=== PATIENT | male | born 1940 | race Caucasian/White ===

== ENCOUNTER 2016-10-17 12:04 | Outpatient (CLI) ==
[2014-09-07 19:56] VITALS: BMI 4979.6
[2016-10-17 13:39] LABS: BASOPHILS % (AUTO) 0.6 % (0.0-3.0); EOSINOPHILS # (AUTO) 0.1 K/ul (0.0-0.7); EOSINOPHILS % (AUTO) 2.1 % (0.0-7.0); HEMATOCRIT 44.5 % (42.0-52.0); HEMOGLOBIN 14.8 g/dl (14.0-18.0); IMMATURE GRANULOCYTE % (AUTO) 0.6 % (0.0-5.0); LYMPHOCYTES # (AUTO) 1.4 K/uL (0.60-3.4); LYMPHOCYTES % (AUTO) 27.1 (10.0-50.0); MEAN CORPUSCULAR HEMOGLOBIN 31.5 pg (27.0-31.0); MEAN CORPUSCULAR HGB CONC 33.3 (31.8-35.4); MEAN CORPUSCULAR VOLUME 94.7 fl (80.0-94.0); MONOCYTES # (AUTO) 0.5 K/uL (0.4-2.0); MONOCYTES % (AUTO) 10.4 (0-10); NEUTROPHILS % (AUTO) 59.2; PLATELET COUNT 137 10^3/uL (140-440); WHITE BLOOD COUNT 5.12 K/ul (4.2-10.2)
[2016-10-17 13:50] LABS: ALBUMIN 3.8 g/dL (3.4-5.0); ALBUMIN/GLOBULIN RATIO 1.31; ANION GAP 17.2; BILIRUBIN,TOTAL 0.68 mg/dL (0.00-1.20); BUN/CREATININE RATIO 15.95; CALCIUM 9.7 mg/dL (8.2-10.2); CHOL/HDL RATIO 4.8 (4.5-6.4); CREATININE 0.94 mg/dL (0.60-1.10); POTASSIUM 4.2 mmol/L (3.5-5.1); TOTAL PROTEIN 6.7 g/dL (5.8-8.1)
[2016-10-17 14:09] LABS: BILIRUBIN,URINE Negative (NEGATIVE); KETONES,URINE 1+ (NEGATIVE); LEUKOCYTE ESTERASE ,URINE Negative (NEGATIVE); NITRITE,URINE Negative (NEGATIVE); PH,URINE 5.5 (5-9); PROTEIN,URINE 2+ (NEGATIVE); URINE, BLOOD Negative (NEGATIVE)
[2016-10-17 14:23] LABS: ADD URINE MICROSCOPIC YES
== END 2016-10-17 12:05 | disposition home or self-care (01) ==
LOC: LAB 12:04
PROVIDERS: ATTEND General Practice
DX: E11.40 Type 2 diabetes mellitus with diabetic neuropathy, unspecified (principal); G62.9 Polyneuropathy, unspecified; I10 Essential (primary) hypertension; K21.9 Gastro-esophageal reflux disease without esophagitis; N18.9 Chronic kidney disease, unspecified; H81.10 Benign paroxysmal vertigo, unspecified ear; N40.0 Benign prostatic hyperplasia without lower urinary tract symptoms; E03.9 Hypothyroidism, unspecified; G47.33 Obstructive sleep apnea (adult) (pediatric); D64.9 Anemia, unspecified; Z79.899 Other long term (current) drug therapy
CPT/HCPCS: 36415; 80053; 80061; 81001; 83036; 85025

== ENCOUNTER 2016-10-20 13:09 | Outpatient (CLI) ==
[2014-09-07 19:56] VITALS: BMI 4979.6
--- NOTE | 2016-10-23 08:18 | HOLTER ---
PATIENT INFORMATION AND COMMENTS Indications: IRREGULAR HEARTBEAT __ Patient Medications: COREG, SYNTHROID, COZAAR, POTASSIUM CHLORIDE, INFUVITE, FLOMAX __ Pre-procedure Summary: Protocol: Standard Heart Rate Started: 10/20/16 1325 Minimum: 60/MIN Weight: 276 LBS Ended: 10/21/16 1325 Maximum: 151/MIN Height: 72" Duration: 24 HOURS Average: 95/MIN _ INTERPRETATIONS/OBSERVATIONS: 1. BASIC RHYTHM: SINUS TO A-FIB, A-FIB/SUPRAVENTRICULAR TACHYCARDIA INTERMITTENTLY WITH SINUS RHYTHM NOTED, RATE 60/MINUTE TO 150/MINUTE, AVERAGE 95 /MINUTE 2. FEW PVC'S AND FREQUENT PAC'S 3. NO PAUSES GREATER THAN 1.[address]-T WAVE CHANGES FROM BASELINE 5. ACTIVITY LOG NOT MAINTAINED MTDD
== END 2016-10-20 13:10 | disposition home or self-care (01) ==
LOC: CAR 13:09
PROVIDERS: ATTEND General Practice
DX: I49.9 Cardiac arrhythmia, unspecified (principal)

== ENCOUNTER 2016-11-13 12:03 | Outpatient (CLI) ==
[2014-09-07 19:56] VITALS: BMI 4979.6
--- NOTE | 2016-11-13 14:35 | DI ---
EXAM: PA and lateral views of the chest HISTORY: Cough. COMPARISON: None FINDINGS: The cardiomediastinal silhouette is normal with calcified hilar lymph nodes. There is no pneumothorax or pleural effusion. There is no consolidation, nodule or mass. There is central and small airway thickening. The osseous structures demonstrate scattered degenerative disease. IMPRESSION: Central and small airway thickening consistent with bronchitis bronchiolitis.
== END 2016-11-13 12:04 | disposition home or self-care (01) ==
LOC: RAD 12:03
PROVIDERS: ATTEND General Practice
DX: R05 Cough (principal)

== ENCOUNTER 2017-03-09 09:41 | Outpatient (CLI) ==
[2014-09-07 19:56] VITALS: BMI 4979.6
[2017-03-09 12:55] LABS: ADD URINE MICROSCOPIC YES; BILIRUBIN,URINE Negative (NEGATIVE); KETONES,URINE Negative (NEGATIVE); LEUKOCYTE ESTERASE ,URINE Negative (NEGATIVE); NITRITE,URINE Negative (NEGATIVE); PROTEIN,URINE 2+ (NEGATIVE); URINE, BLOOD Negative (NEGATIVE)
[2017-03-09 12:59] LABS: BASOPHILS % (AUTO) 0.4 % (0.0-3.0); EOSINOPHILS # (AUTO) 0.1 K/ul (0.0-0.7); EOSINOPHILS % (AUTO) 1.8 % (0.0-7.0); HEMATOCRIT 45.6 % (42.0-52.0); HEMOGLOBIN 15.8 g/dl (14.0-18.0); IMMATURE GRANULOCYTE % (AUTO) 0.9 % (0.0-5.0); LYMPHOCYTES # (AUTO) 1.4 K/uL (0.60-3.4); LYMPHOCYTES % (AUTO) 26.2 (10.0-50.0); MEAN CORPUSCULAR HGB CONC 34.6 (31.8-35.4); MEAN CORPUSCULAR VOLUME 92.5 fl (80.0-94.0); MONOCYTES # (AUTO) 0.5 K/uL (0.4-2.0); MONOCYTES % (AUTO) 9.3 (0-10); NEUTROPHILS # (AUTO) 3.4 K/ul (2.0-6.9); NEUTROPHILS % (AUTO) 61.4; PLATELET COUNT 169 10^3/uL (140-440); RED BLOOD COUNT 4.93 10^6/ul (4.70-6.10)
[2017-03-09 13:35] LABS: ALBUMIN 3.9 g/dL (3.4-5.0); ALBUMIN/GLOBULIN RATIO 1.26; ANION GAP 14.4; BILIRUBIN,TOTAL 1.05 mg/dL (0.00-1.20); BUN/CREATININE RATIO 13.04; CALCIUM 9.8 mg/dL (8.2-10.2); CHOL/HDL RATIO 5.1 (4.5-6.4); CREATININE 1.15 mg/dL (0.60-1.10); POTASSIUM 3.4 mmol/L (3.5-5.1)
== END 2017-03-09 09:42 | disposition home or self-care (01) ==
LOC: LAB 09:41
PROVIDERS: ATTEND General Practice
DX: I10 Essential (primary) hypertension (principal); I48.0 Paroxysmal atrial fibrillation; N18.9 Chronic kidney disease, unspecified; D64.9 Anemia, unspecified; E03.9 Hypothyroidism, unspecified; E11.40 Type 2 diabetes mellitus with diabetic neuropathy, unspecified; G47.33 Obstructive sleep apnea (adult) (pediatric); H81.10 Benign paroxysmal vertigo, unspecified ear; N40.0 Benign prostatic hyperplasia without lower urinary tract symptoms; Z79.899 Other long term (current) drug therapy
CPT/HCPCS: 36415; 80053; 80061; 81001; 85025

== ENCOUNTER 2017-07-06 12:39 | Outpatient (CLI) ==
[2014-09-07 19:56] VITALS: BMI 4979.6
[2017-07-06 12:53] LABS: BASOPHILS # (AUTO) 0.1 K/uL (0-0.2); BASOPHILS % (AUTO) 0.8 % (0.0-3.0); BILIRUBIN,URINE Negative (NEGATIVE); EOSINOPHILS # (AUTO) 0.2 K/ul (0.0-0.7); EOSINOPHILS % (AUTO) 2.5 % (0.0-7.0); HEMATOCRIT 44.2 % (42.0-52.0); HEMOGLOBIN 15.6 g/dl (14.0-18.0); IMMATURE GRANULOCYTE % (AUTO) 0.6 % (0.0-5.0); KETONES,URINE Trace (NEGATIVE); LEUKOCYTE ESTERASE ,URINE Negative (NEGATIVE); LYMPHOCYTES # (AUTO) 1.6 K/uL (0.60-3.4); LYMPHOCYTES % (AUTO) 25.2 (10.0-50.0); MEAN CORPUSCULAR HEMOGLOBIN 32.7 pg (27.0-31.0); MEAN CORPUSCULAR HGB CONC 35.3 (31.8-35.4); MEAN CORPUSCULAR VOLUME 92.7 fl (80.0-94.0); MONOCYTES # (AUTO) 0.6 K/uL (0.4-2.0); MONOCYTES % (AUTO) 9.6 (0-10); NEUTROPHILS % (AUTO) 61.3; NITRITE,URINE Negative (NEGATIVE); PLATELET COUNT 144 10^3/uL (140-440); PROTEIN,URINE 2+ (NEGATIVE); RED BLOOD COUNT 4.77 10^6/ul (4.70-6.10); URINE, BLOOD Negative (NEGATIVE); WHITE BLOOD COUNT 6.46 K/ul (4.2-10.2)
[2017-07-06 13:02] LABS: ADD URINE MICROSCOPIC YES
[2017-07-06 13:21] LABS: ALBUMIN 3.9 g/dL (3.4-5.0); ALBUMIN/GLOBULIN RATIO 1.18; ANION GAP 13.9; BILIRUBIN,TOTAL 0.59 mg/dL (0.00-1.20); BUN/CREATININE RATIO 12.5; CALCIUM 9.9 mg/dL (8.2-10.2); CHOL/HDL RATIO 5.9 (4.5-6.4); CREATININE 1.12 mg/dL (0.60-1.10); POTASSIUM 3.9 mmol/L (3.5-5.1); TOTAL PROTEIN 7.2 g/dL (5.8-8.1)
== END 2017-07-06 12:40 | disposition home or self-care (01) ==
LOC: LAB 12:39
PROVIDERS: ATTEND General Practice
DX: E11.40 Type 2 diabetes mellitus with diabetic neuropathy, unspecified (principal); I10 Essential (primary) hypertension; N18.9 Chronic kidney disease, unspecified; E03.9 Hypothyroidism, unspecified; K21.9 Gastro-esophageal reflux disease without esophagitis; D64.9 Anemia, unspecified; Z79.899 Other long term (current) drug therapy; N40.0 Benign prostatic hyperplasia without lower urinary tract symptoms; Z12.5 Encounter for screening for malignant neoplasm of prostate
CPT/HCPCS: 36415; 80053; 80061; 81001; 83036; 84443; 85025

== ENCOUNTER 2017-07-19 07:39 | Day surgery (SDC) ==
[2014-09-07 19:56] VITALS: BMI 4979.6
[2017-07-19] MEDS ORDERED: LIDOCAINE 1% 20 ML MDV ID ONE (09:25)
[2017-07-19] MEDS ORDERED: NEOSPORIN OINT 0.9 GM PACKET TP ONE ×2 (09:46)
[2017-07-19 10:39] VITALS: BP 176/82; TEMP 98.6
--- NOTE | 2017-07-19 10:59 | DI ---
EXAM: Two-view chest HISTORY: Upper extremity numbness COMPARISON: Two-view chest 11/13/2016 FINDINGS: The cardiomediastinal silhouette is stable. There are benign granulomatous changes. There is no evidence of infiltrate or effusion. Degenerative changes are seen in the mid dorsal spine. IMPRESSION: No interval change or active pulmonary disease.
--- NOTE | 2017-07-24 11:10 | OP ---
DATE OF PROCEDURE: 07/19/17 77 year old male was seen at the office 07/18/17 for regular followup. The patient during the course of the examination was complaining of some oozing from behind the right ear. Inspection did show a lesion that was scabbing. The scab was removed and the lesion began bleeding. The lesion appears to be longer on the longitudinal direction. He also had a mass in the left dorsal surface hand lateral which is firm and moveable. He would it removed. This patient was advised about the possibility of infection as well excessive scar formation. The patient had a good understanding. 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 Further treatment will depend upon the histological diagnosis as well the margins. 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 The right ear lesion was excised initial. The electrical assistant was holding the ear and the area was anesthetized. The lesion is longer and the longitudinal direction and it was decided to do the procedure on a longitudinal elliptical incision. The lesion was excepted sharply until it was complete dissected. The edges were then approximated with 5-0 Prolene. No subcutaneous tissues was inserted.4x4 gauze was put in place temporarily and the area on the left hand was then prepped and draped and anesthetized and the incision was then made in a transverse elliptical direction carried in the subcutaneous tissue. The dissection was carried sharply until the full lesion was completely removed. The edges were then approximated with 4-0 Vicryl and 5-0 Prolene. The patient tolerated the procedure well and was ambulatory without any dizziness at discharge. The patient is to see me in one week and before if there is any problem. MIMI
== END 2017-07-19 10:20 | disposition home or self-care (01) ==
LOC: SURG 07:39
PROVIDERS: ATTEND General Practice
DX: C44.212 Basal cell carcinoma of skin of right ear and external auricular canal (principal); L72.0 Epidermal cyst; R20.0 Anesthesia of skin; L81.9 Disorder of pigmentation, unspecified
CPT/HCPCS: 11422; 11642

== ENCOUNTER 2017-11-16 10:15 | Outpatient (CLI) ==
[2014-09-07 19:56] VITALS: BMI 4979.6
== END 2017-11-16 10:16 | disposition home or self-care (01) ==
LOC: LAB 10:15
PROVIDERS: ATTEND General Practice
DX: I10 Essential (primary) hypertension (principal); N18.9 Chronic kidney disease, unspecified; E03.9 Hypothyroidism, unspecified; E11.40 Type 2 diabetes mellitus with diabetic neuropathy, unspecified; Z79.899 Other long term (current) drug therapy
CPT/HCPCS: 36415; 80053; 80061; 81001; 83036; 85025

== ENCOUNTER 2018-04-04 10:27 | Outpatient (CLI) ==
[2014-09-07 19:56] VITALS: BMI 4979.6
== END 2018-04-04 10:28 | disposition home or self-care (01) ==
LOC: FCC-LAB 10:27
PROVIDERS: ATTEND General Practice
DX: E03.9 Hypothyroidism, unspecified (principal); I10 Essential (primary) hypertension; E11.40 Type 2 diabetes mellitus with diabetic neuropathy, unspecified; E78.1 Pure hyperglyceridemia; D64.9 Anemia, unspecified; N18.2 Chronic kidney disease, stage 2 (mild); Z79.899 Other long term (current) drug therapy; Z78.9 Other specified health status
CPT/HCPCS: 36415; 80053; 80061; 81001; 83036; 85025

== ENCOUNTER 2018-04-10 10:39 | Outpatient (CLI) ==
[2014-09-07 19:56] VITALS: BMI 4979.6
--- NOTE | 2018-04-10 11:16 | DI ---
EXAM: Radiographs, cervical spine HISTORY: Skin anesthesia. COMPARISON: None available. TECHNIQUE: Five views. FINDINGS: There is approximately 0.4 cm retrolisthesis of C3 on C4 and 0.2 cm anterolisthesis of C2- 1, C3. Alignment is otherwise normal. There is moderate loss of disc height at C3-4. Disc heights are otherwise preserved. Vertebral body heights are normal without fracture. Moderate multilevel en dplate osteophyte formation, uncovertebral hypertrophy and facet arthropathy noted. Prevertebral sof t tissues are unremarkable. Airway is normal in caliber. No abnormality seen in the lung apices. IMPRESSION: Moderate multilevel degenerative changes. Correlate with MRI if further evaluation is needed.
== END 2018-04-10 10:40 | disposition home or self-care (01) ==
LOC: RAD 10:39
PROVIDERS: ATTEND General Practice
DX: R20.0 Anesthesia of skin (principal)

== ENCOUNTER 2018-09-27 14:51 | Outpatient (CLI) ==
[2018-09-06 15:20] VITALS: BMI 38.8
--- NOTE | 2018-09-27 15:34 | DI ---
EXAM: Two views of the chest. History: Cough. Comparison: Chest radiograph 07/19/2017, chest CT 09/06/2018 Findings: Heart is enlarged. Right lower lobe infiltrate and small right pleural effusion. No pneu mothorax. No acute osseous abnormalities. Calcified granulomas seen within the thorax. Emphysema. Impression: Right lower lobe pneumonia and small right pleural effusion. Cardiomegaly
== END 2018-09-27 14:52 | disposition home or self-care (01) ==
LOC: RAD 14:51
PROVIDERS: ATTEND General Practice
DX: R05 Cough (principal); R06.02 Shortness of breath; R09.81 Nasal congestion; N18.2 Chronic kidney disease, stage 2 (mild); I10 Essential (primary) hypertension; Z79.899 Other long term (current) drug therapy
CPT/HCPCS: 36415; 83880; 87502; 87801

== ENCOUNTER 2018-12-05 10:03 | Outpatient (CLI) ==
[2018-09-06 15:20] VITALS: BMI 38.8
--- NOTE | 2018-12-05 14:08 | CT ---
EXAM: CT chest without contrast HISTORY: Follow up pulmonary nodule COMPARISON: CT chest 09/06/2018 TECHNIQUE: Serial axial images of the chest were obtained from the lung apices to the upper abdomen without contrast. These were viewed in multiple planes. FINDINGS: The thyroid is normal. The visualized vessels demonstrate moderate atherosclerotic diseas e. The pulmonary arteries are prominent. The heart is mildly enlarged without pericardial fluid. T here are no enlarged mediastinal or hilar lymph nodes. There are calcified right hilar lymph nodes p resent. No axillary nodes are present. There is no pneumothorax. Pleural-based partially calcified mass in the right lung apex measures angle roximately 1.4 cm and is relatively unchanged from prior exam. There is scattered emphysema. There is mild nodular ground-glass in the right upper lobe as seen on image 23. There are interstitial ret icular opacities in the right lung base with minimal improvement in consolidation from prior exam.. The airways are patent. The soft tissues in the upper abdomen on this limited evaluation demonstrate calcified granulomas of the spleen. There is degenerative disease throughout the thoracic spine. IMPRESSION: 1. No significant change in the right apical pleural base mass. Neoplasm cannot be excluded. PET-C T versus tissue sampling or follow-up CT may be obtained to further evaluate. 2. There is interstitial reticular opacities and emphysematous change in the lungs with patchy groun d-glass in the right lower lobe improving and minimal nodular ground-glass developing in the right up per lobe. Findings are suggestive of component of atypical infection versus inflammation.
== END 2018-12-05 10:04 | disposition home or self-care (01) ==
LOC: RAD 10:03
PROVIDERS: ATTEND Internal Medicine Pulmonary Disease
DX: R91.1 Solitary pulmonary nodule (principal)

== ENCOUNTER 2019-01-31 08:50 | Outpatient (CLI) | payer OTHER ==
[2018-09-06 15:20] VITALS: BMI 38.8
== END 2019-01-31 08:51 | disposition home or self-care (01) ==
LOC: RHC-LAB 08:50
PROVIDERS: ATTEND General Practice
DX: E11.40 Type 2 diabetes mellitus with diabetic neuropathy, unspecified (principal); E78.1 Pure hyperglyceridemia; N18.2 Chronic kidney disease, stage 2 (mild); D64.9 Anemia, unspecified; Z79.899 Other long term (current) drug therapy
CPT/HCPCS: 36415; 80053; 80061; 81001; 83036; 84443; 85025

== ENCOUNTER 2020-12-08 09:15 | Inpatient (IN) ==
[2020-12-08] MEDS ORDERED: LASIX IVP STA (09:34)
[2020-12-08] MEDS ORDERED: VENTOLIN HFA (PER PUFF-WITH SPACER) IH STA (09:39)
[2020-12-08] MEDS ORDERED: ATROVENT HFA INHALER (PER PUFF-WITH SPACER) IH STA (09:39)
[2020-12-08] MEDS ORDERED: SOLU-MEDROL 125 MG IVP STA (09:39)
[2020-12-08 09:52] LABS: ABG PH 7.46 (7.35-7.45)
[2020-12-08 10:24] LABS: BASOPHILS % (AUTO) 0.2 % (0.0-3.0); HEMATOCRIT 29.9 % (42.0-52.0); HEMOGLOBIN 9.4 g/dl (14.0-18.0); IMMATURE GRANULOCYTE # (AUTO) 0.1 (0.0-1.0); IMMATURE GRANULOCYTE % (AUTO) 0.7 % (0.0-5.0); LYMPHOCYTES # (AUTO) 0.6 K/uL (0.60-3.4); LYMPHOCYTES % (AUTO) 7.2 (10.0-50.0); MEAN CORPUSCULAR HEMOGLOBIN 27.7 pg (27.0-31.0); MEAN CORPUSCULAR HGB CONC 31.4 (31.8-35.4); MEAN CORPUSCULAR VOLUME 88.2 fl (80.0-94.0); MONOCYTES # (AUTO) 0.7 K/uL (0.4-2.0); MONOCYTES % (AUTO) 8.6 (0-10); NEUTROPHILS # (AUTO) 6.9 K/ul (2.0-6.9); NEUTROPHILS % (AUTO) 83.3 % (42.2-75.2); PLATELET COUNT 207 10^3/uL (140-440); RDW COEFFICIENT OF VARIATION 18.2 % (11.6-14.8); RED BLOOD COUNT 3.39 10^6/ul (4.70-6.10); WHITE BLOOD COUNT 8.29 K/ul (4.2-10.2)
[2020-12-08 10:31] LABS: ALBUMIN 3.8 g/dL (3.5-5.0); BILIRUBIN,TOTAL 0.9 mg/dL (0.2-1.3); CALCIUM 9.2 mg/dL (8.4-10.2); CREATININE 1.3 mg/dL (0.60-1.10); TOTAL PROTEIN 6.7 g/dL (6.3-8.2)
[2020-12-08 11:08] LABS: BILIRUBIN,URINE Negative (NEGATIVE); CLARITY,URINE Clear (CLEAR); COLOR,URINE Yellow (YELLOW); GLUCOSE, URINE (UA) Negative (NEGATIVE); KETONES,URINE Negative (NEGATIVE); LEUKOCYTE ESTERASE ,URINE Negative (NEGATIVE); NITRITE,URINE Negative (NEGATIVE); PROTEIN,URINE Negative (NEGATIVE); URINE, BLOOD Negative (NEGATIVE); UROBILINOGEN,URINE 0.2 (0.2)
[2020-12-08 11:17] LABS: AMPHETAMINE SCREEN,URINE NEGATIVE (NEGATIVE); BARBITURATE SCREEN,URINE NEGATIVE (NEGATIVE); BENZODIAZEPINES SCREEN,URINE NEGATIVE (NEGATIVE); CANNABINOID SCREEN,URINE NEGATIVE (NEGATIVE); COCAIN SCREEN,URINE NEGATIVE (NEGATIVE); METHADONE URINE SCREEN NEGATIVE (NEGATIVE); METHAMPHETAMINES SCREEN,URINE NEGATIVE (NEGATIVE); OPIATE SCREEN,URINE NEGATIVE (NEGATIVE); OXYCODONE URINE SCREEN NEGATIVE (NEGATIVE); PHENCYCLIDINE SCREEN,URINE NEGATIVE (NEGATIVE); PROPOXYPHENE URINE SCREEN NEGATIVE (NEGATIVE); TRICYCLIC ANTIDEPRESSANTS URIN NEGATIVE (NEGATIVE)
--- NOTE | 2020-12-08 11:34 | ED.PDOC ---
General ED Provider: Dr. RUBEN LEVY MD Chief Complaint: Shortness of Air Stated Complaint: increasing SOB x 6 days. no documented fever. also wheezing and ankle edema Time Seen by Provider: 12/08/20 09:20 Mode of Arrival: Wheelchair Information Source: Patient Exam Limitations: No limitations Primary Care Provider: EULALIA MAX APRN, FLOYD- Nursing and Triage Documentation Reviewed and Agree: Yes Does patient meet sepsis criteria?: No System Inflammatory Response Syndrome: Not Applicable Sepsis Protocol: For patient's 13 years and over: Temp is 96.8 and below OR 101 and greater Pulse >90 BPM Resp >20/minute Acutely Altered Mental Status Are patient's symptoms suggestive of a new infection, such as: -Pneumonia -Skin, Soft Tissue -Endocarditis -UTI -Bone, Joint Infection -Implantable Device -Acute Abdominal Infection -Wound Infection -Meningitis -Blood Stream Catheter Infection -Unknown Respiratory Complaint Exam Shortness of Air Complaint/Exam Onset/Duration: 6 days. Symptoms Are: Still present Timing: Constant Initial Severity: Mild Current Severity: Moderate Character: Reports Dyspnea at rest Aggravating: Reports None Alleviating: Reports None Associated Signs and Symptoms: Reports Wheezing, Chest pain with cough and Labored breathing History of Healthcare-Acquired Pneumonia: No Home Oxygen Use: No Recent Echo/LV Function: No Respiratory Distress: Mild Stridor Present: No Tracheal Deviation: No Subcutaneous Emphysema: No Accessory Muscle Use: Yes Retractions: Intercostal Diminished Breath Sounds: No Fatigue: No Leg Swelling: Yes Alexandro's Sign Present: No Kussmaul Respirations: No Differential Diagnoses: Airway Obstruction, Asthma, CHF, COPD Exacerbation, Pneumonia, Bronchitis, Bronchospasm and URI Review of Systems Review Of Systems Constitutional: Reports No symptoms Eyes: Reports No symptoms Ears, Nose, Mouth, Throat: Reports No symptoms Respiratory: Reports Cough, Short of air and Wheezing Cardiac: Reports Chest pain GI: Reports No symptoms : Reports No symptoms Musculoskeletal: Reports Other (leg edema) Skin: Reports No symptoms Neurological: Reports No symptoms Endocrine: Reports No symptoms Hematologic/Lymphatic: Reports No symptoms All Other Systems: Reviewed and Negative FORMERLY [facility] Medical History Benign positional vertigo Chronic kidney disease Contact with and (suspected) exposure to covid-19 Cough COVID-19 vaccine series started Gastroesophageal reflux disease Hypertension Hypothyroidism Obstructive sleep apnea Prostatic hypertrophy Seasonal allergies Shortness of breath Skin lesions Supraumbilical hernia Type II diabetes mellitus Family History Mother No problems noted. FATHER Cancer BROTHER Alcoholism Cancer Social History Smoking and tobacco status: Former smoker Alcohol intake: current Alcohol intake frequency: 3 or more drinks per day Alcohol type: hard liquor Substance use type: does not use Adopted: No Caregiver/support person: No Foster care: No Household members: none Housing: house Marital status: W / Lives independently: Yes Daycare: no daycare Number of children: 3 Number of grandchildren: 1 Highest education level completed: Bachelor's degree Financial difficulty paying for basics: not very hard service: Yes branch: [employer] half-way: No History of recent travel: No Sexually active: No Do you think of yourself as: straight/heterosexual Current gender identity: male Seatbelt use: always Helmet use: No Drives intoxicated or rides with intoxicated mixer driver: No Water heater temperature set < 120 degrees: No Working smoke detector in home: Yes Fire extinguisher in home: Yes Carbon monoxide detector in home: Yes Firearms in home: Yes Firearms unloaded and locked: Yes Surgical History Cataract extraction and insertion of intraocular lens (~1999) History of joint surgery (~1999) Status post hernia repair Physical Exam Physical Exam Appearance: Reports Ill-appearing and Obese; Denies Well-appearing Ill-appearing: Mild Pain Distress: None Eyes: Reports DEWEY, EOMI and Conjunctiva clear ENT: Reports Ears normal, Nose normal and Oropharynx normal Neck: Supple Respiratory: Reports Airway patent, Breath sounds equal, Crackles, Rhonchi, Wheezes and Retractions Cardiovascular: Reports RRR, Pulses normal, No rub and No murmur GI/: Reports Soft, Nontender, No masses, Bowel sounds normal and No Organomegaly Musculoskeletal: Reports Normal strength, ROM intact, No calf tenderness and Edema Skin: Reports Warm, Dry and Normal color Neurological: Reports Sensation intact, Motor intact, Reflexes intact, Cranial nerves intact, Alert and Oriented Psychiatric: Reports Affect appropriate and Mood appropriate Interpretation Radiology Interpretation Radiology Interpretation By: Radiologist Exam Interpreted: CT Scan EKG Interpretation Time of EKG #1: 09:29 Rate: Normal Rhythm: Sinus Ectopy: PACs Jackson: NL ST Segment: Normal Interpretation: no acute ST or T wave changes. Re-Evaluation Re-Evaluation Time of Re-Evaluation: 10:32 Status: Unchanged Vital Signs Stable: Yes Pain Level: 1 Appearance: NAD Lungs: Other (mild wheezes and rhonchi) Skin: Warm and Dry Neuro: Alert and Oriented X3 CV: RRR Critical Care Note Critical Care Note Total Critical Care Time (mins): 30 Course Course Hematology/Chemistry: 12/08/20 10:05 12/08/20 10:05 Orders, Labs, Meds: Lab Review 12/08/20 12/08/20 12/08/20 09:47 10:05 10:05 WBC 8.29 RBC 3.39 L Hgb 9.4 L Hct 29.9 L MCV 88.2 MCH 27.7 MCHC 31.4 L RDW Coeff of Simi 18.2 H Plt Count 207 Immature Gran % (Auto) 0.7 Neut % (Auto) 83.3 H Lymph % (Auto) 7.2 L Towner % (Auto) 8.6 Eos % (Auto) 0.0 Baso % (Auto) 0.2 Neut # (Auto) 6.9 Lymph # (Auto) 0.6 Towner # (Auto) 0.7 Eos # (Auto) 0.0 Baso # (Auto) 0.0 Immature Gran # (Auto) 0.1 Puncture Site Rr Base Excess 6.8 H O2 Saturation 87.2 L ABG pH 7.46 H ABG pCO2 43.0 ABG pO2 50.0 L* ABG HCO3 30.6 H ABG Total CO2 31.9 H Guevara Test Y Hemoglobin 0.9 Oxyhemoglobin 83.5 L Carboxyhemoglobin 2.9 H Total Hemoglobin 9.6 L FiO2 % 21.0 Sodium 137.0 Potassium 4.00 Chloride 97.0 L Carbon Dioxide 29.0 Anion Gap 15.00 BUN 24.0 H Creatinine 1.30 H Estimated GFR (MDRD) 53.00 BUN/Creatinine Ratio 18.46 Glucose 188.0 H Lactic Acid Calcium 9.20 Ferritin Total Bilirubin 0.90 AST 54.0 ALT 46.0 Alkaline Phosphatase 77.0 POC Venous Troponin I Troponin I 0.040 NT-Pro-B Natriuret Pep Total Protein 6.70 Albumin 3.80 Globulin 2.90 Albumin/Globulin Ratio 1.31 Urine Color Urine Clarity Urine pH Ur Specific [place] Urine Protein Urine Glucose (UA) Urine Ketones Urine Blood Urine Nitrite Urine Bilirubin Urine Urobilinogen Ur Leukocyte Esterase Urine Opiates Screen Ur Oxycodone Screen Urine Methadone Screen Ur Propoxyphene Screen Ur Barbiturates Screen U Tricyclic Antidepress Ur Phencyclidine Scrn Ur Amphetamine Screen U Methamphetamines Scrn U Benzodiazepines Scrn Urine Cocaine Screen U Cannabinoids Screen Plasma/Serum Alcohol Adenovirus (PCR) B. pertussis DNA (PCR) B.parapertussis DNA PCR C. pneumoniae DNA (PCR) Coronavirus OC43 (PCR) Coronavirus HKU1 (PCR) Coronavirus 229E (PCR) Coronavirus NL63 (PCR) Human Metapneumovir PCR Influenza Type A (PCR) Influenza B (RT-PCR) M. pneumoniae (PCR) Parainfluenza 1 (PCR) Parainfluenza 2 (PCR) Parainfluenza 3 (PCR) Parainfluenza 4 (PCR) RSV (PCR) Entero/Rhino (PCR) SARS-CoV-2 (PCR) 12/08/20 12/08/20 12/08/20 10:05 10:05 10:05 WBC RBC Hgb Hct MCV MCH MCHC RDW Coeff of Simi Plt Count Immature Gran % (Auto) Neut % (Auto) Lymph % (Auto) Towner % (Auto) Eos % (Auto) Baso % (Auto) Neut # (Auto) Lymph # (Auto) Towner # (Auto) Eos # (Auto) Baso # (Auto) Immature Gran # (Auto) Puncture Site Base Excess O2 Saturation ABG pH ABG pCO2 ABG pO2 ABG HCO3 ABG Total CO2 Guevara Test Hemoglobin Oxyhemoglobin Carboxyhemoglobin Total Hemoglobin FiO2 % Sodium Potassium Chloride Carbon Dioxide Anion Gap BUN Creatinine Estimated GFR (MDRD) BUN/Creatinine Ratio Glucose Lactic Acid 1.30 Calcium Ferritin 27.60 Total Bilirubin AST ALT Alkaline Phosphatase POC Venous Troponin I Troponin I NT-Pro-B Natriuret Pep 4280.000 H Total Protein Albumin Globulin Albumin/Globulin Ratio Urine Color Urine Clarity Urine pH Ur Specific [place] Urine Protein Urine Glucose (UA) Urine Ketones Urine Blood Urine Nitrite Urine Bilirubin Urine Urobilinogen Ur Leukocyte Esterase Urine Opiates Screen Ur Oxycodone Screen Urine Methadone Screen Ur Propoxyphene Screen Ur Barbiturates Screen U Tricyclic Antidepress Ur Phencyclidine Scrn Ur Amphetamine Screen U Methamphetamines Scrn U Benzodiazepines Scrn Urine Cocaine Screen U Cannabinoids Screen Plasma/Serum Alcohol Adenovirus (PCR) Not detected B. pertussis DNA (PCR) Not detected B.parapertussis DNA PCR Not detected C. pneumoniae DNA (PCR) Not detected Coronavirus OC43 (PCR) Not detected Coronavirus HKU1 (PCR) Not detected Coronavirus 229E (PCR) Not detected Coronavirus NL63 (PCR) Not detected Human Metapneumovir PCR Not detected Influenza Type A (PCR) Not detected Influenza B (RT-PCR) Not detected M. pneumoniae (PCR) Not detected Parainfluenza 1 (PCR) Not detected Parainfluenza 2 (PCR) Not detected Parainfluenza 3 (PCR) Not detected Parainfluenza 4 (PCR) Not detected RSV (PCR) Not detected Entero/Rhino (PCR) Not detected SARS-CoV-2 (PCR) Not detected 12/08/20 12/08/20 12/08/20 10:05 10:05 10:52 WBC RBC Hgb Hct MCV MCH MCHC RDW Coeff of Simi Plt Count Immature Gran % (Auto) Neut % (Auto) Lymph % (Auto) Towner % (Auto) Eos % (Auto) Baso % (Auto) Neut # (Auto) Lymph # (Auto) Towner # (Auto) Eos # (Auto) Baso # (Auto) Immature Gran # (Auto) Puncture Site Base Excess O2 Saturation ABG pH ABG pCO2 ABG pO2 ABG HCO3 ABG Total CO2 Guevara Test Hemoglobin Oxyhemoglobin Carboxyhemoglobin Total Hemoglobin FiO2 % Sodium Potassium Chloride Carbon Dioxide Anion Gap BUN Creatinine Estimated GFR (MDRD) BUN/Creatinine Ratio Glucose Lactic Acid Calcium Ferritin Total Bilirubin AST ALT Alkaline Phosphatase POC Venous Troponin I 0.03 Troponin I NT-Pro-B Natriuret Pep Total Protein Albumin Globulin Albumin/Globulin Ratio Urine Color Yellow Urine Clarity Clear Urine pH 6.0 Ur Specific [place] 1.020 Urine Protein Negative Urine Glucose (UA) Negative Urine Ketones Negative Urine Blood Negative Urine Nitrite Negative Urine Bilirubin Negative Urine Urobilinogen 0.2 Ur Leukocyte Esterase Negative Urine Opiates Screen Ur Oxycodone Screen Urine Methadone Screen Ur Propoxyphene Screen Ur Barbiturates Screen U Tricyclic Antidepress Ur Phencyclidine Scrn Ur Amphetamine Screen U Methamphetamines Scrn U Benzodiazepines Scrn Urine Cocaine Screen U Cannabinoids Screen Plasma/Serum Alcohol 5.0 Adenovirus (PCR) B. pertussis DNA (PCR) B.parapertussis DNA PCR C. pneumoniae DNA (PCR) Coronavirus OC43 (PCR) Coronavirus HKU1 (PCR) Coronavirus 229E (PCR) Coronavirus NL63 (PCR) Human Metapneumovir PCR Influenza Type A (PCR) Influenza B (RT-PCR) M. pneumoniae (PCR) Parainfluenza 1 (PCR) Parainfluenza 2 (PCR) Parainfluenza 3 (PCR) Parainfluenza 4 (PCR) RSV (PCR) Entero/Rhino (PCR) SARS-CoV-2 (PCR) 12/08/20 10:52 WBC RBC Hgb Hct MCV MCH MCHC RDW Coeff of Simi Plt Count Immature Gran % (Auto) Neut % (Auto) Lymph % (Auto) Towner % (Auto) Eos % (Auto) Baso % (Auto) Neut # (Auto) Lymph # (Auto) Towner # (Auto) Eos # (Auto) Baso # (Auto) Immature Gran # (Auto) Puncture Site Base Excess O2 Saturation ABG pH ABG pCO2 ABG pO2 ABG HCO3 ABG Total CO2 Guevara Test Hemoglobin Oxyhemoglobin Carboxyhemoglobin Total Hemoglobin FiO2 % Sodium Potassium Chloride Carbon Dioxide Anion Gap BUN Creatinine Estimated GFR (MDRD) BUN/Creatinine Ratio Glucose Lactic Acid Calcium Ferritin Total Bilirubin AST ALT Alkaline Phosphatase POC Venous Troponin I Troponin I NT-Pro-B Natriuret Pep Total Protein Albumin Globulin Albumin/Globulin Ratio Urine Color Urine Clarity Urine pH Ur Specific [place] Urine Protein Urine Glucose (UA) Urine Ketones Urine Blood Urine Nitrite Urine Bilirubin Urine Urobilinogen Ur Leukocyte Esterase Urine Opiates Screen Negative Ur Oxycodone Screen Negative Urine Methadone Screen Negative Ur Propoxyphene Screen Negative Ur Barbiturates Screen Negative U Tricyclic Antidepress Negative Ur Phencyclidine Scrn Negative Ur Amphetamine Screen Negative U Methamphetamines Scrn Negative U Benzodiazepines Scrn Negative Urine Cocaine Screen Negative U Cannabinoids Screen Negative Plasma/Serum Alcohol Adenovirus (PCR) B. pertussis DNA (PCR) B.parapertussis DNA PCR C. pneumoniae DNA (PCR) Coronavirus OC43 (PCR) Coronavirus HKU1 (PCR) Coronavirus 229E (PCR) Coronavirus NL63 (PCR) Human Metapneumovir PCR Influenza Type A (PCR) Influenza B (RT-PCR) M. pneumoniae (PCR) Parainfluenza 1 (PCR) Parainfluenza 2 (PCR) Parainfluenza 3 (PCR) Parainfluenza 4 (PCR) RSV (PCR) Entero/Rhino (PCR) SARS-CoV-2 (PCR) Orders Category Date Time Status ABG DRAW REQUEST Stat CARDIO 12/08/20 09:35 Completed EKG-(ED ONLY) Stat CARDIO 12/08/20 09:34 Completed METERED DOSE INHALATION Routine CARDIO 12/08/20 09:40 Completed METERED DOSE INHALATION Routine CARDIO 12/08/20 14:43 Ordered OXYGEN Routine CARDIO 12/08/20 14:38 Ordered SPUTUM INDUCTION PRN CARDIO 12/08/20 14:45 Ordered ACTIVITY .BR with BRP CARE 12/08/20 14:39 Active INTAKE & OUTPUT Q8HR CARE 12/08/20 14:38 Active NPO REMINDER: IMAGING ONCE CARE 12/08/20 09:38 Completed REMINDER: Notify Provider if temp >101.5 PRN CARE 12/08/20 14:38 Active REMINDER:Breath Sounds&Sputum Production BID CARE 12/08/20 14:38 Active REMINDER:Notify Provider Pulse<60 or>130 PRN CARE 12/08/20 14:38 Active REMINDER:Notify if BP<90/60 or >170/110 PRN CARE 12/08/20 14:38 Active VITAL SIGNS Q8HR CARE 12/08/20 14:38 Active REGULAR DIET DIETARY 12/08/20 Dinner Ordered ABG COOX PRN LAB 12/08/20 14:45 Ordered ABG COOX Stat LAB 12/08/20 09:47 Completed ABG COOX Stat LAB 12/08/20 14:38 Ordered BLOOD ALCOHOL Stat LAB 12/08/20 10:05 Completed BLOOD CULTURE (ED ONLY) Stat LAB 12/08/20 10:00 Received CBC W/ AUTO DIFF Stat LAB 12/08/20 10:05 Completed COMPREHENSIVE METABOLIC PANEL Stat LAB 12/08/20 10:05 Completed DRUG SCREEN, URINE, RAPID Stat LAB 12/08/20 10:52 Completed FERRITIN Stat LAB 12/08/20 10:05 Completed LACTIC ACID Stat LAB 12/08/20 10:05 Completed NT-PROBNP Stat LAB 12/08/20 10:05 Completed RESPIRATORY PANEL 2.1 (PCR) Stat LAB 12/08/20 10:05 Completed TROPONIN I Stat LAB 12/08/20 10:05 Completed TROPONIN I Stat LAB 12/08/20 14:04 Ordered URINALYSIS C & S IF INDICATED Stat LAB 12/08/20 10:52 Completed Albuterol Inhaler(with Spacer) [Ventolin Hfa (Per Puff- MEDS 12/08/20 09:39 Discontinued with Spacer)] 2 puff IH ONCE STA Albuterol Inhaler(with Spacer) [Ventolin Hfa (Per Puff- MEDS 12/08/20 20:00 Ordered with Spacer)] 2 puff IH RTQID Azithromycin Inj [Zithromax] 500 mg MEDS 12/09/20 09:00 Ordered 0.9 % Sodium Chloride [Sodium Chloride] 250 ml IV DAILY Azithromycin [Zithromax] MEDS 12/08/20 13:42 Discontinued 500 mg PO ONCE STA Ceftriaxone/D5w 1 gm Premix [Rocephin 1 gm/50 ml D5w] MEDS 12/09/20 09:00 Ordered 1 gm in 50 ml IV DAILY Ceftriaxone/D5w 1 gm Premix [Rocephin 1 gm/50 ml D5w] MEDS 12/08/20 13:42 Discontinued 1 gm in 50 ml IV ONCE Furosemide [Lasix] MEDS 12/08/20 09:34 Discontinued 80 mg IVP ONCE STA Ipratropium Inhaler(Spacer) [Atrovent Hfa Inhaler (Per MEDS 12/08/20 09:39 Discontinued Puff-with Spacer)] 2 puff IH ONCE STA Ipratropium Inhaler(Spacer) [Atrovent Hfa Inhaler (Per MEDS 12/08/20 20:00 Ordered Puff-with Spacer)] 2 puff IH RTQID Methylprednisolone Sod Succ/Pf [Solu-Medrol 125 mg] MEDS 12/08/20 09:39 Disco ntinued 125 mg IVP ONCE STA Methylprednisolone Sod Succ/Pf [Solu-Medrol 125 mg] MEDS 12/08/20 15:00 Ordered 125 mg IVP Q6H Sodium Chloride 0.9% [Sodium Chloride] 1,000 ml MEDS 12/08/20 11:35 Active IV 125 mls/hr CT CHEST PE PROTOCOL Stat RADS 12/08/20 09:34 Completed Medications Generic Name Dose Route Start Last Admin Trade Name Emmanuel PRN Reason Stop Dose Admin Albuterol Sulfate 2 puff 12/08/20 20:00 Albuterol Sulfate (Ventolin Hfa) 18 Gm 1 Puff With Spacer IH RTQID [facility] Amlodipine Besylate 5 mg 12/09/20 09:00 Amlodipine Besylate 5 Mg Tablet PO DAILY BRIAN Furosemide 40 mg 12/08/20 15:00 Furosemide 40 Mg Tablet PO QDAY BRIAN Sodium Chloride 1,000 mls @ 125 mls/hr 12/08/20 11:35 Sodium Chloride IV 12/08/20 19:34 .Q8H STA CEFTRIAXONE/D5W 1 GM PREMIX 1 gm in 50 mls @ 75 mls/hr 12/09/20 09:00 Rocephin 1 Gm/50 Ml D5w IV 12/12/20 08:59 DAILY BRIAN Azithromycin 500 mg/ Sodium 250 mls @ 125 mls/hr 12/09/20 09:00 Chloride IV 12/11/20 10:59 DAILY [facility] Ipratropium [place] 2 puff 12/08/20 20:00 Ipratropium [place] 12.9 Gm Hfa Inhaler Per Puff With Spacer IH RTQID [facility] Methylprednisolone Sodium Succinate 125 mg 12/08/20 15:00 Methylprednisolone Sod Succ/Pf 125 Mg/2 Ml Vial IVP Q6H BRIAN Non-Formulary Medication 15 gm 12/08/20 21:00 Betamethasone Dipropionate TP BID BRIAN Non-Formulary Medication 145 mg 12/08/20 15:00 Fenofibrate Nanocrystallized [Tricor] PO QDAY BRIAN Non-Formulary Medication 1 applic 12/08/20 21:00 Fluocinonide TP BID [facility] Non-Formulary Medication 1 applic 12/08/20 14:49 Hydrocortisone [Anti-Itch (Hc)] TP BID PRN Dry Skin Discontinued Medications Generic Name Dose Route Start Last Admin Trade Name Emmanuel PRN Reason Stop Dose Admin Albuterol Sulfate 2 puff 12/08/20 09:39 12/08/20 10:06 Albuterol Sulfate (Ventolin Hfa) 18 Gm 1 Puff With Spacer IH 12/08/20 09:40 2 puff ONCE STA Administration Azithromycin 500 mg 12/08/20 13:42 12/08/20 14:13 Azithromycin 250 Mg Tablet PO 12/08/20 13:43 500 mg ONCE STA Administration Furosemide 80 mg 12/08/20 09:34 12/08/20 10:01 Furosemide Inj 100 Mg/10 Ml Vial IVP 12/08/20 09:35 80 mg ONCE STA Administration CEFTRIAXONE/D5W 1 GM PREMIX 1 gm in 50 mls @ 75 mls/hr 12/08/20 13:42 12/08/20 14:14 Rocephin 1 Gm/50 Ml D5w IV 12/08/20 14:21 75 mls/hr ONCE STA Administration Ipratropium [place] 2 puff 12/08/20 09:39 12/08/20 10:08 Ipratropium [place] 12.9 Gm Hfa Inhaler Per Puff With Spacer IH 12/08/20 09:40 2 puff ONCE STA Administration Methylprednisolone Sodium Succinate 125 mg 12/08/20 09:39 12/08/20 09:58 Methylprednisolone Sod Succ/Pf 125 Mg/2 Ml Vial IVP 12/08/20 09:40 125 mg ONCE STA Administration Vital Signs: Temp Pulse Resp BP Pulse Ox 12/08/20 09:16 97.6 F 85 18 155/82 H 84 L Discharge Plan Discharge Patient Disposition: ADMITTED INPATIENT Discharge Problem: [id number], COPD exacerbation, CHF (congestive heart failure) ED Provider: RUBEN LEVY Condition: Serious Physician Progress Note: []
[2020-12-08] MEDS ORDERED: SODIUM CHLORIDE 1,000 ML IV STA (11:35)
[2020-12-08 13:13] LABS: TROPONIN I 0.04 ng/ml (0.0000-0.120)
--- NOTE | 2020-12-08 13:19 | CT ---
EXAM: CTA CHEST HISTORY: Increasing shortness of breath TECHNIQUE: CTA chest with intravenous contrast. PE protocol. Multiplanar images were provided with 3-D reconstructions. COMPARISON: 12/05/2018 FINDINGS: There is a suboptimal contrast opacification of the pulmonary arterial tree. No filling defects are seen within the adequately opacified arteries to indicate emboli. There is mild to moderate atherosc lerotic disease. Cardiomegaly is present. No pericardial effusion. There are mediastinal and bilat eral hilar lymph nodes which are prominent to enlarged although most of these are in small conglomera basil and difficult to accurately measure. There is a trace left pleural effusion, small right pleural effusion. The there are at least moderat e bilateral infiltrates with areas of consolidation and interstitial thickening suggesting pneumonia. Stable partially calcified right apical pleural based mass which is difficult to see within a backg round of infiltrates although appears to measure about 14 mm coronal dimension. Spine demonstrates b ulky osteophytic spurring. IMPRESSION: 1. There is a suboptimal contrast opacification of the pulmonary arterial tree. No filling defects are seen within the adequately opacified arteries to indicate emboli. 2. Bilateral infiltrates and consolidations suggesting pneumonia. Correlate clinically. 3. Mediastinal and hilar lymphadenopathy. 4. Bilateral pleural effusions. 5. Atherosclerotic disease. All CT scans are performed using dose optimization techniques as appropriate to the performed exam an d include at least one of the following: Automated exposure control, adjustment of the mA and/or kV according t o size, and the use of iterative reconstruction technique.
[2020-12-08] MEDS ORDERED: ROCEPHIN 1 GM/50 ML D5W 1 GM/50 ML BAG IV STA (13:42)
[2020-12-08] MEDS ORDERED: ZITHROMAX PO STA (13:42)
[2020-12-08 14:10] LABS: FERRITIN 27.6 ng/mL (17.9-464.0)
[2020-12-08] MEDS ORDERED: ULTRAM PO PRN (14:49)
[2020-12-08] MEDS ORDERED: HYDROCORTISONE 1% TP PRN (14:49)
[2020-12-08] MEDS ORDERED: LASIX TAB PO SCH (15:00)
[2020-12-08] MEDS ORDERED: HYDROCORTISONE 1% CREAM TP PRN (15:33)
[2020-12-08 15:59] VITALS: BMI 40.7
[2020-12-08] MEDS: PROTONIX PO SCH (16:42)
[2020-12-08] MEDS: SOLU-MEDROL 125 MG IVP SCH ×3 (17:30→23:06)
--- NOTE | 2020-12-08 17:54 | PCM ---
Chief Complaint Chief Complaint: SOA x 6 days. History of Present Illness History of Present Illness: 80 yr old male presented to ED today 12/08/20 at 0920 with report of 6 days of worsening SOA, ankle swelling/edema and wheezing. No fever reported. Vitals in ED showed temp 97.6, Pulse 85, RR 18 and BP 155/82 with O2 84% on RA. the patient has had 6 days of worsening symptoms, orthopnea, SOA, BELTRE, wheezing, labored breathing and some chest pain with deep inspiration. No reported previous history of pneumonia, no home O2 regularly, no recent echo/LV function in the chart. Resp distress is mild in ED, accessory muscle usage is present, leg swelling present. DDX considered in ED airway obstructive disease, asthma, CHF, COPD exacerbation, CAP, bronchitis. History of CKD, history of Covid 19 vaccine series started, GERD, HTN, hypothyroid, OLAF, BPH, DM2. Fam/PMHX/Surg history reviewed and non contributory except listed above. He is a former smoker, He is drinking ETOH >3 drinks per day ETOH (Hard liquor). No illicit substance use. CTA in ED showed: IMPRESSION: "1. There is a suboptimal contrast opacification of the pulmonary arterial tree. No filling defects are seen within the adequately opacified arteries to indicate emboli. 2. Bilateral infiltrates and consolidations suggesting pneumonia. Correlate clinically. 3. Mediastinal and hilar lymphadenopathy. 4. Bilateral pleural effusions. 5. Atherosclerotic disease. EKG no acute ST/T changes, normal axis, normal rate, sinus rhythm, occ PAC. Labs showed WBC 8.29, HGb 9.4, HCT 29.9, Plt 207. CMP showed sodium 137, K+ 4.0, BUN 24.0, Creatinine 1.30 GFR 53 and Glucose 188. No a1c within the last 30 days of admit. Will make sure to add that while admitted. RDW is elevated at 18.2. MCV is normal at 88.2. ABG 7.46, pco2 43, po2 50, hco3 30.6, allens +, fio2 21%. Independent interpretation of ABG: Primary metabolic alkalosis with full respiratory compensation. Calcium was 9.20, ast 54, alt 46, alk phos 77. Troponin was 0.040. Alb 3.80. Lactic acid 1.3 and negative. Ferritin 27.60. NT PRO BNP 4280. BIOFIRE PCR elmore negative for tested agents to include COVID-19 negative. UA negative. UDS was negative. I was contacted at ~1500 today and I discussed case with Dr. Hernandez. Patient did not meet SIRS criteria. Temp was <100.4, HR was >90, RR was <20, WBC was <12. Lactic acid was negative. He was given solumedrol in ED. He was given albuterol and atrovent using shared canister approach. He was started on azithromycin 500mg. This is not adequate to cover for his pneumonia. Will need to change this. Also started on ceftriaxone 1gram dialy. He was given lasix 80mg IV in ED once. Solumedrol 125 once in ED. Fluids were started at 125 mls/hour. I asked that IV fluids not be used due to the pleural effusions seen on imaging. Patient was transferred to floor. Nursing called me at 1706 asking if I wanted to continue fluids. I noted we had discussed that there should not be fluids. Patient was then saline locked. On the floor, the patient HR was 94, BP 155/82, O2 93% on 3L NC. Telemetry was started and patient had IA 0.2, QRS 0.08 and SR noted. I will add strict I+O and daily weight. Due to history of moderate+ ETOH use, I have to think about other organisms besides the typical. He does not seem to meet criteria for MRSA coverage. He has not had abx within 3 months, does not have frequent COPD exacerbations, but prior CT abdomen suggested bronchiectasis present. With his pleural effusions and findings on CTA today, coverage for pseudomonas likely of good choice. I will change the ceftriaxone to cefepime and will add levaquin 750mg daily as well to cover for pseudomonas. At this time I do not think that we need to add vanco for MRSA coverage. With history of ETOH, need to consider aspiration pneumonia and to cover for Strep Pneumoniae, Klebsiella Pneumophila, Legionella spp. Pseudomonas, as well as G- enterobacter. Port Score: 122 points Risk Class IV 8.2-9.3% mortality. Hospitalization Recommended Based on risk. (80 points age, renal disease history, hematocrit <30%, O2 <60mmhg on presentation, pleural effusions on Xray). I would even consider 132 points with concern for CHF. If so, this is 27-29.2% mortality based on Risk Class V. Either way hospitalization risk encouraged. CURB 65: 2 points 6.8% 30day mortality CrCL: 84ml/min REVIEW OF SYMPTOMS: (Positives bolded) General: weight gain, fever, chills, night sweats, fatigue, appetite loss HEENT: blurry vision, eye pain, eye discharge, dry eyes, decreased vision, sore throat tinnitus, bloody nose, hearin gloss, sinus pain/pressure, ear pain/pressure. Respiratory: shortness of breath, cough, hemoptysis, wheezing, pleurisy, Orthopnea Cardiovascular: chest pain, PND, palpitation, edema, orthopnea, syncope, swelling of extremities Gastro: Nausea, vomiting, diarrhea, hematemesis, abdominal pain, constipation Genito: hematuria, dysuria, glycosuria, hesitancy, frequency, incontinence Musckelo: Arthralgia, myalgia, muscle weakness, joint swelling, NSAID use Skin: rash bilateral LE (chronic stasis/insufficiency), pruritis, sores, nail changes, skin thickening, change in wart/mole, itching, rash, nail changes Neuro: Migraine, numbness, ataxia, tremor, vertigo, weakness, memory loss, Irritability, dizziness Endocrine: excessive thirst, polyuria, cold intolerance, heat intolerance, goiter Psychiatric: depression, anxiety, anti-depressants, alcohol abuse, drug abuse, insomnia, change in sleep pattern and mood changes Heme/lymph: easy bruising, bleeding gums, blood clots, swollen glands, lymphedema, Allergic/immune: allergic rhinitis, hay fever, asthma, hives, COPD Vital Signs - 24 hr 12/08/20 09:16 12/08/20 15:15 12/08/20 15:33 Temperature 97.6 F 98.5 F Pulse Rate 85 94 H Respiratory Rate 18 24 24 Blood Pressure 155/82 H O2 Sat by Pulse Oximetry 84 L 93 L 12/08/20 17:54 Temperature 98.5 F Pulse Rate 94 H Respiratory Rate 24 Blood Pressure 155/82 H O2 Sat by Pulse Oximetry 93 L Constitutional: Appearance-No acute distress, No accessory muscle usage, Consistent with stated age. Orientation- Oriented x 3, alert Build and Nutrit ion-[morbidly obese] General- Patient is pleasant and cooperative with the interview and exam. Integumentary: General- Bilateral LE with stasis changes, hemosiderin staining, 2+ Pitting edema bilaterally to knees. No skin breakdown lower extremities. 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 No skin irritation/rash under panus. He does have erythema along coccyx and bilateral gluteal fold. Numerous areas of breakdown on back of right>left ear. he is scratching/picking. He has long excoriation along right lateral garsia from scratching. Several pick pandey bilateral UE. None appear secondarily infected. Paw-Shaped pink erythematous right upper buttock chloe. Head/Neck: Head- normocephalic and atraumatic. Neck- without visible/palpable lumps or pulsations. Palpation- No bony tenderness about head/neck along frontal, occipital, temporal, parietal, mastoid, jawline, zygoma, orbit or any other location. NO temporal artery tenderness. No TMJ tenderness. Neck Supple. Thyroid-No thyromegaly, no nodules Eye: Bilaterally PERRLA, EOMI. No discharge. Upper and lower eyelids are normal. Sclera/conjunctiva normal without discharge. Cornea is normal and clear. Lens is normal. Eyeball appears normal. No ciliary flushing, no conjunctival injection. ENMT: Pinna- excoriation erythema present R>L. . External auditory canal Left- normal without erythema or discharge, no excessive cerumen. External auditory canal Right-normal without erythema or discharge, no excessive cerumen. TM left- Marx/pearly, normal light reflex and anatomy TM Right- Marx/pearly, normal light reflex and anatomy Hearing Assessment-normal to conversational speech. Nose and sinus- No sinus tenderness along frontal/maxillary region. External appearance normal and midline. Nares- bilateral quiet airflow, no discharge. Nasal mucosa- No bleeding noted and no ulcerations observed. [place], moist. Turbinates non boggy. Lips- normal color, moist without cracks/lesions Oral Cavity/Palate- hard/soft palate intact without lesions, oral mucosa pink and moist. Dentition assessed [edentulous] and discussed appropriate oral care. Tongue normal midline. Oropharynx- no pharyngeal erythema, Uvula midline. No post nasal drip. No exudate. Salivary glands- Non tender to palpation CHEST/LUNG: Inspection- symmetric chest wall no pectus deformity. Barrel chested. No accessory muscle use. Prominent stomach, round, large panus. Normal effort, talking in full sentences. No obvious distress, no use of accessory muscles. Palpation- nontender sternum, ribline. No abnormal pulsations. Auscultation- Breath sounds diminished and course throughout all lung raymond. tracheal sounds, bronchial sounds overlying sternum, Bronchovessicular sounds between scapulae posteriorly, vessicular breath sounds heard throughout periphery. Lungs are not clear today. Adventitious sounds- S cattered wheezes, bibasilar rales, scattered rhonchi. Normal respiratory effort, normal Coarse breathing. CARDIOVASCULAR: Carotid artery- normal, no bruits or abnormal pulsations. Jugular vein- no pulsations. Palpation/Percussion- Normal PMI, no palpable thrill Auscultation- Regular rate and rhythm. Several PAC/PVC. No murmur noted in sitting, supine positions. Extremities- digital clubbing is present, cyanosis, edema bilateral LE. NO increased warmth. No cellulitis. ABDOMEN: Inspection- normal and no visible pulsations. Normal contour. Round, enlarged panus. Morbid obesity. Auscultation- Bowel sounds normal, no abdominal bruits. Palpation/Percussion- soft, non-tender, no rebound tenderness, no rigidity (guarding), no jar tenderness, no masses. Liver-difficult to assess due to habitus No obvious HSM. No caput medusa. No fluid wave. Peripheral Vascular: Upper extremity Left- Normal temperature with pink nailbeds and no ulcerations. Upper extremity Right- Normal temperature with pink nailbeds and no ulcerations. Scattered picking lesions. No secondary infection. Lower extremity- Normal temperature with pink nailbeds and no ulcerations. DP pulses 2+ bilaterally. Pedal hair reduced/lacking. Normal capillary refill. Edema- Prominent bilateral edema shins/knees, feet. Musculoskeletal: Generalized-No generalized swelling or edema of extremities, no digital clubbing or cyanosis, neurovascularly intact all four extremities. Upper extremity- Symmetrical posture. No visible deformity. Normal sensation along medial and lateral upper extremity proximally and distally. NO tenderness overlying shoulder, lateral/medial epicondyle. Dry Sander 5/5 and strength 5/5 bilateral UE. Elbow palpated, no tenderness overlying olecranon. Normal supination, pronation to active/passive ROM and to resisted rotation. Bicep insertion/tricep insertion appear normal without obvious pathology. Rotator cuff evaluated and intact. Normal wrist ROM bilaterally. Normal hand movement, intrinsic muscles of hands normal. No tenderness to palpation of hands/wrists/elbows. Lower extremity- Hip: Not tender to palpation, no pain, no swelling, edema or erythema of surrounding tissue, normal strength and tone. Normal appearing hip ROM bilaterally without pain. Knee: Knee ROM normal. No tenderness overlying trochanters, no tenderness about patella, quad tendon, patellar tendon. No tenderness at tibial tuberosity. Ankle: normal ROM not tender to palpation along medial/lateral malleolus. Foot: Normal movement of toes, no tenderness bilateral feet/toes. Normal foot type. Spine/Ribs- No deformities, masses or tenderness, no known fractures, normal strength, Normal ROM. Normal stability No tenderness along C/T/L spine. Normal appearing ROM about spine. Neurological: General- Moves all 4 extremities symmetrically. Symmetrical face and body posture. Cranial nerves- individually evaluated II-XII and intact. PERRLA, Normal EOMI, visual/special senses appear intact, Face is symmetrical and normal sensation/movement, normal tongue, normal strength/posture of neck musculature. Reflexes- intact with DTR 2+ patellar, Achilles, bicep, brachial, tricep. Ankle clonus normal with 2 beats. Strength- 5/5 bilateral UE and LE. Soft touch- intact bilateral UE and LE. Temperature sensation- intact bilateral UE and LE. Neuropsych: Oriented- Person, place, time. (AAOx3), Mood/affect- normal and congruent. Able to articulate well. Speech-Normal speech, normal rate, normal tone, normal use of language, volume and coherence. Thought content- normal with ability to perform basic computations and apply abstract thought/reason. Associations- intact, no SI/HI, no hallucinations, delusions, obsessions. Judgment/insight- Appropriate. Memory-Recall intact, remote and recent memory intact. Knowledge- Age appropriate fund of knowledge, concentration and attention span normal. Lymphatic: Head/Neck- normal size and non tender to palpation. Axillary- normal size and non tender to palpation. Femoral and Inguinal- normal size and non tender to palpation. Allergies Allergies Allergy/AdvReac Type Severity Reaction Status Date / Time Penicillins AdvReac Unknown Verified 12/08/20 09:40 [facility] Medical History (Updated 12/10/20 @ 08:02 by ORVILLE GODOY MD) Benign positional vertigo Chronic kidney disease Contact with and (suspected) exposure to covid-19 COPD (chronic obstructive pulmonary disease) Cough COVID-19 vaccine series started Emphysema lung Gastroesophageal reflux disease Hypertension Hypothyroidism Macular degeneration Obstructive sleep apnea Prostatic hypertrophy Seasonal allergies Shortness of breath Skin lesions Supraumbilical hernia Type II diabetes mellitus Surgical History Cataract extraction and insertion of intraocular lens (~1999) History of joint surgery (~1999) Status post hernia repair Family History (Updated 12/08/20 @ 18:00 by IRVING RENDON RN) Mother Dementia FATHER Cancer CVA (cerebral vascular accident) BROTHER Alcoholism Cancer Mother CVA (cerebral vascular accident) SISTER CVA (cerebral vascular accident) Social History Smoking and tobacco status: Former smoker Alcohol intake: current Alcohol intake frequency: 3 or more drinks per day Alcohol type: hard liquor Substance use type: does not use Adopted: No Caregiver/support person: No Foster care: No Household members: none Housing: house Marital status: W / Lives independently: Yes Daycare: no daycare Number of children: 3 Number of grandchildren: 1 Highest education level completed: Bachelor's degree Financial difficulty paying for basics: not very hard service: Yes branch: [employer] FCI: No History of recent travel: No Sexually active: No Do you think of yourself as: straight/heterosexual Current gender identity: male Seatbelt use: always Helmet use: No Drives intoxicated or rides with intoxicated stage driver: No Water heater temperature set < 120 degrees: No Working smoke detector in home: Yes Fire extinguisher in home: Yes Carbon monoxide detector in home: Yes Firearms in home: Yes Firearms unloaded and locked: Yes Medications Medications: Medications Generic Name Dose Route Start Last Admin Trade Name Freq PRN Reason Stop Dose Admin Albuterol Sulfate 2 puff 12/08/20 20:00 Albuterol Sulfate (Ventolin Hfa) 18 Gm 1 Puff With Spacer IH RTQID BRIAN Amlodipine Besylate 5 mg 12/09/20 09:00 Amlodipine Besylate 5 Mg Tablet PO DAILY BRIAN Azithromycin 500 mg 12/09/20 09:00 Azithromycin 250 Mg Tablet PO 12/12/20 10:00 DAILY BRIAN Fenofibrate 160 mg 12/09/20 09:00 Fenofibrate 160 Mg Tablet PO DAILY BRIAN Finasteride 5 mg 12/09/20 09:00 Finasteride 5 Mg Tablet PO DAILY BRIAN Furosemide 40 mg 12/09/20 06:30 Furosemide 40 Mg Tablet PO QDAC BRIAN Hydrocortisone 1 applic 12/08/20 15:33 Hydrocortisone 28 Gm Cream TP BID PRN Dry Skin CEFTRIAXONE/D5W 1 GM PREMIX 1 gm in 50 mls @ 75 mls/hr 12/09/20 09:00 Rocephin 1 Gm/50 Ml D5w IV 12/12/20 08:59 DAILY [facility] Ipratropium Gray 2 puff 12/08/20 20:00 Ipratropium Gray 12.9 Gm Hfa Inhaler Per Puff With Spacer IH RTQID [facility] Levothyroxine Sodium 25 mcg 12/09/20 06:30 Levothyroxine Sodium 25 Mcg Tablet PO QDAC [facility] Losartan Potassium 50 mg 12/08/20 21:00 Losartan Potassium 25 Mg Tablet PO BID BRIAN Methylprednisolone Sodium Succinate 125 mg 12/08/20 15:00 12/08/20 17:30 Methylprednisolone Sod Succ/Pf 125 Mg/2 Ml Vial IVP 125 mg Q6HR BRIAN Administration Multivitamins 1 tab 12/09/20 09:00 Multivitamin 1 Tab PO DAILY BRIAN Non-Formulary Medication 1 drop 12/08/20 21:00 Peg 400-Propylene Glycol [Systane (Propylene Glycol)] EACHEYE BID [facility] Non-Formulary Medication 1 each 12/08/20 21:00 Vitamins A,C,[id number] [Preservision Areds] PO BID [facility] Non-Formulary Medication 1 applic 12/09/20 09:00 Betamethasone Valerate TP DAILY BRIAN Pantoprazole Sodium 40 mg 12/08/20 17:00 12/08/20 16:42 Pantoprazole Sodium 40 Mg Tablet.Dr PO 40 mg BIDAC BRIAN Administration Pregabalin 150 mg 12/08/20 21:00 Pregabalin 75 Mg Capsule PO BID BRIAN Rivaroxaban 20 mg 12/09/20 09:00 Rivaroxaban 10 Mg Tablet PO DAILY BRIAN Sodium Chloride 1 syr 12/08/20 17:13 12/08/20 17:30 0.9% Sodium Chloride 10 Ml Disp.Syrin IVF 1 syr PRN PRN Administration Maintain IV Patency Sodium Chloride 1 syr 12/08/20 21:00 0.9% Sodium Chloride 10 Ml Disp.Syrin IVF Q8HR [facility] Tamsulosin HCl 0.4 mg 12/09/20 09:00 Tamsulosin Hcl 0.4 Mg Cap.Er.24h PO DAILY BRIAN Tramadol HCl 50 mg 12/08/20 14:49 Tramadol Hcl 50 Mg Tablet PO BID PRN Pain Body Composition Height: 6 ft Weight: 300 lb 4.313 oz Body Mass Index (BMI): 40.7 Vital Signs Temperature: 98.5 F Pulse Rate: 94 Respiratory Rate: 24 Blood Pressure: 155/82 O2 Sat by Pulse Oximetry: 93 Lab/Tests/Diagnostic Imaging Lab/Tests/Diagnostic Imaging: Lab Review 12/08/20 12/08/20 12/08/20 09:47 10:00 10:05 WBC 8.29 RBC 3.39 L Hgb 9.4 L Hct 29.9 L MCV 88.2 MCH 27.7 MCHC 31.4 L RDW Coeff of Simi 18.2 H Plt Count 207 Immature Gran % (Auto) 0.7 Neut % (Auto) 83.3 H Lymph % (Auto) 7.2 L Chester % (Auto) 8.6 Eos % (Auto) 0.0 Baso % (Auto) 0.2 Neut # (Auto) 6.9 Lymph # (Auto) 0.6 Chester # (Auto) 0.7 Eos # (Auto) 0.0 Baso # (Auto) 0.0 Immature Gran # (Auto) 0.1 Puncture Site Rr Base Excess 6.8 H O2 Saturation 87.2 L ABG pH 7.46 H ABG pCO2 43.0 ABG pO2 50.0 L* ABG HCO3 30.6 H ABG Total CO2 31.9 H Guevara Test Y Hemoglobin 0.9 Oxyhemoglobin 83.5 L Carboxyhemoglobin 2.9 H Total Hemoglobin 9.6 L FiO2 % 21.0 Sodium Potassium Chloride Carbon Dioxide Anion Gap BUN Creatinine Estimated GFR (MDRD) BUN/Creatinine Ratio Glucose Lactic Acid Calcium Ferritin Total Bilirubin AST ALT Alkaline Phosphatase POC Venous Troponin I Troponin I 0.035 NT-Pro-B Natriuret Pep Total Protein Albumin Globulin Albumin/Globulin Ratio Urine Color Urine Clarity Urine pH Ur Specific [place] Urine Protein Urine Glucose (UA) Urine Ketones Urine Blood Urine Nitrite Urine Bilirubin Urine Urobilinogen Ur Leukocyte Esterase Urine Opiates Screen Ur Oxycodone Screen Urine Methadone Screen Ur Propoxyphene Screen Ur Barbiturates Screen U Tricyclic Antidepress Ur Phencyclidine Scrn Ur Amphetamine Screen U Methamphetamines Scrn U Benzodiazepines Scrn Urine Cocaine Screen U Cannabinoids Screen Plasma/Serum Alcohol Adenovirus (PCR) B. pertussis DNA (PCR) B.parapertussis DNA PCR C. pneumoniae DNA (PCR) Coronavirus OC43 (PCR) Coronavirus HKU1 (PCR) Coronavirus 229E (PCR) Coronavirus NL63 (PCR) Human Metapneumovir PCR Influenza Type A (PCR) Influenza B (RT-PCR) M. pneumoniae (PCR) Parainfluenza 1 (PCR) Parainfluenza 2 (PCR) Parainfluenza 3 (PCR) Parainfluenza 4 (PCR) RSV (PCR) Entero/Rhino (PCR) SARS-CoV-2 (PCR) 12/08/20 12/08/20 12/08/20 10:05 10:05 10:05 WBC RBC Hgb Hct MCV MCH MCHC RDW Coeff of Simi Plt Count Immature Gran % (Auto) Neut % (Auto) Lymph % (Auto) [place] % (Auto) Eos % (Auto) Baso % (Auto) Neut # (Auto) Lymph # (Auto) [place] # (Auto) Eos # (Auto) Baso # (Auto) Immature Gran # (Auto) Puncture Site Base Excess O2 Saturation ABG pH ABG pCO2 ABG pO2 ABG HCO3 ABG Total CO2 Guevara Test Hemoglobin Oxyhemoglobin Carboxyhemoglobin Total Hemoglobin FiO2 % Sodium 137.0 Potassium 4.00 Chloride 97.0 L Carbon Dioxide 29.0 Anion Gap 15.00 BUN 24.0 H Creatinine 1.30 H Estimated GFR (MDRD) 53.00 BUN/Creatinine Ratio 18.46 Glucose 188.0 H Lactic Acid 1.30 Calcium 9.20 Ferritin 27.60 Total Bilirubin 0.90 AST 54.0 ALT 46.0 Alkaline Phosphatase 77.0 POC Venous Troponin I Troponin I 0.040 NT-Pro-B Natriuret Pep 4280.000 H Total Protein 6.70 Albumin 3.80 Globulin 2.90 Albumin/Globulin Ratio 1.31 Urine Color Urine Clarity Urine pH Ur Specific [place] Urine Protein Urine Glucose (UA) Urine Ketones Urine Blood Urine Nitrite Urine Bilirubin Urine Urobilinogen Ur Leukocyte Esterase Urine Opiates Screen Ur Oxycodone Screen Urine Methadone Screen Ur Propoxyphene Screen Ur Barbiturates Screen U Tricyclic Antidepress Ur Phencyclidine Scrn Ur Amphetamine Screen U Methamphetamines Scrn U Benzodiazepines Scrn Urine Cocaine Screen U Cannabinoids Screen Plasma/Serum Alcohol Adenovirus (PCR) B. pertussis DNA (PCR) B.parapertussis DNA PCR C. pneumoniae DNA (PCR) Coronavirus OC43 (PCR) Coronavirus HKU1 (PCR) Coronavirus 229E (PCR) Coronavirus NL63 (PCR) Human Metapneumovir PCR Influenza Type A (PCR) Influenza B (RT-PCR) M. pneumoniae (PCR) Parainfluenza 1 (PCR) Parainfluenza 2 (PCR) Parainfluenza 3 (PCR) Parainfluenza 4 (PCR) RSV (PCR) Entero/Rhino (PCR) SARS-CoV-2 (PCR) 12/08/20 12/08/20 12/08/20 10:05 10:05 10:05 WBC RBC Hgb Hct MCV MCH MCHC RDW Coeff of Simi Plt Count Immature Gran % (Auto) Neut % (Auto) Lymph % (Auto) [place] % (Auto) Eos % (Auto) Baso % (Auto) Neut # (Auto) Lymph # (Auto) [place] # (Auto) Eos # (Auto) Baso # (Auto) Immature Gran # (Auto) Puncture Site Base Excess O2 Saturation ABG pH ABG pCO2 ABG pO2 ABG HCO3 ABG Total CO2 Guevara Test Hemoglobin Oxyhemoglobin Carboxyhemoglobin Total Hemoglobin FiO2 % Sodium Potassium Chloride Carbon Dioxide Anion Gap BUN Creatinine Estimated GFR (MDRD) BUN/Creatinine Ratio Glucose Lactic Acid Calcium Ferritin Total Bilirubin AST ALT Alkaline Phosphatase POC Venous Troponin I 0.03 Troponin I NT-Pro-B Natriuret Pep Total Protein Albumin Globulin Albumin/Globulin Ratio Urine Color Urine Clarity Urine pH Ur Specific [place] Urine Protein Urine Glucose (UA) Urine Ketones Urine Blood Urine Nitrite Urine Bilirubin Urine Urobilinogen Ur Leukocyte Esterase Urine Opiates Screen Ur Oxycodone Screen Urine Methadone Screen Ur Propoxyphene Screen Ur Barbiturates Screen U Tricyclic Antidepress Ur Phencyclidine Scrn Ur Amphetamine Screen U Methamphetamines Scrn U Benzodiazepines Scrn Urine Cocaine Screen U Cannabinoids Screen Plasma/Serum Alcohol 5.0 Adenovirus (PCR) Not detected B. pertussis DNA (PCR) Not detected B.parapertussis DNA PCR Not detected C. pneumoniae DNA (PCR) Not detected Coronavirus OC43 (PCR) Not detected Coronavirus HKU1 (PCR) Not detected Coronavirus 229E (PCR) Not detected Coronavirus NL63 (PCR) Not detected Human Metapneumovir PCR Not detected Influenza Type A (PCR) Not detected Influenza B (RT-PCR) Not detected M. pneumoniae (PCR) Not detected Parainfluenza 1 (PCR) Not detected Parainfluenza 2 (PCR) Not detected Parainfluenza 3 (PCR) Not detected Parainfluenza 4 (PCR) Not detected RSV (PCR) Not detected Entero/Rhino (PCR) Not detected SARS-CoV-2 (PCR) Not detected 12/08/20 12/08/20 10:52 10:52 WBC RBC Hgb Hct MCV MCH MCHC RDW Coeff of Simi Plt Count Immature Gran % (Auto) Neut % (Auto) Lymph % (Auto) [place] % (Auto) Eos % (Auto) Baso % (Auto) Neut # (Auto) Lymph # (Auto) [place] # (Auto) Eos # (Auto) Baso # (Auto) Immature Gran # (Auto) Puncture Site Base Excess O2 Saturation ABG pH ABG pCO2 ABG pO2 ABG HCO3 ABG Total CO2 Guevara Test Hemoglobin Oxyhemoglobin Carboxyhemoglobin Total Hemoglobin FiO2 % Sodium Potassium Chloride Carbon Dioxide Anion Gap BUN Creatinine Estimated GFR (MDRD) BUN/Creatinine Ratio Glucose Lactic Acid Calcium Ferritin Total Bilirubin AST ALT Alkaline Phosphatase POC Venous Troponin I Troponin I NT-Pro-B Natriuret Pep Total Protein Albumin Globulin Albumin/Globulin Ratio Urine Color Yellow Urine Clarity Clear Urine pH 6.0 Ur Specific [place] 1.020 Urine Protein Negative Urine Glucose (UA) Negative Urine Ketones Negative Urine Blood Negative Urine Nitrite Negative Urine Bilirubin Negative Urine Urobilinogen 0.2 Ur Leukocyte Esterase Negative Urine Opiates Screen Negative Ur Oxycodone Screen Negative Urine Methadone Screen Negative Ur Propoxyphene Screen Negative Ur Barbiturates Screen Negative U Tricyclic Antidepress Negative Ur Phencyclidine Scrn Negative Ur Amphetamine Screen Negative U Methamphetamines Scrn Negative U Benzodiazepines Scrn Negative Urine Cocaine Screen Negative U Cannabinoids Screen Negative Plasma/Serum Alcohol Adenovirus (PCR) B. pertussis DNA (PCR) B.parapertussis DNA PCR C. pneumoniae DNA (PCR) Coronavirus OC43 (PCR) Coronavirus HKU1 (PCR) Coronavirus 229E (PCR) Coronavirus NL63 (PCR) Human Metapneumovir PCR Influenza Type A (PCR) Influenza B (RT-PCR) M. pneumoniae (PCR) Parainfluenza 1 (PCR) Parainfluenza 2 (PCR) Parainfluenza 3 (PCR) Parainfluenza 4 (PCR) RSV (PCR) Entero/Rhino (PCR) SARS-CoV-2 (PCR) Orders Category Date Time Status ADMIT PATIENT INPATIENT .TO [facility] (MONITORED BED) ADMISSION 12/08/20 15:04 Active ABG DRAW REQUEST Stat CARDIO 12/08/20 09:35 Completed EKG-(ED ONLY) Stat CARDIO 12/08/20 09:34 Completed METERED DOSE INHALATION Routine CARDIO 12/08/20 09:40 Completed METERED DOSE INHALATION Routine CARDIO 12/08/20 14:43 Active OXYGEN Routine CARDIO 12/08/20 14:38 Active SPUTUM INDUCTION PRN CARDIO 12/08/20 14:45 Ordered ACTIVITY .BR with BRP CARE 12/08/20 14:39 Active INTAKE & OUTPUT Q8HR CARE 12/08/20 14:38 Active NPO REMINDER: IMAGING ONCE CARE 12/08/20 09:38 Completed REMINDER: Notify Provider if temp >101.5 PRN CARE 12/08/20 14:38 Active REMINDER:Breath Sounds&Sputum Production BID CARE 12/08/20 14:38 Active REMINDER:Notify Provider Pulse<60 or>130 PRN CARE 12/08/20 14:38 Active REMINDER:Notify if BP<90/60 or >170/110 PRN CARE 12/08/20 14:38 Active TELEMETRY MONITORING TELE CARE 12/08/20 15:05 Active VITAL SIGNS Q8HR CARE 12/08/20 14:38 Active REGULAR DIET DIETARY 12/08/20 Dinner Ordered CONSULT BOAT CREW DECK HAND ONCE BOAT CREW DECK HAND 12/08/20 15:59 Active ABG COOX PRN LAB 12/08/20 14:45 Ordered ABG COOX Stat LAB 12/08/20 09:47 Completed ABG COOX Stat LAB 12/08/20 14:38 Ordered BLOOD ALCOHOL Stat LAB 12/08/20 10:05 Completed BLOOD CULTURE (ED ONLY) Stat LAB 12/08/20 10:00 Received CBC W/ AUTO DIFF Stat LAB 12/08/20 10:05 Completed COMPREHENSIVE METABOLIC PANEL Stat LAB 12/08/20 10:05 Completed DRUG SCREEN, URINE, RAPID Stat LAB 12/08/20 10:52 Completed FERRITIN Stat LAB 12/08/20 10:05 Completed LACTIC ACID Stat LAB 12/08/20 10:05 Completed NT-PROBNP Stat LAB 12/08/20 10:05 Completed RESPIRATORY PANEL 2.1 (PCR) Stat LAB 12/08/20 10:05 Completed TROPONIN I Stat LAB 12/08/20 10:00 Completed TROPONIN I Stat LAB 12/08/20 10:05 Completed URINALYSIS C & S IF INDICATED Stat LAB 12/08/20 10:52 Completed 0.9 % Sodium Chloride [Saline Flush] MEDS 12/08/20 17:13 Ordered 1 syr IVF PRN PRN 0.9 % Sodium Chloride [Saline Flush] MEDS 12/08/20 21:00 Ordered 1 syr IVF Q8HR Albuterol Inhaler(with Spacer) [Ventolin Hfa (Per Puff- MEDS 12/08/20 09:39 Discontinued with Spacer)] 2 puff IH ONCE STA Albuterol Inhaler(with Spacer) [Ventolin Hfa (Per Puff- MEDS 12/08/20 20:00 Active with Spacer)] 2 puff IH RTQID Amlodipine Besylate [Norvasc] MEDS 12/09/20 09:00 Active 5 mg PO DAILY Azithromycin [Zithromax] MEDS 12/09/20 09:00 Active 500 mg PO DAILY Azithromycin [Zithromax] MEDS 12/08/20 13:42 Discontinued 500 mg PO ONCE STA Ceftriaxone/D5w 1 gm Premix [Rocephin 1 gm/50 ml D5w] MEDS 12/09/20 09:00 Active 1 gm in 50 ml IV DAILY Ceftriaxone/D5w 1 gm Premix [Rocephin 1 gm/50 ml D5w] MEDS 12/08/20 13:42 Discontinued 1 gm in 50 ml IV ONCE Fenofibrate [Triglide] MEDS 12/09/20 09:00 Active 160 mg PO DAILY Finasteride [Proscar] MEDS 12/09/20 09:00 Active 5 mg PO DAILY Furosemide [Lasix Tab] MEDS 12/08/20 15:00 Discontinued 40 mg PO QDAC Furosemide [Lasix Tab] MEDS 12/09/20 06:30 Active 40 mg PO QDAC Furosemide [Lasix] MEDS 12/08/20 09:34 Discontinued 80 mg IVP ONCE STA Hydrocortisone [Hydrocortisone 1% Cream] MEDS 12/08/20 15:33 Active 1 applic TP BID PRN Ipratropium Inhaler(Spacer) [Atrovent Hfa Inhaler (Per MEDS 12/08/20 09:39 Discontinued Puff-with Spacer)] 2 puff IH ONCE STA Ipratropium Inhaler(Spacer) [Atrovent Hfa Inhaler (Per MEDS 12/08/20 20:00 Active Puff-with Spacer)] 2 puff IH RTQID Levothyroxine Sodium [Synthroid] MEDS 12/09/20 06:30 Active 25 mcg PO QDAC Losartan Potassium [Cozaar] MEDS 12/08/20 21:00 Active 50 mg PO BID Methylprednisolone Sod Succ/Pf [Solu-Medrol 125 mg] MEDS 12/08/20 09:39 Discontinued 125 mg IVP ONCE STA Methylprednisolone Sod Succ/Pf [Solu-Medrol 125 mg] MEDS 12/08/20 15:00 Active 125 mg IVP Q6HR Multivitamin [Multivitamin Tablet] MEDS 12/09/20 09:00 Active 1 tab PO DAILY Pantoprazole Sodium [Protonix] MEDS 12/08/20 17:00 Active 40 mg PO BIDAC Pregabalin [Lyrica] MEDS 12/08/20 21:00 Active 150 mg PO BID Rivaroxaban [Xarelto] MEDS 12/09/20 09:00 Active 20 mg PO DAILY Sodium Chloride 0.9% [Sodium Chloride] 1,000 ml MEDS 12/08/20 11:35 Discontinued IV 125 mls/hr Tamsulosin HCl [Flomax] MEDS 12/09/20 09:00 Active 0.4 mg PO DAILY Tramadol HCl [Ultram] MEDS 12/08/20 14:49 Active 50 mg PO BID PRN betamethasone valerate MEDS 12/09/20 09:00 Active 1 applic TP DAILY peg 400-propylene glycol [Systane (propylene glycol)] MEDS 12/08/20 21:00 Active 1 drop EACHEYE BID vitamins A,C,[id number] [PreserVision AREDS] MEDS 12/08/20 21:00 Active 1 each PO BID RESUSCITATION STATUS Routine OTHERS 12/08/20 15:[address] CHEST PE PROTOCOL Stat RADS 12/08/20 09:34 Completed OT CONSULTATION Routine THERAPIES 12/08/20 Ordered PT CONSULT Routine THERAPIES 12/08/20 Ordered Medications Generic Name Dose Route Start Last Admin Trade Name Emmanuel PRN Reason Stop Dose Admin Albuterol Sulfate 2 puff 12/08/20 20:00 Albuterol Sulfate (Ventolin Hfa) 18 Gm 1 Puff With Spacer IH RTQID [facility] Amlodipine Besylate 5 mg 12/09/20 09:00 Amlodipine Besylate 5 Mg Tablet PO DAILY [facility] Azithromycin 500 mg 12/09/20 09:00 Azithromycin 250 Mg Tablet PO 12/12/20 10:00 DAILY BRIAN Fenofibrate 160 mg 12/09/20 09:00 Fenofibrate 160 Mg Tablet PO DAILY BRIAN Finasteride 5 mg 12/09/20 09:00 Finasteride 5 Mg Tablet PO DAILY [facility] Furosemide 40 mg 12/09/20 06:30 Furosemide 40 Mg Tablet PO QDAC [facility] Hydrocortisone 1 applic 12/08/20 15:33 Hydrocortisone 28 Gm Cream TP BID PRN Dry Skin CEFTRIAXONE/D5W 1 GM PREMIX 1 gm in 50 mls @ 75 mls/hr 12/09/20 09:00 Rocephin 1 Gm/50 Ml D5w IV 12/12/20 08:59 DAILY [facility] Ipratropium Gray 2 puff 12/08/20 20:00 Ipratropium Gray 12.9 Gm Hfa Inhaler Per Puff With Spacer IH RTQID [facility] Levothyroxine Sodium 25 mcg 12/09/20 06:30 Levothyroxine Sodium 25 Mcg Tablet PO QDAC [facility] Losartan Potassium 50 mg 12/08/20 21:00 Losartan Potassium 25 Mg Tablet PO BID BRIAN Methylprednisolone Sodium Succinate 125 mg 12/08/20 15:00 12/08/20 17:30 Methylprednisolone Sod Succ/Pf 125 Mg/2 Ml Vial IVP 125 mg Q6HR [facility] Administration Multivitamins 1 tab 12/09/20 09:00 Multivitamin 1 Tab PO DAILY BRIAN Non-Formulary Medication 1 drop 12/08/20 21:00 Peg 400-Propylene Glycol [Systane (Propylene Glycol)] EACHEYE BID BRIAN Non-Formulary Medication 1 each 12/08/20 21:00 Vitamins A,C,B-[id number] [Preservision Areds] PO BID BRIAN Non-Formulary Medication 1 applic 12/09/20 09:00 Betamethasone Valerate TP DAILY BRIAN Pantoprazole Sodium 40 mg 12/08/20 17:00 12/08/20 16:42 Pantoprazole Sodium 40 Mg Tablet.Dr PO 40 mg BIDAC BRIAN Administration Pregabalin 150 mg 12/08/20 21:00 Pregabalin 75 Mg Capsule PO BID BRIAN Rivaroxaban 20 mg 12/09/20 09:00 Rivaroxaban 10 Mg Tablet PO DAILY BRIAN Sodium Chloride 1 syr 12/08/20 17:13 12/08/20 17:30 0.9% Sodium Chloride 10 Ml Disp.Syrin IVF 1 syr PRN PRN Administration Maintain IV Patency Sodium Chloride 1 syr 12/08/20 21:00 0.9% Sodium Chloride 10 Ml Disp.Syrin IVF Q8HR BRIAN Tamsulosin HCl 0.4 mg 12/09/20 09:00 Tamsulosin Hcl 0.4 Mg Cap.Er.24h PO DAILY BRIAN Tramadol HCl 50 mg 12/08/20 14:49 Tramadol Hcl 50 Mg Tablet PO BID PRN Pain Discontinued Medications Generic Name Dose Route Start Last Admin Trade Name Freq PRN Reason Stop Dose Admin Albuterol Sulfate 2 puff 12/08/20 09:39 12/08/20 10:06 Albuterol Sulfate (Ventolin Hfa) 18 Gm 1 Puff With Spacer IH 12/08/20 09:40 2 puff ONCE STA Administration Azithromycin 500 mg 12/08/20 13:42 12/08/20 14:13 Azithromycin 250 Mg Tablet PO 12/08/20 13:43 500 mg ONCE STA Administration Furosemide 80 mg 12/08/20 09:34 12/08/20 10:01 Furosemide Inj 100 Mg/10 Ml Vial IVP 12/08/20 09:35 80 mg ONCE STA Administration Furosemide 40 mg 12/08/20 15:00 12/08/20 16:40 Furosemide 40 Mg Tablet PO Not Given QDAC BRIAN Sodium Chloride 1,000 mls @ 125 mls/hr 12/08/20 11:35 12/08/20 16:42 Sodium Chloride IV 12/08/20 19:34 125 mls/hr .Q8H STA Administration CEFTRIAXONE/D5W 1 GM PREMIX 1 gm in 50 mls @ 75 mls/hr 12/08/20 13:42 12/08/20 14:14 Rocephin 1 Gm/50 Ml D5w IV 12/08/20 14:21 75 mls/hr ONCE STA Administration Ipratropium Gray 2 puff 12/08/20 09:39 12/08/20 10:08 Ipratropium Gray 12.9 Gm Hfa Inhaler Per Puff With Spacer IH 12/08/20 09:40 2 puff ONCE STA Administration Methylprednisolone Sodium Succinate 125 mg 12/08/20 09:39 12/08/20 09:58 Methylprednisolone Sod Succ/Pf 125 Mg/2 Ml Vial IVP 12/08/20 09:40 125 mg ONCE STA Administration IMAGING: CTA chest 1. There is a suboptimal contrast opacification of the pulmonary arterial tree. No filling defects are seen within the adequately opacified arteries to indicate emboli. 2. Bilateral infiltrates and consolidations suggesting pneumonia. Correlate clinically. 3. Mediastinal and hilar lymphadenopathy. 4. Bilateral pleural effusions. 5. Atherosclerotic disease. CT abd/pelvis 04/26/20: Noted: 5. The lung bases reveal partially imaged discoid opacities on the right with a background of fibrotic change and bronchiectasis. ABG: Primary metabolic alkalosis with full respiratory compensation Assessment (1) Bilateral pneumonia: Status: Acute Code(s): J18.9 - Pneumonia, unspecified organism SNOMED Code(s): 967270713 (2) History of 2019 novel coronavirus disease (COVID-19): Status: Acute Code(s): Z86.16 - Personal history of COVID-19 SNOMED Code(s): 593808281164459423 (3) CKD (chronic kidney disease): Status: Acute Code(s): N18.9 - Chronic kidney disease, unspecified SNOMED Code(s): 848819979 (4) Hypertension: Status: Acute Code(s): I10 - Essential (primary) hypertension SNOMED Code(s): 90073490 (5) Hypothyroidism: Status: Acute Code(s): E03.9 - Hypothyroidism, unspecified SNOMED Code(s): 82000956 (6) Diabetes type 2, controlled: Status: Acute Code(s): E11.9 - Type 2 diabetes mellitus without complications SNOMED Code(s): 36200478 (7) Pleural effusion: Status: Acute Code(s): J90 - Pleural effusion, not elsewhere classified SNOMED Code(s): 76636011 (8) Chronic anticoagulation: Status: Acute Code(s): Z79.01 - terminal operator (current) use of anticoagulants SNOMED Code(s): 086912292 (9) Intermittent atrial fibrillation: Status: Acute Code(s): I48.0 - Paroxysmal atrial fibrillation SNOMED Code(s): 654080750 (10) Moderate alcohol consumption: Status: Acute Code(s): Z78.9 - Other specified health status SNOMED Code(s): 04847774 Plan Plan: Bilateral Pneumonia/Pleural Effusions/COPD: 80 yo former smoker presented to ED this am w/ 6 days worsening SOA. Labs/imaging support pneumonia. Did not seem to meet SIRS criteria. Active, lives alone, uses straight cane to ambulate, not on O2 regularly at home. COVID negative, BIOFIRE negative, He has had COVID historically ~1 month ago. He has had both vaccines. Labs reviewed, normal WBC, afebrile. Patient has reported a cough, SOA, weakness, orthopnea as noted in HPI. CT showed no PE, but did show bilateral infiltrates c/w pneumonia, mediastinal and hilar LAD, bilateral pleural effusions, atherosclerosis. Previous abd/pelvic CT 04/26/20 showed bronchiectasis. Based on presentation, patient has mix of COPD exacerbation/CAP. Port score of 122-132 points c/w Risk IV to Risk V. Assuming CHF history, the patient has anywhere from 8.2-29.2% riskf for mortality and hospital inpatient admission was recommended. The patient CrCl was calculated and found to be 84ml/minute. Sputum collected for gram stain and culture. Blood cultures collected. Viral testing completed and elmore negative by PCR. Based on presentation, we will treat as COPD and pneumonia. I will run him on the air drier machine operator side. Due to concern for CHF, and his ability to tolerate PO, I will saline lock IV for now. ED team started him on azithromycin and ceftriaxone. Ordinarily, this would be a great choice. Based on moderate ETOH use, bronchiectasis noted on previous CT/Abd/Pelvis of lower lungs, I would cover for pseudomanal organisms as well. I have adjusted his medications to Cefepime 2g q 8 hours and levaquin 750 IV daily based on CrCl of 84 he should not need any dose changes. At this time I do not think that we need to add Vanco. ETOH reduction d/w patient. Limit to no more than 2 drinks in 24 hours. He noted understanding. The patient has not had a recent echo, BNP is elevated, we will likely get this as outpatient. I would like patient to have Saline lock IV at present. - Admit to inpatient service bed 108 - Telemetry - Vitals q 8 hours - O2 titrate to 92-98%. - CBC/CMP repeat tomorrow in am - anticoag with xarelto chronically. Continue. - Weigh patient to get accurate weight daily. - Strict I+O - F/U with patient again in am 12/09/20 - R/B/A to meds d/w patient, SE reviewed, counseled regarding ETOH use. - Consider change of antibiotic therapy if febrile, worsening, etc. For now treat for CAP and pseudomonas. - Albuterol shared canister q 4 hours 2 puffs. - iptratropium shared canister QID - Solumedrol q 8 hours. Elevated BNP: Would like to get echo as outpatient to evaluate the ejection fraction. History of COVID: He has had the virus, he has had #2 vaccinations. CKD: Stage 3. Creatinine 1.30 GFR 53. CrCl 84. Avoid NSAIDS. Monitor. - CMP daily. HTN: Chronic process. Good BP control is encouraged with Goal BP based on JNC 8 guidelines of <140/90 for this patient. Reviewed medications currently on norvasc 5mg daily, this can cause peripheral edema, we will monitor this. losartan 50mg BID. We discussed the typical first line agents to include thiazide diuretic or trevor-I or ARB or CCB alone or in combo. - Monitor weight with goal of BMI <30. - Daily weight. - Strict I+O. Hypothyroidism: Currently taking levothyroxine 25mcg daily. Last TSH 3.950 on 06/14/20. I will add this while admitted. Overtreated thyroid can lead to afib. He has not been higher than 8.210. I did not see a free t4 or total T3. Subclinical hypothyroid may have been treated back as far as 01/31/19. - TSH during stay. Anemia: Chronic process hovering between hgb 7.8 04/26/20, 9.5 on 05/17/20 and 9.4 today. MCV is normal. RDW is elevated. Normocyctic likely. b12 normal 06/14/20 - CBC in am tomorrow 12/09/20. DM 2: Chronic Diabetes. Last A1C 5.75 06/14/20. Since no a1c within 30 days of admit, we will check value today. Not on metformin at this time. Just had CT w/ contrast for CTA. Consider metformin as outpatient. A1C ordered and returned 6.40, which is still good. He was dx dm with a1c 6.5 06/21/15 and 7.3 08/18/16. Controlled. Will add accucheck qac/hs. Will add levemir while on steroids. Sliding scale with meals as well to be considered. See how accucheck does tonight and am. - Weight control discussed with patient. Goal 1 BMI <30. Goal 2 BMI 19-24.9. - Work on regular exercise and diet to keep BMI in appropriate range with initial goal <30. - Most recent labs reviewed with patient: New labs ordered as appropriate. (see orders) - Meds as listed Reviewed R/B/A and SE of listed agents. - Second Floor Operator referral. BMI >40: Discussed the federal guidelines suggest a healthy goal BMI of 18.5- 24.9 for people 18 65 and 23-30 for people age 65 and older. Overweight is considered BMI 25-30, Obesity 30-40 and Morbid obesity is defined as >100 lb overweight or BMI >40. With a BMI above goal, it is recommended to utilize a diet/exercise program to get back into the appropriate range. Consider referral to pulmonary nurse practitioner. For BMI >40 consider referral to bariatrics. If not already monitoring intake. I would recommend at least to keep a food diary. Document everything that is consumed into a food diary. Studies have shown that patients can lose up to 2x the weight by keeping track of foods. Offered handout on weight loss techniques. Apps that may be of benefit include Wheely Pal, Lose it. Regular exercise encouraged. Start with walking 5-10 minutes at a pace that is difficult to carry a conversation. If chest pain/SOA stop and f/u in office -Second Floor Operator Intermittent Afib/ DVT prophy: I have discussed the risks and benefits of using [Xarelto ] with the patient. I informed the patient of the risks associated with use of anticoagulation including but not limited to catastrophic and lifethreatening intracranial, visceral, and gastrointestinal bleeding. I discussed alternatives (Vit K inhibitors, direct thrombin inhibitors and factor Xa inhibitors) including oral Coumadin with initial LMWH and need for repeat/regular INR, oral Savaysa (Xa inhibitor) with initial LMWH x 5 days, Oral Pradaxa (thrombin inhibitor) with initial LMWH and Xarelto/Eliquis which do not require any injections. Discussed these meds have other names such as Warfarin, rivaroxaban, apixaban or edoxaban. The risks and interactions of each medication were discussed independently and compared to other anticoagulants. We reviewed proximal vs Deep DVT, PE, atrial fibrillation and discussed benefits/reasons for one over another. We discussed provoked vs unprovoked DVT and discussed some common causes of DVT. Discussed DDX today as listed. Discussed when to go to ER, caution for falls, caution for bleeding. I discussed the risks of bleeding as well as availability of reversal for each anticoagulant. After discussion of the above the patient has chosen to initiate anticoagulation. Please see order below. I am discussing/providing Rx for the anticoagulant in this patient due to efficacy and patient preference. The patient has been briefed on the risks and benefits of the agents and has voiced understanding and would like to proceed with anticoagulation. They are aware that the minimal tx course will be 3 months. If unprovoked or recurrent DVT this could be lifetime. Any tobacco should be stopped. If worsening, if fall, if injury would recommend urgent evaluation by ER. - Xarelto 20mg daily. Continue home dose of medication. Moderate ETOH: Monitor for any s/sx of withdrawal. No history of DT. Aspiration considered. He noted 3-4 heavy liquor drinks per day. I requested for him to drop down to 2 per day. Activity: Up w/ assist. Fall precautions. Diet: Normal diet Consistent CARBS CODE STATUS: DNR Disposition: 80 yr old male COVID -, Pneumonia on CTA, pleural effusion, chronic anticoag, HLD, hypothyroid, moderate alcohol consumption, former smoker. He has had both doses of COVID vaccine and had virus. He has had mild respiratory difficulty in ED, seemed already better with lasix on floor. Based on port score and his risk factors, will admit to inpatient status for IV abx. Abx changed to cefepimre and levaquin. LIkely finish 5 day course with levaquin only based on cultures and admit status. Second Floor Operator to see him. Fall precauations. Patient seen on floor, >70 minutes today spent on admission. Discussed with nursing, discussed with case management and discussed with patient. Observation status is not appropriate based on age and diagnosis. Expected length of stay 3 days. Discharge planning ongoing.
[2020-12-08] MEDS: LEVAQUIN 750 MG/150 ML D5W 750 MG/150 ML BAG IV SCH (19:32)
[2020-12-08] MEDS: ATROVENT HFA INHALER (PER PUFF-WITH SPACER) IH SCH (19:57)
[2020-12-08] MEDS: VENTOLIN HFA (PER PUFF-WITH SPACER) IH SCH (19:57)
[2020-12-08] MEDS: COZAAR PO SCH (20:22)
[2020-12-08] MEDS: LYRICA PO SCH (20:22)
[2020-12-08] MEDS: [UNRECOGNIZED DRUG - OTHER] PO SCH (20:53)
[2020-12-08] MEDS: VITAMINS A C E ZINC COPPER PO SCH (20:53)
[2020-12-08] MEDS: PEG PROPYLENE GLYCOL EACHEYE SCH (20:57)
[2020-12-08] MEDS ORDERED: BETAMETHASONE DIPROPIONATE TP SCH (21:00)
[2020-12-08] MEDS ORDERED: ARTIFICIAL TEARS DROPS OP SCH (21:00)
[2020-12-08] MEDS: MAXIPIME 2 GM/50 ML D5W 2 GM/50 ML BAG IV SCH (21:38)
[2020-12-09] MEDS: ATROVENT HFA INHALER (PER PUFF-WITH SPACER) IH SCH ×4 (05:03→19:28)
[2020-12-09] MEDS: VENTOLIN HFA (PER PUFF-WITH SPACER) IH SCH ×4 (05:03→19:28)
[2020-12-09] MEDS: SOLU-MEDROL 125 MG IVP SCH ×4 (05:24→23:18)
[2020-12-09] MEDS: SYNTHROID PO SCH (05:30)
[2020-12-09] MEDS: LASIX TAB PO SCH (05:30)
[2020-12-09] MEDS: PROTONIX PO SCH ×2 (05:30→17:07)
[2020-12-09] MEDS: MAXIPIME 2 GM/50 ML D5W 2 GM/50 ML BAG IV SCH ×3 (05:55→20:37)
[2020-12-09] MEDS ORDERED: HUMALOG SUBCUT SCH ×3 (08:30→09:01)
[2020-12-09] MEDS ORDERED: ZITHROMAX PO SCH (09:00)
[2020-12-09] MEDS ORDERED: NORVASC PO SCH (09:00)
[2020-12-09] MEDS ORDERED: ROCEPHIN 1 GM/50 ML D5W 1 GM/50 ML BAG IV SCH (09:00)
[2020-12-09] MEDS ORDERED: FLOMAX PO SCH (09:00)
[2020-12-09] MEDS ORDERED: ZITHROMAX 500 MG in SODIUM CHLORIDE 250 ML IV SCH (09:00)
[2020-12-09] MEDS ORDERED: NON-FORMULARY MEDICATION (Multivitamin [Daily Multi-Vitamin] 1 EACH tablet) PO SCH (09:00)
[2020-12-09] MEDS ORDERED: HUMALOG SUBCUT ONE (09:09)
[2020-12-09] MEDS: COZAAR PO SCH ×2 (09:31→20:35)
[2020-12-09] MEDS: PROSCAR PO SCH (09:31)
[2020-12-09] MEDS: TRIGLIDE PO SCH (09:31)
[2020-12-09] MEDS: MULTIVITAMIN TABLET PO SCH (09:31)
[2020-12-09] MEDS: LYRICA PO SCH ×2 (09:31→20:36)
[2020-12-09] MEDS: XARELTO PO SCH (09:32)
[2020-12-09] MEDS: LEVEMIR SUBCUT SCH ×2 (09:32→20:35)
[2020-12-09] MEDS: [UNRECOGNIZED DRUG - OTHER] PO SCH ×2 (09:36→20:36)
[2020-12-09] MEDS: VITAMINS A C E ZINC COPPER PO SCH ×2 (09:36→20:36)
[2020-12-09] MEDS: BETAMETHASONE VALERATE 0.1% TP SCH (09:37)
[2020-12-09] MEDS: PEG PROPYLENE GLYCOL EACHEYE SCH ×2 (09:38→20:37)
[2020-12-09] MEDS: HUMALOG SUBCUT SCH ×5 (09:54→17:11)
--- NOTE | 2020-12-09 11:28 | PCM.PROG ---
Date Seen by Provider: 12/09/20 Time Seen by Provider: 08:15 Subjective: 80 yo CM HD #2 ABX day 2/ Cefepime/Levaquin admitted 12/08/20 with bilateral pneumonia, COPD exacerbation, bilateral pleural effusions, SOA. Chronic history of DM2 controlled not on insulin, HTN, hypothyroidism, OA, CKD, hypertrigly. The patient was seen by me evening of 12/08/20. I had missed the missing am labs on orders as I did med rec and abx review. I added these this am and for daily at 0600 for CBC/CMP. Urine for legionella/S. Pneumo sent 12/08/20 and pending. Cultures still early. Overnight vitals showed temperature afebrile status with 97.6-98.5. HR was 77-94. BP through the night was 137/77, 155/82 and 164/81 this am. RR 18-24. He has been on tele SR with rate inn 68-100. Listed as sinus rhythm throughout. Initial weight yesterday was 300. He was listed as 294 this am. BNP today was 2700 down from 4280 yesterday. I ordered A1C which returned 6.40. Sputum culture so far Normal robin, blood culture negative to date. As of this am 0800, the patient had total of 1995 reported intake and 3975 out by midnight and an additional 700 out by 0800. From 0000 through 0759 he had a rate of 0.65ml/kg/hour output, which is reasonable. He noted to me this am that he felt 50-60% better. Abdomen was less tense, less full, less bloated. Still with bilateral LE edema 2+ pitting edema to bilateral knees. The patient has had bilateral knee replacements, he has had bilateral stasis/insufficiency and this is chronic. He notes that he is able to sit up better, lie flat better, he is less SOA, no chest pain, no fever. No reported headache, no fever, no vision changes, no loss of taste/smell, No new URI symptoms, + cough/con gestion/wheezing/SOA but better, reported fatigue chronically, no abd pain, no N/V/D, no constipation, no changes in urination/stooling, except increased urination thanks to the lasix. no new MSK pain, no recent injuries/falls. Overnight notes reviewed from nursing. 12/08/20 SIDDHARTH Deal note reviewed. Discussed REBECA rocha. Coccyx redness noted. note from 06 SIDDHARTH Martinez reviewed and IV in left forearm clotted, new IV in left AC today. Interior Assemblies Installer has been consulted. 0800 meal intake 100%. PT consulted this am as well. He was SOA. Fall risk score 5. History of falls. INdependent in sit to stand. Sitting on side of bed. Ambulated with straight cane. Safety training recommended by therapy. Accucheck 279 this am. I will add levemir 10 units BID and add 3 units of humalog with meals + sliding correction. Accucheck QAC/HS recommended/ordered. Labs returned at 0930 CBC: Wbc stable 9.50. Hgb up from 9.4 to 10.0. MCV 89.1. RDW 17.9 and plt 258. He has elevated neutrophils 90% and ANC 8.6. This is likely steroidal effect/demargination. He has a relativve lymphocytopenia suggesting viral process but biofire was negative. Metabolic panel today showed sodium of 133.8, K+ 4.58, bun 28.1, creatinine 1.24. This is improved from yesterday. GFR up to 56. His sugar is up to 304. I have added levemir 10 units BID and 3 units +SSI while on steroids. Calcium stable 8.78. BNP as noted above improved to 2700. Sodium Corrected 137 based on VELA. Patient is doing well, he feels better overall, breathing he feels is almost back to baseline. I will check a TSH in am tomorrow. I will change him to prednisone 40mg daily starting today. Lasix to continue. Strict I+O to continue. Await cultures tomorrow. Consider change to levaquin PO tomorrow. If still doing well consider home tomorrow vs sunday12/11/20. Would like CXR in am tomorrow to eval pleural effusions. REVIEW OF SYMPTOMS: (Positives bolded) General: weight loss, fever, chills, night sweats, fatigue, appetite loss HEENT: blurry vision, eye pain, eye discharge, dry eyes, decreased vision, sore throat tinnitus, bloody nose, hearin gloss, sinus pain/pressure, ear pa in/pressure. Respiratory: shortness of breath, cough, hemoptysis, wheezing, pleurisy, Orthopnea Cardiovascular: chest pain, PND, palpitation, edema, orthopnea, syncope, swelling of extremities Gastro: Nausea, vomiting, diarrhea, hematemesis, abdominal pain, constipation Genito: hematuria, dysuria, glycosuria, hesitancy, frequency, incontinence [place]elo: Arthralgia, myalgia, muscle weakness, joint swelling, NSAID use Skin: rash bilateral LE (chronic stasis/insufficiency), pruritis, sores, nail changes, skin thickening, change in wart/mole, itching, rash, nail changes Neuro: Migraine, numbness, ataxia, tremor, vertigo, weakness, memory loss, Irritability, dizziness Endocrine: excessive thirst, polyuria, cold intolerance, heat intolerance, goiter Psychiatric: depression, anxiety, anti-depressants, alcohol abuse, drug abuse, insomnia, change in sleep pattern and mood changes Heme/lymph: easy bruising, bleeding gums, blood clots, swollen glands, lymphedema, Allergic/immune: allergic rhinitis, hay fever, asthma, hives, COPD Objective: Vital Signs - 24 hr 12/08/20 15:15 12/08/20 15:33 12/08/20 17:54 Temperature 98.5 F 98.5 F Pulse Rate 94 H 94 H Pulse Rate [Apical] Respiratory Rate 24 24 24 Blood Pressure 155/82 H O2 Sat by Pulse Oximetry 93 L 93 L 12/08/20 19:44 12/08/20 20:00 12/08/20 21:47 Temperature 97.6 F Pulse Rate 83 Pulse Rate [Apical] 94 H Respiratory Rate 22 18 Blood Pressure 137/77 O2 Sat by Pulse Oximetry 96 95 12/09/20 05:04 12/09/20 05:45 12/09/20 10:00 Temperature 97.0 F L Pulse Rate 77 Pulse Rate [Apical] Respiratory Rate 20 Blood Pressure 164/81 H O2 Sat by Pulse Oximetry 98 95 92 L Constitutional: Appearance-No acute distress, sitting on side of bed, positive, talking in full sentences, noting he is feeling better 50-60%. No accessory muscle usage, Consistent with stated age. Orientation- Oriented x 3, alert Build and Nutrition-[obese down 6 lb from last OV] General- Patient is pleasant and cooperative with the interview and exam. Integumentary: General- Unchanged from yesterday. Still w/ Bilateral LE with stasis changes, hemosiderin staining, 2+ Pitting edema bilaterally to knees. No skin breakdown lower extremities. 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 No skin irritation/rash under panus. He still has erythema along coccyx and bilateral gluteal fold. Numerous areas of breakdown on back of right>left ear. he is scratching/picking. He has long excoriation along right lateral garsia from scratching. Several pick pandey bilateral UE. None appear secondarily infected. This is unchanged from yesterday. Dog Paw birthmark right buttock. Head/Neck: Head- normocephalic and atraumatic. Neck- without visible/palpable lumps or pulsations. Palpation- No bony tenderness about head/neck along frontal, occipital, temporal, parietal, mastoid, jawline, zygoma, orbit or any other location. NO temporal artery tenderness. No TMJ tenderness. Neck Supple. Thyroid-No thyromegaly, no nodules ENMT: Pinna- excoriation as listed above. Unchanged. Nasal mucosa- No bleeding noted and no ulcerations observed. [place], moist. Turbinates non boggy. Lips- normal color, moist without cracks/lesions Oral Cavity/Palate- hard/soft palate intact without lesions, oral mucosa pink and moist. Dentition assessed [edentulous] and discussed appropriate oral care. Tongue normal midline. Oropharynx- no pharyngeal erythema, Uvula midline. No post nasal drip. No exudate. Salivary glands- Non tender to palpation CHEST/LUNG: Inspection- symmetric chest wall no pectus deformity. Barrel chested. No accessory muscle use. Prominent stomach, round, large panus. Normal effort, talking in full sentences. No obvious distress, no use of accessory muscles. Palpation- nontender sternum, ribline. No abnormal pulsations. Auscultation- Breath sounds diminished and course throughout all lung raymond. tracheal sounds, bronchial sounds overlying sternum, Bronchovessicular sounds between scapulae posteriorly, vessicular breath sounds heard throughout periphery. Lungs are not clear today. Adventitious sounds- Scattered wheezes, bibasilar rales, scattered rhonchi. Normal respiratory effort, normal. He is improving feels breathing is 50% better. More noise today suggests this may be clearing up. Will check CXR tomorrow to evaluate the fluid in lungs. CARDIOVASCULAR: Carotid artery- normal, no bruits or abnormal pulsations. Jugular vein- no pulsations. Palpation/Percussion- Normal PMI, no palpable th rill Auscultation- Regular rate and rhythm. Several PAC/PVC. No murmur noted in sitting, supine positions. Extremities- digital clubbing is present, cyanosis, edema bilateral LE. NO increased warmth. No cellulitis. ABDOMEN: Inspection- normal and no visible pulsations. Normal contour. Round, enlarged panus. Morbid obesity. Auscultation- Bowel sounds normal, no abdominal bruits. Palpation/Percussion- soft, non-tender, no rebound tenderness, no rigidity (guarding), no jar tenderness, no masses. Liver-difficult to assess due to habitus No obvious HSM. No caput medusa. No fluid wave. Peripheral Vascular: Upper extremity Left- Normal temperature with pink nailbeds and no ulcerations. Upper extremity Right- Normal temperature with pink na ilbeds and no ulcerations. Scattered picking lesions. No secondary infection. Lower extremity- Normal temperature with pink nailbeds and no ulcerations. DP pulses 2+ bilaterally. Pedal hair reduced/lacking. Normal capillary refill. Edema- Prominent bilateral edema shins/knees, feet. Musculoskeletal: Generalized-No generalized swelling or edema of extremities, no digital clubbing or cyanosis, neurovascularly intact all four extremities. Spine/Ribs- No deformities, masses or tenderness, no known fractures, normal strength, Normal ROM. Normal stability No tenderness along C/T/L spine. Normal appearing ROM about spine. Neurological: General- Moves all 4 extremities symmetrically. Symmetrical face and body posture. Cranial nerves- individually evaluated II-XII and intact. PERRLA, Normal EOMI, visual/special senses appear intact, Face is symmetrical and normal sensation/movement, normal tongue, normal strength/posture of neck musculature. Reflexes- intact with DTR 2+ patellar, Achilles, bicep, brachial, tricep. Ankle clonus normal with 2 beats. Strength- 5/5 bilateral UE and LE. Soft touch- intact bilateral UE and LE. Temperature sensation- intact bilateral UE and LE. Neuropsych: Oriented- Person, place, time. (AAOx3), Mood/affect- normal and congruent. Able to articulate well. Speech-Normal speech, normal rate, normal tone, normal use of language, volume and coherence. Thought content- normal with ability to perform basic computations and apply abstract thought/reason. Associations- intact, no SI/HI, no hallucinations, delusions, obsessions. Judgment/insight- Appropriate. Memory-Recall intact, remote and recent memory intact. Knowledge- Age appropriate fund of knowledge, concentration and attention span normal. Lymphatic: Head/Neck- normal size and non tender to palpation. Axillary- normal size and non tender to palpation. Femoral and Inguinal- normal size and non tender to palpation. Labs: Labs returned at 0930 CBC: Wbc 9.50. Hgb 10.0. MCV 89.1. RDW 17.9 and plt 258. elevated neutrophils 90% and ANC 8.6. Metabolic panel today showed sodium of 133.8, K+ 4.58, bun 28.1, creatinine 1.24. GFR up to 56. His sugar is up to 304. I have added levemir 10 units BID and 3 units +SSI while on steroids. Calcium stable 8.78. BNP as noted above improved to 2700. Sodium Corrected 137 based on VELA. (1) Bilateral pneumonia: Status: Acute Code(s): J18.9 - Pneumonia, unspecified organism SNOMED Code(s): 707606798 (2) CKD (chronic kidney disease): Status: Acute Code(s): N18.9 - Chronic kidney disease, unspecified SNOMED Code(s): 357247698 (3) Hypertension: Status: Acute Code(s): I10 - Essential (primary) hypertension SNOMED Code(s): 49610024 (4) Hypothyroidism: Status: Acute Code(s): E03.9 - Hypothyroidism, unspecified SNOMED Code(s): 69781494 (5) Diabetes type 2, controlled: Status: Acute Code(s): E11.9 - Type 2 diabetes mellitus without complications SNOMED Code(s): 39702107 (6) Pleural effusion: Status: Acute Code(s): J90 - Pleural effusion, not elsewhere classified SNOMED Code(s): 24526258 (7) BMI 40.0-44.9, adult: Status: Acute Code(s): Z68.41 - Body mass index [BMI]40.0-44.9, adult SNOMED Code(s): 573705286 Plan: Bilateral Pneumonia/Pleural Effusions/COPD: 80 yo former smoker presented HD Day 2 Pneumonia, COPD, CKD 3, DM 2, Pleural effusion, Peripheral edema. Abx day #2 for Levaquin 750 daily IV, cefepemie 2g q 8 hours to cover for CAP and pseudomonas. He is 50-60% better reports breathing is much more stable. He is on 3L of O2. he is maintaining >90%. So far BC and Sputum cultures negative. Labs look okay. Active, lives alone, uses straight cane to ambulate, not on O2 regularly at home. He will likely benefit from home O2. He has had COVID historically ~1 month ago. He has had both vaccines. Labs reviewed, WBC with e/o demargination and neutrophilia. He remains afebrile. Patient has reported a cough, SOA, weakness, orthopnea x 6 days prior to admit. this is improving per his report. He had a great night of sleep and feels like he may need 1-2 more days and then be ready to be d/c home. Based on presentation, patient has mix of COPD exacerbation/CAP. He is on steroids, this has caused sugars to elevate. I have added insulin levemir 10 units BID to cover, 3 units of humalog with meals + SSI. He is tolerating that well. No SE from abx. The patient CrCl and GFR remain stable for current meds. We will continue to treat as COPD and pneumonia. Albuterol q 4 hours PRN (Shared canister), ipratropium QID. Saline lock to prevent worsening of pleural effusion. Tolerating PO, I will continue saline lock IV for now. Continue Cefepime 2g q 8 hours and levaquin 750 IV daily until d/c. Then consider levaquin only. s - Continue Admit to inpatient service bed 108 - Telemetry - Vitals q 8 hours - O2 titrate to 92-98%. - CBC/CMP repeat tomorrow in am - anticoag with xarelto chronically. Continue. - Weigh patient daily to get accurate weight daily. - Strict I+O - F/U with patient again in am 12/10/20 - R/B/A to meds d/w patient, SE reviewed, counseled regarding ETOH use. - Consider change of antibiotic therapy if febrile, worsening, etc. For now treat for CAP and pseudomonas. - Albuterol shared canister q 4 hours 2 puffs. - iptratropium shared canister QID - Solumedrol q 8 hours. Likely change to prednisone PO 12/10/20. Elevated BNP: Would like to get echo as outpatient to evaluate the ejection fraction. BNP down today. continue diuresis. - Lasix 40mg daily. History of COVID: He has had the virus, he has had #2 vaccinations. CKD: Stage 3. Avoid NSAIDS. Monitor. creatinine 1.24. This is improved from yesterday. GFR up to 56. - CMP daily. HTN: Chronic process. Good BP control is encouraged with Goal BP based on JNC 8 guidelines of <140/90 for this patient. Reviewed medications currently on norvasc 5mg daily, this can cause peripheral edema, we will monitor this. losartan 50mg BID. We discussed the typical first line agents to include thiazide diuretic or trevor-I or ARB or CCB alone or in combo. - Monitor weight with goal of BMI <30. - Daily weight. - Strict I+O. - Plan to change norvasc due to peripheral edema. Hypothyroidism: Currently taking levothyroxine 25mcg daily. Last TSH 3.950 on 06/14/20. I will add this while admitted. Overtreated thyroid can lead to afib. He has not been higher than 8.210. I did not see a free t4 or total T3. Subclinical hypothyroid may have been treated back as far as 01/31/19. - TSH for tomorrow am. Anemia: Chronic process hovering between hgb 7.8 04/26/20, 9.5 on 05/17/20 9.4 at admit was 10.0 today. MCV is normal. RDW is elevated. Normocyctic likely. b12 normal 06/14/20 - CBC in am tomorrow 12/10/20. DM 2: Chronic Diabetes. Last A1C 5.75 06/14/20. Repeat in hospital was 6.40. P cyndie to d/c home on metformin. Just had CT w/ contrast for CTA. Hold metformin 48 hours. Plan to add at d/c. He was dx dm with a1c 6.5 06/21/15 and 7.3 08/18/16. Controlled. Will continue accucheck qac/hs. Will continue levemir while on steroids. Sliding scale with meals as well to be used. - Weight control discussed with patient. Goal 1 BMI <30. Goal 2 BMI 19-24.9. - Work on regular exercise and diet to keep BMI in appropriate range with initial goal <30. - Most recent labs reviewed with patient: New labs ordered as appropriate. (see orders) - Meds as listed Reviewed R/B/A and SE of listed agents. - Interior Assemblies Installer referral reviewed BMI >40: Weight is down 6 lb from admit. Suspect normal/dry weight 290-295. Discussed the federal guidelines suggest a healthy goal BMI of 18.5-24.9 for people 18 65 and 23-30 for people age 65 and older. Overweight is considered BMI 25-30, Obesity 30-40 and Morbid obesity is defined as >100 lb overweight or BMI >40. With a BMI above goal, it is recommended to utilize a diet/exercise program to get back into the appropriate range. Consider referral to air pollution auditor. For BMI >40 consider referral to bariatrics. If not already monitoring intake. I would recommend at least to keep a food diary. Document everything that is consumed into a food diary. Studies have shown that patients can lose up to 2x the weight by keeping track of foods. Offered handout on weight loss techniques. Apps that may be of benefit include [employer], Lose it. Regular exercise encouraged. Start with walking 5-10 minutes at a pace that is difficult to carry a conversation. If chest pain/SOA stop and f/u in office -Interior Assemblies Installer referral as outpatient - Weight loss encouraged. Intermittent Afib/ DVT prophy: Continue Xarelto with the patient. We again discussed the risks associated with use of anticoagulation including but not limited to catastrophic and lifethreatening intracranial, visceral, and gastrointestinal bleeding. I discussed alternatives (Vit K inhibitors, direct thrombin inhibitors and factor Xa inhibitors) including oral Coumadin with initial LMWH and need for repeat/regular INR, oral Savaysa (Xa inhibitor) with initial LMWH x 5 days, Oral Pradaxa (thrombin inhibitor) with initial LMWH and Xarelto/Eliquis which do not require any injections. Discussed these meds have other names such as Warfarin, rivaroxaban, apixaban or edoxaban. The risks and interactions of each medication were discussed independently and compared to other anticoagulants. We reviewed proximal vs Deep DVT, PE, atrial fibrillation and discussed benefits/reasons for one over another. We discussed provoked vs unprovoked DVT and discussed some common causes of DVT. Discussed DDX today as listed. Discussed when to go to ER, caution for falls, caution for bleeding. I discussed the risks of bleeding as well as availability of reversal for each anticoagulant. After discussion of the above the patient has chosen to initiate anticoagulation. Please see order below. I am discussing/providing Rx for the anticoagulant in this patient due to efficacy and patient preference. The patient has been briefed on the risks and benefits of the agents and has voiced understanding and would like to proceed with anticoagulation. They are aware that the minimal tx course will be 3 months. If unprovoked or recurrent DVT this could be lifetime. Any tobacco should be stopped. If worsening, if fall, if injury would recommend urgent evaluation by ER. - Xarelto 20mg daily. Continue home dose of medication. Moderate ETOH: Monitor for any s/sx of withdrawal. No history of DT. Aspiration considered. He noted 3-4 heavy liquor drinks per day. I requested for him to drop down to 2 per day when he goes back home. - Add thiamine to medications. Activity: Up w/ assist. Fall precautions. - Therapy saw patient. Diet: Normal diet Consistent CARBS CODE STATUS: DNR Disposition: 80 yr old male. HD #2 Pneumonia/COPD/CHF exacerbation (possible). COVID -, Pneumonia on CTA, pleural effusion, chronic anticoag, HLD, hypothyroid, moderate alcohol consumption, former smoker. He has had both doses of COVID vaccine and had virus. He has had mild respiratory difficulty better now 50-60% on abx. Based on port score and his risk factors, will continue w/ admission to inpatient status for IV abx. Abx changed to cefepimre and levaquin. Tolerating these well. LIkely finish 5 day course with levaquin only based on cultures and admit status. Interior Assemblies Installer to see him. Fall precauations. Patient seen on floor, 37 minutes today spent on admission. Discussed with nursing, discussed with case management and discussed with patient. Observation status is not appropriate based on age and diagnosis. Expected length of stay 3 days. Discharge planning ongoing.
[2020-12-09 11:32] LABS: BASOPHILS % (AUTO) 0.1 % (0.0-3.0); HEMATOCRIT 31.9 % (42.0-52.0); IMMATURE GRANULOCYTE # (AUTO) 0.1 (0.0-1.0); IMMATURE GRANULOCYTE % (AUTO) 0.8 % (0.0-5.0); LYMPHOCYTES # (AUTO) 0.5 K/uL (0.60-3.4); MEAN CORPUSCULAR HEMOGLOBIN 27.9 pg (27.0-31.0); MEAN CORPUSCULAR HGB CONC 31.3 (31.8-35.4); MEAN CORPUSCULAR VOLUME 89.1 fl (80.0-94.0); MONOCYTES # (AUTO) 0.4 K/uL (0.4-2.0); NEUTROPHILS # (AUTO) 8.6 K/ul (2.0-6.9); PLATELET COUNT 258 10^3/uL (140-440); RDW COEFFICIENT OF VARIATION 17.9 % (11.6-14.8); RED BLOOD COUNT 3.58 10^6/ul (4.70-6.10)
[2020-12-09 11:33] LABS: ALANINE AMINOTRANSFERASE 42.4 U/L (0-50); ALBUMIN 3.91 g/dL (3.5-5.0); ALKALINE PHOSPHATASE 69.8 U/L (56-119); ASPARTATE AMINO TRANSFERASE 53.1 U/L (17-59); BILIRUBIN,TOTAL 0.76 mg/dL (0.2-1.3); BLOOD UREA NITROGEN 28.1 mg/dL (9-20); CALCIUM 8.78 mg/dL (8.4-10.2); CHLORIDE 95.4 mmol/L (98-107); CREATININE 1.24 mg/dL (0.60-1.10); GLUCOSE 304.1 mg/dL (74-106); POTASSIUM 4.58 mmol/L (3.5-5.1); SODIUM 133.8 mmol/L (134.5-145); TOTAL PROTEIN 6.98 g/dL (6.3-8.2)
[2020-12-09 11:43] LABS: LYMPHOCYTES % (AUTO) 5.1 (10.0-50.0)
--- NOTE | 2020-12-09 13:07 | RS.PTINEVL ---
Subjective - Patient information Date of Evaluation: 12/09/20 Usual Living Arrangement: Adopted son and daughter Home Environment: Mobile Home (triple wide), Level/No stairs, Ramp Medical History Comments:: HTN, Diabetes Type2, OA, Chronic Kidney Disease, Diabetic Neuropathy, COPD, CHF, legally blind Subjective Information/ Patient Comments:: Mr. Marsh states had did a have a fall recently, but reports it was due to passing out. He agrees to get out of bed. Denies dizziness with position change or during ambulation. States he was not on oxygen at home prior to this admission. - Level of function Prior to this admission, the patient could do the following:: Independent Selfcare, Independent ADL's, Independent Ambulation Current Level of Function: Partially Dependent Current Equipment Used at Home: Straight cane, Wheeled walker; elevated commode, bidet; grab bar in bathroom; B/P Machine Interventions - Objective Patient Orientation: Person, Place, Time, Situation Current Interventions: IV's, Oxygen, Telemetry Observation: Bilateral LE's with edema, left worse than right. Lower legs also demonstrate hyperpigmentation. Range of Motion - ROM Right Lower Extremity AROM: WFL's Left Lower Extremity AROM: WFL's Muscle Strength - Muscle Strength Comments:: Gross muscle strength of LE's 5/5 throughout. Sensation - Sensation Comments: Reports imipaired sensation from Diabetic neuropathy in bilateral LE's. Balance - Sitting Balance and Reactions Static Sitting Balance: Good Dynamic Sitting Balance: Good - Standing Balance and Reactions Static Standing Balance: Fair (+) Dynamic Standing Balance: Fair Functional Mobility - Bed Mobility Supine to Sit: Independent, Supervision, 1 person assist Sit to Supine: Supervision, 1 person assist - Transfers Sit to Stand: Supervision, 1 person assist, Tactile Cues Stand to Sit: Supervision, 1 person assist, Tactile Cues Stand Pivot Transfers: CGA, Min Assist, 1 person assist, Verbal Cues, Tactile Cues Comments:: Pt given verbal cues to use UE's to push from bed and then to reach back for bed prior to sitting down. prior to ambulation, O2 sat 91% and HR 115. - Safety Awareness Safety Awareness: Fair ISELA INDEX SCORE: NA Ambulation - Ambulation Weight Bearing Status: FWB Assistive Device Used: Straight Cane Distance: 70 feet Assistance needed with Ambulation: CGA, Min Assist, 1 person assist, Verbal Cues, Tactile Cues Quality of Ambulation: Ambulated with 3L O2 via NC with tank. Patient demonstrates slight unsteady gait during ambulation. Swelling in his feet appear to affect his balance. He uses the straight cane appropriately. Upon returning to room, O2 sat 85% and HR 104. Encouraged inhaling through his nose and O2 sat climbed to 97%, HR 102. Gait Deviations: Wide Based gait, Short stride, Deviates from path (mild) Factors Affecting Ambulation: Breathing/O2 Saturation, Decreased Safety, Limited Endurance Treatment time - Time with patient Length of Evaluation: 14 mins Total treatment time: 16 Assessment - Assessment Problem List:: Requires training/education, Decreased safety/Risk of falls Rehab Potential: Good Further Therapy Indicated?: Yes Candidate for Swing Bed for Therapy Services?: Patient needs safety training to decrease risk for falls. Would not be a candidate for Swing Bed due to his high level of function. Evaluation Complexity: HISTORY: Medium (HTN, Diabetes, Neuropathy, legally blind, LE edema), EXAM OF BODY SYSTEMS: Medium (ROM, MS, balance, gait, vitals), CLINICAL PRESENTATION: Medium (SOA with exertion) Patient's Goal(s): His goal is to return to his prior level of function at home. Short Term Goals GOAL #1: Sit <> stand transfer with consistent use of UE's for safety. Goal to be met by: 12/11/20 GOAL #2: Amb 80 feet Supvn-CGA using st. cane and good stride length. Goal to be met by: 12/11/20 GOAL #3: Stand-pivot transfers w/ CGA with good safety. Goal to be met by: 12/11/20 Residential Goals GOAL #1: All transfers independent with good safety. Goal to be met by: 12/12/20 GOAL #2: Amb with st. cane household distances, SBA and good safety. Goal to be met by: 12/12/20 Plan Plan of Care: Therapeutic EX, Self-Care/Home Management Frequency of Treatment: 1-2 X day, as tolerated Duration of Treatment: 2-3 days Anticipated Discharge Destination: Home Treatment Diagnosis (ICD 10 Codes): R26.81 Unsteady gait/ balance impaired. Z91.81 At risk for falls Has the Physician been added for Co-signature?: Yes
[2020-12-09] MEDS: LEVAQUIN 750 MG/150 ML D5W 750 MG/150 ML BAG IV SCH (21:47)
[2020-12-10] MEDS: VENTOLIN HFA (PER PUFF-WITH SPACER) IH SCH ×3 (04:58→14:06)
[2020-12-10] MEDS: ATROVENT HFA INHALER (PER PUFF-WITH SPACER) IH SCH ×3 (04:58→14:06)
[2020-12-10 05:24] LABS: BASOPHILS % (AUTO) 0.1 % (0.0-3.0); HEMATOCRIT 30.6 % (42.0-52.0); HEMOGLOBIN 9.5 g/dl (14.0-18.0); IMMATURE GRANULOCYTE # (AUTO) 0.1 (0.0-1.0); IMMATURE GRANULOCYTE % (AUTO) 1.1 % (0.0-5.0); LYMPHOCYTES # (AUTO) 0.5 K/uL (0.60-3.4); LYMPHOCYTES % (AUTO) 4.3 (10.0-50.0); MEAN CORPUSCULAR HEMOGLOBIN 28.1 pg (27.0-31.0); MEAN CORPUSCULAR VOLUME 90.5 fl (80.0-94.0); MONOCYTES # (AUTO) 0.6 K/uL (0.4-2.0); MONOCYTES % (AUTO) 4.8 (0-10); NEUTROPHILS # (AUTO) 11.1 K/ul (2.0-6.9); NEUTROPHILS % (AUTO) 89.7 % (42.2-75.2); PLATELET COUNT 229 10^3/uL (140-440); RDW COEFFICIENT OF VARIATION 17.7 % (11.6-14.8); RED BLOOD COUNT 3.38 10^6/ul (4.70-6.10)
[2020-12-10 05:41] LABS: ALANINE AMINOTRANSFERASE 36.7 U/L (0-50); ALBUMIN 3.81 g/dL (3.5-5.0); ALKALINE PHOSPHATASE 61.2 U/L (56-119); ASPARTATE AMINO TRANSFERASE 38.5 U/L (17-59); BILIRUBIN,TOTAL 0.54 mg/dL (0.2-1.3); BLOOD UREA NITROGEN 33.4 mg/dL (9-20); CALCIUM 8.9 mg/dL (8.4-10.2); CARBON DIOXIDE 31.3 mmol/L (22-30.0); CHLORIDE 96.3 mmol/L (98-107); CREATININE 1.24 mg/dL (0.60-1.10); GLUCOSE 195.1 mg/dL (74-106); POTASSIUM 4.78 mmol/L (3.5-5.1); TOTAL PROTEIN 6.66 g/dL (6.3-8.2)
[2020-12-10] MEDS: SOLU-MEDROL 125 MG IVP SCH (05:43)
[2020-12-10] MEDS: SYNTHROID PO SCH (05:43)
[2020-12-10] MEDS: LASIX TAB PO SCH (05:44)
[2020-12-10] MEDS: MAXIPIME 2 GM/50 ML D5W 2 GM/50 ML BAG IV SCH ×2 (05:54→13:01)
[2020-12-10] MEDS: PROTONIX PO SCH (05:58)
--- NOTE | 2020-12-10 07:11 | PCM.PROG ---
Date Seen by Provider: 12/10/20 Time Seen by Provider: 07:04 Subjective: 80 yo CM HD #3 ABX day 12/03 Cefepime/Levaquin admitted 12/08/20 with bilateral pneumonia, COPD exacerbation, bilateral pleural effusions, SOA. Chronic history of DM2 controlled not on insulin, HTN, hypothyroidism, OA, CKD, hypertrigly. Patient has done well thus far. Vitals over last 24 hours showed afebrile status 97-87.8, HR 77-82, BP was a little elevated yesterday am at 164/81 but was normal 124/68, 116/69, 128/73 since that point. RR listed as 20 through night. 93-95% on 3L. Will order 3 Step today to see if he qualifies for oxygen at home. Remote tele reviewed and he has been SR throughout the night. Occasional PAC on 12/08. Weight on admit was 300, he went to 294 and was 296 this am. Labs today showed an increase in WBC to 12.40. Hgb to 9.5 from 10.0 yesterday. This was similar to the 9.4 12/08. RDW is up at 17.7, MCV is normal. Neutrophils 89.7% lymphocytes 4.3% and low. This suggests viral process with steroid demargination. CMP this am showed sodium 135, K+ 4.78. Creatinine stable 1.24. Glucose better today at 195.1. I will change him to prednisone 40mg daily PO x 5 days. TSH was back this am and 1.330. This is stable. I will stop levothyroxine as this is not needed at 25mcg daily. Previous levels look like TSH was minimally elevated, subclinical. He does not need a medication at this time as risks outweigh benefits. I will also add thiamine PO 100mg daily to cover for his history of ETOH use. Since GFR is >45 and he has not had contrast in 48 hours, I will also start metformin for him to continue at DISCHARGE to use for weight reduction/glucose control as outpatient. Lastly, we will stop the norvasc due to peripheral edema and SE of medication causing this problem. We will add hctz 12.5mg and add lipitor 20mg daily for his stroke reduction risk. Cultures reveiwed sputum heavy growth normal Viviana. Negative BC x 2. No new imaging studies. Nursing notes reviewed. Patient walked with therapy (RN Winders 1525). O2 dropped to 88% on 3L with ambulation. 1529 note Intermittent dry cough, SOA with exertion noted. NO SOA at rest. Walks w/ cane/walker. REBECA hosing applied. Did well. Abd soft/round. Note 2331 SID[address]TH bess talkative, edema bilateral. REBECA hosing removed. Left arm edema. SOA improving. O2 3L. Note 0634 did well through night. No cough, no SOA, bilateral edema improving. No edema in arm. Abx running. Patient wishes to go home. I would like to get a CXR this am, I would like to get a 3Step as well. REVIEW OF SYMPTOMS: (Positives bolded) General: weight loss, fever, chills, night sweats, fatigue, appetite loss HEENT: blurry vision, eye pain, eye discharge, dry eyes, decreased vision, sore throat tinnitus, bloody nose, hearin gloss, sinus pain/pressure, ear pain/pressure. Respiratory: shortness of breath, cough, hemoptysis, wheezing, pleurisy, Orthopnea Cardiovascular: chest pain, PND, palpitation, edema, orthopnea, syncope, swelling of extremities Gastro: Nausea, vomiting, diarrhea, hematemesis, abdominal pain, constipation Genito: hematuria, dysuria, glycosuria, hesitancy, frequency, incontinence [place]: Arthralgia, myalgia, muscle weakness, joint swelling, NSAID use Skin: rash bilateral LE (chronic stasis/insufficiency), pruritis, sores, nail changes, skin thickening, change in wart/mole, itching, rash, nail changes Neuro: Migraine, numbness, ataxia, tremor, vertigo, weakness, memory loss, Irritability, dizziness Endocrine: excessive thirst, polyuria, cold intolerance, heat intolerance, goiter Psychiatric: depression, anxiety, anti-depressants, alcohol abuse, drug abuse, insomnia, change in sleep pattern and mood changes Heme/lymph: easy bruising, bleeding gums, blood clots, swollen glands, lymphedema, Allergic/immune: allergic rhinitis, hay fever, asthma, hives, COPD Objective: Vitals: T=97.0 F, P=77, R=20, IM=835/73, SPO2=93 HEENT: [] Neck: [] Lungs: [] CVS: [] Abdomen: [] Extremities: [] Neurological: [] Skin: [] Lab/Tests/Diagnostic Imaging: [] (1) Bilateral pneumonia: Status: Acute Code(s): J18.9 - Pneumonia, unspecified organism SNOMED Code(s): 866265676 (2) History of 2019 novel coronavirus disease (COVID-19): Status: Acute Code(s): Z86.16 - Personal history of COVID-19 SNOMED Code(s): 477737498879192045 (3) CKD (chronic kidney disease): Status: Acute Code(s): N18.9 - Chronic kidney disease, unspecified SNOMED Code(s): 687815610 (4) Hypertension: Status: Acute Code(s): I10 - Essential (primary) hypertension SNOMED Code(s): 24617649 (5) Hypothyroidism: Status: Acute Code(s): E03.9 - Hypothyroidism, unspecified SNOMED Code(s): 83272783 (6) Diabetes type 2, controlled: Status: Acute Code(s): E11.9 - Type 2 diabetes mellitus without complications SNOMED Code(s): 67778454 (7) Pleural effusion: Status: Acute Code(s): J90 - Pleural effusion, not elsewhere classified SNOMED Code(s): 61569494 (8) Chronic anticoagulation: Status: Acute Code(s): Z79.01 - jail (current) use of anticoagulants SNOMED Code(s): 993447969 (9) Intermittent atrial fibrillation: Status: Acute Code(s): I48.0 - Paroxysmal atrial fibrillation SNOMED Code(s): 504506796 (10) Moderate alcohol consumption: Status: Acute Code(s): Z78.9 - Other specified health status SNOMED Code(s): 73313703
[2020-12-10] MEDS ORDERED: PREDNISONE PO SCH (08:30)
[2020-12-10] MEDS: BETAMETHASONE VALERATE 0.1% TP SCH (08:37)
[2020-12-10] MEDS: PEG PROPYLENE GLYCOL EACHEYE SCH (08:37)
[2020-12-10] MEDS: VITAMINS A C E ZINC COPPER PO SCH (08:38)
[2020-12-10] MEDS: [UNRECOGNIZED DRUG - OTHER] PO SCH (08:38)
[2020-12-10] MEDS: PROSCAR PO SCH (08:38)
[2020-12-10] MEDS: LYRICA PO SCH (08:40)
[2020-12-10] MEDS: MULTIVITAMIN TABLET PO SCH (08:40)
[2020-12-10] MEDS: TRIGLIDE PO SCH (08:40)
[2020-12-10] MEDS: XARELTO PO SCH (08:40)
[2020-12-10] MEDS: HUMALOG SUBCUT SCH ×4 (08:46→12:19)
[2020-12-10] MEDS: LEVEMIR SUBCUT SCH (08:48)
[2020-12-10] MEDS ORDERED: FLOMAX PO SCH (09:00)
[2020-12-10] MEDS ORDERED: THIAMINE PO SCH (09:00)
[2020-12-10] MEDS ORDERED: HYDROCHLOROTHIAZIDE PO SCH (09:00)
[2020-12-10] MEDS ORDERED: COZAAR PO SCH (09:00)
--- NOTE | 2020-12-10 13:38 | DI ---
EXAM: Chest two views HISTORY: Pleural effusion FINDINGS: Compared to 09/27/2018. Cardiomegaly is stable. There is no pleural effusion currently s een. No findings characteristic of active congestive heart failure-fluid overload identified. Mild bibasilar scarring or atelectasis. Lungs are otherwise clear. No pneumothorax. IMPRESSION: No pleural effusion currently seen.
[2020-12-10 14:17] VITALS: BP 135/66; TEMP 98
--- NOTE | 2020-12-10 15:40 | PCM.DC ---
Final Diagnosis: 1. Pneumonia 2. COPD Exacerbation 3. Pleural effusion 4. Intermittent Afib 5. Venous stasis/Peripheral Edema + Elevated NT-PROBNP 6. HTN 7. HLD 8. 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 morbid obesity BMI 40 10. Oxygen dependence. 11. Subclinical hypothyroidism 12. GERD 13. CKD 3 14. Arthritis 15. Chronic anticoagulation Xarelto 16. Former Smoker. (1) Bilateral pneumonia: Status: Acute Code(s): J18.9 - Pneumonia, unspecified organism SNOMED Code(s): 909701733 Qualifiers: Pneumonia type: due to unspecified organism Lung location: lower lobe of lung Qualified Code(s): J18.9 - Pneumonia, unspecified organism (2) CKD (chronic kidney disease): Status: Acute Code(s): N18.9 - Chronic kidney disease, unspecified SNOMED Code(s): 230063688 Qualifiers: Chronic kidney disease stage: stage 3 (moderate) Chronic kidney disease stage 3 subtype: stage 3a (GFR 45-59) Qualified Code(s): N18.31 - Chronic kidney disease, stage 3a (3) Hypertension: Status: Acute Code(s): I10 - Essential (primary) hypertension SNOMED Code(s): 23459023 Qualifiers: Hypertension type: essential hypertension Qualified Code(s): I10 - Essential (primary) hypertension (4) Hypothyroidism: Status: Acute Code(s): E03.9 - Hypothyroidism, unspecified SNOMED Code(s): 71458125 Qualifiers: Hypothyroidism type: unspecified Qualified Code(s): E03.9 - H ypothyroidism, unspecified (5) Diabetes type 2, controlled: Status: Acute Code(s): E11.9 - Type 2 diabetes mellitus without complications SNOMED Code(s): 43180501 Qualifiers: Diabetes mellitus intermediate school teacher insulin use: without penitentiary use Diabetes mellitus complication status: with kidney complications Diabetes mellitus complication detail: with chronic kidney disease Chronic kidney disease stage: stage 3 (moderate) Qualified Code(s): E11.22 - Type 2 diabetes mellitus with diabetic chronic kidney disease; N18.30 - Chronic kidney disease, stage 3 unspecified (6) Pleural effusion: Status: Acute Code(s): J90 - Pleural effusion, not elsewhere classified SNOMED Code(s): 73211112 (7) BMI 40.0-44.9, adult: Status: Acute Code(s): Z68.41 - Body mass index [BMI]40.0-44.9, adult SNOMED Code(s): 164717072 Reason for Hospitalization: 1. Worsening SOA and cough x 6 days. CTA showed Pleural effusions, bilateral Pneumonia. Concern for Pneumonia, COPD exacerbation, possibly CHF w/ Elevated BNP. Prognosis at Discharge: Return to baseline. improved imaging with CXR showing resolution of pleural effusion. Condition at Discharge: Improved/Returned to baseline breathing. D/C on home oxygen 3L. Echocardiogram outpatient. No more than 2 ETOH equivalents daily. Medication management/changes - Stop Levothyroxine as never truly hypothyroid (SUBCLINICAL). Risks of afib and over treatment. - Antibiotics to complete ~5 days course. - Stop Amlodipne - Start prednisone, albuterol, ipratropium, lipitor, hctz 12.5, metformin. Add thiamine. - Lasix 20mg daily, weight self daily. If >3 lb increase in 72 hours needs to call clinic. Medications at Discharge: Ambulatory Orders Medication Instructions Recorded PreserVision AREDS 1 ea PO BID 09/07/14 Systane (propylene glycol) 1 drp BOTHEYES BID 09/07/14 multivitamin [Daily Multi-Vitamin] 1 ea PO DAILY 09/07/14 betamethasone dipropionate 15 g TOPICAL BID #1 tb 04/09/19 epinephrine 0.3 mg/0.3 mL 0.3 mg IM PRN PRN #2 each 03/01/20 injection, auto-injector fenofibrate nanocrystallized 145 145 mg PO QDAY #30 tab 03/04/20 mg tablet hydrocortisone 1 % topical ointment 1 applic TP BID PRN #30 gm 05/17/20 pregabalin 150 mg capsule 150 mg PO BID #180 cap 08/11/20 finasteride 5 mg tablet 5 mg PO DAILY #90 tab-cap 09/07/20 tramadol 50 mg tablet 50 mg PO BID PRN #60 tab 11/02/20 rivaroxaban 20 mg tablet 20 mg PO DAILY #90 tab-cap 11/08/20 losartan 50 mg tablet 50 mg PO BID #180 tab-cap 12/03/20 tamsulosin 0.4 mg capsule 0.4 mg PO DAILY #90 tab-cap 12/03/20 betamethasone valerate 1 applic TOPICAL DAILY 12/08/20 albuterol sulfate [Ventolin HFA] 2 puff INHALATION Q4H PRN #8.5 g 12/10/20 atorvastatin 20 mg PO BEDTIME #30 tab 12/10/20 furosemide [Lasix] 20 mg PO QAM #30 tab 12/10/20 hydrochlorothiazide 12.5 mg PO DAILY #30 tab 12/10/20 ipratropium bromide [Atrovent HFA] 2 puff INHALATION QID #1 ea 12/10/20 levofloxacin 750 mg PO DAILY 3 Days #3 tab 12/10/20 metformin 1,000 mg PO DAILY #60 tab 12/10/20 pantoprazole 40 mg PO DAILY #30 tab 12/10/20 prednisone 40 mg PO DAILYWM #10 tab 12/10/20 thiamine HCl (vitamin B1) 100 mg PO DAILY #30 tab 12/10/20 Lab/Diagnostics: Laboratory Last Values WBC 12.40 K/ul (4.2-10.2) H 12/10/20 05:00 RBC 3.38 10^6/ul (4.70-6.10) L 12/10/20 05:00 Hgb 9.5 g/dl (14.0-18.0) L 12/10/20 05:00 Hct 30.6 % (42.0-52.0) L 12/10/20 05:00 MCV 90.5 fl (80.0-94.0) 12/10/20 05:00 MCH 28.1 pg (27.0-31.0) 12/10/20 05:00 MCHC 31.0 (31.8-35.4) L 12/10/20 05:00 RDW Coeff of Simi 17.7 % (11.6-14.8) H 12/10/20 05:00 Plt Count 229 10^3/uL (140-440) 12/10/20 05:00 Immature Gran % (Auto) 1.1 % (0.0-5.0) 12/10/20 05:00 Neut % (Auto) 89.7 % (42.2-75.2) H 12/10/20 05:00 Lymph % (Auto) 4.3 (10.0-50.0) L 12/10/20 05:00 Edmonson % (Auto) 4.8 (0-10) 12/10/20 05:00 Eos % (Auto) 0.0 % (0.0-7.0) 12/10/20 05:00 Baso % (Auto) 0.1 % (0.0-3.0) 12/10/20 05:00 Neut # (Auto) 11.1 K/ul (2.0-6.9) H 12/10/20 05:00 Lymph # (Auto) 0.5 K/uL (0.60-3.4) L 12/10/20 05:00 Edmonson # (Auto) 0.6 K/uL (0.4-2.0) 12/10/20 05:00 Eos # (Auto) 0.0 K/ul (0.0-0.7) 12/10/20 05:00 Baso # (Auto) 0.0 K/uL (0-0.2) 12/10/20 05:00 Immature Gran # (Auto) 0.1 (0.0-1.0) 12/10/20 05:00 Puncture Site Rr 12/08/20 09:47 Base Excess 6.8 (-2.0-3.0) H 12/08/20 09:47 O2 Saturation 87.2 % (94-98) L 12/08/20 09:47 ABG pH 7.46 (7.35-7.45) H 12/08/20 09:47 ABG pCO2 43.0 mmHg (35-45) 12/08/20 09:47 ABG pO2 50.0 mmHg (85-100) L* 12/08/20 09:47 ABG HCO3 30.6 (21-28) H 12/08/20 09:47 ABG Total CO2 31.9 (19-24) H 12/08/20 09:47 Guevara Test Y 12/08/20 09:47 Hemoglobin 0.9 (0-1.5) 12/08/20 09:47 Oxyhemoglobin 83.5 % (95-100) L 12/08/20 09:47 Carboxyhemoglobin 2.9 (0.5-1.5) H 12/08/20 09:47 Total Hemoglobin 9.6 g/dl (11.7-17.4) L 12/08/20 09:47 FiO2 % 21.0 % 12/08/20 09:47 Sodium 135.0 mmol/L (134.5-145) 12/10/20 05:00 Potassium 4.78 mmol/L (3.5-5.1) 12/10/20 05:00 Chloride 96.3 mmol/L (98-107) L 12/10/20 05:00 Carbon Dioxide 31.3 mmol/L (22-30.0) H 12/10/20 05:00 Anion Gap 12.18 12/10/20 05:00 BUN 33.4 mg/dL (9-20) H 12/10/20 05:00 Creatinine 1.24 mg/dL (0.60-1.10) H 12/10/20 05:00 Estimated GFR (MDRD) 56.00 mL/min 12/10/20 05:00 BUN/Creatinine Ratio 26.93 12/10/20 05:00 Glucose 195.1 mg/dL (74-106) H D 12/10/20 05:00 Hemoglobin A1c 6.40 (4.0-6.0) H 12/08/20 10:00 Lactic Acid 1.30 mmol/L (0.7-2.1) 12/08/20 10:05 Calcium 8.90 mg/dL (8.4-10.2) 12/10/20 05:00 Ferritin 27.60 ng/mL (17.9-464.0) 12/08/20 10:05 Total Bilirubin 0.54 mg/dL (0.2-1.3) 12/10/20 05:00 AST 38.5 U/L (17-59) 12/10/20 05:00 ALT 36.7 U/L (0-50) 12/10/20 05:00 Alkaline Phosphatase 61.2 U/L (56-119) 12/10/20 05:00 POC Venous Troponin I 0.03 ng/ml (0.00-0.08) 12/08/20 10:05 Troponin I 0.040 ng/ml (0.0000-0.120) 12/08/20 10:05 NT-Pro-B Natriuret Pep 2700.000 pg/mL (0-300) H 12/09/20 09:30 Total Protein 6.66 g/dL (6.3-8.2) 12/10/20 05:00 Albumin 3.81 g/dL (3.5-5.0) 12/10/20 05:00 Globulin 2.85 12/10/20 05:00 Albumin/Globulin Ratio 1.33 12/10/20 05:00 TSH 1.330 uIU/L (0.465-4.68) 12/10/20 05:00 Urine Color Yellow (YELLOW) 12/08/20 10:52 Urine Clarity Clear (CLEAR) 12/08/20 10:52 Urine pH 6.0 (5-9) 12/08/20 10:52 Ur Specific [place] 1.020 (1.005-1.030) 12/08/20 10:52 Urine Protein Negative (NEGATIVE) 12/08/20 10:52 Urine Glucose (UA) Negative (NEGATIVE) 12/08/20 10:52 Urine Ketones Negative (NEGATIVE) 12/08/20 10:52 Urine Blood Negative (NEGATIVE) 12/08/20 10:52 Urine Nitrite Negative (NEGATIVE) 12/08/20 10:52 Urine Bilirubin Negative (NEGATIVE) 12/08/20 10:52 Urine Urobilinogen 0.2 (0.2) 12/08/20 10:52 Ur Leukocyte Esterase Negative (NEGATIVE) 12/08/20 10:52 Urine Opiates Screen Negative (NEGATIVE) 12/08/20 10:52 Ur Oxycodone Screen Negative (NEGATIVE) 12/08/20 10:52 Urine Methadone Screen Negative (NEGATIVE) 12/08/20 10:52 Ur Propoxyphene Screen Negative (NEGATIVE) 12/08/20 10:52 Ur Barbiturates Screen Negative (NEGATIVE) 12/08/20 10:52 U Tricyclic Antidepress Negative (NEGATIVE) 12/08/20 10:52 Ur Phencyclidine Scrn Negative (NEGATIVE) 12/08/20 10:52 Ur Amphetamine Screen Negative (NEGATIVE) 12/08/20 10:52 U Methamphetamines Scrn Negative (NEGATIVE) 12/08/20 10:52 U Benzodiazepines Scrn Negative (NEGATIVE) 12/08/20 10:52 Urine Cocaine Screen Negative (NEGATIVE) 12/08/20 10:52 U Cannabinoids Screen Negative (NEGATIVE) 12/08/20 10:52 Plasma/Serum Alcohol 5.0 mg/dL (0.0-50.0) 12/08/20 10:05 Adenovirus (PCR) Not detected (NOT DETECT) 12/08/20 10:05 B. pertussis DNA (PCR) Not detected (NOT DETECT) 12/08/20 10:05 B.parapertussis DNA PCR Not detected (NOT DETECT) 12/08/20 10:05 C. pneumoniae DNA (PCR) Not detected (NOT DETECT) 12/08/20 10:05 Coronavirus OC43 (PCR) Not detected (NOT DETECT) 12/08/20 10:05 Coronavirus HKU1 (PCR) Not detected (NOT DETECT) 12/08/20 10:05 Coronavirus 229E (PCR) Not detected (NOT DETECT) 12/08/20 10:05 Coronavirus NL63 (PCR) Not detected (NOT DETECT) 12/08/20 10:05 Human Metapneumovir PCR Not detected (NOT DETECT) 12/08/20 10:05 Influenza Type A (PCR) Not detected (NOT DETECT) 12/08/20 10:05 Influenza B (RT-PCR) Not detected (NOT DETECT) 12/08/20 10:05 M. pneumoniae (PCR) Not detected (NOT DETECT) 12/08/20 10:05 Parainfluenza 1 (PCR) Not detected (NOT DETECT) 12/08/20 10:05 Parainfluenza 2 (PCR) Not detected (NOT DETECT) 12/08/20 10:05 Parainfluenza 3 (PCR) Not detected (NOT DETECT) 12/08/20 10:05 Parainfluenza 4 (PCR) Not detected (NOT DETECT) 12/08/20 10:05 RSV (PCR) Not detected (NOT DETECT) 12/08/20 10:05 Entero/Rhino (PCR) Not detected (NOT DETECT) 12/08/20 10:05 SARS-CoV-2 (PCR) Not detected (NOT DETECT) 12/08/20 10:05 CT Chest 12/08/20 IMPRESSION: 1. There is a suboptimal contrast opacification of the pulmonary arterial tree. No filling defects are seen within the adequately opacified arteries to indicate emboli. 2. Bilateral infiltrates and consolidations suggesting pneumonia. Correlate clinically. 3. Mediastinal and hilar lymphadenopathy. 4. Bilateral pleural effusions. 5. Atherosclerotic disease. CXR: 12/10/20: MPRESSION: No pleural effusion currently seen. 3 Step 12/10/20: <85% with ambulation Qualified for O2. Education Provided to Patient and Family: 1. Statin 2. HCTZ 3. Levaquin 4. Prednisone 5. Metformin. 6. ETOH use and limit to 2 drinks per day. THIAMINE benefits. 7. COPD education 8. Pneumonia education: Levaquin + steroid risks. 9. CHF education: Daily weight. Call if >3 lb change in 72 hours. Lasix. 10. Diabetes: Steroids +BG risk. Metformin to be added. 11. When to return to ED 12. When to call clinic. 13. Appt with [facility] ATTENDANT Bette on 12/14/20 930 am. R/B/A to meds d/w patient, SE reviewed, handout offered regarding medications listed. Follow-ups: 1. [facility] ATTENDANT Luz Maria 12/14/20 930 am. 2. Outpatient echo 3. TSH in 8 weeks 4. CMP in 1 week. Discharge Disposition: Home Hospital Course: Hospital Day 1 12/08/20: 80 yr old male presented to ED today 12/08/20 at 0920 with report of 6 days of worsening SOA, ankle swelling/edema and wheezing. No fever reported. Vitals in ED showed temp 97.6, Pulse 85, RR 18 and BP 155/82 with O2 84% on RA. the patient has had 6 days of worsening symptoms, orthopnea, SOA, BELTRE, wheezing, labored breathing and some chest pain with deep inspiration. No reported previous history of pneumonia, no home O2 regularly, no recent echo/LV function in the chart. Resp distress is mild in ED, accessory muscle usage is present, leg swelling present. DDX considered in ED airway obstructive disease, asthma, CHF, COPD exacerbation, CAP, bronchitis. History of CKD, history of Covid 19 vaccine series started, GERD, HTN, hypothyroid, OLAF, BPH, DM2. Fam/PMHX/Surg history reviewed and non contributory except listed above. He is a former smoker, He is drinking ETOH >3 drinks per day ETOH (Hard liquor). No illicit substance use. CTA in ED showed: IMPRESSION: "1. There is a suboptimal contrast opacification of the pulmonary arterial tree. No filling defects are seen within the adequately opacified arteries to indicate emboli. 2. Bilateral infiltrates and consolidations suggesting pneumonia. Correlate clinically. 3. Mediastinal and hilar lymphadenopathy. 4. Bilateral pleural effusions. 5. Atherosclerotic disease. EKG no acute ST/T changes, normal axis, normal rate, sinus rhythm, occ PAC. Labs showed WBC 8.29, HGb 9.4, HCT 29.9, Plt 207. CMP showed sodium 137, K+ 4.0, BUN 24.0, Creatinine 1.30 GFR 53 and Glucose 188. No a1c within the last 30 days of admit. Will make sure to add that while admitted. RDW is elevated at 18.2. MCV is normal at 88.2. ABG 7.46, pco2 43, po2 50, hco3 30.6, allens +, fio2 21%. Independent interpretation of ABG: Primary metabolic alkalosis with full respiratory compensation. Calcium was 9.20, ast 54, alt 46, alk phos 77. Troponin was 0.040. Alb 3.80. Lactic acid 1.3 and negative. Ferritin 27.60. NT PRO BNP 4280. BIOFIRE PCR elmore negative for tested agents to include COVID-19 negative. UA negative. UDS was negative. I was contacted at ~1500 today and I discussed case with Dr. Hernandez. Patient did not meet SIRS criteria. Temp was <100.4, HR was >90, RR was <20, WBC was <12. Lactic acid was negative. He was given solumedrol in ED. He was given albuterol and atrovent using shared canister approach. He was started on azithromycin 500mg. This is not adequate to cover for his pneumonia. Will need to change this. Also started on ceftriaxone 1gram dialy. He was given lasix 80mg IV in ED once. Solumedrol 125 once in ED. Fluids were started at 125 mls/hour. I asked that IV fluids not be used due to the pleural effusions seen on imaging. Patient was transferred to floor. Nursing called me at 1706 asking if I wanted to continue fluids. I noted we had discussed that there should not be fluids. Patient was then saline locked. On the floor, the patient HR was 94, BP 155/82, O2 93% on 3L NC. Telemetry was started and patient had FL 0.2, QRS 0.08 and SR noted. I will add strict I+O and daily weight. Due to history of moderate+ ETOH use, I have to think about other organisms besides the typical. He does not seem to meet criteria for MRSA coverage. He has not had abx within 3 months, does not have frequent COPD exacerbations, but prior CT abdomen suggested bronchiectasis present. With his pleural effusions and findings on CTA today, coverage for pseudomonas likely of good choice. I will change the ceftriaxone to cefepime and will add levaquin 750mg daily as well to cover for pseudomonas. At this time I do not think that we need to add vanco for MRSA coverage. With history of ETOH, need to consider aspiration pneumonia and to cover for Strep Pneumoniae, Kleb siella Pneumophila, Legionella spp. Pseudomonas, as well as G- enterobacter. Port Score: 122 points Risk Class IV 8.2-9.3% mortality. Hospitalization Recommended Based on risk. (80 points age, renal disease history, hematocrit <30%, O2 <60mmhg on presentation, pleural effusions on Xray). I would even consider 132 points with concern for CHF. If so, this is 27-29.2% mortality based on Risk Class V. Either way hospitalization risk encouraged. CURB 65: 2 points 6.8% 30day mortality CrCL: 84ml/min Hospital Day 2 12/09/20: 80 yo CM HD #2 ABX day 2/5 Cefepime/Levaquin admitted 12/08/20 with bilateral pneumonia, COPD exacerbation, bilateral pleural effusions, SOA. Chronic history of DM2 controlled not on insulin, HTN, hypothyroidism, OA, CKD, hypertrigly. The patient was seen by me evening of 12/08/20. I had missed the missing am labs on orders as I did med rec and abx review. I added these this am and for daily at 0600 for CBC/CMP. Urine for legionella/S. Pneumo sent 12/08/20 and pending. Cultures still early. Overnight vitals showed temperature afebrile status with 97.6-98.5. HR was 77-94. BP through the night was 137/77, 155/82 and 164/81 this am. RR 18-24. He has been on tele SR with rate inn 68-100. Listed as sinus rhythm throughout. Initial weight yesterday was 300. He was listed as 294 this am. BNP today was 2700 down from 4280 yesterday. I ordered A1C which returned 6.40. Sputum culture so far Normal robin, blood culture negative to date. As of this am 0800, the patient had total of 1995 reported intake and 3975 out by midnight and an additional 700 out by 0800. From 0000 through 0759 he had a rate of 0.65ml/kg/hour output, which is reasonable. He noted to me this am that he felt 50-60% better. Abdomen was less tense, less full, less bloated. Still with bilateral LE edema 2+ pitting edema to bilateral knees. The patient has had bilateral knee replacements, he has had bilateral stasis/insufficiency and this is chronic. He notes that he is able to sit up better, lie flat better, he is less SOA, no chest pain, no fever. No reported headache, no fever, no vision changes, no loss of taste/smell, No new URI symptoms, + cough/congestion/wheezing/SOA but better, reported fatigue chronically, no abd pain, no N/V/D, no constipation, no changes in urination/stooling, except increased urination thanks to the lasix. no new MSK pain, no recent injuries/falls. Overnight notes reviewed from nursing. 12/08/20 SIDDHARTH Deal note reviewed. Discussed REBECA figueroacristhian. Coccyx redness noted. note from 06 SIDDHARTH Martinez reviewed and IV in left forearm clotted, new IV in left AC today. Knockout Man has been consulted. 0800 meal intake 100%. PT consulted this am as well. He was SOA. Fall risk score 5. History of falls. INdependent in sit to stand. Sitting on side of bed. Ambulated with straight cane. Safety training recommended by therapy. Accucheck 279 this am. I will add levemir 10 units BID and add 3 units of humalog with meals + sliding correction. Accucheck QAC/HS recommended/ordered. Labs returned at 0930 CBC: Wbc stable 9.50. Hgb up from 9.4 to 10.0. MCV 89.1. RDW 17.9 and plt 258. He has elevated neutrophils 90% and ANC 8.6. This is likely steroidal effect/demargination. He has a relativve lymphocytopenia suggesting viral process but biofire was negative. Metabolic panel today showed sodium of 133.8, K+ 4.58, bun 28.1, cre atinine 1.24. This is improved from yesterday. GFR up to 56. His sugar is up to 304. I have added levemir 10 units BID and 3 units +SSI while on steroids. Calcium stable 8.78. BNP as noted above improved to 2700. Sodium Corrected 137 based on VELA. Patient is doing well, he feels better overall, breathing he feels is almost back to baseline. I will check a TSH in am tomorrow. I will change him to prednisone 40mg daily starting today. Lasix to continue. Strict I+O to continue. Await cultures tomorrow. Consider change to levaquin PO tomorrow. If still doing well consider home tomorrow vs sunday12/11/20. Would like CXR in am tomorrow to eval pleural effusions. Hospital Day 3 12/10/20:80 yo CM HD #3 ABX day 12/03 Cefepime/Levaquin admitted 12/08/20 with bilateral pneumonia, COPD exacerbation, bilateral pleural effusions, SOA. Chronic history of DM2 controlled not on insulin, HTN, hypothyroidism, OA, CKD, hypertrigly. Patient has done well thus far. Vitals over last 24 hours showed afebrile status 97-87.8, HR 77-82, BP was a little elevated yesterday am at 164/81 but was normal 124/68, 116/69, 128/73 since that point. RR listed as 20 through night. 93-95% on 3L. Will order 3 Step today to see if he qualifies for oxygen at home. Remote tele reviewed and he has been SR throughout the night. Occasional PAC on 12/08. Weight on admit was 300, he went to 294 and was 296 this am. Labs today showed an increase in WBC to 12.40. Hgb to 9.5 from 10.0 yesterday. This was similar to the 9.4 12/08. RDW is up at 17.7, MCV is normal. Neutrophils 89.7% lymphocytes 4.3% and low. This suggests viral process with steroid demargination. CMP this am showed sodium 135, K+ 4.78. Creatinine stable 1.24. Glucose better today at 195.1. I will change him to prednisone 40mg daily PO x 5 days. TSH was back this am and 1.330. This is stable. I will stop levothyroxine as this is not needed at 25mcg daily. Previous levels look like TSH was minimally elevated, subclinical. He does not need a medication at this time as risks outweigh benefits. I will also add thiamine PO 100mg daily to cover for his history of ETOH use. Since GFR is >45 and he has not had contrast in 48 hours, I will also start metformin for him to continue at DISCHARGE to use for weight reduction/glucose control as outpatient. Lastly, we will stop the norvasc due to peripheral edema and SE of medication causing this problem. We will add hctz 12.5mg and add lipitor 20mg daily for his stroke reduction risk. Cultures reveiwed sputum heavy growth normal Robin. Negative BC x 2. No new imaging studies. Nursing notes reviewed. Patient walked with therapy (SIDDHARTH Arteaga 1525). O2 dropped to 88% on 3L with ambulation. 1529 note Intermittent dry cough, SOA with exertion noted. NO SOA at rest. Walks w/ cane/walker. REBECA hosing applied. Did well. Abd soft/round. Note 2331 SIDDHARTH bess talkative, edema bilateral. REBECA hosing removed. Left arm edema. SOA improving. O2 3L. Note 0634 did well through night. No cough, no SOA, bilateral edema improving. No edema in arm. Abx running. Patient wishes to go home today. CXR ordered this am, and a 3Step as well. 3 Step completed tod ay and <85% with ambulation. Home o2 ordered and delivered to patient. CXR cleared and pleural effusion is negative. He is ready to return home. Maximal benefit from hospital stay reached. He feels breathing is back to baseline. Hospital Summary: Admitted for pneumonia/pleural effusions/chronic venous insufficiency, DM, HTN, HLD, moderate to heavy ETOH use, former smoker. Found to have bilateral pneumonia/effusions on CTA. Started on azithro/ceftriaxone. This was changed by me to cefepime/levaquin to cover for pseudomonas. Currently Blood cx negative, still waiting for legionella urine antigen and strep pneumo antigen. Repeat CXR 12/10/20 cleared pleural effusions. Lasix provided good diuresis. He has had ~4-6 lb weight loss in last few days. Breathing better, back at baseline. He would benefit from continued outpatient phys therapy. He would benefit from CBC/CMP likely in 1 week. Meds reviewed. He felt better, back to baseline by 12/10/20 and requested d/c home. Day of D/C Exam Vital Signs - 24 hr 12/09/20 19:28 12/09/20 21:26 12/10/20 05:11 Temperature 97.5 F L Pulse Rate 81 Respiratory Rate 20 Blood Pressure 116/69 O2 Sat by Pulse Oximetry 95 95 95 12/10/20 05:49 12/10/20 08:11 12/10/20 14:00 Temperature 97.0 F L 98.0 F Pulse Rate 77 91 H Respiratory Rate 20 18 Blood Pressure 128/73 135/66 O2 Sat by Pulse Oximetry 93 L 94 L 94 L Constitutional: Appearance-No acute distress, sitting on side of bed, positive, talking in full sentences, noting he is feeling better 50-60%. No accessory muscle usage, Consistent with stated age. Orientation- Oriented x 3, alert Build and Nutrition-[obese down 6 lb from last OV] General- Patient is pleasant and cooperative with the interview and exam. Integumentary: General- Unchanged from yesterday. Still w/ Bilateral LE with stasis changes, hemosiderin staining, 2+ Pitting edema bilaterally to knees. No skin breakdown lower extremities. 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 No skin irritation/rash under panus. He still has erythema along coccyx and bilateral gluteal fold. Numerous areas of breakdown on back of right>left ear. he is scratching/picking. He has long excoriation along right lateral garsia from scratching. Several pick pandey bilateral UE. None appear secondarily infected. This is unchanged from yesterday. Dog Paw birthmark right buttock. Head/Neck: Head- normocephalic and atraumatic. Neck- without visible/palpable lumps or pulsations. Palpation- No bony tenderness about head/neck along frontal, occipital, temporal, parietal, mastoid, jawline, zygoma, orbit or any other location. NO temporal artery tenderness. No TMJ tenderness. Neck Supple. Thyroid-No thyromegaly, no nodules ENMT: Pinna- excoriation as listed above. Unchanged. Nasal mucosa- No bleeding noted and no ulcerations observed. [place], moist. Turbinates non boggy. Lips- normal color, moist without cracks/lesions Oral Cavity/Palate- hard/soft palate intact without lesions, oral mucosa pink and moist. Dentition assessed [edentulous] and discussed appropriate oral care. Tongue normal midline. Oropharynx- no pharyngeal erythema, Uvula midline. No post nasal drip. No exudate. Salivary glands- Non tender to palpation CHEST/LUNG: Inspection- symmetric chest wall no pectus deformity. Barrel chested. No accessory muscle use. Prominent stomach, round, large panus. Normal effort, talking in full sentences. No obvious distress, no use of accessory muscles. Palpation- nontender sternum, ribline. No abnormal pulsations. Auscultation- Breath sounds diminished and course throughout all lung raymond. tracheal sounds, bronchial sounds overlying sternum, Bronchovessicular sounds between scapulae posteriorly, vessicular breath sounds heard throughout periphery. Lungs are not clear today. Adventitious sounds- Scattered wheezes, bibasilar rales, scattered rhonchi. Normal respiratory effort, normal. He is improving feels breathing is 50% better. More noise today suggests this may be clearing up. Will check CXR tomorrow to evaluate the fluid in lungs. CARDIOVASCULAR: Carotid artery- normal, no bruits or abnormal pulsations. Jugular vein- no pulsations. Palpation/Percussion- Normal PMI, no palpable thrill Auscultation- Regular rate and rhythm. Several PAC/PVC. No murmur noted in sitting, supine positions. Extremities- digital clubbing is present, cyanosis, edema bilateral LE. NO increased warmth. No cellulitis. ABDOMEN: Inspection- normal and no visible pulsations. Normal contour. Round, enlarged panus. Morbid obesity. Auscultation- Bowel sounds normal, no abdominal bruits. Palpation/Percussion- soft, non-tender, no rebound tenderness, no rigidity (guarding), no jar tenderness, no masses. Liver-difficult to assess due to habitus No obvious HSM. No caput medusa. No fluid wave. Peripheral Vascular: Upper extremity Left- Normal temperature with pink nailbeds and no ulcerations. Upper extremity Right- Normal temperature with pink nailbeds and no ulcerations. Scattered picking lesions. No secondary infection. Lower extremity- Normal temperature with pink nailbeds and no ulcerations. DP pulses 2+ bilaterally. Pedal hair reduced/lacking. Normal capillary refill. Edema- Prominent bilateral edema shins/knees, feet. Musculoskeletal: Generalized-No generalized swelling or edema of extremities, no digital clubbing or cyanosis, neurovascularly intact all four extremities. Spine/Ribs- No deformities, masses or tenderness, no known fractures, normal strength, Normal ROM. Normal stability No tenderness along C/T/L spine. Normal appearing ROM about spine. Neurological: General- Moves all 4 extremities symmetrically. Symmetrical face and body posture. Cranial nerves- individually evaluated II-XII and intact. PERRLA, Normal EOMI, visual/special senses appear intact, Face is symmetrical and normal sensation/movement, normal tongue, normal strength/posture of neck musculature. Reflexes- intact with DTR 2+ patellar, Achilles, bicep, brachial, tricep. Ankle clonus normal with 2 beats. Strength- 5/5 bilateral UE and LE. Soft touch- intact bilateral UE and LE. Temperature sensation- intact bilateral UE and LE. Neuropsych: Oriented- Person, place, time. (AAOx3), Mood/affect- normal and congruent. Able to articulate well. Speech-Normal speech, normal rate, normal to ne, normal use of language, volume and coherence. Thought content- normal with ability to perform basic computations and apply abstract thought/reason. Associations- intact, no SI/HI, no hallucinations, delusions, obsessions. Judgment/insight- Appropriate. Memory-Recall intact, remote and recent memory intact. Knowledge- Age appropriate fund of knowledge, concentration and attention span normal. Plan: D/C patient home today. F/U with [facility] Luz Maria Amos 12/14/20. Outpatient echo scheduled. 1. Pneumonia: Complete total of 5 days of levaquin 750mg. (3 days rx provided) Home oxygen started while in hospital 3L. 2. COPD: Albuterol 2 puffs q 4 hours PRN. Ipratropium 2 puffs 4x daily. Prednisone 20mg #2 daily x 5 days. Spirometry in next 1-2 months Avoid tobacco 3. CHF: Lasix 20mg daily. Weights daily. If >3 pounds growth in 72 hours need to call clinic. Outpatient Echocardiogram to be scheduled. 4. Diabetes: Start Metformin today goal 1000 BID. (titrate) 5. Venous Insufficiency/Peripheral Edema. Compression hosing 6. Cholesterol: Start Lipitor 20mg daily in hospital. 7. Hypertension: Stop amlodipine due to worsening #5. Losartan 50mg BID to continue Add HCTZ 12.5mg daily CMP recommended at f/u with Luz Maria Amos 12/14/20 0930 am. 8. Subclinical hypothyroid: Stop levothyroxine Repeat TSH in 8 weeks. 9. Moderate ETOH abuse: Limit to no more than 2 drinks in 24 hours Thiamine 100mg daily to continue at home. 10. Chronic anticoagulation. Continue xarelto 11. Chronic joint pain Continue tramadol. 12. BPH Continue finasteride and flomax. 37 Minutes spent today in rounding, discussion with Case Management, Nursing, Patient, review of labs, imaging. Return evaluation of patient at 12:00 and again at 1500. Patient to be discharged today.
[2020-12-10] MEDS ORDERED: LIPITOR PO SCH (21:00)
== END 2020-12-10 16:00 | disposition home or self-care (01) | DRG 191 ==
LOC: ED 09:15 → MEDSURG A 14:44
PROVIDERS: ADMIT Family Medicine; ATTEND Family Medicine
DX: J90 Pleural effusion, not elsewhere classified; N18.31 Chronic kidney disease, stage 3a; Z20.822 Contact with and (suspected) exposure to COVID-19; R60.9 Edema, unspecified; Z79.01 Long term (current) use of anticoagulants; R06.02 Shortness of breath; R07.9 Chest pain, unspecified; Z78.9 Other specified health status; Z68.41 Body mass index [BMI] 40.0-44.9, adult; R05 Cough; I50.9 Heart failure, unspecified; J44.1 Chronic obstructive pulmonary disease with (acute) exacerbation; I48.0 Paroxysmal atrial fibrillation; Z86.16 Personal history of COVID-19; I10 Essential (primary) hypertension; E11.22 Type 2 diabetes mellitus with diabetic chronic kidney disease; E03.9 Hypothyroidism, unspecified

== ENCOUNTER 2023-04-07 16:50 | Inpatient (IN) ==
--- NOTE | 2023-04-07 17:06 | ED.PDOC ---
General <RAUL VILLEGAS DO - Last Filed: 04/14/23 09:34> ED Provider: Dr. RAUL VILLEGAS DO Chief Complaint: Urinary Problem Stated Complaint: 82 YOM with PMHx of CHF, CKD, and atrial fibrillation who presents to the emergency department with chief complaint of difficulty urinati ng, increasing leg swelling, and SOB x 3 days duration. Patient is on various medications for his CHF and afib which he states he has not taken today. Denies syncope, fever, chills, chest pain, new cough, N/V/D, abdominal pain, or new focal weakness/numbness. No other associated symptoms or modifying factors at this time. Time Seen by Provider: 04/07/23 16:54 Information Source: Patient Primary Care Provider: ORVILLE GODOY MD Nursing and Triage Documentation Reviewed and Agree: Yes Does patient meet sepsis criteria?: No System Inflammatory Response Syndrome: Not Applicable Sepsis Protocol: For patient's 13 years and over: Temp is 96.8 and below OR 101 and greater Pulse >90 BPM Resp >20/minute Acutely Altered Mental Status Are patient's symptoms suggestive of a new infection, such as: -Pneumonia -Skin, Soft Tissue -Endocarditis -UTI -Bone, Joint Infection -Implantable Device -Acute Abdominal Infection -Wound Infection -Meningitis -Blood Stream Catheter Infection -Unknown <NANCY ZAMBRANO DO - Last Filed: 04/16/23 13:35> Stated Complaint: byron needs to complete Review of Systems <RAUL VILLEGAS DO - Last Filed: 04/14/23 09:34> Review Of Systems Constitutional: Reports No symptoms All Other Systems: Reviewed and Negative PFSH <RAUL VILLEGAS DO - Last Filed: 04/14/23 09:34> Medical History Benign positional vertigo H81.10 - Benign paroxysmal vertigo, unspecified ear (ICD-10) Bilateral pneumonia J18.9 - Pneumonia, unspecified organism (ICD-10) Emphysema lung J43.9 - Emphysema, unspecified (ICD-10) Gastroesophageal reflux disease K21.9 - Gastro-esophageal reflux disease without esophagitis (ICD-10) Hypertension I10 - Essential (primary) hypertension (ICD-10) Hypothyroidism E03.9 - Hypothyroidism, unspecified (ICD-10) Laceration of left wrist S61.512A - Laceration without foreign body of left wrist, initial encounter (ICD-10) Left orbit fracture S02.85XA - Fracture of orbit, unspecified, initial encounter for closed fracture (ICD-10) Macular degeneration H35.30 - Unspecified macular degeneration (ICD-10) [facility] resident Z59.3 - Problems related to living in residential institution (ICD-10) Obstructive sleep apnea G47.33 - Obstructive sleep apnea (adult) (pediatric) (ICD-10) Prostatic hypertrophy N40.0 - Benign prostatic hyperplasia without lower urinary tract symptoms (ICD-10) Seasonal allergies J30.2 - Other seasonal allergic rhinitis (ICD-10) Skin lesions L98.9 - Disorder of the skin and subcutaneous tissue, unspecified (ICD-10) Supraumbilical hernia K43.9 - Ventral hernia without obstruction or gangrene (ICD-10) TSH elevation R79.89 - Other specified abnormal findings of blood chemistry (ICD-10) Type II diabetes mellitus E11.9 - Type 2 diabetes mellitus without complications (ICD-10) Family History Mother Dementia FATHER Cancer CVA (cerebral vascular accident) BROTHER Alcoholism Cancer Mother CVA (cerebral vascular accident) SISTER CVA (cerebral vascular accident) Social History Smoking and tobacco status: Former smoker Alcohol intake: current Alcohol intake frequency: 3 or more drinks per day Alcohol type: hard liquor Substance use type: does not use Adopted: No Caregiver/support person: No Foster care: No Household members: none Housing: house Marital status: W / Lives independently: Yes Daycare: no daycare Number of children: 3 Number of grandchildren: 1 Highest education level completed: Bachelor's degree Financial difficulty paying for basics: not very hard service: Yes branch: [employer] [facility]: No History of recent travel: No Sexually active: No Do you think of yourself as: straight/heterosexual Current gender identity: male Seatbelt use: always Helmet use: No Drives intoxicated or rides with intoxicated xm1 tank driver: No Water heater temperature set < 120 degrees: No Working smoke detector in home: Yes Fire extinguisher in home: Yes Carbon monoxide detector in home: Yes Firearms in home: Yes Firearms unloaded and locked: Yes Surgical History Cataract extraction and insertion of intraocular lens (~1999) History of joint surgery (~1999) Z98.890 - Other specified postprocedural states (ICD-10) Status post hernia repair Z98.890 - Other specified postprocedural states (ICD-10) Physical Exam <RAUL VILLEGAS DO - Last Filed: 04/14/23 09:34> Physical Exam Appearance: Reports Well-appearing, No pain distress and Well-nourished Ill-appearing: None Pain Distress: None Eyes: Reports DEWEY, EOMI and Conjunctiva clear ENT: Reports Ears normal, Nose normal and Oropharynx normal Neck: Supple Respiratory: Reports Airway patent, Breath sounds equal, Respirations nonlabored and Other (+ rales) Cardiovascular: Reports Pulses normal, No rub, No murmur and Tachycardia (Irregularly irregular and tachycardic) GI/: Reports Soft, Nontender, No masses, Bowel sounds normal and No Organomegaly Musculoskeletal: Reports Normal strength, ROM intact, No calf tenderness and Edema (+ 3 pitting edema BLE) Skin: Reports Warm, Dry and Normal color Neurological: Reports Sensation intact, Motor intact, Reflexes intact, Cranial nerves intact, Alert and Oriented Psychiatric: Reports Affect appropriate and Mood appropriate Critical Care Note <RAUL VILLEGAS DO - Last Filed: 04/14/23 09:34> Critical Care Note Total Critical Care Time (mins): 0 Course <RAUL VILLEGAS DO - Last Filed: 04/14/23 09:34> Course 04/11/23 05:00 04/11/23 05:00 Orders, Labs, Meds: Lab Review 04/07/23 04/07/23 17:50 17:54 WBC 14.96 H RBC 3.92 L Hgb 9.5 L Hct 31.0 L MCV 79.1 L MCH 24.2 L MCHC 30.6 L RDW Coeff of Simi 19.2 H Plt Count 122 L Neutrophils % (Manual) 93.0 H Lymphocytes % (Manual) 2.0 L Monocytes % (Manual) 5.0 Anisocytosis Not present Sodium 130.9 L Potassium 4.91 Chloride 93.0 L Carbon Dioxide 29.5 Anion Gap 13.31 BUN 36.4 H Creatinine 1.70 H Estimated GFR (MDRD) 39.00 BUN/Creatinine Ratio 21.41 Glucose 214.9 H Calcium 9.39 Total Bilirubin 1.48 H AST 62.5 H ALT 27.8 Alkaline Phosphatase 86.8 Troponin I 0.066 NT-Pro-B Natriuret Pep 8640 H Total Protein 7.26 Albumin 4.40 Globulin 2.86 Albumin/Globulin Ratio 1.53 Procalcitonin 15.21 H TSH 4.180 Urine Color Yellow Urine Clarity Clear Urine pH 5.5 Ur Specific [place] >=1.030 Urine Protein 3+ H Urine Glucose (UA) Negative Urine Ketones Negative Urine Blood 2+ H Urine Nitrite Negative Urine Bilirubin 1+ H Urine Urobilinogen 1.0 H Ur Leukocyte Esterase Negative Urine Microscopic RBC 2-5 Ur Squamous Epith Cells 0-2 Plasma/Serum Alcohol < 10.0 Orders Category Date Time Status ADMIT PATIENT [facility]PAT[facility] ([facility]) ADMISSION 04/07/23 21:0 3 Completed EKG-(ED ONLY) Stat CARDIO 04/07/23 17:17 Completed BLADDER SCAN ONCE CARE 04/07/23 16:55 Completed TELEMETRY MONITORING TELE CARE 04/07/23 21:03 Completed CODE [ED CODE STATUS] .ONCE EMERGENCY 04/07/23 21:01 Completed O2 [ED APPLY O2] .ONCE EMERGENCY 04/07/23 17:51 Completed ABG COOX Stat LAB 04/07/23 21:30 Completed BLOOD ALCOHOL Stat LAB 04/07/23 17:54 Completed CBC W/ AUTO DIFF Stat LAB 04/07/23 17:54 Completed COMPREHENSIVE METABOLIC PANEL Stat LAB 04/07/23 17:54 Completed MANUAL DIFFERENTIAL Stat LAB 04/07/23 17:54 Completed NT-PROBNP(ED) Stat LAB 04/07/23 17:54 Completed PROCALCITONIN Stat LAB 04/07/23 17:54 Completed T4 (THYROXINE) Timed LAB 04/08/23 06:40 Completed THYROID STIMULATING HORMONE Stat LAB 04/07/23 17:54 Completed TROPONIN I Stat LAB 04/07/23 17:54 Completed URINALYSIS C & S IF INDICATED Stat LAB 04/07/23 17:50 Completed Azithromycin Inj [Zithromax] 500 mg Meds 04/07/23 18:15 Discontinued 0.9 % Sodium Chloride [Sodium Chloride] 250 ml IV ONCE Bumetanide [Bumex] Meds 04/07/23 18:13 Discontinued 1 mg IVP ONCE ONE Ceftriaxone/D5w 1 gm Premix [Rocephin 1 gm/50 ml D5w] Meds 04/07/23 19:35 Discontinued 1 gm in 50 ml IV ONCE Diltiazem HCl [Cardizem Cd] Meds 04/07/23 20:00 Discontinued 120 mg PO DAILY Diltiazem HCl [Cardizem Cd] Meds 04/07/23 20:30 Discontinued 60 mg PO DAILY Diltiazem HCl [Cardizem Cd] Meds 04/07/23 20:30 Discontinued 60 mg PO ONCE ONE Diltiazem HCl [Cardizem Inj] Meds 04/07/23 17:21 Discontinued 15 mg IVP ONCE ONE Diltiazem HCl [Cardizem] Meds 04/07/23 20:27 Discontinued 120 mg .ROUTE .STK-MED ONE Diltiazem HCl [Cardizem] Meds 04/07/23 20:35 Discontinued 60 mg PO ONCE ONE Diltiazem HCl [Cardizem] Meds 04/07/23 20:35 Discontinued 60 mg PO ONCE ONE Furosemide [Lasix] Meds 04/07/23 18:12 Discontinued 40 mg IVP ONCE STA Levothyroxine Sodium [Synthroid] Meds 04/07/23 19:55 Discontinued 50 mcg PO ONCE ONE Losartan Potassium [Cozaar] Meds 04/07/23 19:55 Discontinued 50 mg PO ONCE ONE Methylprednisolone Sod Succ/Pf [Solu-Medrol 125 mg] Meds 04/07/23 18:15 Discontinued 125 mg IVP ONCE ONE Metoprolol Succinate [Toprol Xl] Meds 04/07/23 19:55 Discontinued 50 mg PO ONCE ONE Metoprolol Tartrate [Lopressor] Meds 04/07/23 20:09 Discontinued 5 mg IVP ONCE ONE Rivaroxaban [Xarelto] Meds 04/07/23 19:55 Discontinued 20 mg PO ONCE ONE Tamsulosin HCl [Flomax] Meds 04/07/23 19:55 Discontinued 0.4 mg PO ONCE ONE CHEST, 1V AP ONLY Stat RADS 04/07/23 17:[address] ABDOMEN/PELVIS WO CONTRAST Stat RADS 04/07/23 17:21 Completed Medications Discontinued Medications Generic Name Dose Route Start Last Admin Trade Name Freq PRN Reason Stop Dose Admin Acetaminophen 650 mg 04/07/23 21:17 04/10/23 17:41 Acetaminophen 325 Mg Tablet PO 650 mg Q4-6H PRN Administration Mild/Moderate Pain Albuterol Sulfate 2.5 mg 04/08/23 11:04 Albuterol Sulfate 0.083% Vial.Neb NEB RTQ4H PRN Wheezing Albuterol/Ipratropium 3 ml 04/08/23 14:00 04/11/23 15:00 Ipratropium/Albuterol Vial.Neb NEB Not Given RTQID BRIAN Budesonide/Formoterol Fumarate 1 puff 04/08/23 10:00 04/11/23 09:14 Budesonide/Formoterol Fumarate 80/4.5 Mcg Hfa.Aer.Ad IH 1 puff BID BRIAN Administration Bumetanide 1 mg 04/07/23 18:13 04/07/23 18:19 Bumetanide 1 Mg/4 Ml Vial IVP 04/07/23 18:14 1 mg ONCE ONE Administration Carvedilol 6.25 mg 04/10/23 09:00 04/11/23 09:16 Carvedilol 6.25 Mg Tablet PO 6.25 mg BIDWM BRIAN Administration Dexamethasone Sodium Phosphate 4 mg 04/08/23 13:30 04/09/23 08:48 Dexamethasone Sod Phos 4 Mg/Ml Inj IVP 4 mg DAILY BRIAN Administration Dexamethasone Sodium Phosphate 2 mg 04/10/23 09:00 04/10/23 09:01 Dexamethasone Sod Phos 4 Mg/Ml Inj IVP 2 mg DAILY BRIAN Administration Diltiazem HCl 15 mg 04/07/23 17:21 04/07/23 17:56 Diltiazem Hcl Inj 25 Mg/5 Ml Vial IVP 04/07/23 17:22 25 mg ONCE ONE Administration Diltiazem HCl 120 mg 04/07/23 20:00 04/08/23 10:09 Diltiazem Hcl 120 Mg Cap.Er.24h PO 120 mg DAILY BRIAN Administration Diltiazem HCl 60 mg 04/07/23 20:30 04/08/23 10:07 Diltiazem Hcl 120 Mg Cap.Er.24h PO Not Given DAILY BRIAN Diltiazem HCl 60 mg 04/07/23 20:30 04/07/23 20:55 Diltiazem Hcl 120 Mg Cap.Er.24h PO 04/07/23 20:31 Not Given ONCE ONE Diltiazem HCl 60 mg 04/07/23 20:35 04/07/23 20:37 Diltiazem Hcl 60 Mg Tablet PO 04/07/23 20:36 60 mg ONCE ONE Administration Diltiazem HCl 60 mg 04/07/23 20:35 04/07/23 20:37 Diltiazem Hcl 60 Mg Tablet PO 04/07/23 20:36 60 mg ONCE ONE Administration Diltiazem HCl 120 mg 04/08/23 10:30 04/08/23 11:08 Diltiazem Hcl 120 Mg Cap.Er.24h PO Not Given BID BRIAN Diltiazem HCl 120 mg 04/09/23 09:00 Diltiazem Hcl 120 Mg Cap.Er.24h PO DAILY BRIAN Diltiazem HCl 60 mg 04/08/23 18:37 04/08/23 19:48 Diltiazem Hcl 60 Mg Tablet PO 04/08/23 18:38 60 mg ONCE ONE Administration Diltiazem HCl 90 mg 04/09/23 09:00 04/09/23 20:01 Diltiazem Hcl 60 Mg Tablet PO 90 mg Q12HR BRIAN Administration Diltiazem HCl 120 mg 04/10/23 09:00 04/11/23 09:15 Diltiazem Hcl 60 Mg Tablet PO 120 mg Q12HR BRIAN Administration Ferrous Sulfate 324 mg 04/10/23 09:00 04/11/23 09:16 Ferrous Sulfate 324 Mg Tablet.Dr PO 324 mg DAILY BRIAN Administration Finasteride 5 mg 04/08/23 09:30 04/11/23 09:16 Finasteride 5 Mg Tablet PO 5 mg DAILY BRIAN Administration Furosemide 40 mg 04/07/23 18:12 04/07/23 18:19 Furosemide Inj 40 Mg/4 Ml Vial IVP 04/07/23 18:13 40 mg ONCE STA Administration Furosemide 20 mg 04/07/23 21:30 04/08/23 00:12 Furosemide Inj 20 Mg/2 Ml Vial IVP Not Given Q8H BRIAN Furosemide 20 mg 04/08/23 00:16 04/08/23 09:22 Furosemide Inj 20 Mg/2 Ml Vial IM 20 mg Q8H BRIAN Administration Furosemide 20 mg 04/08/23 21:00 04/09/23 08:36 Furosemide Inj 20 Mg/2 Ml Vial IVP Not Given Q12HR BRIAN Gabapentin 300 mg 04/08/23 09:30 04/11/23 09:16 Gabapentin 300 Mg Capsule PO 300 mg BID BRIAN Administration Azithromycin 500 mg/ Sodium 250 mls @ 125 mls/hr 04/07/23 18:15 04/07/23 18:21 Chloride IV 04/07/23 20:14 125 mls/hr ONCE ONE Administration CEFTRIAXONE/D5W 1 GM PREMIX 1 gm in 50 mls @ 75 mls/hr 04/07/23 19:35 04/07/23 19:55 Rocephin 1 Gm/50 Ml D5w IV 04/07/23 20:14 75 mls/hr ONCE ONE Administration CEFTRIAXONE/D5W 1 GM PREMIX 1 gm in 50 mls @ 75 mls/hr 04/08/23 21:00 04/10/23 20:12 Rocephin 1 Gm/50 Ml D5w IV 04/11/23 20:59 75 mls/hr BEDTIME BRIAN Administration Azithromycin 500 mg/ Sodium 250 mls @ 125 mls/hr 04/08/23 21:00 04/09/23 20:57 Chloride IV 04/10/23 20:59 125 mls/hr BEDTIME BRIAN Administration Dexamethasone Sodium Phosphate 50.4 mls @ 75 mls/hr 04/09/23 09:00 4 mg/ Sodium Chloride IV DAILY BRIAN Sodium Chloride 1,000 mls @ 50 mls/hr 04/09/23 11:00 04/09/23 11:28 Sodium Chloride IV Not Given .Q20H BRIAN Insulin Human Regular 0 unit 04/08/23 12:48 04/11/23 11:49 Insulin Regular, Human 100 Unit/Ml (3ml) Vial SUBCUT 3 unit PRN PRN Administration Hyperglycemia Protocol Latanoprost 1 drop 04/09/23 21:00 04/10/23 20:27 Latanoprost 2.5 Ml Opth Lilli EACHEYE 1 drop BEDTIME BRIAN Administration Levothyroxine Sodium 50 mcg 04/07/23 19:55 04/07/23 20:18 Levothyroxine Sodium 50 Mcg Tablet PO 04/07/23 19:56 50 mcg ONCE ONE Administration Levothyroxine Sodium 25 mcg 04/08/23 09:30 04/11/23 05:42 Levothyroxine Sodium 25 Mcg Tablet PO 25 mcg QDAC BRIAN Administration Losartan Potassium 50 mg 04/07/23 19:55 04/07/23 20:18 Losartan Potassium 100 Mg Tablet PO 04/07/23 19:56 50 mg ONCE ONE Administration Losartan Potassium 50 mg 04/08/23 09:25 04/09/23 08:15 Losartan Potassium 25 Mg Tablet PO Not Given BID BRIAN Losartan Potassium 50 mg 04/10/23 09:00 04/11/23 09:16 Losartan Potassium 25 Mg Tablet PO 50 mg DAILY BRIAN Administration Methylprednisolone Sodium Succinate 125 mg 04/07/23 18:15 04/07/23 18:21 Methylprednisolone Sod Succ/Pf 125 Mg/2 Ml Vial IVP 04/07/23 18:16 125 mg ONCE ONE Administration Metolazone 2.5 mg 04/10/23 09:00 04/11/23 09:16 Metolazone 2.5 Mg Tablet PO 2.5 mg DAILY BRIAN Administration Metoprolol Succinate 50 mg 04/07/23 19:55 04/07/23 20:03 Metoprolol Succinate 50 Mg Tab.Er.24h PO 04/07/23 19:56 50 mg ONCE ONE Administration Metoprolol Succinate 50 mg 04/08/23 09:30 04/10/23 08:56 Metoprolol Succinate 50 Mg Tab.Er.24h PO Not Given DAILY [facility] Metoprolol Tartrate 5 mg 04/07/23 20:09 04/07/23 20:24 Metoprolol Tartrate 5 Mg/5 Ml Vial IVP 04/07/23 20:10 5 mg ONCE ONE Administration Multivitamins 1 tab 04/08/23 10:00 04/11/23 09:15 Multivitamin 1 Tab PO 1 tab DAILY BRIAN Administration Non-Formulary Medication 120 mg 04/08/23 09:25 04/08/23 10:11 Diltiazem Hcl PO Not Given BID [facility] Non-Formulary Medication 25 mg 04/08/23 21:00 04/10/23 20:27 Nortriptyline PO 25 mg BEDTIME BRIAN Administration Non-Formulary Medication 1 drop 04/08/23 15:00 04/10/23 15:15 Dorzolamide EACHEYE Not Given TID [facility] Non-Formulary Medication 1 tab 04/08/23 09:45 04/11/23 09:14 Vitamins A,C,D-Udro-Ajwibl [Preservision Areds] PO 1 tab BID BRIAN Administration Non-Formulary Medication 1 drop 04/09/23 21:00 Latanoprost [Latanoprost] OP QPM BRIAN Non-Formulary Medication 1 drop 04/10/23 21:00 04/11/23 09:17 Dorzolamide EACHEYE 1 drop BID BRIAN Administration Pantoprazole Sodium 40 mg 04/08/23 09:30 04/11/23 05:42 Pantoprazole Sodium 40 Mg Tablet.Dr PO 40 mg BIDAC BRIAN Administration Rivaroxaban 20 mg 04/07/23 19:55 04/07/23 20:19 Rivaroxaban 10 Mg Tablet PO 04/07/23 19:56 20 mg ONCE ONE Administration Rivaroxaban 20 mg 04/08/23 17:00 04/10/23 16:09 Rivaroxaban 10 Mg Tablet PO 20 mg QPM BRIAN Administration Sodium Chloride 1 syr 04/08/23 21:00 04/11/23 14:07 0.9% Sodium Chloride 10 Ml Disp.Syrin IVF Not Given Q8HR BRIAN Spironolactone 25 mg 04/09/23 21:00 04/11/23 09:16 Spironolactone 25 Mg Tablet PO 25 mg BID BRIAN Administration Sucralfate 1 gm 04/08/23 10:00 04/11/23 11:49 Sucralfate 1 Gm Tablet PO 1 gm ACHS BRIAN Administration Tamsulosin HCl 0.4 mg 04/07/23 19:55 04/07/23 20:03 Tamsulosin Hcl 0.4 Mg Cap.Er.24h PO 04/07/23 19:56 0.4 mg ONCE ONE Administration Tamsulosin HCl 0.4 mg 04/08/23 10:00 04/11/23 09:16 Tamsulosin Hcl 0.4 Mg Cap.Er.24h PO 0.4 mg DAILY BRIAN Administration Thiamine HCl 100 mg 04/08/23 10:00 04/11/23 09:15 Vitamin B-1 100 Mg Tablet PO 100 mg DAILY BRIAN Administration Vital Signs: Temp Pulse Resp BP Pulse Ox 04/07/23 16:55 99.6 F 109 H 22 H 110/77 89 L <NANCY ZAMBRANO, DO - Last Filed: 04/16/23 13:35> Course Orders, Labs, Meds: Lab Review 04/07/23 04/07/23 17:50 17:54 WBC 14.96 H RBC 3.92 L Hgb 9.5 L Hct 31.0 L MCV 79.1 L MCH 24.2 L MCHC 30.6 L RDW Coeff of Simi 19.2 H Plt Count 122 L Neutrophils % (Manual) 93.0 H Lymphocytes % (Manual) 2.0 L Monocytes % (Manual) 5.0 Anisocytosis Not present Sodium 130.9 L Potassium 4.91 Chloride 93.0 L Carbon Dioxide 29.5 Anion Gap 13.31 BUN 36.4 H Creatinine 1.70 H Estimated GFR (MDRD) 39.00 BUN/Creatinine Ratio 21.41 Glucose 214.9 H Calcium 9.39 Total Bilirubin 1.48 H AST 62.5 H ALT 27.8 Alkaline Phosphatase 86.8 Troponin I 0.066 NT-Pro-B Natriuret Pep 8640 H Total Protein 7.26 Albumin 4.40 Globulin 2.86 Albumin/Globulin Ratio 1.53 Procalcitonin 15.21 H TSH 4.180 Urine Color Yellow Urine Clarity Clear Urine pH 5.5 Ur Specific [place] >=1.030 Urine Protein 3+ H Urine Glucose (UA) Negative Urine Ketones Negative Urine Blood 2+ H Urine Nitrite Negative Urine Bilirubin 1+ H Urine Urobilinogen 1.0 H Ur Leukocyte Esterase Negative Urine Microscopic RBC 2-5 Ur Squamous Epith Cells 0-2 Plasma/Serum Alcohol < 10.0 Orders Category Date Time Status ADMIT PATIENT INPATIENT .TO [facility] (MONITORED BED) ADMISSION 04/07/23 21:03 Completed EKG-(ED ONLY) Stat CARDIO 04/07/23 17:17 Completed BLADDER SCAN ONCE CARE 04/07/23 16:55 Completed TELEMETRY MONITORING TELE CARE 04/07/23 21:03 Completed CODE [ED CODE STATUS] .ONCE EMERGENCY 04/07/23 21:01 Completed O2 [ED APPLY O2] .ONCE EMERGENCY 04/07/23 17:51 Completed ABG COOX Stat LAB 04/07/23 21:30 Completed BLOOD ALCOHOL Stat LAB 04/07/23 17:54 Completed CBC W/ AUTO DIFF Stat LAB 04/07/23 17:54 Completed COMPREHENSIVE METABOLIC PANEL Stat LAB 04/07/23 17:54 Completed MANUAL DIFFERENTIAL Stat LAB 04/07/23 17:54 Completed NT-PROBNP(ED) Stat LAB 04/07/23 17:54 Completed PROCALCITONIN Stat LAB 04/07/23 17:54 Completed T4 (THYROXINE) Timed LAB 04/08/23 06:40 Completed THYROID STIMULATING HORMONE Stat LAB 04/07/23 17:54 Completed TROPONIN I Stat LAB 04/07/23 17:54 Completed URINALYSIS C & S IF INDICATED Stat LAB 04/07/23 17:50 Completed Azithromycin Inj [Zithromax] 500 mg Meds 04/07/23 18:15 Discontinued 0.9 % Sodium Chloride [Sodium Chloride] 250 ml IV ONCE Bumetanide [Bumex] Meds 04/07/23 18:13 Discontinued 1 mg IVP ONCE ONE Ceftriaxone/D5w 1 gm Premix [Rocephin 1 gm/50 ml D5w] Meds 04/07/23 19:35 Dis continued 1 gm in 50 ml IV ONCE Diltiazem HCl [Cardizem Cd] Meds 04/07/23 20:00 Discontinued 120 mg PO DAILY Diltiazem HCl [Cardizem Cd] Meds 04/07/23 20:30 Discontinued 60 mg PO DAILY Diltiazem HCl [Cardizem Cd] Meds 04/07/23 20:30 Discontinued 60 mg PO ONCE ONE Diltiazem HCl [Cardizem Inj] Meds 04/07/23 17:21 Discontinued 15 mg IVP ONCE ONE Diltiazem HCl [Cardizem] Meds 04/07/23 20:27 Discontinued 120 mg .ROUTE .STK-MED ONE Diltiazem HCl [Cardizem] Meds 04/07/23 20:35 Discontinued 60 mg PO ONCE ONE Diltiazem HCl [Cardizem] Meds 04/07/23 20:35 Discontinued 60 mg PO ONCE ONE Furosemide [Lasix] Meds 04/07/23 18:12 Discontinued 40 mg IVP ONCE STA Levothyroxine Sodium [Synthroid] Meds 04/07/23 19:55 Discontinued 50 mcg PO ONCE ONE Losartan Potassium [Cozaar] Meds 04/07/23 19:55 Discontinued 50 mg PO ONCE ONE Methylprednisolone Sod Succ/Pf [Solu-Medrol 125 mg] Meds 04/07/23 18:15 Discontinued 125 mg IVP ONCE ONE Metoprolol Succinate [Toprol Xl] Meds 04/07/23 19:55 Discontinued 50 mg PO ONCE ONE Metoprolol Tartrate [Lopressor] Meds 04/07/23 20:09 Discontinued 5 mg IVP ONCE ONE Rivaroxaban [Xarelto] Meds 04/07/23 19:55 Discontinued 20 mg PO ONCE ONE Tamsulosin HCl [Flomax] Meds 04/07/23 19:55 Discontinued 0.4 mg PO ONCE ONE CHEST, 1V AP ONLY Stat RADS 04/07/23 17:[address] ABDOMEN/PELVIS WO CONTRAST Stat RADS 04/07/23 17:21 Completed Medications Discontinued Medications Generic Name Dose Route Start Last Admin Trade Name Freq PRN Reason Stop Dose Admin Acetaminophen 650 mg 04/07/23 21:17 04/10/23 17:41 Acetaminophen 325 Mg Tablet PO 650 mg Q4-6H PRN Administration Mild/Moderate Pain Albuterol Sulfate 2.5 mg 04/08/23 11:04 Albuterol Sulfate 0.083% Vial.Neb NEB RTQ4H PRN Wheezing Albuterol/Ipratropium 3 ml 04/08/23 14:00 04/11/23 15:00 Ipratropium/Albuterol Vial.Neb NEB Not Given RTQID BRIAN Budesonide/Formoterol Fumarate 1 puff 04/08/23 10:00 04/11/23 09:14 Budesonide/Formoterol Fumarate 80/4.5 Mcg Hfa.Aer.Ad IH 1 puff BID BRIAN Administration Bumetanide 1 mg 04/07/23 18:13 04/07/23 18:19 Bumetanide 1 Mg/4 Ml Vial IVP 04/07/23 18:14 1 mg ONCE ONE Administration Carvedilol 6.25 mg 04/10/23 09:00 04/11/23 09:16 Carvedilol 6.25 Mg Tablet PO 6.25 mg BIDWM BRIAN Administration Dexamethasone Sodium Phosphate 4 mg 04/08/23 13:30 04/09/23 08:48 Dexamethasone Sod Phos 4 Mg/Ml Inj IVP 4 mg DAILY BRIAN Administration Dexamethasone Sodium Phosphate 2 mg 04/10/23 09:00 04/10/23 09:01 Dexamethasone Sod Phos 4 Mg/Ml Inj IVP 2 mg DAILY BRIAN Administration Diltiazem HCl 15 mg 04/07/23 17:21 04/07/23 17:56 Diltiazem Hcl Inj 25 Mg/5 Ml Vial IVP 04/07/23 17:22 25 mg ONCE ONE Administration Diltiazem HCl 120 mg 04/07/23 20:00 04/08/23 10:09 Diltiazem Hcl 120 Mg Cap.Er.24h PO 120 mg DAILY BRIAN Administration Diltiazem HCl 60 mg 04/07/23 20:30 04/08/23 10:07 Diltiazem Hcl 120 Mg Cap.Er.24h PO Not Given DAILY BRIAN Diltiazem HCl 60 mg 04/07/23 20:30 04/07/23 20:55 Diltiazem Hcl 120 Mg Cap.Er.24h PO 04/07/23 20:31 Not Given ONCE ONE Diltiazem HCl 60 mg 04/07/23 20:35 04/07/23 20:37 Diltiazem Hcl 60 Mg Tablet PO 04/07/23 20:36 60 mg ONCE ONE Administration Diltiazem HCl 60 mg 04/07/23 20:35 04/07/23 20:37 Diltiazem Hcl 60 Mg Tablet PO 04/07/23 20:36 60 mg ONCE ONE Administration Diltiazem HCl 120 mg 04/08/23 10:30 04/08/23 11:08 Diltiazem Hcl 120 Mg Cap.Er.24h PO Not Given BID BRIAN Diltiazem HCl 120 mg 04/09/23 09:00 Diltiazem Hcl 120 Mg Cap.Er.24h PO DAILY BRIAN Diltiazem HCl 60 mg 04/08/23 18:37 04/08/23 19:48 Diltiazem Hcl 60 Mg Tablet PO 04/08/23 18:38 60 mg ONCE ONE Administration Diltiazem HCl 90 mg 04/09/23 09:00 04/09/23 20:01 Diltiazem Hcl 60 Mg Tablet PO 90 mg Q12HR BRIAN Administration Diltiazem HCl 120 mg 04/10/23 09:00 04/11/23 09:15 Diltiazem Hcl 60 Mg Tablet PO 120 mg Q12HR BRIAN Administration Ferrous Sulfate 324 mg 04/10/23 09:00 04/11/23 09:16 Ferrous Sulfate 324 Mg Tablet.Dr PO 324 mg DAILY BRIAN Administration Finasteride 5 mg 04/08/23 09:30 04/11/23 09:16 Finasteride 5 Mg Tablet PO 5 mg DAILY BRIAN Administration Furosemide 40 mg 04/07/23 18:12 04/07/23 18:19 Furosemide Inj 40 Mg/4 Ml Vial IVP 04/07/23 18:13 40 mg ONCE STA Administration Furosemide 20 mg 04/07/23 21:30 04/08/23 00:12 Furosemide Inj 20 Mg/2 Ml Vial IVP Not Given Q8H BRIAN Furosemide 20 mg 04/08/23 00:16 04/08/23 09:22 Furosemide Inj 20 Mg/2 Ml Vial IM 20 mg Q8H BRIAN Administration Furosemide 20 mg 04/08/23 21:00 04/09/23 08:36 Furosemide Inj 20 Mg/2 Ml Vial IVP Not Given Q12HR BRIAN Gabapentin 300 mg 04/08/23 09:30 04/11/23 09:16 Gabapentin 300 Mg Capsule PO 300 mg BID BRIAN Administration Azithromycin 500 mg/ Sodium 250 mls @ 125 mls/hr 04/07/23 18:15 04/07/23 18:21 Chloride IV 04/07/23 20:14 125 mls/hr ONCE ONE Administration [id number] 1 GM PREMIX 1 gm in 50 mls @ 75 mls/hr 04/07/23 19:35 04/07/23 19:55 Rocephin 1 Gm/50 Ml D5w IV 04/07/23 20:14 75 mls/hr ONCE ONE Administration CEFTRIAXONE/D5W 1 GM PREMIX 1 gm in 50 mls @ 75 mls/hr 04/08/23 21:00 04/10/23 20:12 Rocephin 1 Gm/50 Ml D5w IV 04/11/23 20:59 75 mls/hr BEDTIME BRIAN Administration Azithromycin 500 mg/ Sodium 250 mls @ 125 mls/hr 04/08/23 21:00 04/09/23 20:57 Chloride IV 04/10/23 20:59 125 mls/hr BEDTIME BRIAN Administration Dexamethasone Sodium Phosphate 50.4 mls @ 75 mls/hr 04/09/23 09:00 4 mg/ Sodium Chloride IV DAILY BRIAN Sodium Chloride 1,000 mls @ 50 mls/hr 04/09/23 11:00 04/09/23 11:28 Sodium Chloride IV Not Given .Q20H BRIAN Insulin Human Regular 0 unit 04/08/23 12:48 04/11/23 11:49 Insulin Regular, Human 100 Unit/Ml (3ml) Vial SUBCUT 3 unit PRN PRN Administration Hyperglycemia Protocol Latanoprost 1 drop 04/09/23 21:00 04/10/23 20:27 Latanoprost 2.5 Ml Opth Lilli EACHEYE 1 drop BEDTIME BRIAN Administration Levothyroxine Sodium 50 mcg 04/07/23 19:55 04/07/23 20:18 Levothyroxine Sodium 50 Mcg Tablet PO 04/07/23 19:56 50 mcg ONCE ONE Administration Levothyroxine Sodium 25 mcg 04/08/23 09:30 04/11/23 05:42 Levothyroxine Sodium 25 Mcg Tablet PO 25 mcg QDAC BRIAN Administration Losartan Potassium 50 mg 04/07/23 19:55 04/07/23 20:18 Losartan Potassium 100 Mg Tablet PO 04/07/23 19:56 50 mg ONCE ONE Administration Losartan Potassium 50 mg 04/08/23 09:25 04/09/23 08:15 Losartan Potassium 25 Mg Tablet PO Not Given BID BRIAN Losartan Potassium 50 mg 04/10/23 09:00 04/11/23 09:16 Losartan Potassium 25 Mg Tablet PO 50 mg DAILY BRIAN Administration Methylprednisolone Sodium Succinate 125 mg 04/07/23 18:15 04/07/23 18:21 Methylprednisolone Sod Succ/Pf 125 Mg/2 Ml Vial IVP 04/07/23 18:16 125 mg ONCE ONE Administration Metolazone 2.5 mg 04/10/23 09:00 04/11/23 09:16 Metolazone 2.5 Mg Tablet PO 2.5 mg DAILY BRIAN Administration Metoprolol Succinate 50 mg 04/07/23 19:55 04/07/23 20:03 Metoprolol Succinate 50 Mg Tab.Er.24h PO 04/07/23 19:56 50 mg ONCE ONE Administration Metoprolol Succinate 50 mg 04/08/23 09:30 04/10/23 08:56 Metoprolol Succinate 50 Mg Tab.Er.24h PO Not Given DAILY BRIAN Metoprolol Tartrate 5 mg 04/07/23 20:09 04/07/23 20:24 Metoprolol Tartrate 5 Mg/5 Ml Vial IVP 04/07/23 20:10 5 mg ONCE ONE Administration Multivitamins 1 tab 04/08/23 10:00 04/11/23 09:15 Multivitamin 1 Tab PO 1 tab DAILY BRIAN Administration Non-Formulary Medication 120 mg 04/08/23 09:25 04/08/23 10:11 Diltiazem Hcl PO Not Given BID BRIAN Non-Formulary Medication 25 mg 04/08/23 21:00 04/10/23 20:27 Nortriptyline PO 25 mg BEDTIME BRIAN Administration Non-Formulary Medication 1 drop 04/08/23 15:00 04/10/23 15:15 Dorzolamide EACHEYE Not Given TID BRIAN Non-Formulary Medication 1 tab 04/08/23 09:45 04/11/23 09:14 Vitamins A,C,X-Ehrs-Hrbbtj [Preservision Areds] PO 1 tab BID BRIAN Administration Non-Formulary Medication 1 drop 04/09/23 21:00 Latanoprost [Latanoprost] OP QPM BRIAN Non-Formulary Medication 1 drop 04/10/23 21:00 04/11/23 09:17 Dorzolamide EACHEYE 1 drop BID BRIAN Administration Pantoprazole Sodium 40 mg 04/08/23 09:30 04/11/23 05:42 Pantoprazole Sodium 40 Mg Tablet.Dr PO 40 mg BIDAC BRIAN Administration Rivaroxaban 20 mg 04/07/23 19:55 04/07/23 20:19 Rivaroxaban 10 Mg Tablet PO 04/07/23 19:56 20 mg ONCE ONE Administration Rivaroxaban 20 mg 04/08/23 17:00 04/10/23 16:09 Rivaroxaban 10 Mg Tablet PO 20 mg QPM BRIAN Administration Sodium Chloride 1 syr 04/08/23 21:00 04/11/23 14:07 0.9% Sodium Chloride 10 Ml Disp.Syrin IVF Not Given Q8HR [facility] Spironolactone 25 mg 04/09/23 21:00 04/11/23 09:16 Spironolactone 25 Mg Tablet PO 25 mg BID BRIAN Administration Sucralfate 1 gm 04/08/23 10:00 04/11/23 11:49 Sucralfate 1 Gm Tablet PO 1 gm ACHS BRIAN Administration Tamsulosin HCl 0.4 mg 04/07/23 19:55 04/07/23 20:03 Tamsulosin Hcl 0.4 Mg Cap.Er.24h PO 04/07/23 19:56 0.4 mg ONCE ONE Administration Tamsulosin HCl 0.4 mg 04/08/23 10:00 04/11/23 09:16 Tamsulosin Hcl 0.4 Mg Cap.Er.24h PO 0.4 mg DAILY BRIAN Administration Thiamine HCl 100 mg 04/08/23 10:00 04/11/23 09:15 Vitamin B-1 100 Mg Tablet PO 100 mg DAILY BRIAN Administration Vital Signs: Temp Pulse Resp BP Pulse Ox 04/07/23 16:55 99.6 F 109 H 22 H 110/77 89 L Discharge Plan Discharge Patient Disposition: ADMITTED INPATIENT Discharge Problem: Acute exacerbation of CHF (congestive heart failure), Community acquired pneumonia, CKD (chronic kidney disease), Non compliance w medication regimen, Atrial fibrillation with rapid ventricular response Did you review [place] [employer] for ALL controlled substances?: Not Applicable ED Provider: RAUL VILLEGAS Condition: Fair <RAUL VILLEGAS DO - Last Filed: 04/14/23 09:34> Physician Progress Note: []
[2023-04-07] MEDS ORDERED: CARDIZEM INJ IVP ONE (17:21)
[2023-04-07 17:48] LABS: HEMOGLOBIN 9.5 g/dl (14.0-18.0); MEAN CORPUSCULAR HEMOGLOBIN 24.2 pg (27.0-31.0); MEAN CORPUSCULAR HGB CONC 30.6 (31.8-35.4); MEAN CORPUSCULAR VOLUME 79.1 fl (80.0-94.0); PLATELET COUNT 122 10^3/uL (140-440); RDW COEFFICIENT OF VARIATION 19.2 % (11.6-14.8); RED BLOOD COUNT 3.92 10^6/ul (4.70-6.10); WHITE BLOOD COUNT 14.96 K/ul (4.2-10.2)
--- NOTE | 2023-04-07 17:52 | DI ---
EXAM: CHEST, ONE-VIEW HISTORY: Shortness of breath FINDINGS: Cardiac and mediastinal contours are normal. Pulmonary vasculature is normal. No infiltr ative or consolidative opacities. Chronic reticular interstitial coarsening in the lung bases stable from 12/10/2020. Air over the upper mediastinum represents the trachea. Bony thorax is unremarkabl e. IMPRESSION: No acute cardiopulmonary disease
[2023-04-07 18:06] LABS: ALANINE AMINOTRANSFERASE 27.8 U/L (0-50); ALBUMIN 4.4 g/dL (3.5-5.0); ALKALINE PHOSPHATASE 86.8 U/L (56-119); ASPARTATE AMINO TRANSFERASE 62.5 U/L (17-59); BILIRUBIN,TOTAL 1.48 mg/dL (0.2-1.3); BLOOD UREA NITROGEN 36.4 mg/dL (9-20); CALCIUM 9.39 mg/dL (8.4-10.2); CARBON DIOXIDE 29.5 mmol/L (22-30.0); CREATININE 1.7 mg/dL (0.60-1.10); GLUCOSE 214.9 mg/dL (74-106); POTASSIUM 4.91 mmol/L (3.5-5.1); SODIUM 130.9 mmol/L (134.5-145); TOTAL PROTEIN 7.26 g/dL (6.3-8.2)
[2023-04-07 18:07] LABS: BILIRUBIN,URINE 1+ (NEGATIVE); CLARITY,URINE Clear (CLEAR); COLOR,URINE Yellow (YELLOW); GLUCOSE, URINE (UA) Negative (NEGATIVE); KETONES,URINE Negative (NEGATIVE); LEUKOCYTE ESTERASE ,URINE Negative (NEGATIVE); NITRITE,URINE Negative (NEGATIVE); PH,URINE 5.5 (5-9); PROTEIN,URINE 3+ (NEGATIVE); URINE, BLOOD 2+ (NEGATIVE)
[2023-04-07 18:11] LABS: SQUAMOUS EPITHELIAL CELL,UR 0-2 (0-5)
[2023-04-07] MEDS ORDERED: LASIX IVP STA (18:12)
[2023-04-07] MEDS ORDERED: BUMEX IVP ONE (18:13)
[2023-04-07 18:15] LABS: ANISOCYTOSIS NOT PRESENT (NOT PRESENT)
[2023-04-07] MEDS ORDERED: SOLU-MEDROL 125 MG IVP ONE (18:15)
[2023-04-07] MEDS ORDERED: ZITHROMAX 500 MG in SODIUM CHLORIDE 250 ML IV ONE (18:15)
[2023-04-07 18:17] LABS: TROPONIN I 0.066 ng/ml (0.0000-0.120)
--- NOTE | 2023-04-07 18:21 | CT ---
EXAM: CT ABDOMEN AND PELVIS WITHOUT CONTRAST TECHNIQUE: CT acquisition of the abdomen and pelvis from the lower thorax through the pelvis without IV contrast administration. 2-D coronal and sagittal reformatted images were obtained from the axial source images. Oral Contrast: None. CT Dose Reduction Techniques Performed: Yes. COMPARISON: 04/26/2020 HISTORY: Oliguria FINDINGS: LUNG BASES: Small layering right pleural effusion is noted. Mild bilateral dependent atelectasis is noted. LIVER: No suspicious mass or biliary ductal dilatation. The liver is heterogeneous. No focal mass or related to dilatation. GALLBLADDER: No abnormality is identified. PANCREAS: No mass or evidence of pancreatitis. No duct dilation. SPLEEN: No mass. No splenomegaly. ADRENALS: Normal. KIDNEYS/URETERS: No suspicious mass, stone, or hydronephrosis. GI TRACT: The stomach and small bowel are normal. Colonic diverticulosis is identified, without evid ence of diverticulitis. No bowel wall thickening or dilation. The appendix is normal. URINARY BLADDER: The bladder is completely decompressed around a Menendez catheter. REPRODUCTIVE ORGANS: No abnormality identified. LYMPH NODES: No lymphadenopathy. VASCULATURE: Calcified arterial plaque is identified. No significant aortic aneurysm. The visualized portal and mesenteric veins appear within normal limits. The IVC is normal. OTHER: Small ascites. OSSEOUS/SOFT TISSUES: No suspicious osteolytic, or osteoblastic lesion. No fracture. Age-related deg enerative changes are noted. IMPRESSION: 1. No definite acute findings in the abdomen or pelvis. 2. Colonic diverticulosis without diverticulitis. 3. A small right pleural effusion and ascites are noted. Correlation with liver enzymes and creatini ne is recommended for evidence of chronic hepatic and / or renal disease. All CT scans are performed using dose optimization techniques as appropriate to the performed exam an d include at least one of the following: Automated exposure control, adjustment of the mA and/or kV according t o size, and the use of iterative reconstruction technique.
[2023-04-07] MEDS ORDERED: ROCEPHIN 1 GM/50 ML D5W 1 GM/50 ML BAG IV ONE (19:35)
[2023-04-07] MEDS ORDERED: TOPROL XL PO ONE (19:55)
[2023-04-07] MEDS ORDERED: SYNTHROID PO ONE (19:55)
[2023-04-07] MEDS ORDERED: XARELTO PO ONE (19:55)
[2023-04-07] MEDS ORDERED: COZAAR PO ONE (19:55)
[2023-04-07] MEDS ORDERED: FLOMAX PO ONE (19:55)
[2023-04-07] MEDS ORDERED: LOPRESSOR IVP ONE (20:09)
[2023-04-07] MEDS ORDERED: CARDIZEM ONE (20:27)
[2023-04-07] MEDS ORDERED: CARDIZEM CD PO ONE (20:30)
[2023-04-07] MEDS ORDERED: CARDIZEM PO ONE ×2 (20:35)
[2023-04-07] MEDS: CARDIZEM CD PO SCH ×2 (20:55→20:57)
[2023-04-07] MEDS ORDERED: LASIX IVP SCH (21:30)
[2023-04-07 22:09] VITALS: BMI 38.0
[2023-04-07 23:12] LABS: ABG O2 HGB 87.1 % (95-100); ABG PH 7.48 (7.35-7.45); BEecf 6.3 (-2.0-3.0); COHb 2.5 (0.5-1.5); HCO3 29.8 (21-28); MetHb 0.5 (0-1.5); tHb 9.5 g/dl (11.7-17.4)
[2023-04-08] MEDS: LASIX IM SCH ×2 (00:35→09:22)
[2023-04-08 06:46] LABS: BASOPHILS % (AUTO) 0.2 % (0.0-3.0); HEMATOCRIT 31.1 % (42.0-52.0); HEMOGLOBIN 9.6 g/dl (14.0-18.0); IMMATURE GRANULOCYTE # (AUTO) 0.1 (0.0-1.0); IMMATURE GRANULOCYTE % (AUTO) 0.9 % (0.0-5.0); LYMPHOCYTES # (AUTO) 0.6 K/uL (0.60-3.4); LYMPHOCYTES % (AUTO) 4.8 (10.0-50.0); MEAN CORPUSCULAR HEMOGLOBIN 24.4 pg (27.0-31.0); MEAN CORPUSCULAR HGB CONC 30.9 (31.8-35.4); MEAN CORPUSCULAR VOLUME 78.9 fl (80.0-94.0); MONOCYTES # (AUTO) 0.7 K/uL (0.4-2.0); MONOCYTES % (AUTO) 5.6 (0-10); NEUTROPHILS # (AUTO) 11.3 K/ul (2.0-6.9); NEUTROPHILS % (AUTO) 88.5 % (42.2-75.2); PLATELET COUNT 125 10^3/uL (140-440); RDW COEFFICIENT OF VARIATION 19.3 % (11.6-14.8); RED BLOOD COUNT 3.94 10^6/ul (4.70-6.10); WHITE BLOOD COUNT 12.76 K/ul (4.2-10.2)
[2023-04-08 06:59] LABS: ALANINE AMINOTRANSFERASE 29.1 U/L (0-50); ALBUMIN 4.15 g/dL (3.5-5.0); ALKALINE PHOSPHATASE 81.3 U/L (56-119); ASPARTATE AMINO TRANSFERASE 57.4 U/L (17-59); BILIRUBIN,TOTAL 1.17 mg/dL (0.2-1.3); BLOOD UREA NITROGEN 45.1 mg/dL (9-20); CALCIUM 9.25 mg/dL (8.4-10.2); CARBON DIOXIDE 29.7 mmol/L (22-30.0); CHLORIDE 93.3 mmol/L (98-107); CREATININE 1.91 mg/dL (0.60-1.10); GLUCOSE 226.4 mg/dL (74-106); POTASSIUM 4.85 mmol/L (3.5-5.1); SODIUM 131.6 mmol/L (134.5-145); TOTAL PROTEIN 7.14 g/dL (6.3-8.2)
--- NOTE | 2023-04-08 09:06 | PCM ---
Date of Service Date Seen by Provider: 04/08/23 Time Seen by Provider: 08:40 Admit Day/Time Admission Date: 04/07/23 Reason for Admission Chief Complaint: CHF EXACERBATION,CAP,MINERVA ON CKD,AFIB W/ RVR, Hospital Provider Hospital Provider: TOÑO GARCIA, [facility] Primary Care Physician Primary Care Physician: ORVILLE GODOY MD Consultants Discussed With Consultants Discussed With: Dr. Emil Guzman was consulted by ER doctor due to Afib RVR and CHF History of Present Illness History of Present Illness: 82 yo male presented to the ER with complaints of shortness of breath, weakness, unable to urinate, and weight gain. Patient has a pmh of CHF, COPD, and Afib. He reports that he has not been able to urinate over the last 3 days and has gained close to 10 lbs. He wears 2L of O2 at home at all times. States that he has felt congested in his chest over the last couple days, but no other symptoms. Denies fever, chills, body aches, N/V/D, chest pain or back pain. He was found to be in afib with RVR in the ER at a rate in the 160s initially. Patient reports he is non-complaint with his medications and takes them whenever he remembers. He was given his PO meds in the ER as well as a dose of cardizem and metoprolol in the ER which brought his rate down. Case Discussed With Case Discussed With: Patient's case was discussed with the ER Physicians, Dr. MIRANDA Medical History Benign positional vertigo H81.10 - Benign paroxysmal vertigo, unspecified ear (ICD-10) Bilateral pneumonia J18.9 - Pneumonia, unspecified organism (ICD-10) Emphysema lung J43.9 - Emphysema, unspecified (ICD-10) Gastroesophageal reflux disease K21.9 - Gastro-esophageal reflux disease without esophagitis (ICD-10) Hypertension I10 - Essential (primary) hypertension (ICD-10) Hypothyroidism E03.9 - Hypothyroidism, unspecified (ICD-10) Laceration of left wrist S61.512A - Laceration without foreign body of left wrist, initial encounter (ICD-10) Left orbit fracture S02.85XA - Fracture of orbit, unspecified, initial encounter for closed fracture (ICD-10) Macular degeneration H35.30 - Unspecified macular degeneration (ICD-10) care home resident Z59.3 - Problems related to living in residential institution (ICD-10) Obstructive sleep apnea G47.33 - Obstructive sleep apnea (adult) (pediatric) (ICD-10) Prostatic hypertrophy N40.0 - Benign prostatic hyperplasia without lower urinary tract symptoms (ICD-10) Seasonal allergies J30.2 - Other seasonal allergic rhinitis (ICD-10) Skin lesions L98.9 - Disorder of the skin and subcutaneous tissue, unspecified (ICD-10) Supraumbilical hernia K43.9 - Ventral hernia without obstruction or gangrene (ICD-10) TSH elevation R79.89 - Other specified abnormal findings of blood chemistry (ICD-10) Type II diabetes mellitus E11.9 - Type 2 diabetes mellitus without complications (ICD-10) Surgical History Cataract extraction and insertion of intraocular lens (~1999) History of joint surgery (~1999) Z98.890 - Other specified postprocedural states (ICD-10) Status post hernia repair Z98.890 - Other specified postprocedural states (ICD-10) Family History Mother Dementia FATHER Cancer CVA (cerebral vascular accident) BROTHER Alcoholism Cancer Mother CVA (cerebral vascular accident) SISTER CVA (cerebral vascular accident) Social History Smoking and tobacco status: Former smoker Alcohol intake: current Alcohol intake frequency: 3 or more drinks per day Alcohol type: hard liquor Substance use type: does not use Adopted: No Caregiver/support person: No Foster care: No Household members: none Housing: house Marital status: W / Lives independently: Yes Daycare: no daycare Number of children: 3 Number of grandchildren: 1 Highest education level completed: Bachelor's degree Financial difficulty paying for basics: not very hard service: Yes branch: [employer] care home: No History of recent travel: No Sexually active: No Do you think of yourself as: straight/heterosexual Current gender identity: male Seatbelt use: always Helmet use: No Drives 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 Water heater temperature set < 120 degrees: No Working smoke detector in home: Yes Fire extinguisher in home: Yes Carbon monoxide detector in home: Yes Firearms in home: Yes Firearms unloaded and locked: Yes Allergies Allergies Allergy/AdvReac Type Severity Reaction Status Date / Time Penicillins AdvReac Unknown Verified 02/09/23 09:00 Current Medications Home Medications multivitamin (Daily Multi-Vitamin tablet) 1 ea PO DAILY 09/07/14 [History Confirmed 04/08/23 Last Taken 12/08/20 08:00] peg 400-propylene glycol 0.4 %-0.3 % eye drops (Systane (propylene glycol)) 1 drp BOTHEYES BID 09/07/14 [History Confirmed 04/08/23 Last Taken 12/08/20 08:00] epinephrine 0.3 mg/0.3 mL injection, auto-injector (EpiPen 2-Chandu) 0.3 mg (0.3 mL) IM PRN PRN Anaphylaxis #2 ea 02/04/21 [Rx Confirmed 04/08/23 Last Taken Unknown] fluticasone furoate 100 mcg-vilanterol 25 mcg/dose inhalation powder (Breo Ellipta) 1 inh inhalation Q24H #60 ea 03/31/21 [Rx Confirmed 04/08/23 Last Taken Unknown] losartan 50 mg tablet 50 mg PO BID #180 tab-caps 06/07/22 [Rx Confirmed 04/08/23 Last Taken Unknown] levothyroxine 25 mcg tablet See Rx Instructions .Route .COMPLEX #30 tabs 06/19/22 [Rx Confirmed 04/08/23 Last Taken Unknown] thiamine HCl (vitamin B1) 100 mg tablet 100 mg PO DAILY #90 tabs 08/07/22 [Rx Confirmed 04/08/23 Last Taken Unknown] vitamins A,C,Q-zucw-qmerjo 2,148 mcg-113 mg-45 mg-17.4 mg tablet (PreserVision AREDS) 1 tab PO BID #180 tabs 08/07/22 [Rx Confirmed 04/08/23 Last Taken Unk nown] sucralfate 1 gram tablet 1 g PO QID 10/25/22 [History Confirmed 04/08/23 Last Taken Unknown] dorzolamide 2 % eye drops 1 drp BOTHEYES TID 11/09/22 [History Confirmed 04/08/23 Last Taken Unknown] tamsulosin 0.4 mg capsule 0.4 mg PO DAILY #90 tab-caps 12/19/22 [Rx Confirmed 04/08/23 Last Taken Unknown] metoprolol succinate 50 mg tablet,extended release 24 hr 50 mg PO QDAY #90 tabs 12/21/22 [Rx Confirmed 04/08/23 Last Taken Unknown] nortriptyline 25 mg capsule 25 mg PO QHS #90 caps 12/21/22 [Rx Confirmed 04/08/23 Last Taken Unknown] spironolactone 25 mg tablet (Aldactone) 12.5 mg PO QDAY #90 tabs 12/21/22 [Rx Confirmed 04/08/23 Last Taken Unknown] gabapentin 300 mg capsule 300 mg PO BID #60 caps 01/09/23 [Rx Confirmed 04/08/23 Last Taken Unknown] diltiazem HCl 120 mg capsule,extended release 12 hr 120 mg PO ONCE #30 caps 02/13/23 [Rx Confirmed 04/08/23 Last Taken Unknown] pantoprazole 40 mg tablet,delayed release 40 mg PO BID #180 tabs 02/13/23 [Rx Confirmed 04/08/23 Last Taken Unknown] rivaroxaban 20 mg tablet (Xarelto) See Rx Instructions .Route .COMPLEX #90 tabs 03/02/23 [Rx Confirmed 04/08/23 Last Taken Unknown] bumetanide 1 mg tablet See Rx Instructions .Route .COMPLEX #90 tabs 03/21/23 [Rx Confirmed 04/08/23 Last Taken Unknown] finasteride 5 mg tablet See Rx Instructions .Route .COMPLEX #90 tabs 03/21/23 [Rx Confirmed 04/08/23 Last Taken Unknown] Home Acetaminophen (Acetaminophen 325 Mg Tablet) 650 mg PO Q4-6H PRN PRN Reason: Mild/Moderate Pain Albuterol Sulfate (Albuterol Sulfate 0.083% Vial.Neb) 2.5 mg NEB RTQ4H PRN PRN Reason: Wheezing Albuterol/Ipratropium (Ipratropium/Albuterol Vial.Neb) 3 ml NEB RTQID BRIAN Budesonide/Formoterol Fumarate (Budesonide/Formoterol Fumarate 80/4.5 Mcg H fa.Aer.Ad) 1 puff IH BID BRIAN Last Admin: 04/08/23 10:08 Dose: 1 puff Diltiazem HCl (Diltiazem Hcl 120 Mg Cap.Er.24h) 120 mg PO DAILY [facility] Finasteride (Finasteride 5 Mg Tablet) 5 mg PO DAILY [facility] Last Admin: 04/08/23 10:10 Dose: 5 mg Furosemide (Furosemide Inj 20 Mg/2 Ml Vial) 20 mg IVP Q12HR [facility] Gabapentin (Gabapentin 300 Mg Capsule) 300 mg PO BID [facility] Last Admin: 04/08/23 10:08 Dose: 300 mg CEFTRIAXONE/D5W 1 GM PREMIX (Rocephin 1 Gm/50 Ml D5w) 1 gm in 50 mls @ 75 mls/hr IV BEDTIME [facility] Stop: 04/11/23 20:59 Azithromycin 500 mg/ Sodium (Chloride) 250 mls @ 125 mls/hr IV BEDTIME [facility] Stop: 04/10/23 20:59 Dexamethasone Sodium Phosphate (4 mg/ Sodium Chloride) 50.4 mls @ 75 mls/hr IV DAILY [facility] Insulin Human Regular (Insulin Regular, Human 100 Unit/Ml (3ml) Vial) 0 unit SUBCUT PRN PRN; Protocol PRN Reason: Hyperglycemia Levothyroxine Sodium (Levothyroxine Sodium 25 Mcg Tablet) 25 mcg PO QDAC [facility] Last Admin: 04/08/23 10:09 Dose: 25 mcg Losartan Potassium (Losartan Potassium 25 Mg Tablet) 50 mg PO BID [facility] Last Admin: 04/08/23 10:08 Dose: 50 mg Metoprolol Succinate (Metoprolol Succinate 50 Mg Tab.Er.24h) 50 mg PO DAILY [facility] Last Admin: 04/08/23 10:10 Dose: 50 mg Multivitamins (Multivitamin 1 Tab) 1 tab PO DAILY [facility] Last Admin: 04/08/23 10:08 Dose: 1 tab Non-Formulary Medication (Nortriptyline) 25 mg PO BEDTIME [facility] Non-Formulary Medication (Dorzolamide) 1 drop EACHEYE TID [facility] Non-Formulary Medication (Vitamins A,C,W-Netq-Wfipxz [Preservision Areds]) 1 tab PO BID [facility] Last Admin: 04/08/23 10:11 Dose: Not Given Pantoprazole Sodium (Pantoprazole Sodium 40 Mg Tablet.Dr) 40 mg PO BIDAC [facility] Last Admin: 04/08/23 10:10 Dose: 40 mg Rivaroxaban (Rivaroxaban 10 Mg Tablet) 20 mg PO QPM [facility] Sucralfate (Sucralfate 1 Gm Tablet) 1 gm PO ACHS [facility] Last Admin: 04/08/23 11:31 Dose: 1 gm Tamsulosin HCl (Tamsulosin Hcl 0.4 Mg Cap.Er.24h) 0.4 mg PO DAILY [facility] Last Admin: 04/08/23 10:09 Dose: 0.4 mg Thiamine HCl (Vitamin B-1 100 Mg Tablet) 100 mg PO DAILY [facility] Last Admin: 04/08/23 10:09 Dose: 100 mg Discontinued Medications Bumetanide (Bumetanide 1 Mg/4 Ml Vial) 1 mg IVP ONCE ONE Stop: 04/07/23 18:14 Last Admin: 04/07/23 18:19 Dose: 1 mg Diltiazem HCl (Diltiazem Hcl Inj 25 Mg/5 Ml Vial) 15 mg IVP ONCE ONE Stop: 04/07/23 17:22 Last Admin: 04/07/23 17:56 Dose: 25 mg Diltiazem HCl (Diltiazem Hcl 120 Mg Cap.Er.24h) 120 mg PO DAILY [facility] Last Admin: 04/08/23 10:09 Dose: 120 mg Diltiazem HCl (Diltiazem Hcl 120 Mg Cap.Er.24h) 60 mg PO DAILY [facility] Last Admin: 04/08/23 10:07 Dose: Not Given Diltiazem HCl (Diltiazem Hcl 120 Mg Cap.Er.24h) 60 mg PO ONCE ONE Stop: 04/07/23 20:31 Last Admin: 04/07/23 20:55 Dose: Not Given Diltiazem HCl (Diltiazem Hcl 60 Mg Tablet) 60 mg PO ONCE ONE Stop: 04/07/23 20:36 Last Admin: 04/07/23 20:37 Dose: 60 mg Diltiazem HCl (Diltiazem Hcl 60 Mg Tablet) 60 mg PO ONCE ONE Stop: 04/07/23 20:36 Last Admin: 04/07/23 20:37 Dose: 60 mg Diltiazem HCl (Diltiazem Hcl 120 Mg Cap.Er.24h) 120 mg PO BID [facility] Last Admin: 04/08/23 11:08 Dose: Not Given Furosemide (Furosemide Inj 40 Mg/4 Ml Vial) 40 mg IVP ONCE STA Stop: 04/07/23 18:13 Last Admin: 04/07/23 18:19 Dose: 40 mg Furosemide (Furosemide Inj 20 Mg/2 Ml Vial) 20 mg IVP Q8H [facility] Last Admin: 04/08/23 00:12 Dose: Not Given Furosemide (Furosemide Inj 20 Mg/2 Ml Vial) 20 mg IM Q8H [facility] Last Admin: 04/08/23 09:22 Dose: 20 mg Azithromycin 500 mg/ Sodium (Chloride) 250 mls @ 125 mls/hr IV ONCE ONE Stop: 04/07/23 20:14 Last Admin: 04/07/23 18:21 Dose: 125 mls/hr CEFTRIAXONE/D5W 1 GM PREMIX (Rocephin 1 Gm/50 Ml D5w) 1 gm in 50 mls @ 75 mls/hr IV ONCE ONE Stop: 04/07/23 20:14 Last Admin: 04/07/23 19:55 Dose: 75 mls/hr Levothyroxine Sodium (Levothyroxine Sodium 50 Mcg Tablet) 50 mcg PO ONCE ONE Stop: 04/07/23 19:56 Last Admin: 04/07/23 20:18 Dose: 50 mcg Losartan Potassium (Losartan Potassium 100 Mg Tablet) 50 mg PO ONCE ONE Stop: 04/07/23 19:56 Last Admin: 04/07/23 20:18 Dose: 50 mg Methylprednisolone Sodium Succinate (Methylprednisolone Sod Succ/Pf 125 Mg/2 Ml Vial) 125 mg IVP ONCE ONE Stop: 04/07/23 18:16 Last Admin: 04/07/23 18:21 Dose: 125 mg Metoprolol Succinate (Metoprolol Succinate 50 Mg Tab.Er.24h) 50 mg PO ONCE ONE Stop: 04/07/23 19:56 Last Admin: 04/07/23 20:03 Dose: 50 mg Metoprolol Tartrate (Metoprolol Tartrate 5 Mg/5 Ml Vial) 5 mg IVP ONCE ONE Stop: 04/07/23 20:10 Last Admin: 04/07/23 20:24 Dose: 5 mg Non-Formulary Medication (Diltiazem Hcl) 120 mg PO BID [facility] Last Admin: 04/08/23 10:11 Dose: Not Given Rivaroxaban (Rivaroxaban 10 Mg Tablet) 20 mg PO ONCE ONE Stop: 04/07/23 19:56 Last Admin: 04/07/23 20:19 Dose: 20 mg Tamsulosin HCl (Tamsulosin Hcl 0.4 Mg Cap.Er.24h) 0.4 mg PO ONCE ONE Stop: 04/07/23 19:56 Last Admin: 04/07/23 20:03 Dose: 0.4 mg Review of Systems Constitutional: Reports Recent Weight Gain and Weakness Head: Reports Normocephalic Eyes: Reports No symptoms Ears: Reports No symptoms Nose: Reports No symptoms Mouth: Reports No symptoms Throat: Reports No symptoms Cardiovascular: Reports Edema and Other (congestion) Respiratory: Reports Shortness of air Gastrointestinal: Reports No symptoms Genitourinary: Reports Other (unable to urinate) Musculoskeletal: Reports No symptoms Endocrine: Reports No symptoms Hematology: Reports No symptoms Immunology: Reports No symptoms Neurological: Reports No symptoms Psychiatric: Reports No symptoms Physical examination Most Recent Vital Signs: Most Recent Vital Signs Temperature 97.7 F 04/08/23 05:30 Temperature Source Temporal Artery Scan 04/08/23 05:30 Temperature Source Infrared 04/07/23 16:55 Pulse Rate 87 04/08/23 05:30 Respiratory Rate 18 04/08/23 05:30 Blood Pressure 122/78 04/08/23 05:30 Blood Pressure Mean 92 04/08/23 05:30 Blood Pressure Left Arm 132/74 04/07/23 22:00 Blood Pressure Location Right Arm 04/08/23 05:30 Blood Pressure Position Sitting 04/08/23 05:30 O2 Sat by Pulse Oximetry 95 04/08/23 05:30 Oxygen Delivery Method Nasal Cannula 04/08/23 05:30 Oxygen Flow Rate 3 04/08/23 05:30 Height 6 ft 04/07/23 22:00 Weight 279 lb 2 oz 04/08/23 05:47 Telemetry Type Remote Telemetry 04/08/23 07:00 Telemetry Monitoring Continues 04/08/23 07:00 Irregular Telemetry Rate (Approximate) 80-90 BPM 04/08/23 07:00 Telemetry Heart Rate 90 04/08/23 01:00 Telemetry SPO2 92 L 04/08/23 01:00 EKG QRS Interval 0.08 04/08/23 07:00 Telemetry Strip Reading AFIB 04/08/23 07:00 Appearance: Positive No Apparent Distress and Alert and Oriented x3 Skin: Positive [place] and Warm HEENT: Positive Normocephalic Neck: Positive Supple and Midline Trachea Chest/Lungs: Positive Symmetrical With Equal Breath Sounds, Clear to Auscultation Bilaterally (diminished) and Good Air Movement all 4 Lung Gee Heart: Positive RRR and Pulses Normal GI/: Positive Soft, Nontender, Bowel Sounds Normal and No Distention Musculoskeletal: Positive Not Examined Extremities: Positive Edema (+3-4 bilaterally), Intact Peripheral Pulses, Stable Joints Without Laxity and Good ROM in All Joints Neurological: Positive Sensation Intact, Motor intact, Alert, Oriented and Muscle Strength 5/5 in Upper and Lower Extremities Bilaterally Psychiatric: Positive Oriented x4, Appropriate Mood, Appropriate Affect, Intact Memory, Good Short-Term Recall and Good Long-Term Recall Labs This Visit Labs This Visit: Labs This Visit 04/07/23 04/07/23 04/07/23 17:50 17:54 21:30 WBC 14.96 H RBC 3.92 L Hgb 9.5 L Hct 31.0 L MCV 79.1 L MCH 24.2 L MCHC 30.6 L RDW Coeff of Simi 19.2 H Plt Count 122 L Immature Gran % (Auto) Neut % (Auto) Lymph % (Auto) [place] % (Auto) Eos % (Auto) Baso % (Auto) Neut # (Auto) Lymph # (Auto) [place] # (Auto) Eos # (Auto) Baso # (Auto) Immature Gran # (Auto) Neutrophils % (Manual) 93.0 H Lymphocytes % (Manual) 2.0 L Monocytes % (Manual) 5.0 Anisocytosis Not present Puncture Site Lr Base Excess 6.3 H O2 Saturation 90.0 L ABG pH 7.48 H ABG pCO2 40.0 ABG pO2 54.0 L* ABG HCO3 29.8 H ABG Total CO2 31.0 H Guevara Test Pos Hemoglobin 0.5 Oxyhemoglobin 87.1 L Carboxyhemoglobin 2.5 H Total Hemoglobin 9.5 L O2 Delivery Device Nc Oxygen Liter Flow 3.00 Sodium 130.9 L Potassium 4.91 Chloride 93.0 L Carbon Dioxide 29.5 Anion Gap 13.31 BUN 36.4 H Creatinine 1.70 H Estimated GFR (MDRD) 39.00 BUN/Creatinine Ratio 21.41 Glucose 214.9 H Calcium 9.39 Total Bilirubin 1.48 H AST 62.5 H ALT 27.8 Alkaline Phosphatase 86.8 Troponin I 0.066 NT-Pro-B Natriuret Pep 8640 H Total Protein 7.26 Albumin 4.40 Globulin 2.86 Albumin/Globulin Ratio 1.53 Procalcitonin 15.21 H TSH 4.180 Urine Color Yellow Urine Clarity Clear Urine pH 5.5 Ur Specific [place] >=1.030 Urine Protein 3+ H Urine Glucose (UA) Negative Urine Ketones Negative Urine Blood 2+ H Urine Nitrite Negative Urine Bilirubin 1+ H Urine Urobilinogen 1.0 H Ur Leukocyte Esterase Negative Urine Microscopic RBC 2-5 Ur Squamous Epith Cells 0-2 Plasma/Serum Alcohol < 10.0 04/08/23 06:40 WBC 12.76 H RBC 3.94 L Hgb 9.6 L Hct 31.1 L MCV 78.9 L MCH 24.4 L MCHC 30.9 L RDW Coeff of Simi 19.3 H Plt Count 125 L Immature Gran % (Auto) 0.9 Neut % (Auto) 88.5 H Lymph % (Auto) 4.8 L [place] % (Auto) 5.6 Eos % (Auto) 0.0 Baso % (Auto) 0.2 Neut # (Auto) 11.3 H Lymph # (Auto) 0.6 [place] # (Auto) 0.7 Eos # (Auto) 0.0 Baso # (Auto) 0.0 Immature Gran # (Auto) 0.1 Neutrophils % (Manual) Lymphocytes % (Manual) Monocytes % (Manual) Anisocytosis Puncture Site Base Excess O2 Saturation ABG pH ABG pCO2 ABG pO2 ABG HCO3 ABG Total CO2 Guevara Test Hemoglobin Oxyhemoglobin Carboxyhemoglobin Total Hemoglobin O2 Delivery Device Oxygen Liter Flow Sodium 131.6 L Potassium 4.85 Chloride 93.3 L Carbon Dioxide 29.7 Anion Gap 13.45 BUN 45.1 H Creatinine 1.91 H Estimated GFR (MDRD) 34.00 BUN/Creatinine Ratio 23.61 Glucose 226.4 H Calcium 9.25 Total Bilirubin 1.17 AST 57.4 ALT 29.1 Alkaline Phosphatase 81.3 Troponin I NT-Pro-B Natriuret Pep Total Protein 7.14 Albumin 4.15 Globulin 2.99 Albumin/Globulin Ratio 1.38 Procalcitonin 18.69 H TSH 4.000 Urine Color Urine Clarity Urine pH Ur Specific [place] Urine Protein Urine Glucose (UA) Urine Ketones Urine Blood Urine Nitrite Urine Bilirubin Urine Urobilinogen Ur Leukocyte Esterase Urine Microscopic RBC Ur Squamous Epith Cells Plasma/Serum Alcohol Imaging Imaging: EXAM: CHEST, ONE-VIEW FINDINGS: Cardiac and mediastinal contours are normal. Pulmonary vasculature is normal. No infiltrative or consolidative opacities. Chronic reticular interstitial coarsening in the lung bases stable from 12/10/2020. Air over the upper mediastinum represents the trachea. Bony thorax is unremarkable. IMPRESSION: No acute cardiopulmonary disease EXAM: CT ABDOMEN AND PELVIS WITHOUT CONTRAST IMPRESSION: 1. No definite acute findings in the abdomen or pelvis. 2. Colonic diverticulosis without diverticulitis. 3. A small right pleural effusion and ascites are noted. Correlation with liver enzymes and creatinine is recommended for evidence of chronic hepatic and / or renal disease. Review Statement Review Statement: I have independently reviewed and interpreted the labs/EKGs/imaging that were ordered by the ER provider. I have reviewed all outside records that are available currently in our EMR including imaging/notes/labs from previous visits. Plan Plan: 1. Acute Hypoxic Respiratory Failure in the setting of CHF exacerbation/COPD Exacerbation - requiring 3L at this time, wears 2L at home, wean to home O2 as tolerated, continue home inhalers, nebs prn, receiving azith and rocephin for COPD tx, lasix for CHF 2. CHFpEF exacerbation - lasix 20 mg Q8H, monitor renal function, last EF 55% - checking echo, I&O, daily weight, cardiac diet, elevate legs 3. Leukocytosis - no obvious source of infection, chest x-ray and UA negative, blood cultures obtained in ER, started on azith and rocephin prophylactically by ER provider for CAP, pro joey elevated - repeat daily 4. Atrial Fibrillation with RVR - rate controlled at this time with resume of home medications, patient non-complaint and likely in Afib regularly, resume rate control and anticoagulation medications, telemetry 5. COPD - chronic, wears 2L of O2 continuous, requiring 3L at this time, continue inhalers, nebs prn, wean to home O2 6. Elevated liver enzymes - chronic alcohol use, ascites noted on CT scan, discussed cessation - patient reports he does not plan to stop use and his PCP is aware. 7. Hyponatremia - likely due to diuretic use, monitor 8. CKD - chronic, slightly worsen due to diuretic use, monitor daily DVT Prophylaxis: Xarelto Time Spent: Greater than 80 minutes spent with patient, 50% of the time spent with this patient was devoted to counseling and coordination of care. [facility] minutes spent discussing advance care planning. Disposition: Admit to: Med/Surg Inpatient Discussed Plan of Care with Dr. Danny Guzman. Medications Medication Orders: Medications Ordered Category Date Time Status Acetaminophen [Tylenol] Meds 04/07/23 21:17 Active 650 mg PO Q4-6H PRN Azithromycin Inj [Zithromax] 500 mg Meds 04/08/23 21:00 Active 0.9 % Sodium Chloride [Sodium Chloride] 250 ml IV BEDTIME Ceftriaxone/D5w 1 gm Premix [Rocephin 1 gm/50 ml D5w] Meds 04/08/23 21:00 Active 1 gm in 50 ml IV BEDTIME Diltiazem HCl [Cardizem Cd] Meds 04/07/23 20:30 Active 60 mg PO DAILY Furosemide [Lasix] Meds 04/08/23 00:16 Active 20 mg IM Q8H
[2023-04-08] MEDS: CARDIZEM CD PO SCH ×3 (09:22→10:09)
[2023-04-08] MEDS ORDERED: DILTIAZEM HCL 120 MG PO SCH (09:25)
[2023-04-08] MEDS ORDERED: NON-FORMULARY MEDICATION (Multivitamin [Daily Multi-Vitamin] 1 EACH tablet) PO SCH (09:30)
[2023-04-08] MEDS ORDERED: PEG PROPYLENE GLYCOL OP SCH (09:45)
[2023-04-08] MEDS: NEURONTIN PO SCH ×2 (10:08→20:43)
[2023-04-08] MEDS: COZAAR PO SCH ×2 (10:08→20:44)
[2023-04-08] MEDS: MULTIVITAMIN TABLET PO SCH (10:08)
[2023-04-08] MEDS: ARTIFICIAL TEARS DROPS EACHEYE SCH ×2 (10:08→20:44)
[2023-04-08] MEDS: SYMBICORT 80-4.5 MCG INHALER IH SCH ×2 (10:08→20:45)
[2023-04-08] MEDS: CARAFATE PO SCH ×4 (10:08→20:44)
[2023-04-08] MEDS: THIAMINE PO SCH (10:09)
[2023-04-08] MEDS: SYNTHROID PO SCH (10:09)
[2023-04-08] MEDS: FLOMAX PO SCH (10:09)
[2023-04-08] MEDS: PROSCAR PO SCH (10:10)
[2023-04-08] MEDS: TOPROL XL PO SCH (10:10)
[2023-04-08] MEDS: PROTONIX PO SCH ×2 (10:10→17:21)
[2023-04-08] MEDS: NON-FORMULARY MEDICATION (Vitamins A,C,E-Zinc-Copper [Preservision Areds] 2,148 mcg-113 mg PO SCH ×2 (10:11→21:06)
[2023-04-08] MEDS ORDERED: CARDIZEM CD PO SCH (10:30)
[2023-04-08] MEDS ORDERED: ALBUTEROL 0.083% NEB NEB PRN (11:04)
[2023-04-08] MEDS: DECADRON IVP SCH (13:55)
[2023-04-08] MEDS: DUONEB NEB SCH ×2 (14:02→20:18)
[2023-04-08] MEDS: XARELTO PO SCH (17:22)
[2023-04-08] MEDS: HUMULIN R SUBCUT PRN ×2 (17:22→21:44)
[2023-04-08] MEDS ORDERED: CARDIZEM PO ONE (18:37)
[2023-04-08] MEDS: LASIX IVP SCH (20:43)
[2023-04-08] MEDS: ROCEPHIN 1 GM/50 ML D5W 1 GM/50 ML BAG IV SCH (20:45)
[2023-04-08] MEDS: ZITHROMAX 500 MG in SODIUM CHLORIDE 250 ML IV SCH (22:33)
[2023-04-09] MEDS: DUONEB NEB SCH ×4 (04:24→20:12)
[2023-04-09 05:08] LABS: BASOPHILS % (AUTO) 0.1 % (0.0-3.0); HEMATOCRIT 28.6 % (42.0-52.0); HEMOGLOBIN 8.9 g/dl (14.0-18.0); IMMATURE GRANULOCYTE # (AUTO) 0.2 (0.0-1.0); IMMATURE GRANULOCYTE % (AUTO) 1.1 % (0.0-5.0); LYMPHOCYTES # (AUTO) 0.7 K/uL (0.60-3.4); LYMPHOCYTES % (AUTO) 3.5 (10.0-50.0); MEAN CORPUSCULAR HEMOGLOBIN 24.7 pg (27.0-31.0); MEAN CORPUSCULAR HGB CONC 31.1 (31.8-35.4); MEAN CORPUSCULAR VOLUME 79.4 fl (80.0-94.0); MONOCYTES # (AUTO) 1.6 K/uL (0.4-2.0); MONOCYTES % (AUTO) 8.5 (0-10); NEUTROPHILS # (AUTO) 16.5 K/ul (2.0-6.9); NEUTROPHILS % (AUTO) 86.8 % (42.2-75.2); PLATELET COUNT 140 10^3/uL (140-440); RDW COEFFICIENT OF VARIATION 19.2 % (11.6-14.8); WHITE BLOOD COUNT 18.96 K/ul (4.2-10.2)
[2023-04-09 05:25] LABS: ALANINE AMINOTRANSFERASE 34.9 U/L (0-50); ALBUMIN 3.86 g/dL (3.5-5.0); ALKALINE PHOSPHATASE 92.1 U/L (56-119); ASPARTATE AMINO TRANSFERASE 71.5 U/L (17-59); BILIRUBIN,TOTAL 0.63 mg/dL (0.2-1.3); BLOOD UREA NITROGEN 54.7 mg/dL (9-20); CALCIUM 8.88 mg/dL (8.4-10.2); CARBON DIOXIDE 31.1 mmol/L (22-30.0); CHLORIDE 96.3 mmol/L (98-107); CREATININE 1.94 mg/dL (0.60-1.10); GLUCOSE 183.4 mg/dL (74-106); POTASSIUM 4.16 mmol/L (3.5-5.1); SODIUM 134.6 mmol/L (134.5-145); TOTAL PROTEIN 6.77 g/dL (6.3-8.2)
[2023-04-09] MEDS: SYNTHROID PO SCH (05:42)
[2023-04-09] MEDS: CARAFATE PO SCH ×4 (05:42→20:01)
[2023-04-09] MEDS: PROTONIX PO SCH ×2 (05:42→17:28)
[2023-04-09 05:44] LABS: ABG O2 HGB 95.5 % (95-100); ABG PH 7.43 (7.35-7.45); BEecf 7.6 (-2.0-3.0); COHb 2.4 (0.5-1.5); HCO3 31.9 (21-28); MetHb 0.5 (0-1.5); TCO2 33.4 (19-24); sO2 97.7 % (94-98); tHb 9.1 g/dl (11.7-17.4)
[2023-04-09 05:56] LABS: THYROID STIMULATING HORMONE 2.62 uIU/L (0.465-4.68)
[2023-04-09] MEDS: HUMULIN R SUBCUT PRN ×4 (06:35→20:23)
[2023-04-09] MEDS: COZAAR PO SCH (08:15)
[2023-04-09 08:28] LABS: ABSOLUTE RETICS # 0.1056; RETICULOCYTE % 2.87 %; RETICULOCYTE HEMOGLOBIN 24.3
[2023-04-09] MEDS: LASIX IVP SCH (08:36)
[2023-04-09] MEDS: NON-FORMULARY MEDICATION (Vitamins A,C,E-Zinc-Copper [Preservision Areds] 2,148 mcg-113 mg PO SCH ×2 (08:38→20:01)
[2023-04-09] MEDS: PROSCAR PO SCH (08:44)
[2023-04-09] MEDS: TOPROL XL PO SCH (08:44)
[2023-04-09] MEDS: NEURONTIN PO SCH ×2 (08:44→20:01)
[2023-04-09] MEDS: MULTIVITAMIN TABLET PO SCH (08:44)
[2023-04-09] MEDS: CARDIZEM PO SCH ×2 (08:45→20:01)
[2023-04-09] MEDS: FLOMAX PO SCH (08:45)
[2023-04-09] MEDS: THIAMINE PO SCH (08:46)
[2023-04-09] MEDS: SYMBICORT 80-4.5 MCG INHALER IH SCH ×2 (08:48→20:01)
[2023-04-09] MEDS: ARTIFICIAL TEARS DROPS EACHEYE SCH ×2 (08:48→20:01)
[2023-04-09] MEDS: DECADRON IVP SCH (08:48)
[2023-04-09] MEDS ORDERED: DECADRON 4 MG in SODIUM CHLORIDE 50 ML IV SCH (09:00)
[2023-04-09] MEDS ORDERED: CARDIZEM CD PO SCH (09:00)
[2023-04-09 09:14] LABS: FERRITIN 59.9 ng/mL (17.9-464.0)
--- NOTE | 2023-04-09 09:17 | PCM.PROG ---
Attending Provider: ATTENDING PROVIDER: Dr. GERSON BAEZA, FLOYD-C This patient is seen with Zuly Andrade, Nurse Practitioner. DATE OF SERVICE: 04/09/23 SUBJECTIVE: This 82 year old /WHITE M was hospitalized 04/07/23. The patient remains in atrial fibrillation rate up to 110 with exertion. We will repeat ABGs. Renal function is significantly increased from baseline. Echo scheduled to day with Dr. Guzman. REVIEW OF SYSTEMS: CONSTITUTIONAL: No night sweats. No fatigue, malaise, lethargy. No fever or chills. Weakness. HEENT: Eyes: No visual changes. No eye pain. No eye discharge. ENT: No runny nose. No epistaxis. No sinus pain. No odynophagia. No congestion. RESPIRATORY: No cough, no congestion. No hemoptysis. Shortness of breath. CARDIOVASCULAR: No angina symptoms. No CHF symptoms. No atypical chest pain for CAD. No palpitations. No orthopnea.. GASTROINTESTINAL: No abdominal pain. No nausea or vomiting. No diarrhea or constipation. No hematemesis. No hematochezia. GENITOURINARY: No urgency. No frequency. No dysuria. No hematuria. No obstructive symptoms. No discharge. No pain. No significant abnormal bleeding. MUSCULOSKELETAL: No musculoskeletal pain; no joint swelling. Leg edema. NEUROLOGICAL: Awake, alert, oriented to time, place and person. No headache. No neck pain. No syncope. No seizures. No dizziness. PSYCHIATRIC: Not anxious. No depression. No suicidal thoughts. No homicidal thoughts. SKIN: No rash. No lesions. No wounds. ENDOCRINE: No unexplained weight loss. No weight gain. HEMATOLOGIC/LYMPHATIC: No anemia. No purpura. No petechiae. No prolonged or excessive bleeding. No palpable lymph nodes. PHYSICAL EXAMINATION: GENERAL: The patient is awake, alert and oriented, lying in bed in no distress. VITAL SIGNS: Temperature 98.0 F, Pulse 92, Respiratory Rate 18, BP 116/72, Pulse Ox 98% HEENT: Head normocephalic, atraumatic. Eyes: Extraocular muscles are intact. Pupils are equal, round and reactive to light and accommodation. Ears: No lesions. Nose appeared normal. Throat: No exudate or erythema. NECK: Supple. No JVD, no carotid bruit. No lymphadenopathy or thyromegaly. LUNGS: Diminished breath sounds. Clear to auscultation. Percussion note normal. Chest symmetrical. HEART: Irregular heart rate. S1, S2, no S3. No murmurs. No cyanosis or clubbing. No ascites. Pulses: Dorsalis pedis and posterior tibial pulses +1 to +2 both sides. ABDOMEN: Soft. Non-tender. Bowel sounds active. No CVA tenderness. No mass felt. EXTREMITIES: 2+ bilateral lower extremity edema. Full range of motion of all extremities, equal. NEUROLOGIC: No focal deficit. Cranial nerves II through XII are grossly intact. No headache. No double vision. SKIN: Not dry. Intact. Turgor-normal. LYMPHATIC: No palpable lymph nodes/no lymphedema. MUSCULOSKELETAL: Normal joints with no swelling. Muscle tone is normal. LAB REVIEW: 04/09/23 04:58 04/09/23 04:58 04/09/23 04:58: WBC 18.96 H D, RBC 3.60 L, Hgb 8.9 L, Hct 28.6 L, MCV 79.4 L, MCH 24.7 L, MCHC 31.1 L, RDW Coeff of Simi 19.2 H, Plt Count 140, Immature Gran % (Auto) 1.1, Neut % (Auto) 86.8 H, Lymph % (Auto) 3.5 L, [place] % (Auto) 8.5, Eos % (Auto) 0.0, Baso % (Auto) 0.1, Neut # (Auto) 16.5 H, Lymph # (Auto) 0.7, [place] # (Auto) 1.6, Eos # (Auto) 0.0, Baso # (Auto) 0.0, Immature Gran # (Auto) 0.2, Sodium 134.6, Potassium 4.16, Chloride 96.3 L, Carbon Dioxide 31.1 H, Anion Gap 11.36, BUN 54.7 H, Creatinine 1.94 H, Estimated GFR (MDRD) 33.00, BUN/Creatinine Ratio 28.19, Glucose 183.4 H, Hemoglobin A1c 5.67, Calcium 8.88, Total Bilirubin 0.63, AST 71.5 H, ALT 34.9, Alkaline Phosphatase 92.1, Total Protein 6.77, Albumin 3.86, Globulin 2.91, Albumin/Globulin Ratio 1.32, Procalcitonin 13.17 H, TSH 2.620 04/09/23 01:28: Puncture Site Rr, Base Excess 7.6 H, O2 Saturation 97.7, ABG pH 7.43, ABG pCO2 48.0 H, ABG pO2 96.0, ABG HCO3 31.9 H, ABG Total CO2 33.4 H, Guevara Test Pos, Hemoglobin 0.5, Oxyhemoglobin 95.5, Carboxyhemoglobin 2.4 H, Total Hemoglobin 9.1 L, O2 Delivery Device Cannula, Oxygen Liter Flow 2.00, FiO2 % 28.0 04/08/23 06:40: Sodium 131.6 L, Potassium 4.85, Chloride 93.3 L, Carbon Dioxide 29.7, Anion Gap 13.45, BUN 45.1 H, Creatinine 1.91 H, Estimated GFR (MDRD) 34.00, BUN/Creatinine Ratio 23.61, Glucose 226.4 H, Calcium 9.25, Total Bilirubin 1.17, AST 57.4, ALT 29.1, Alkaline Phosphatase 81.3, Total Protein 7.14, Albumin 4.15, Globulin 2.99, Albumin/Globulin Ratio 1.38, Procalcitonin 18.69 H, TSH 4.000 ASSESSMENT: Please see below. 1. Acute CHF 2. Anemia 3. Renal azotemia 4. underlying CKD 5. Atrial fibrillation 6. Obesity 7. Chronic lung disease PLAN: 1. Anemia profile 2. Repeat ABG 3. 2D echo 4. PFT 5. Hold Losartan 6. Repeat BNP Plan and coordination of the patient's care discussed in the presence of Physical Therapy Assistant Instructor and nurse. SCRIBED BY: Braydon WOODALL scribed while in presence of service performed by Zuly Andrade APRN on 04/09/23 ([id number])
[2023-04-09 09:18] LABS: ABG O2 HGB 93.6 % (95-100); ABG PH 7.41 (7.35-7.45); BEecf 7.7 (-2.0-3.0); COHb 4.1 (0.5-1.5); HCO3 32.3 (21-28); MetHb 0.5 (0-1.5); TCO2 33.9 (19-24)
[2023-04-09] MEDS: TYLENOL PO PRN (09:24)
[2023-04-09 09:45] LABS: FOLATE 15.4 ng/mL
--- NOTE | 2023-04-09 09:55 | PCM.PROG ---
Date/Time Seen Date Seen by Provider: 04/09/23 Time Seen by Provider: 09:00 Provider Provider: LINH HARRY PA-C, [facility] Chief Complaint Chief Complaint: CHF EXACERBATION,CAP,MINERVA ON CKD,AFIB W/ RVR, Subjective Subjective: Patient states he's feeling better. Breathing almost to baseline. Feels his swelling has improved in his legs, states this swelling is baseline for him as well. Ate all of his breakfast. Requesting to shave and get cleaned up. Lives at home with a couple that helps him. Wears 2L at baseline all the time. Objective Appearance: Positive Well-appearing, Well-nourished, No Apparent Distress and Alert and Oriented x3 Chest/Lungs: Positive Clear to Auscultation Bilaterally Heart: Positive Irregular Rhythm GI/: Positive Soft, Nontender, Bowel Sounds Normal and No Distention Musculoskeletal: Positive Other (2+ pitting edema timothy lower ext. Has chronic discoloration of lower legs timothy. ) Neurological: Positive Cranial Nerves Intact, Alert and Muscle Strength 5/5 in Upper and Lower Extremities Bilaterally Vital Signs Vital Signs: Vital Signs: Last 24 Hours 04/08/23 10:00 04/08/23 13:00 04/08/23 14:00 Temperature Temperature Source Pulse Rate Respiratory Rate Blood Pressure Blood Pressure Mean Blood Pressure Location Blood Pressure Position O2 Sat by Pulse Oximetry 96 Oxygen Delivery Method Nasal Cannula Nasal Cannula Oxygen Flow Rate 2.5 3 Weight Telemetry Type Remote Telemetry Telemetry Monitoring Continues Irregular Telemetry Rate (Approximate) 100-110 BPM Telemetry Heart Rate Telemetry SPO2 EKG QRS Interval 0.10 Telemetry Strip Reading A- FIB WITH TACHYCARDIA 04/08/23 14:00 04/08/23 22:00 04/08/23 19:23 Temperature 97.4 F L 97.7 F Temperature Source Tympanic Temporal Artery Scan Pulse Rate 115 H 106 H Respiratory Rate 22 H 18 Blood Pressure 118/76 136/85 Blood Pressure Mean 90 102 Blood Pressure Location Left Arm Left Arm Blood Pressure Position Sitting Sitting O2 Sat by Pulse Oximetry 99 95 98 Oxygen Delivery Method Nasal Cannula Room Air Nasal Cannula Oxygen Flow Rate 3 2 Weight Telemetry Type Telemetry Monitoring Irregular Telemetry Rate (Approximate) Telemetry Heart Rate Telemetry SPO2 EKG QRS Interval Telemetry Strip Reading 04/08/23 19:00 04/08/23 20:00 04/09/23 01:00 Temperature Temperature Source Pulse Rate Respiratory Rate 22 H Blood Pressure Blood Pressure Mean Blood Pressure Location Blood Pressure Position O2 Sat by Pulse Oximetry Oxygen Delivery Method Nasal Cannula Oxygen Flow Rate 2 Weight Telemetry Type Remote Telemetry Remote Telemetry Telemetry Monitoring Continues Continues Irregular Telemetry Rate (Approximate) 90-100 BPM 90-100BPM Telemetry Heart Rate Telemetry SPO2 96 97 EKG QRS Interval 0.10 0.11 H Telemetry Strip Reading AFIB AFIB 04/09/23 04:29 04/09/23 05:45 04/09/23 05:49 Temperature 98.0 F Temperature Source Temporal Artery Scan Pulse Rate 92 Respiratory Rate 18 Blood Pressure 116/72 Blood Pressure Mean 86 Blood Pressure Location Right Arm Blood Pressure Position Sitting O2 Sat by Pulse Oximetry 94 L 98 Oxygen Delivery Method Nasal Cannula Nasal Cannula Oxygen Flow Rate 2 2 Weight 280 lb 1 oz Telemetry Type Telemetry Monitoring Irregular Telemetry Rate (Approximate) Telemetry Heart Rate Telemetry SPO2 EKG QRS Interval Telemetry Strip Reading 04/09/23 07:00 Temperature Temperature Source Pulse Rate Respiratory Rate Blood Pressure Blood Pressure Mean Blood Pressure Location Blood Pressure Position O2 Sat by Pulse Oximetry Oxygen Delivery Method Oxygen Flow Rate Weight Telemetry Type Remote Telemetry Telemetry Monitoring Continues Irregular Telemetry Rate (Approximate) 90-100 BPM Telemetry Heart Rate 90 Telemetry SPO2 94 EKG QRS Interval 0.11 H Telemetry Strip Reading Afib with PVCs Lab Results Lab Results: Lab Results: Last 24 Hours 04/09/23 04/09/23 04/09/23 08:40 04:58 01:28 WBC 18.96 H D RBC 3.60 L Hgb 8.9 L Hct 28.6 L MCV 79.4 L MCH 24.7 L MCHC 31.1 L RDW Coeff of Simi 19.2 H Plt Count 140 Immature Gran % (Auto) 1.1 Neut % (Auto) 86.8 H Lymph % (Auto) 3.5 L [place] % (Auto) 8.5 Eos % (Auto) 0.0 Baso % (Auto) 0.1 Reticulocyte % (Auto) 2.87 Neut # (Auto) 16.5 H Lymph # (Auto) 0.7 [place] # (Auto) 1.6 Eos # (Auto) 0.0 Baso # (Auto) 0.0 Immature Gran # (Auto) 0.2 Absolute Retic 0.1056 Retic Hgb Equivalent 24.3 Puncture Site Rrad Rr Base Excess 7.7 H 7.6 H O2 Saturation 95.0 97.7 ABG pH 7.41 7.43 ABG pCO2 51.0 H 48.0 H ABG pO2 75.0 L 96.0 ABG HCO3 32.3 H 31.9 H ABG Total CO2 33.9 H 33.4 H Guevara Test + Pos Hemoglobin 0.5 0.5 Oxyhemoglobin 93.6 L 95.5 Carboxyhemoglobin 4.1 H 2.4 H Total Hemoglobin 9.0 L 9.1 L O2 Delivery Device Cannula Cannula Oxygen Liter Flow 1.00 2.00 FiO2 % 28.0 28.0 Sodium 134.6 Potassium 4.16 Chloride 96.3 L Carbon Dioxide 31.1 H Anion Gap 11.36 BUN 54.7 H Creatinine 1.94 H Estimated GFR (MDRD) 33.00 BUN/Creatinine Ratio 28.19 Glucose 183.4 H Hemoglobin A1c 5.67 Calcium 8.88 Iron 16.0 L TIBC 373 % Saturation 4 Ferritin 59.90 Total Bilirubin 0.63 AST 71.5 H ALT 34.9 Alkaline Phosphatase 92.1 NT-Pro-B Natriuret Pep 8290 H Total Protein 6.77 Albumin 3.86 Globulin 2.91 Albumin/Globulin Ratio 1.32 Vitamin B12 694 Folate 15.40 Procalcitonin 13.17 H TSH 2.620 Additional Comments Additional Comments: I have independently reviewed and interpreted the labs/EKGs/imaging ordered during this hospital stay. I have reviewed outside records that are available in our EMR that pertain to medical stay including imaging/notes/labs from previous visits. Active Medications Active Medications: Medications Generic Name Dose Route Start Last Admin Trade Name Freq PRN Reason Stop Dose Admin Acetaminophen 650 mg 04/07/23 21:17 04/09/23 09:24 Acetaminophen 325 Mg Tablet PO 650 mg Q4-6H PRN Administration Mild/Moderate Pain Albuterol Sulfate 2.5 mg 04/08/23 11:04 Albuterol Sulfate 0.083% Vial.Neb NEB RTQ4H PRN Wheezing Albuterol/Ipratropium 3 ml 04/08/23 14:00 04/09/23 04:24 Ipratropium/Albuterol Vial.Neb NEB 3 ml RTQID BRIAN Administration Budesonide/Formoterol Fumarate 1 puff 04/08/23 10:00 04/09/23 08:48 Budesonide/Formoterol Fumarate 80/4.5 Mcg Hfa.Aer.Ad IH 1 puff BID BRIAN Administration Dexamethasone Sodium Phosphate 4 mg 04/08/23 13:30 04/09/23 08:48 Dexamethasone Sod Phos 4 Mg/Ml Inj IVP 4 mg DAILY BRIAN Administration Diltiazem HCl 90 mg 04/09/23 09:00 04/09/23 08:45 Diltiazem Hcl 60 Mg Tablet PO 90 mg Q12HR BRIAN Administration Finasteride 5 mg 04/08/23 09:30 04/09/23 08:44 Finasteride 5 Mg Tablet PO 5 mg DAILY BRIAN Administration Furosemide 20 mg 04/08/23 21:00 04/09/23 08:36 Furosemide Inj 20 Mg/2 Ml Vial IVP Not Given Q12HR BRIAN Gabapentin 300 mg 04/08/23 09:30 04/09/23 08:44 Gabapentin 300 Mg Capsule PO 300 mg BID BRIAN Administration CEFTRIAXONE/D5W 1 GM PREMIX 1 gm in 50 mls @ 75 mls/hr 04/08/23 21:00 04/08/23 20:45 Rocephin 1 Gm/50 Ml D5w IV 04/11/23 20:59 75 mls/hr BEDTIME BRIAN Administration Azithromycin 500 mg/ Sodium 250 mls @ 125 mls/hr 04/08/23 21:00 04/08/23 22:33 Chloride IV 04/10/23 20:59 125 mls/hr BEDTIME BRIAN Administration Insulin Human Regular 0 unit 04/08/23 12:48 04/09/23 06:35 Insulin Regular, Human 100 Unit/Ml (3ml) Vial SUBCUT 3 unit PRN PRN Administration Hyperglycemia Protocol Levothyroxine Sodium 25 mcg 04/08/23 09:30 04/09/23 05:42 Levothyroxine Sodium 25 Mcg Tablet PO 25 mcg QDAC BRIAN Administration Losartan Potassium 50 mg 04/08/23 09:25 04/09/23 08:15 Losartan Potassium 25 Mg Tablet PO Not Given BID BRIAN Metoprolol Succinate 50 mg 04/08/23 09:30 04/09/23 08:44 Metoprolol Succinate 50 Mg Tab.Er.24h PO 50 mg DAILY BRIAN Administration Multivitamins 1 tab 04/08/23 10:00 04/09/23 08:44 Multivitamin 1 Tab PO 1 tab DAILY BRIAN Administration Non-Formulary Medication 25 mg 04/08/23 21:00 04/08/23 21:06 Nortriptyline PO Not Given BEDTIME BRIAN Non-Formulary Medication 1 drop 04/08/23 15:00 04/09/23 08:37 Dorzolamide EACHEYE Not Given TID BRIAN Non-Formulary Medication 1 tab 04/08/23 09:45 04/09/23 08:38 Vitamins A,C,B-Ymee-Ofdejb [Preservision Areds] PO Not Given BID BRIAN Pantoprazole Sodium 40 mg 04/08/23 09:30 04/09/23 05:42 Pantoprazole Sodium 40 Mg Tablet.Dr PO 40 mg BIDAC BRIAN Administration Rivaroxaban 20 mg 04/08/23 17:00 04/08/23 17:22 Rivaroxaban 10 Mg Tablet PO 20 mg QPM BRIAN Administration Sodium Chloride 1 syr 04/08/23 21:00 04/09/23 05:42 0.9% Sodium Chloride 10 Ml Disp.Syrin IVF 1 syr Q8HR BRIAN Administration Sucralfate 1 gm 04/08/23 10:00 04/09/23 05:42 Sucralfate 1 Gm Tablet PO 1 gm ACHS BRIAN Administration Tamsulosin HCl 0.4 mg 04/08/23 10:00 04/09/23 08:45 Tamsulosin Hcl 0.4 Mg Cap.Er.24h PO 0.4 mg DAILY BRIAN Administration Thiamine HCl 100 mg 04/08/23 10:00 04/09/23 08:46 Vitamin B-1 100 Mg Tablet PO 100 mg DAILY BRIAN Administration Plan Plan: 1. Acute Hypoxic Respiratory Failure in the setting of CHF exacerbation/COPD Exacerbation - Improving, wears 2L at home, wean to home O2 as tolerated, continue home inhalers, nebs prn, receiving azith and rocephin for COPD tx, lasix for CHF 2. CHFpEF exacerbation - lasix 20 mg Q12H, monitor renal function, last EF 55% - checking echo, PFTs, I&O, daily weight, cardiac diet, elevate legs. Will place on fluid restriction as patient had 2800 in yesterday. 3. Leukocytosis - no obvious source of infection, chest x-ray and UA negative, blood cultures obtained in ER, started on azith and rocephin prophylactically by ER provider for CAP, pro joey elevated, trending down - repeat daily 4. Atrial Fibrillation with RVR - rate controlled at this time with resume of home medications, patient non-complaint and likely in Afib regularly, resume rate control and anticoagulation medications, telemetry 5. COPD exacerbation -wears 2L of O2 continuous, continue inhalers, nebs prn, wean to home O2, plan as above 6. Elevated liver enzymes - chronic alcohol use, ascites noted on CT scan, discussed cessation - patient reports he does not plan to stop use and his PCP is aware. 7. Hyponatremia - improved, likely due to diuretic and alcohol use, monitor 8. Acute kidney injury, stage I on chronic kidney disease - Worsened due to diuretic use, monitor daily. Hold losartan. 9. Acute iron deficiency anemia - Hgb lower compared to labs in november. Anemia labs showing iron of 16. Occult stool ordered as well. Will start on iron tabs. DVT Prophylaxis: Kyreerelto Review Statement Review Statement: I have personally discussed and reviewed the patient's visit/currently labs/imaging/decision making with Dr. Guzman, my supervising attending. Greater that 50 minutes spent with patient, 50% of the time spent with this patient was devoted to counseling and coordination of care.
[2023-04-09] MEDS ORDERED: SODIUM CHLORIDE 1,000 ML IV SCH (11:00)
--- NOTE | 2023-04-09 13:46 | RS.PTINEVL ---
Subjective Patient information Date of Evaluation: 04/09/23 Date of Arrival on Unit: 04/07/23 Admitted From:: Home Diagnosis: acute hypoxic respiratory failure, CHF exacerbation Usual Living Arrangement: With Others Living Arrangement Comments: a couple lives with him Home Environment: House Medical History: Hypertension, COPD, Diabetes, CHF and Arthritis Medical History Comments:: GERD, hypothyroidism, macular degeneration, AFib LATEX ALLERGY?: No Medications: see chart Subjective Information/ Patient Comments:: pt states that he would like to get up to try to walk. Level of function Prior to this admission, the patient could do the following:: Independent Selfcare, Independent ADL's and Independent Ambulation Abilities prior to this admission: pt amb with rollator short distances at home. Current Level of Function: Partially Dependent Current Equipment Used at Home: rollator, OXYGEN Interventions Objective Patient Orientation: Person, Place and Time Current Interventions: IV's, Oxygen (1 liter ), Telemetry and Menendez Catheter Observation: pt with pitting edema BLE with erythema on RLE, tenderness to B heels, no open areas noted all areas blanchable Range of Motion ROM Right Upper Extremity AROM: WFL's Left Upper Extremity AROM: WFL's Right Lower Extremity AROM: WFL's Left Lower Extremity AROM: WFL's Muscle Strength Muscle Strength Right Upper Extremity: Mild Weakness (grossly 4-/5 ) Left Upper Extremity: Mild Weakness (grossly 4-/5 ) Right Lower Extremity: Mild Weakness (hip flex 4-/5, knee flex/ext 4-/5, ankle DF/PF 4/5) Left Lower Extremity: Mild Weakness (hip flex 4-/5, knee flex/ext 4-/5, ankle DF/PF 4/5) Sensation Sensation Right Upper Extremity: Intact/Normal Left Upper Extremity: Intact/Normal Right Lower Extremity: Intact/Normal Left Lower Extremity: Intact/Normal Palpation Palpation Findings: Tenderness (B plantar surface and heels of feet ) Balance Sitting Balance and Reactions Static Sitting Balance: Fair Dynamic Sitting Balance: Fair (fair-) Standing Balance and Reactions Static Standing Balance: Poor Dynamic Standing Balance: Poor Standing Equilibrium Reactions: Delayed Left and Delayed Right Standing Protective Reactions: Delayed Left and Delayed Right Functional Mobility Bed Mobility Rolling R/L: Min Assist, Mod Assist and 1 person assist Scooting: Mod Assist and 2 person assist Supine to Sit: Mod Assist, 1 person assist and 2 person assist Transfers Sit to Stand: Min Assist and 1 person assist Stand to Sit: Min Assist and 1 person assist Safety Awareness Safety Awareness: Poor ISELA INDEX SCORE: n/a Ambulation Ambulation Assistive Device Used: Rolling Walker Orthotic/Prosthetic Device: No Distance: 50ft Assistance needed with Ambulation: Min Assist, 1 person assist and 2 person assist Quality of Ambulation: pt amb with O2 1 liter Gait Deviations: Wide Based gait, Forward posture, Short stride and Deviates from path Factors Affecting Ambulation: Decreased Balance, Breathing/O2 Saturation, Pain, Weakness, Decreased Coordination, Decreased Safety and Limited Endurance Treatment time Time with patient Length of Evaluation: 19 Total treatment time: 26 Patient Education Education Patient Education: Activity Modification and Education of Plan of Care Teaching Recipient: Patient Teaching Methods: Discussion and Demonstration Assessment Assessment Problem List:: Decreased level of function, Requires training/education, Decreased safety/Risk of falls, Weakness and Pain limits previous level of function Rehab Potential: Good Further Therapy Indicated?: Yes Candidate for Swing Bed for Therapy Services?: Feel pt may be a candidate for swing bed if able to tolerate with O2. (pt only amb short distances at home.) Evaluation Complexity: HISTORY: Medium, EXAM OF BODY SYSTEMS: Medium, CLINICAL PRESENTATION: Medium and CLINICAL DECISION MAKING: Medium Patient's Goal(s): Get stronger and go home. Short Term Goals GOAL #1: pt demonstrate rolling and scooting with bedrails independently. Goal to be met by: 04/11/23 GOAL #2: Transfer sup to/from sit min x 1 Goal to be met by: 04/11/23 GOAL #3: Transfer sit to/from stand CGA Goal to be met by: 04/11/23 GOAL #4: pt amb 75ft with rwx and O2 w CGA Goal to be met by: 04/11/23 GOAL #5: Improve BLE strength 4 to 4+/5 Goal to be met by: 04/11/23 [employer] Editor Goals GOAL #1: Transfer sup to/from sit to/from stand independently Goal to be met by: 04/13/23 GOAL #2: pt amb functional household distances w rwx with SBA Goal to be met by: 04/13/23 GOAL #3: pt ascend/descend 2 steps with CGA Goal to be met by: 04/13/23 Plan Plan of Care: Therapeutic EX and Therapeutic Activity Other:: gait training Frequency of Treatment: 1-2 X day, as tolerated Duration of Treatment: 5 days Anticipated Discharge Destination: Home Treatment Diagnosis (ICD 10 Codes): impaired balance R 26.81 gait difficulty R 26.2 muscle weakness M62.81 Has the Physician been added for Co-signature?: Yes
--- NOTE | 2023-04-09 14:26 | RS.OTINEVL ---
Subjective Patient information Date of Evaluation: 04/09/23 Date of Arrival on Unit: 04/07/23 Admitted From:: Home Diagnosis: Difficulty with urination PRECAUTIONS: Fall risk Usual Living Arrangement: With Others Living Arrangement Comments: a couple lives with him Home Environment: House Medical History: Hypertension, COPD, Diabetes, CHF and Arthritis Medical History Comments:: GERD, hypothyroidism, macular degeneration, AFib , chronic lung disease, anemia LATEX ALLERGY?: No Surgical History: Knee Replacement Medications: see chart Subjective Information/ Patient Comments:: "Lets walk in the bhatti and then I'll let you know." " A couple lives with me and takes care of me and when I they get my home." Level of function Prior to this admission, the patient could do the following:: Independent Selfcare, Independent ADL's and Independent Ambulation Abilities prior to this admission: Pt reports he sleeps in his recline and he walks with a rollator walker to the rest room and then he walks to the kitchen to henning his eggs for breakfast. Current Level of Function: Partially Dependent Current Equipment Used at Home: rollator, OXYGEN Interventions Objective Patient Orientation: Person, Place and Situation Current Interventions: IV's, Oxygen and Menendez Catheter Observation: Pt requires moderate assist to sit EOB. Pt has a catheter. Pt Min A for sit to stand. Pt is CGA for transfer. Interventions ROM Right Upper Extremity AROM: WFL's Left Upper Extremity AROM: WFL's Strength Right Upper Extremity: Mild Weakness Left Upper Extremity: Mild Weakness Comments:: -4/5 Sensation Right Upper Extremity: Intact/Normal Left Upper Extremity: Intact/Normal ADL Skills Self Feeding Self Feeding: Set Up Only and 1 person assist Grooming Grooming: Set Up Only Grooming Set-up: Sitting Bathing Bathing UE: Set Up Only Bathing Set-up: Bedside Dressing Dressing UE: CGA Dressing LE: Min Assist Toilet Management Toilet Hygiene: Independent Toilet Clothing Management: Independent Functional Mobility Bed Mobility Rolling R/L: Min Assist Scooting: Mod Assist and 2 person assist Supine to Sit: Mod Assist Transfers Sit to Stand: Min Assist and Verbal Cues Stand to Sit: Min Assist and Verbal Cues Stand Pivot Transfers: Min Assist and Verbal Cues Ambulation Weight Bearing Status: FWB Assistive Device Used: Rollator Assistance needed with Ambulation: CGA Safety Awareness Safety Awareness: Good ISELA INDEX SCORE: . Additional Treatment Performed Time with patient Length of Evaluation: 25 Total treatment time: 25 Activities Do you enjoy playing games?: Yes Would you be interested in leaving your room for activities?: Yes Would you enjoy group activities?: Yes Do you have difficulty with your vision?: No Patient Interests:: Watching Television and Visiting/Socializing Patient Education Patient Education: Home Exercise Program, Activity Modification and Education of Plan of Care Teaching Recipient: Patient Teaching Methods: Discussion and Demonstration Assessment Problem List:: Decreased level of function, Requires training/education, Decreased safety/Risk of falls and Weakness Rehab Potential: Good Further Therapy Indicated?: Yes Evaluation Complexity: HISTORY: Medium, EXAM OF BODY SYSTEMS: Medium and CLINICAL DECISION MAKING: Medium Patient's Goal(s): To be able to return home and be as independent as he can be. Short Term Goals Goals GOAL 1: Pt to increase BUE strength to 4+/5. Goal to be met by: 04/12/23 GOAL 2: Pt to be CGA for sink level ADLS. Goal to be met by: 04/12/23 GOAL 3: Pt to be min A with LE dressing. Goal to be met by: 04/12/23 GOAL 4: Pt to be CGA for toilet transfers. Goal to be met by: 04/12/23 Longterm Goals GOAL 1: Pt to increase BUE strength to 5/5. Goal to be met by: 04/14/23 GOAL 2: Pt to increase [place] of ADLS to Mod-I. Goal to be met by: 04/14/23 GOAL 3: Pt to be Mod-I with toilet transfers. Goal to be met by: 04/14/23 Plan Plan of Care: Therapeutic EX, Neuromuscular Re-Educ, Therapeutic Activity and Se lf-Care/Home Management Frequency of Treatment: BID Duration of Treatment: 1 Week Anticipated Discharge Destination: Home Treatment Diagnosis (ICD 10 Codes): Weakness R53.1 Has the Physician been added for Co-signature?: Yes
[2023-04-09] MEDS: XARELTO PO SCH (17:28)
[2023-04-09] MEDS: ALDACTONE PO SCH (20:01)
[2023-04-09] MEDS: ROCEPHIN 1 GM/50 ML D5W 1 GM/50 ML BAG IV SCH (20:02)
[2023-04-09] MEDS: XALATAN EACHEYE SCH (20:14)
[2023-04-09] MEDS: ZITHROMAX 500 MG in SODIUM CHLORIDE 250 ML IV SCH (20:57)
[2023-04-09] MEDS ORDERED: LATANOPROST 0.005% OP SCH (21:00)
[2023-04-10] MEDS: DUONEB NEB SCH ×4 (05:00→19:22)
[2023-04-10 05:05] LABS: BASOPHILS % (AUTO) 0.1 % (0.0-3.0); HEMATOCRIT 29.9 % (42.0-52.0); HEMOGLOBIN 9.1 g/dl (14.0-18.0); IMMATURE GRANULOCYTE # (AUTO) 0.2 (0.0-1.0); LYMPHOCYTES # (AUTO) 0.6 K/uL (0.60-3.4); LYMPHOCYTES % (AUTO) 3.4 (10.0-50.0); MEAN CORPUSCULAR HEMOGLOBIN 24.3 pg (27.0-31.0); MEAN CORPUSCULAR HGB CONC 30.4 (31.8-35.4); MEAN CORPUSCULAR VOLUME 79.9 fl (80.0-94.0); MONOCYTES # (AUTO) 1.6 K/uL (0.4-2.0); MONOCYTES % (AUTO) 8.6 (0-10); NEUTROPHILS # (AUTO) 15.8 K/ul (2.0-6.9); NEUTROPHILS % (AUTO) 86.9 % (42.2-75.2); PLATELET COUNT 168 10^3/uL (140-440); RDW COEFFICIENT OF VARIATION 19.4 % (11.6-14.8); RED BLOOD COUNT 3.74 10^6/ul (4.70-6.10); WHITE BLOOD COUNT 18.12 K/ul (4.2-10.2)
[2023-04-10 05:13] LABS: ALANINE AMINOTRANSFERASE 47.8 U/L (0-50); ALBUMIN 3.92 g/dL (3.5-5.0); ALKALINE PHOSPHATASE 99.2 U/L (56-119); ASPARTATE AMINO TRANSFERASE 64.1 U/L (17-59); BILIRUBIN,TOTAL 0.58 mg/dL (0.2-1.3); BLOOD UREA NITROGEN 49.3 mg/dL (9-20); CALCIUM 9.21 mg/dL (8.4-10.2); CARBON DIOXIDE 31.2 mmol/L (22-30.0); CHLORIDE 97.9 mmol/L (98-107); CREATININE 1.75 mg/dL (0.60-1.10); GLUCOSE 197.7 mg/dL (74-106); POTASSIUM 4.41 mmol/L (3.5-5.1); SODIUM 136.2 mmol/L (134.5-145); TOTAL PROTEIN 6.81 g/dL (6.3-8.2)
[2023-04-10] MEDS: SYNTHROID PO SCH (05:52)
[2023-04-10] MEDS: PROTONIX PO SCH ×2 (05:52→16:09)
[2023-04-10] MEDS: HUMULIN R SUBCUT PRN ×4 (05:52→20:42)
[2023-04-10] MEDS: CARAFATE PO SCH ×4 (05:52→20:25)
[2023-04-10] MEDS: SYMBICORT 80-4.5 MCG INHALER IH SCH ×2 (08:46→20:28)
[2023-04-10] MEDS: NON-FORMULARY MEDICATION (Vitamins A,C,E-Zinc-Copper [Preservision Areds] 2,148 mcg-113 mg PO SCH ×2 (08:46→20:50)
[2023-04-10] MEDS: ALDACTONE PO SCH ×2 (08:47→20:25)
[2023-04-10] MEDS: MULTIVITAMIN TABLET PO SCH (08:47)
[2023-04-10] MEDS: FLOMAX PO SCH (08:47)
[2023-04-10] MEDS: CARDIZEM PO SCH ×2 (08:48→20:25)
[2023-04-10] MEDS: THIAMINE PO SCH (08:48)
[2023-04-10] MEDS: PROSCAR PO SCH (08:49)
[2023-04-10] MEDS: FERROUS SULFATE PO SCH (08:49)
[2023-04-10] MEDS: TOPROL XL PO SCH (08:56)
[2023-04-10] MEDS: COZAAR PO SCH (08:59)
[2023-04-10] MEDS: ZAROXOLYN PO SCH (08:59)
[2023-04-10] MEDS: NEURONTIN PO SCH ×2 (09:00→20:25)
[2023-04-10] MEDS ORDERED: DECADRON IVP SCH (09:00)
[2023-04-10] MEDS: ARTIFICIAL TEARS DROPS EACHEYE SCH ×2 (09:00→20:27)
[2023-04-10] MEDS: COREG PO SCH ×2 (09:04→16:09)
--- NOTE | 2023-04-10 09:13 | PCM.PROG ---
Attending Provider: ATTENDING PROVIDER: Dr. LINH HARRY PA-C This patient is seen with Zuly Andrade, Nurse Practitioner. DATE OF SERVICE: 04/10/23 SUBJECTIVE: This 82 year old /WHITE M was hospitalized 04/07/23. Hospitalist started Iron yesterday after we ordered an anemia profile. Hgb up to 9.1. WBC continues to be elevated. The patient is on Decadron. Blood pressure has been st able. Heart rate still in 90's. We will increase Cardizem today to 120mg BID. Dr. Guzman completed echo yesterday which primary right sided heart failure and valvular disease. Ejection fraction is 40-50% depending atrial fibrillation. The patient remains in atrial fibrillation this morning. Renal function is slightly improved. Diuretic held yesterday. He was started on Aldactone today due to ascites. I ordered IV fluids yesterday, hospitalist disagreed and they were not started. Still with leg edema today. The patient had a 4 pound weight gain. Hospitalist placed a 1500cc fluid restriction yesterday. Today also noted worsening edema with redness and tenderness to palpitation. REVIEW OF SYSTEMS: CONSTITUTIONAL: No night sweats. No fatigue, malaise, lethargy. No fever or chills. Weakness. HEENT: Eyes: No visual changes. No eye pain. No eye discharge. ENT: No runny nose. No epistaxis. No sinus pain. No odynophagia. No congestion. RESPIRATORY: No cough, no congestion. No hemoptysis. No shortness of breath. CARDIOVASCULAR: No angina symptoms. No CHF symptoms. No atypical chest pain for CAD. No palpitations. No orthopnea.. GASTROINTESTINAL: Abdominal distention. No nausea or vomiting. No diarrhea or constipation. No hematemesis. No hematochezia. GENITOURINARY: No urgency. No frequency. No dysuria. No hematuria. No obstructive symptoms. No discharge. No pain. No significant abnormal bleeding. MUSCULOSKELETAL: No musculoskeletal pain; no joint swelling. Leg edema. NEUROLOGICAL: Awake, alert, oriented to time, place and person. No headache. No neck pain. No syncope. No seizures. No dizziness. PSYCHIATRIC: Not anxious. No depression. No suicidal thoughts. No homicidal thoughts. SKIN: No rash. No lesions. No wounds. ENDOCRINE: No unexplained weight loss. No weight gain. HEMATOLOGIC/LYMPHATIC: No anemia. No purpura. No petechiae. No prolonged or ex cessive bleeding. No palpable lymph nodes. PHYSICAL EXAMINATION: GENERAL: The patient is awake, alert and oriented, sitting in chair in no distress. VITAL SIGNS: Temperature 97.3 F, Pulse 96, Respiratory Rate 20, BP 121/66, Pulse Ox 96% HEENT: Head normocephalic, atraumatic. Eyes: Extraocular muscles are intact. Pupils are equal, round and reactive to light and accommodation. Ears: No lesions. Nose appeared normal. Throat: No exudate or erythema. NECK: Supple. No JVD, no carotid bruit. No lymphadenopathy or thyromegaly. LUNGS: Severely diminished breath sounds. Clear to auscultation. Percussion note normal. Chest symmetrical. HEART: Irregular heart rate. S1, S2, no S3. No murmurs. No cyanosis or clubbing. No ascites. Pulses: Dorsalis pedis and posterior tibial pulses +1 to +2 both sides. ABDOMEN: Soft but distended. Non-tender. Bowel sounds active. No CVA tenderness. No mass felt. EXTREMITIES: +1 left lower extremity edema, 2+ right lower extremity edema with erythema right extremity and noted tenderness. Full range of motion of all extremities, equal. NEUROLOGIC: No focal deficit. Cranial nerves II through XII are grossly intact. No headache. No double vision. SKIN: Not dry. Intact. Turgor-normal. LYMPHATIC: No palpable lymph nodes/no lymphedema. MUSCULOSKELETAL: Normal joints with no swelling. Muscle tone is normal. LAB REVIEW: 04/10/23 04:47 04/10/23 04:47 04/10/23 04:47: WBC 18.12 H, RBC 3.74 L, Hgb 9.1 L, Hct 29.9 L, MCV 79.9 L, MCH 24.3 L, MCHC 30.4 L, RDW Coeff of Simi 19.4 H, Plt Count 168, Immature Gran % (Auto) 1.0, Neut % (Auto) 86.9 H, Lymph % (Auto) 3.4 L, [place] % (Auto) 8.6, Eos % (Auto) 0.0, Baso % (Auto) 0.1, Neut # (Auto) 15.8 H, Lymph # (Auto) 0.6, [place] # (Auto) 1.6, Eos # (Auto) 0.0, Baso # (Auto) 0.0, Immature Gran # (Auto) 0.2, Sodium 136.2, Potassium 4.41, Chloride 97.9 L, Carbon Dioxide 31.2 H, Anion Gap 11.51, BUN 49.3 H, Creatinine 1.75 H, Estimated GFR (MDRD) 37.00, BUN/Creatinine Ratio 28.17, Glucose 197.7 H, Calcium 9.21, Total Bilirubin 0.58, AST 64.1 H, ALT 47.8, Alkaline Phosphatase 99.2, Total Protein 6.81, Albumin 3.92, Globulin 2.89, Albumin/Globulin Ratio 1.35, Procalcitonin 5.41 H 04/09/23 08:40: Puncture Site Rrad, Base Excess 7.7 H, O2 Saturation 95.0, ABG pH 7.41, ABG pCO2 51.0 H, ABG pO2 75.0 L, ABG HCO3 32.3 H, ABG Total CO2 33.9 H, Guevara Test +, Hemoglobin 0.5, Oxyhemoglobin 93.6 L, Carboxyhemoglobin 4.1 H, Total Hemoglobin 9.0 L, O2 Delivery Device Cannula, Oxygen Liter Flow 1.00, FiO2 % 28.0 04/09/23 08:30: Transferrin 272 04/09/23 05:30: Puncture Site Rr, Base Excess 7.6 H, O2 Saturation 97.7, ABG pH 7.43, ABG pCO2 48.0 H, ABG pO2 96.0, ABG HCO3 31.9 H, ABG Total CO2 33.4 H, Guevara Test Pos, Hemoglobin 0.5, Oxyhemoglobin 95.5, Carboxyhemoglobin 2.4 H, Total Hemoglobin 9.1 L, O2 Delivery Device Cannula, Oxygen Liter Flow 2.00, FiO2 % 28.0 04/09/23 04:58: Reticulocyte % (Auto) 2.87, Absolute Retic 0.1056, Retic Hgb Equivalent 24.3, Iron 16.0 L, TIBC 373, % Saturation 4, Ferritin 59.90, NT-Pro-B Natriuret Pep 8290 H, Vitamin B12 694, Folate 15.40 04/08/23 06:40: Thyroxine (T4) 4.7 ASSESSMENT: Please see below. 1. Prominent right sided heart failure in presence of valvular disease and atrial fibrillation 2. Atrial fibrillation 3. Chronic lung disease 4. Underlining chronic kidney disease 5. Dependent leg edema 6. Hypertension PLAN: 1. Increase Cardizem 120mg BID 2. Decrease Losartan 50mg daily 3. Keep legs elevated higher than hip Plan and coordination of the patient's care discussed in the presence of Mutual Fund Accountant and nurse. SCRIBED BY: Braydon WOODALL scribed while in presence of service performed by Zuly Andrade APRN on 04/10/23 ([id number])
--- NOTE | 2023-04-10 09:18 | PCM.PROG ---
Date/Time Seen Date Seen by Provider: 04/10/23 Time Seen by Provider: 08:40 Provider Provider[facility] Chief Complaint Chief Complaint: CHF EXACERBATION,CAP,MINERVA ON CKD,AFIB W/ RVR, Subjective Subjective: Patient is sitting in chair eating breakfast. State's he's feeling good today. Had a lot of gas this morning but no BM. Feels his breathing is near baseline. He denies any pain, although he mentions he right lower extremity is a little painful and it is more red than usual. Feels his swelling in lower ext is near baseline as well. States he is compliant with his blood thinner, however has admitted to others his noncompliance with his medications. Objective Appearance: Positive Well-appearing, Well-nourished, No Apparent Distress and Alert and Oriented x3 Chest/Lungs: Positive Clear to Auscultation Bilaterally Heart: Positive Irregular Rhythm GI/: Positive Soft, Nontender and Bowel Sounds Normal Musculoskeletal: Positive Other (2+ pitting edema, mildly worse on right. Chronic venous stasis changes noted to skin. Mild erythema of right lower ext noted. ) Neurological: Positive Cranial Nerves Intact, Alert, Oriented and Other (+generalized weakness ) Vital Signs Vital Signs: Vital Signs: Last 24 Hours 04/09/23 09:55 04/09/23 10:00 04/09/23 14:00 Temperature 96.8 F L Temperature Source Temporal Artery Scan Pulse Rate 95 Pulse Rate [Apical] Respiratory Rate 15 Blood Pressure 120/64 Blood Pressure Mean 82 Blood Pressure Location Right Arm Blood Pressure Position Sitting O2 Sat by Pulse Oximetry 95 95 Oxygen Delivery Method Nasal Cannula Nasal Cannula Oxygen Flow Rate 1 1 Height 6 ft Weight 280 lb Telemetry Type Telemetry Monitoring Irregular Telemetry Rate (Approximate) Telemetry Heart Rate Telemetry SPO2 EKG QRS Interval Telemetry Strip Reading 04/09/23 13:00 04/09/23 14:00 04/09/23 19:32 Temperature Temperature Source Pulse Rate Pulse Rate [Apical] Respiratory Rate Blood Pressure Blood Pressure Mean Blood Pressure Location Blood Pressure Position O2 Sat by Pulse Oximetry 94 L 94 L Oxygen Delivery Method Nasal Cannula Nasal Cannula Oxygen Flow Rate 1 1 Height Weight Telemetry Type Remote Telemetry Telemetry Monitoring Continues Irregular Telemetry Rate (Approximate) 90-100 BPM Telemetry Heart Rate 93 Telemetry SPO2 EKG QRS Interval 0.11 H Telemetry Strip Reading AFIB w/ PVCs 04/09/23 19:00 04/09/23 20:15 04/09/23 20:55 Temperature 97.6 F Temperature Source Temporal Artery Scan Pulse Rate 98 Pulse Rate [Apical] Respiratory Rate 20 20 Blood Pressure 121/65 Blood Pressure Mean 83 Blood Pressure Location Left Arm Blood Pressure Position Supine O2 Sat by Pulse Oximetry 95 Oxygen Delivery Method Nasal Cannula Nasal Cannula Oxygen Flow Rate 1 1 Height Weight Telemetry Type Remote Telemetry Telemetry Monitoring Continues Irregular Telemetry Rate (Approximate) 90-100 BPM Telemetry Heart Rate Telemetry SPO2 93 EKG QRS Interval 0.09 Telemetry Strip Reading A-FIB 04/10/23 00:52 04/10/23 04:59 04/10/23 05:23 Temperature 97.3 F L Temperature Source Oral Pulse Rate 96 Pulse Rate [Apical] Respiratory Rate 20 Blood Pressure 121/66 Blood Pressure Mean 84 Blood Pressure Location Right Arm Blood Pressure Position Supine O2 Sat by Pulse Oximetry 95 96 Oxygen Delivery Method Nasal Cannula Nasal Cannula Oxygen Flow Rate 1 1 Height Weight Telemetry Type Remote Telemetry Telemetry Monitoring Continues Irregular Telemetry Rate (Approximate) 90-100 BPM Telemetry Heart Rate Telemetry SPO2 94 EKG QRS Interval 0.07 Telemetry Strip Reading A-FIB 04/10/23 05:24 04/10/23 06:50 04/10/23 07:34 Temperature Temperature Source Pulse Rate Pulse Rate [Apical] 98 Respiratory Rate Blood Pressure Blood Pressure Mean Blood Pressure Location Blood Pressure Position O2 Sat by Pulse Oximetry Oxygen Delivery Method Nasal Cannula Oxygen Flow Rate 1 Height Weight 284 lb 6 oz Telemetry Type Remote Telemetry Telemetry Monitoring Continues Irregular Telemetry Rate (Approximate) 100-110 BPM Telemetry Heart Rate 116 H Telemetry SPO2 EKG QRS Interval 0.09 Telemetry Strip Reading AFIB Lab Results Lab Results: Lab Results: Last 24 Hours 04/10/23 04/10/23 04/09/23 08:27 04:47 08:40 WBC 18.12 H RBC 3.74 L Hgb 9.1 L Hct 29.9 L MCV 79.9 L MCH 24.3 L MCHC 30.4 L RDW Coeff of Simi 19.4 H Plt Count 168 Immature Gran % (Auto) 1.0 Neut % (Auto) 86.9 H Lymph % (Auto) 3.4 L [place] % (Auto) 8.6 Eos % (Auto) 0.0 Baso % (Auto) 0.1 Neut # (Auto) 15.8 H Lymph # (Auto) 0.6 [place] # (Auto) 1.6 Eos # (Auto) 0.0 Baso # (Auto) 0.0 Immature Gran # (Auto) 0.2 Puncture Site Rrad Base Excess 7.7 H O2 Saturation 95.0 ABG pH 7.41 ABG pCO2 51.0 H ABG pO2 75.0 L ABG HCO3 32.3 H ABG Total CO2 33.9 H Guevara Test + Hemoglobin 0.5 Oxyhemoglobin 93.6 L Carboxyhemoglobin 4.1 H Total Hemoglobin 9.0 L O2 Delivery Device Cannula Oxygen Liter Flow 1.00 FiO2 % 28.0 Sodium 136.2 Potassium 4.41 Chloride 97.9 L Carbon Dioxide 31.2 H Anion Gap 11.51 BUN 49.3 H Creatinine 1.75 H Estimated GFR (MDRD) 37.00 BUN/Creatinine Ratio 28.17 Glucose 197.7 H Calcium 9.21 TIBC % Saturation Transferrin Ferritin Total Bilirubin 0.58 AST 64.1 H ALT 47.8 Alkaline Phosphatase 99.2 Ammonia < 8.7 L NT-Pro-B Natriuret Pep Total Protein 6.81 Albumin 3.92 Globulin 2.89 Albumin/Globulin Ratio 1.35 Vitamin B12 Folate Procalcitonin 5.41 H Thyroxine (T4) 04/09/23 04/09/23 04/09/23 08:30 05:30 04:58 WBC RBC Hgb Hct MCV MCH MCHC RDW Coeff of Simi Plt Count Immature Gran % (Auto) Neut % (Auto) Lymph % (Auto) [place] % (Auto) Eos % (Auto) Baso % (Auto) Neut # (Auto) Lymph # (Auto) [place] # (Auto) Eos # (Auto) Baso # (Auto) Immature Gran # (Auto) Puncture Site Rr Base Excess 7.6 H O2 Saturation 97.7 ABG pH 7.43 ABG pCO2 48.0 H ABG pO2 96.0 ABG HCO3 31.9 H ABG Total CO2 33.4 H Guevara Test Pos Hemoglobin 0.5 Oxyhemoglobin 95.5 Carboxyhemoglobin 2.4 H Total Hemoglobin 9.1 L O2 Delivery Device Cannula Oxygen Liter Flow 2.00 FiO2 % 28.0 Sodium Potassium Chloride Carbon Dioxide Anion Gap BUN Creatinine Estimated GFR (MDRD) BUN/Creatinine Ratio Glucose Calcium TIBC 373 % Saturation 4 Transferrin 272 Ferritin 59.90 Total Bilirubin AST ALT Alkaline Phosphatase Ammonia NT-Pro-B Natriuret Pep 8290 H Total Protein Albumin Globulin Albumin/Globulin Ratio Vitamin B12 694 Folate 15.40 Procalcitonin Thyroxine (T4) 04/08/23 06:40 WBC RBC Hgb Hct MCV MCH MCHC RDW Coeff of Simi Plt Count Immature Gran % (Auto) Neut % (Auto) Lymph % (Auto) [place] % (Auto) Eos % (Auto) Baso % (Auto) Neut # (Auto) Lymph # (Auto) [place] # (Auto) Eos # (Auto) Baso # (Auto) Immature Gran # (Auto) Puncture Site Base Excess O2 Saturation ABG pH ABG pCO2 ABG pO2 ABG HCO3 ABG Total CO2 Guevara Test Hemoglobin Oxyhemoglobin Carboxyhemoglobin Total Hemoglobin O2 Delivery Device Oxygen Liter Flow FiO2 % Sodium Potassium Chloride Carbon Dioxide Anion Gap BUN Creatinine Estimated GFR (MDRD) BUN/Creatinine Ratio Glucose Calcium TIBC % Saturation Transferrin Ferritin Total Bilirubin AST ALT Alkaline Phosphatase Ammonia NT-Pro-B Natriuret Pep Total Protein Albumin Globulin Albumin/Globulin Ratio Vitamin B12 Folate Procalcitonin Thyroxine (T4) 4.7 Additional Comments Additional Comments: I have independently reviewed and interpreted the labs/EKGs/imaging ordered during this hospital stay. I have reviewed outside records that are available in our EMR that pertain to medical stay including imaging/notes/labs from previous visits. Active Medications Active Medications: Medications Generic Name Dose Route Start Last Admin Trade Name Freq PRN Reason Stop Dose Admin Acetaminophen 650 mg 04/07/23 21:17 04/09/23 09:24 Acetaminophen 325 Mg Tablet PO 650 mg Q4-6H PRN Administration Mild/Moderate Pain Albuterol Sulfate 2.5 mg 04/08/23 11:04 Albuterol Sulfate 0.083% Vial.Neb NEB RTQ4H PRN Wheezing Albuterol/Ipratropium 3 ml 04/08/23 14:00 04/10/23 05:00 Ipratropium/Albuterol Vial.Neb NEB 3 ml RTQID BRIAN Administration Budesonide/Formoterol Fumarate 1 puff 04/08/23 10:00 04/10/23 08:46 Budesonide/Formoterol Fumarate 80/4.5 Mcg Hfa.Aer.Ad IH 1 puff BID BRIAN Administration Carvedilol 6.25 mg 04/10/23 09:00 04/10/23 09:04 Carvedilol 6.25 Mg Tablet PO 6.25 mg BIDWM BRIAN Administration Dexamethasone Sodium Phosphate 2 mg 04/10/23 09:00 04/10/23 09:01 Dexamethasone Sod Phos 4 Mg/Ml Inj IVP 2 mg DAILY BRIAN Administration Diltiazem HCl 120 mg 04/10/23 09:00 04/10/23 08:48 Diltiazem Hcl 60 Mg Tablet PO 120 mg Q12HR BRIAN Administration Ferrous Sulfate 324 mg 04/10/23 09:00 04/10/23 08:49 Ferrous Sulfate 324 Mg Tablet.Dr PO 324 mg DAILY BRIAN Administration Finasteride 5 mg 04/08/23 09:30 04/10/23 08:49 Finasteride 5 Mg Tablet PO 5 mg DAILY BRIAN Administration Gabapentin 300 mg 04/08/23 09:30 04/10/23 09:00 Gabapentin 300 Mg Capsule PO 300 mg BID BRIAN Administration CEFTRIAXONE/D5W 1 GM PREMIX 1 gm in 50 mls @ 75 mls/hr 04/08/23 21:00 04/09/23 20:02 Rocephin 1 Gm/50 Ml D5w IV 04/11/23 20:59 75 mls/hr BEDTIME BRIAN Administration Azithromycin 500 mg/ Sodium 250 mls @ 125 mls/hr 04/08/23 21:00 04/09/23 20:57 Chloride IV 04/10/23 20:59 125 mls/hr BEDTIME BRIAN Administration Insulin Human Regular 0 unit 04/08/23 12:48 04/10/23 05:52 Insulin Regular, Human 100 Unit/Ml (3ml) Vial SUBCUT 3 unit PRN PRN Administration Hyperglycemia Protocol Latanoprost 1 drop 04/09/23 21:00 04/09/23 20:14 Latanoprost 2.5 Ml Opth Lilli EACHEYE 1 drop BEDTIME BRIAN Administration Levothyroxine Sodium 25 mcg 04/08/23 09:30 04/10/23 05:52 Levothyroxine Sodium 25 Mcg Tablet PO 25 mcg QDAC BRIAN Administration Losartan Potassium 50 mg 04/10/23 09:00 04/10/23 08:59 Losartan Potassium 25 Mg Tablet PO 50 mg DAILY BRIAN Administration Metolazone 2.5 mg 04/10/23 09:00 04/10/23 08:59 Metolazone 2.5 Mg Tablet PO 2.5 mg DAILY BRIAN Administration Multivitamins 1 tab 04/08/23 10:00 04/10/23 08:47 Multivitamin 1 Tab PO 1 tab DAILY BRIAN Administration Non-Formulary Medication 25 mg 04/08/23 21:00 04/09/23 20:01 Nortriptyline PO 25 mg BEDTIME BRIAN Administration Non-Formulary Medication 1 drop 04/08/23 15:00 04/10/23 09:04 Dorzolamide EACHEYE Not Given TID BRIAN Non-Formulary Medication 1 tab 04/08/23 09:45 04/10/23 08:46 Vitamins A,C,U-Eich-Qtlwae [Preservision Areds] PO 1 tab BID BRIAN Administration Pantoprazole Sodium 40 mg 04/08/23 09:30 04/10/23 05:52 Pantoprazole Sodium 40 Mg Tablet.Dr PO 40 mg BIDAC BRIAN Administration Rivaroxaban 20 mg 04/08/23 17:00 04/09/23 17:28 Rivaroxaban 10 Mg Tablet PO 20 mg QPM BRIAN Administration Sodium Chloride 1 syr 04/08/23 21:00 04/10/23 05:57 0.9% Sodium Chloride 10 Ml Disp.Syrin IVF 1 syr Q8HR BRIAN Administration Spironolactone 25 mg 04/09/23 21:00 04/10/23 08:47 Spironolactone 25 Mg Tablet PO 25 mg BID BRIAN Administration Sucralfate 1 gm 04/08/23 10:00 04/10/23 05:52 Sucralfate 1 Gm Tablet PO 1 gm ACHS BRIAN Administration Tamsulosin HCl 0.4 mg 04/08/23 10:00 04/10/23 08:47 Tamsulosin Hcl 0.4 Mg Cap.Er.24h PO 0.4 mg DAILY BRIAN Administration Thiamine HCl 100 mg 04/08/23 10:00 04/10/23 08:48 Vitamin B-1 100 Mg Tablet PO 100 mg DAILY BRIAN Administration Plan Plan: 1. Acute Hypoxic Respiratory Failure in the setting of CHF exacerbation/COPD Exacerbation - Resolved, wears 2L at home, continue home inhalers, nebs prn, receiving azith and rocephin for COPD tx, lasix for CHF stopped yesterday. 2. Heart failure with mildly decreased EF exacerbation - lasix discontinued yesterday, cards added aldactone back and metolazone, monitor renal function, PFTs ordered, I&O, daily weight, cardiac diet, elevate legs, fluid restriction, derrick hose. Echo performed by Dr. Guzman yesterday, EF about 45% but thought to be mildly decreased due to elevated HR and a fib. Per Dr. Guzman no entresto or jardiance at this time. Echo at [facility] on 10/23 showed EF of 55-60 and grade III diastolic dysfunction with severely dilated right atrium. 3. Leukocytosis - no obvious source of infection, chest x-ray and UA negative, blood cultures obtained in ER, started on azith and rocephin prophylactically by ER provider for CAP, pro joey elevated, trending down - repeat daily. Likely worsened by steroids as well. 4. Atrial Fibrillation with RVR - rate controlled at this time with resume of home medications, patient non-complaint and likely in Afib regularly, resume rate control and anticoagulation medications, telemetry 5. COPD exacerbation -wears 2L of O2 continuous, continue inhalers, nebs prn, wean to home O2, plan as above 6. Elevated liver enzymes - chronic alcohol use, ascites noted on CT scan, discussed cessation - patient reports he does not plan to stop use and his PCP is aware. No altered mental status or lethargy noted. Ammonia level ordered by cards normal. 7. Hyponatremia - improved, likely due to diuretic and alcohol use, monitor 8. Acute kidney injury, stage I on chronic kidney disease - Improved today. Monitor daily with diuretics. Cr 1.7 at discharge from [facility] on 10/23. 9. Acute iron deficiency anemia - Hgb lower compared to labs in november. Anemia labs showing iron of 16. Occult stool ordered as well. Started on iron tabs. 10. Right lower ext swelling and erythema - Venous US ordered, pt noncompliant with medications. DVT Prophylaxis: Xarelto Review Statement Review Statement: I have personally discussed and reviewed the patient's visit/currently labs/imaging/decision making with Dr. Guzman, my supervising attending. Greater that 50 minutes spent with patient, 50% of the time spent with this patient was devoted to counseling and coordination of care.
[2023-04-10] MEDS: TYLENOL PO PRN ×2 (10:59→17:41)
--- NOTE | 2023-04-10 11:22 | US ---
EXAM: RIGHT LOWER EXTREMITY DEEP VENOUS ULTRASOUND WITH DOPPLER IMAGING TECHNIQUE: Winkler-scale ultrasound with compression maneuvers and color and spectral Doppler ultrasound at rest and with augmentation of the veins was performed. Images were obtained and stored in a perm anent archive. COMPARISON: None. HISTORY: Leg pain and edema. FINDINGS: RIGHT LOWER EXTREMITY: Flow, compressibility, and augmentation appear within normal limits in the visualized deep veins. No suspicious soft tissue abnormality.The visualized superficial vein(s) appears patent. IMPRESSION: No evidence of DVT.
--- NOTE | 2023-04-10 11:42 | CONS ---
DATE OF CONSULTATION: 04/08/23 REASON FOR CONSULTATION: Atrial fibrillation with rapid ventricular response. Possibility of CHF, fluid retention. HISTORY OF PRESENT ILLNESS: 82 year old white male came to the emergency room on 04/07/23 with complaint of being shortness of breath and fluid retention all over. According to the patient he had fallen 4 days ago and laid on the floor for several hours before any help. He has missed medications a couple of days. According to him he has been confused at times more than usual so he decided to come to the emergency room. REVIEW OF SYSTEMS: CONSTITUTIONAL: No night sweats. Weakness and fatigue. No fever or chills. HEENT: Eyes: No visual changes. No eye pain. No eye discharge. ENT: No sinus drainage. No epistaxis. No sinus pain. No sore throat. No odynophagia. No ear pain. No congestion. RESPIRATORY: Cough with congestion. Mild sputum production maybe yellowish tinge. No hemoptysis. Shortness of breath. CARDIOVASCULAR: No angina symptoms. No CHF symptoms. No atypical chest pain for CAD. No palpitations. No orthopnea. GASTROINTESTINAL: No abdominal pain. No nausea or vomiting. No diarrhea or constipation. No hematemesis. No hematochezia. Poor appetite. Hasn't been eating much lately. GENITOURINARY: No urgency. No frequency. No dysuria. No hematuria. No obstructive symptoms. No discharge. No pain. No significant abnormal bleeding. MUSCULOSKELETAL: No musculoskeletal pain. No joint swelling. Weakness with swelling of lower and upper extremities. NEUROLOGICAL: No headache. No neck pain. No syncope. No seizures. No dizziness. Confused at times. PSYCHIATRIC: Not anxious. No depression. No suicidal thoughts. No homicidal thoughts. SKIN: No rash. No lesions. No wounds. ENDOCRINE: No unexplained weight loss. No weight gain. HEMATOLOGIC/LYMPHATIC: No anemia. No purpura. No petechiae. No prolonged or excessive bleeding. No palpable lymph nodes. MEDICATIONS: Breo daily Losartan 50mg BID Levothyroxine 25mcg PO daily Thiamine daily Tamsulosin Metoprolol Nortriptyline Spironolactone Gabapentin Diltiazem Pantoprazole Xarelto Bumetanide Bumex Finasteride ALLERGIES: Penicillin. PAST MEDICAL HISTORY/PAST SURGICAL HISTORY: Chronic lung disease with history of recurrent pneumonia on home oxygen Chronic bronchitis Atrial fibrillation CHF Chronic kidney disease Hypertension Borderline hypothyroidism Prostatic hypertrophy Diabetes mellitus type II Chronic anemia SOCIAL/PERSONAL/FAMILY HISTORY: The patient lives with the help of living friends with him together. PHYSICAL EXAMINATION: GENERAL: The patient is oriented to time, place and person. VITAL SIGNS: Temperature 97.7, pulse 87, respiratory rate 18, blood pressure 122/78 and pulse ox 95%. He is 279 pounds, BMI 38 HEENT: Head normocephalic, atraumatic. Eyes: Extraocular muscles are intact. Pupils are equal, round and reactive to light and accommodation. Ears: No lesions. Nose appeared normal. Throat: No exudate or erythema. NECK: Supple. No JVD, no carotid bruit. No lymphadenopathy or thyromegaly. LUNGS: Decreased breath sounds bilaterally with decreased air bases. Few dry crepitations Clear to auscultation. Percussion note normal. Chest symmetrical. HEART: S1, S2 distant, no S3. Regular rate, 100 per minutes. No murmurs. No cyanosis or clubbing. No ascites. Pulses: Dorsalis pedis and posterior tibial pulses +1 to +2 bilaterally. ABDOMEN: Protuberant. Soft. Nontender. Bowel sounds active. No CVA tenderness. No mass felt. EXTREMITIES: +2 pitting edema. Full range of motion of all extremities, equal. More pigmentation on the left lower extremity than the right. NEUROLOGIC: No focal deficit. Cranial nerves II through XII are grossly intact. No headache, no double vision or headache. SKIN: Not dry. Intact. Turgor - normal. LYMPHATIC: No palpable lymph nodes/no lymphedema. MUSCULOSKELETAL: Normal joints with no swelling. Muscle tone is normal. LABS: EKG atrial fibrillation, rapid ventricular response on admission. EKG done today shows atrial fibrillation with no acute changes. Creatinine 1.9, BUN 45, potassium 4.8, hgb 9.6, hct 31, WBC 12,000. ABG done today showed pO2 54, pco2 40, pH 7.40 with 90% saturation on 3 liters. It is to be noted that the patient had negative cardiac markers. BNP 8,600 which is a combination of respiratory failure, kidney disease, fluid retention, atrial fibrillation with rapid ventricular response and CHF. Chest x-ray negative, no acute findings ASSESSMENT: 1. Generalized fluid retention with possibility of CHF 2. Atiral fibrillation with rapid ventricular response on admission 3. Acute bronchitis type of symptoms with COPD exacerbation on home oxygen 4. Respiratory failure 5. Chronic kidney disease 6. History of hypertension 7. Hyperglycemia/Diabetes Mellitus type II 8. Anemia 9. Noncompliance of medications 10.Obesity, BMI 38 11. Procalcitonin 15 going up to 18 RECOMMENDATIONS: 1. Discussed with Nurse Practitioner with present management with restarting all the medications. Already in acceptable range. 2. Compliance discussed with the patient and he understands well 3. Continue Diltazem as prescribed 4. IV Lasix 20mg Q 12 hours 5. Elevate the legs 6. Agreed with Rocephin Azithromycin combination 7. Will also start Coreg 6.25MG BID 8. We will do echocardiogram to evaluate LV function. LV function was recorded as normal on previous echo. The patient was noted to have pulmonary hypertension with dilated inferior vena cava, increased RV size. Thanks for referral, will follow. ADDENDUM: The patient's medication list was checked and this morning the patient got Metoprolol XL 50mg so we won't start him on. Give him 60mg Cardizem PO tonight, his heart rate has been average 100 per minute and tomorrow we will divide the Cardizem dose to 90mg BID and discontinue 120mg. The patient has already been started on NEBS QID. The patient needs to be on nebulizer. Kale monitor arterial blood gasses. MTDD
--- NOTE | 2023-04-10 11:47 | ECHO2D ---
Date of Exam: 04/09/2023 Ordering Physician: HOSPITALIST/ DR. ORVILLE GODOY Room #: 116 Reason for Echo: SOB, COPD WITH COR PULMONALE, CHF, RESPIRATORY FAILURE M-Mode Normal Adult Results LV Dimensions Normal Adult Results AoV Opening excursions >1.6 >1.6 LVEDD-base- 3.5-5.8 5.3 Ao root dimensions 2.0-3.7 3.8 LVESD-base- 3.1-4.6 L. Atrium dimensions 1.9-3.8 5.4 Post. Wall thickness 0.8-1.1 1.4 IV septum (thickness) 0.7-1.2 1.4 Post. Wall excursion 0.72-1.3 NORMAL Septal motion 0.5 Systolic motion R. Ventricular cavity 1.5-2.0 4.0 LVEF 60% 43% Paradoxical septal wall motion NORMAL 2-D : ENLARGED LEFT ATRIAL, RIGHT VENTRICLE AND RIGHT ATRIAL CAVITIES, HYPOKINETIC SEPTAL WALL, NO EFFUSION, NO THROMBUS, AORTIC, MITRAL, TRICUSPID AND PULMONARY VALVES ARE NORMAL, COLOR FLOW: MODERATE MITRAL REGURGITATION AND TRICUSPID REGURGITATION M-MODE: MV: NORMAL AV: NORMAL TV: NORMAL PV: NORMAL CHAMBER SIZE: ENLARGED RIGHT VENTRICLE, RIGHT ATRIAL AND LEFT ATRIAL CAVITIES WALL MOTION: HYPOKINETIC SEPTAL WALL PERICARDIUM: NORMAL INTERPRETATION: 1. LEFT VENTRICLE HYPERTROPHY WITH ENLARGED LEFT ATRIAL CAVITY (5.4 CM) 2. ENLARGED RIGHT VENTRICLE AND RIGHT ATRIAL CAVITIES 3. HYPOKINETIC SEPTAL WALL WITH EJECTION FRACTION 43% 4. MODERATE TRICUSPID REGURGITATION AND MITRAL REGURGITATION (Patient is in A-FIB, rate 100 bpm) MTDD
[2023-04-10] MEDS: XARELTO PO SCH (16:09)
[2023-04-10 19:46] VITALS: RESP 18
[2023-04-10] MEDS: ROCEPHIN 1 GM/50 ML D5W 1 GM/50 ML BAG IV SCH (20:12)
[2023-04-10] MEDS: XALATAN EACHEYE SCH (20:27)
[2023-04-10] MEDS: DORZOLAMIDE EACHEYE SCH (20:30)
[2023-04-11] MEDS: DUONEB NEB SCH ×3 (04:40→15:00)
[2023-04-11 05:22] VITALS: BP 130/71; PULSE 77; TEMP 96.7
[2023-04-11 05:27] LABS: BASOPHILS % (AUTO) 0.1 % (0.0-3.0); HEMATOCRIT 30.3 % (42.0-52.0); IMMATURE GRANULOCYTE # (AUTO) 0.3 (0.0-1.0); IMMATURE GRANULOCYTE % (AUTO) 1.8 % (0.0-5.0); LYMPHOCYTES % (AUTO) 7.2 (10.0-50.0); MEAN CORPUSCULAR HEMOGLOBIN 23.9 pg (27.0-31.0); MEAN CORPUSCULAR HGB CONC 29.7 (31.8-35.4); MEAN CORPUSCULAR VOLUME 80.4 fl (80.0-94.0); MONOCYTES # (AUTO) 1.3 K/uL (0.4-2.0); MONOCYTES % (AUTO) 8.9 (0-10); NEUTROPHILS # (AUTO) 11.7 K/ul (2.0-6.9); PLATELET COUNT 186 10^3/uL (140-440); RDW COEFFICIENT OF VARIATION 19.5 % (11.6-14.8); RED BLOOD COUNT 3.77 10^6/ul (4.70-6.10); WHITE BLOOD COUNT 14.28 K/ul (4.2-10.2)
[2023-04-11] MEDS: PROTONIX PO SCH (05:42)
[2023-04-11] MEDS: CARAFATE PO SCH ×2 (05:42→11:49)
[2023-04-11] MEDS: SYNTHROID PO SCH (05:42)
[2023-04-11 05:43] LABS: ALANINE AMINOTRANSFERASE 54.7 U/L (0-50); ALBUMIN 3.63 g/dL (3.5-5.0); ALKALINE PHOSPHATASE 91.3 U/L (56-119); ASPARTATE AMINO TRANSFERASE 57.9 U/L (17-59); BILIRUBIN,TOTAL 0.5 mg/dL (0.2-1.3); CALCIUM 9.23 mg/dL (8.4-10.2); CARBON DIOXIDE 31.7 mmol/L (22-30.0); CHLORIDE 97.2 mmol/L (98-107); CREATININE 1.58 mg/dL (0.60-1.10); GLUCOSE 177.4 mg/dL (74-106); POTASSIUM 4.79 mmol/L (3.5-5.1); SODIUM 134.4 mmol/L (134.5-145); TOTAL PROTEIN 6.55 g/dL (6.3-8.2)
[2023-04-11] MEDS: HUMULIN R SUBCUT PRN ×2 (05:50→11:49)
[2023-04-11] MEDS: SYMBICORT 80-4.5 MCG INHALER IH SCH (09:14)
[2023-04-11] MEDS: NON-FORMULARY MEDICATION (Vitamins A,C,E-Zinc-Copper [Preservision Areds] 2,148 mcg-113 mg PO SCH (09:14)
[2023-04-11] MEDS: MULTIVITAMIN TABLET PO SCH (09:15)
[2023-04-11] MEDS: CARDIZEM PO SCH (09:15)
[2023-04-11] MEDS: THIAMINE PO SCH (09:15)
[2023-04-11] MEDS: FERROUS SULFATE PO SCH (09:16)
[2023-04-11] MEDS: COREG PO SCH (09:16)
[2023-04-11] MEDS: FLOMAX PO SCH (09:16)
[2023-04-11] MEDS: ZAROXOLYN PO SCH (09:16)
[2023-04-11] MEDS: COZAAR PO SCH (09:16)
[2023-04-11] MEDS: NEURONTIN PO SCH (09:16)
[2023-04-11] MEDS: ALDACTONE PO SCH (09:16)
[2023-04-11] MEDS: PROSCAR PO SCH (09:16)
[2023-04-11] MEDS: DORZOLAMIDE EACHEYE SCH (09:17)
[2023-04-11] MEDS: ARTIFICIAL TEARS DROPS EACHEYE SCH (09:17)
--- NOTE | 2023-04-11 11:57 | CONS ---
DATE OF SERVICE: 04/09/23 CONSULT FOLLOWUP SUBJECTIVE: The patient was seen and examined with the Nurse Practitioner on cardiac consult. ASSESSMENT: 1. COPD exacerbation with hypoxemia and respiratory failure 2. Right sided failure with likely Cor pulmonale. The patient's echo done at [facility] showed pulmonary hypertension and practically normal LV ejection fraction. 3. Atrial fibrillation with rapid ventricular response. May have contributed towards fluid retention 4. Chronic kidney disease seems to have worsened with somewhat aggressive diuretic therapy 5. Hyperglycemia versus diabetes type II 6. BMI of 38, almost morbid obesity 7. History of hypertension 8. Noncompliance RECOMMENDATIONS: 1. Start slow hydration with 50cc to 70cc fluids per hour 2. Monitor kidney functions 3. Monitor ABGs 4. Continue steroids, decrease the dose of steroids tomorrow to 1/2cc Decadron. 5. Continue NEBS treatment 6. Improve the pulmonary status 7. The patient's heart rate, overall hemodynamically status fine. 8. Very likely the patient's intravascular volume is problem normal but borderline low. 9. Elevate the legs because mostly this edema is dependent. The patient's sleeps in the chair. CONDITION: Stable. Thanks for referral, will follow. MIMI
--- NOTE | 2023-04-11 13:03 | CONS ---
DATE OF SERVICE: 04/10/23 CONSULT FOLLOWUP SUBJECTIVE: The patient was seen and examined with the Nurse Practitioner and agreed with her assessment. Cardiovascular and respiratory status seems to be improving. The patient says that he is feeling a lot better and his appetite has improved. Kidney functions are somewhat better. The patient's urine output is still poor likely the patient is intravascular volume contracted. RECOMMENDATIONS: 1. Discontinue Metoprolol XL 2. Put him on Coreg 6.25mg twice a day 3. Cardizem dose will be increased to 120mg twice a day 4. Echocardiogram done yesterday showed LVH with hypokinetic septum with LV ejection fraction 40-45%. At that time the patient's rate was 100 per minute. Whenever the patient has lower rate briefly the ejection fraction seemed to have improve. The patient also showed moderate mitral regurgitation and tricuspid regurgitation. LA cavity size was 5.4cm with no thrombus or thrombi. 5. In any case use the combination of Coreg and Cardizem 6. Continue IV antibiotics, NEBS and low dose steroids. CONDITION: Stable. MTDD
--- NOTE | 2023-04-11 13:32 | DCSUM ---
Admission Date Admission Date: 04/07/23 Discharge Date Discharge Date: 04/11/23 Admission Diagnosis Admission Diagnosis: Acute Hypoxic Respiratory Failure CHF Exacerbation Afib RVR Discharge Diagnosis Discharge Diagnosis: Acute Hypoxic Respiratory Failure CHF Exacerbation Afib RVR Hospital Provider Hospital Provider: TOÑO GARCIA, [facility] Primary Care Physician Primary Care Physician: ORVILLE DAWN MD Consulting Physician Consulting Physician: Dr. Emil Guzman Summary of History and Physical Summary of History and Physical: 82 yo male presented to the ER with complaints of shortness of breath, weakness, unable to urinate, and weight gain. Patient has a pmh of CHF, COPD, and Afib. He reports that he has not been able to urinate over the last 3 days and has gained close to 10 lbs. He wears 2L of O2 at home at all times. States that he has felt congested in his chest over the last couple days, but no other symptoms. Denies fever, chills, body aches, N/V/D, chest pain or back pain. He was found to be in afib with RVR in the ER at a rate in the 160s initially. Patient reports he is non-complaint with his medications and takes them whenever he remembers. He was given his PO meds in the ER as well as a dose of cardizem and metoprolol in the ER which brought his rate down. Hospital Course Subjective: Over course of stay for treatment of hypoxic respiratory failure, he has been receiving azith and rocephin for copd tx, lasix for CHF, nebs, and decadron. Initially was requiring 3L compared to his normal 2L at home. He was weaned down and tolerating well. Initially, for treatment of CHFpEF exacerbation, lasix was ordered 20 mg Q8H, repeat echo ordered, daily weights, I&O, and elevation of legs. He was also placed on a fluid restriction. Dr. Emil Guzman was consulted by the ER doctor and he adjusted lasix dose to 20 mg Q12H. Completed echo that showed EF of 43% which is worse from his last echo with EF of 55%. Dr. Emil Guzman and Zuly Andrade [employer] ordered fluids for patient but hospitalist disagreed with this plan due to initial BNP >8000 and appearance of fluid overload with hypoxia, 10 lb weight gain, and +4 edema. Fluids were not given. Patient condition improved with diuresis and returned to baseline oxygen requirements. Atrial fibrillation with RVR was noted in ER. Patient was given 1 IVP dose of cardizem and 1 IVP dose of metoprolol as well as his PO home medications that he had not taken earlier in the day. Takes Xarelto for anticoagulation. Dr. Emil Guzman initially increased PO cardizem from 120 mg daily to 120 mg BID and stopped his metoprolol. He then added coreg 6.25 mg BID which controlled the rate. WBC count was elevated upon admission with no obvious source of infection. chest-xray and UA were negative. Started on azith and rocephin prophylactically by ER provider for CAP. Pro-joey was initially elevated but trended down. No fevers throughout stay. Hyponatremia noted on admission - likely due to diuretic and alcohol use, improved over stay Elevated liver enzymes - drinks 6 shots minimum daily, ascites noted on CT scan - Zuly Andrade [employer] started patient on zaroxlyn and spironolactone due to this; Dr. Emil Guzman reported to continue bumex on discharge. discussed cessation - patient reports he does not plan to stop use and his PCP is aware. Acute kidney injury, stage I on chronic kidney disease - Worsened due to diuretic use, improved over course of stay and appears at baseline Acute iron deficiency anemia - Hgb lower compared to labs in november. Anemia labs showing iron of 16. started on iron tabs and sent with script Patient developed R lower ext swelling and erythema - Venous US ordered and negative for DVT, may be due to use of steroids, also pt noncompliant with medications. Dr. Emil Guzman Recommendations upon discharge: Coreg 12.5 BID Diltizem 90 mg extended release BID Antibiotics for COPD Follow-up with Dr. Dawn as scheduled. Appearance: Pleasant, No Apparent Distress, Alert and Well-appearing HEENT: MMM and Supple CVS: No Murmur and No Rubs Abdomen: Soft, Non-Tender and No Distention Respiratory: No Dyspnea Extremities: Other (chronic edema +2) Vital Signs: Most Recent Vital Signs Temperature 96.7 F L 04/11/23 05:17 Temperature Source Temporal Artery Scan 04/11/23 05:17 Temperature Source Infrared 04/07/23 16:55 Pulse Rate 77 04/11/23 05:17 Respiratory Rate 18 04/11/23 05:17 Blood Pressure 130/71 07/12/23 05:17 Blood Pressure Mean 90 04/11/23 05:17 Blood Pressure Left Arm 132/74 04/07/23 22:00 Blood Pressure Location Right Arm 04/11/23 05:17 Blood Pressure Position Supine 04/11/23 05:17 O2 Sat by Pulse Oximetry 96 04/11/23 10:00 Oxygen Delivery Method Nasal Cannula 04/11/23 10:00 Oxygen Flow Rate 2 04/11/23 10:00 Height 6 ft 04/09/23 09:55 Weight 280 lb 9 oz 04/11/23 05:17 Telemetry Type Remote Telemetry 04/11/23 07:00 Telemetry Monitoring Continues 04/11/23 07:00 Irregular Telemetry Rate (Approximate) 70-80 BPM 04/11/23 01:00 Telemetry Heart Rate 93 04/11/23 07:00 Telemetry SPO2 98 04/11/23 07:00 EKG QRS Interval 0.1 04/11/23 07:00 EKG QT Interval 0.37 04/11/23 01:00 Telemetry Strip Reading Afib 04/11/23 07:00 Lab Results Last 24 Hours: 04/11/23 05:00 WBC 14.28 H RBC 3.77 L Hgb 9.0 L Hct 30.3 L MCV 80.4 MCH 23.9 L MCHC 29.7 L RDW Coeff of Simi 19.5 H Plt Count 186 Immature Gran % (Auto) 1.8 Neut % (Auto) 82.0 H Lymph % (Auto) 7.2 L Elliott % (Auto) 8.9 Eos % (Auto) 0.0 Baso % (Auto) 0.1 Neut # (Auto) 11.7 H Lymph # (Auto) 1.0 Elliott # (Auto) 1.3 Eos # (Auto) 0.0 Baso # (Auto) 0.0 Immature Gran # (Auto) 0.3 Sodium 134.4 L Potassium 4.79 Chloride 97.2 L Carbon Dioxide 31.7 H Anion Gap 10.29 BUN 52.0 H Creatinine 1.58 H Estimated GFR (MDRD) 42.00 BUN/Creatinine Ratio 32.91 Glucose 177.4 H Calcium 9.23 Total Bilirubin 0.50 AST 57.9 ALT 54.7 H Alkaline Phosphatase 91.3 Total Protein 6.55 Albumin 3.63 Globulin 2.92 Albumin/Globulin Ratio 1.24 Procalcitonin 2.25 H Discharge Instructions Discharge Planning: Discharge Planning > 40 minutes If patient is discharged with left ventricular systolic dysfunction: no Discharged with a beta more? yes Discharged with an trevor/arb? yes Activity as tolerated. 1800 mL fluid restriction Weigh daily to monitor weight gain Prescriptions sent in for adjustment of doses of cardizem and new medication coreg heart rate. STOP taking metoprolol. Take losartan ONCE a day instead of twice a day Start taking the iron supplement daily Finish z-pack for copd/pneumonia prevention Discharge Medications: Medications at Discharge (Home Meds & RX) multivitamin (Daily Multi-Vitamin tablet) 1 ea PO DAILY 09/07/14 peg 400-propylene glycol 0.4 %-0.3 % eye drops (Systane (propylene glycol)) 1 drp BOTHEYES BID 09/07/14 epinephrine 0.3 mg/0.3 mL injection, auto-injector (EpiPen 2-Chandu) 0.3 mg (0.3 mL) IM PRN PRN Anaphylaxis #2 ea 02/04/21 fluticasone furoate 100 mcg-vilanterol 25 mcg/dose inhalation powder (Breo Ellipta) 1 inh inhalation Q24H #60 ea 03/31/21 levothyroxine 25 mcg tablet See Rx Instructions .Route .COMPLEX #30 tabs 06/19/22 thiamine HCl (vitamin B1) 100 mg tablet 100 mg PO DAILY #90 tabs 08/07/22 vitamins A,C,G-arvs-prmkjk 2,148 mcg-113 mg-45 mg-17.4 mg tablet (PreserVision AREDS) 1 tab PO BID #180 tabs 08/07/22 sucralfate 1 gram tablet 1 g PO QID 10/25/22 dorzolamide 2 % eye drops 1 drp BOTHEYES BID 11/09/22 tamsulosin 0.4 mg capsule 0.4 mg PO DAILY #90 tab-caps 12/19/22 nortriptyline 25 mg capsule 25 mg PO QHS #90 caps 12/21/22 gabapentin 300 mg capsule 300 mg PO BID #60 caps 01/09/23 pantoprazole 40 mg tablet,delayed release 40 mg PO BID #180 tabs 02/13/23 rivaroxaban 20 mg tablet (Xarelto) See Rx Instructions .Route .COMPLEX #90 tabs 03/02/23 bumetanide 1 mg tablet See Rx Instructions .Route .COMPLEX #90 tabs 03/21/23 finasteride 5 mg tablet See Rx Instructions .Route .COMPLEX #90 tabs 03/21/23 latanoprost 0.005 % eye drops 1 drp BOTHEYES QPM 04/09/23 azithromycin 500 mg tablet See Rx Instructions PO .COMPLEX #3 tabs 04/11/23 carvedilol 12.5 mg tablet (Coreg) 12.5 mg PO BID #60 tabs 04/11/23 diltiazem HCl 90 mg capsule,extended release 12 hr 90 mg PO BID #60 caps 04/11/23 ferrous sulfate 324 mg (65 mg iron) tablet,delayed release 324 mg PO DAILY #30 tabs 04/11/23 losartan 25 mg tablet 50 mg PO DAILY #30 tabs 04/11/23 spironolactone 25 mg tablet (Aldactone) 25 mg PO QDAY #30 tabs 04/11/23 Discharge Plan Discharge Discharge Orders: Discharge Patient (ONCE); Ordered 04/11/23 Ordered By: GERSON BAEZA Activity Restrictions/Additional Instructions: YOU HAVE A FOLLOW UP APPOINTMENT WITH DR. DAWN ON March AT 2:15PM. SHOULD YOU HAVE ANY QUESTIONS RO NEED TO RESCHEDULE YOU CAN CONTACT THEIR OFFICE AT [phone]. YOU HAVE A CARDIOLOGY APPOINTMENT FOLLOW UP WITH [facility] IN [place] ON March AT 1:30PM. SHOULD YOU HAVE HAVE ANY QUESTIONS OR NEED TO RESCHEDULE YOU CAN CONTACT THEIR OFFICE AT [phone]. Activity as tolerated. 2800 mL fluid restriction Weigh daily to monitor weight gain Prescriptions sent in for adjustment of doses of cardizem and new medication coreg for your heart rate. STOP taking metoprolol. Take your losartan ONCE a day instead of twice a day Start taking the iron supplement daily Finish z-pack for copd/pneumonia prevention Instructions: Heart Failure (GEN), Iron Deficiency Anemia (GEN) Care Plan Goals: Problem: Fluid Volume Excess Goal: Maintain adequate fluid volume Instructions: Maintain optimal head of bed placement Monitor respiratory status Monitor for edema Monitor hydration status Patient Disposition: HOME WITH FAMILY CARE Prescriptions: New diltiazem HCl 90 mg capsule,extended release 12 hr 90 mg PO BID Qty: 60 0RF carvedilol [Coreg] 12.5 mg tablet 12.5 mg PO BID Qty: 60 0RF Rx Instructions: must administer with a meal/food losartan 25 mg Tablet 50 mg PO DAILY Qty: 30 0RF ferrous sulfate 324 mg (65 mg iron) Tablet,Delayed Release (Dr/Ec) 324 mg PO DAILY Qty: 30 0RF azithromycin 500 mg tablet See Rx Instructions .ROUTE .COMPLEX Qty: 3 0RF Rx Instructions: For 500 mg dose pack: take 500 mg once daily for 3 days Continued epinephrine [EpiPen 2-Chandu] 0.3 mg/0.3 mL auto-injector 0.3 mg IM PRN PRN (Reason: Anaphylaxis) Qty: 2 3RF fluticasone furoate-vilanterol [Breo Ellipta] 100-25 mcg/dose blister with device 1 inh inhalation Q24H Qty: 60 2RF levothyroxine 25 mcg tablet See Rx Instructions .ROUTE .COMPLEX Qty: 30 2RF Dose Instruction: TAKE ONE TABLET BY MOUTH DAILY Rx Instructions: TAKE ONE TABLET BY MOUTH DAILY thiamine HCl (vitamin B1) 100 mg tablet 100 mg PO DAILY Qty: 90 2RF PreserVision AREDS 2,148 mcg-113 mg-45 mg-17.4mg tablet 1 tab PO BID Qty: 180 1RF tamsulosin 0.4 mg capsule 0.4 mg PO DAILY Qty: 90 2RF Rx Instructions: Take one capsule by mouth per day. gabapentin 300 mg capsule 300 mg PO BID Qty: 60 1RF pantoprazole 40 mg tablet,delayed release (DR/EC) 40 mg PO BID Qty: 180 1RF Xarelto 20 mg tablet See Rx Instructions .ROUTE .COMPLEX Qty: 90 3RF Dose Instruction: TAKE ONE TABLET BY MOUTH DAILY Rx Instructions: TAKE ONE TABLET BY MOUTH DAILY bumetanide 1 mg tablet See Rx Instructions .ROUTE .COMPLEX Qty: 90 0RF Dose Instruction: TAKE ONE TABLET BY MOUTH DAILY IF greater THAN THREE pound increase in 72 hours TAKE TWO TABLET DAILY FOR FIVE DAYS THEN resume ONE TABLET DAILY Rx Instructions: TAKE ONE TABLET BY MOUTH DAILY IF greater THAN THREE pound increase in 72 hours TAKE TWO TABLET DAILY FOR FIVE DAYS THEN resume ONE TABLET DAILY finasteride 5 mg tablet See Rx Instructions .ROUTE .COMPLEX Qty: 90 3RF Dose Instruction: TAKE ONE TABLET BY MOUTH DAILY Rx Instructions: TAKE ONE TABLET BY MOUTH DAILY multivitamin [Daily Multi-Vitamin] 1 EACH tablet 1 ea PO DAILY Systane (propylene glycol) 15 ML drops 1 drp BOTHEYES BID latanoprost 0.005 % drops 1 drp BOTHEYES QPM Patient Comments: instill ONE drop in BOTH eyes EVERY EVENING nortriptyline 25 mg capsule 25 mg PO QHS Qty: 90 1RF sucralfate 1 gram tablet 1 g PO QID dorzolamide 2 % drops 1 drp BOTHEYES BID Changed spironolactone [Aldactone] 25 mg tablet 25 mg PO QDAY Qty: 30 1RF Discontinued losartan 50 mg tablet 50 mg PO BID Qty: 180 2RF Rx Instructions: one by mouth twice daily diltiazem HCl 120 mg capsule,extended release 12 hr 120 mg PO ONCE Qty: 30 1RF metoprolol succinate 50 mg tablet extended release 24 hr 50 mg PO QDAY Qty: 90 1RF Did you review [place] [employer] for ALL controlled substances?: No Discussed opioids are addictive and Narcan is available by prescription or from pharmacy.: No Condition: Fair
--- NOTE | 2023-04-19 13:39 | CONS ---
DATE OF CONSULTATION FOLLOW UP: 04/11/23 Patient was seen and examined; discussed with the practitioner, Ángel. Patient is doing a lot better. REVIEW OF SYSTEMS: CONSTITUTIONAL: No night sweats. No fatigue, malaise, lethargy. No fever or chills. HEENT: Eyes: No visual changes. No eye pain. No eye discharge. ENT: No sinus drainage. No epistaxis. No sinus pain. No sore throat. No odynophagia. No ear pain. No congestion. RESPIRATORY: Coughing much less. Less shortness of breath. CARDIOVASCULAR: No chest pain. No PND. No palpitations. No orthopnea. GASTROINTESTINAL: No abdominal pain. No nausea or vomiting. No diarrhea or constipation. No hematemesis. No hematochezia. GENITOURINARY: No urgency. No frequency. No dysuria. No hematuria. No obstructive symptoms. No discharge. No pain. No significant abnormal bleeding. MUSCULOSKELETAL: No musculoskeletal pain. No joint swelling. NEUROLOGICAL: No headache. No neck pain. No syncope. No seizures. No dizziness. PSYCHIATRIC: Not anxious. No depression. No suicidal thoughts. No homicidal thoughts. SKIN: No rash. No lesions. No wounds. ENDOCRINE: No unexplained weight loss. No weight gain. HEMATOLOGIC/LYMPHATIC: No anemia. No purpura. No petechiae. No prolonged or excessive bleeding. No palpable lymph nodes. PHYSICAL EXAMINATION: GENERAL: The patient is oriented to time, place and person. No distress. VITAL SIGNS: Temperature 96.7, pulse 77, respiratory rate 18, blood pressure 130/70, pulse ox 98% on one liter. HEENT: Head normocephalic, atraumatic. Eyes: Extraocular muscles are intact. Pupils are equal, round and reactive to light and accommodation. Ears: No lesions. Nose appeared normal. Throat: No exudate or erythema. NECK: Supple. LUNGS: Decreased breath sounds. A few crepitations, dry. HEART: S1, S2, no S3. ABDOMEN: Soft. Nontender. Bowel sounds active. No CVA tenderness. No mass felt. EXTREMITIES: +2 to +1 pitting edema, less than when he came in. NEUROLOGIC: No focal deficit. Cranial nerves II through XII are grossly intact. No headache, no double vision or headache. SKIN: Not dry. Intact. Turgor - normal. LYMPHATIC: No palpable lymph nodes/no lymphedema. MUSCULOSKELETAL: Normal joints with no swelling. Muscle tone is normal. LABS: PO2 of 75, PCO2 of 50, PH 7.4 on one liter. Creatinine 1.5, BUN 52, potassium 4.7, hemoglobin 9. ASSESSMENT: 1. Acute exacerbation of COPD has subsided. 2. Cor pulmonale seems to be under control. 3. Respiratory failure seems to be under control. RECOMMENDATIONS: 1. Advised to lose weight. Diet discussed. 2. Take all his medications on regular basis. 3. Advised to wear oxygen as long as he could around the clock during the daytime and at night. 4. Cardizem 90 mg twice a day. 5. Coreg 12.5 twice a day. 6. Discontinue Metoprolol. 7. Continue rest of the medications as before. 8. Elevate the legs. 9. Cut down on salt intake. Diagnosis discussed with the patient. He is noncompliant. Advised to follow up with primary care doctor. Condition: Stable. Case discussed and changes discussed with nurse practitioner and all in agreement. MIMI
--- NOTE | 2023-04-19 13:40 | CONS ---
CONSULT LEVEL 5 ALL FOLLOW UPS EXTENSIVE MTDD
== END 2023-04-11 14:15 | disposition home or self-care (01) | DRG 291 ==
LOC: ED 16:50 → MEDSURG B 21:10
PROVIDERS: ADMIT Hospitalist; ATTEND Nurse Practitioner Family
DX: N17.9 Acute kidney failure, unspecified; I13.0 Hypertensive heart and chronic kidney disease with heart failure and stage 1 through stage 4 chronic kidney disease, or unspecified chronic kidney disease; J44.1 Chronic obstructive pulmonary disease with (acute) exacerbation; N18.31 Chronic kidney disease, stage 3a; I48.91 Unspecified atrial fibrillation; Z79.899 Other long term (current) drug therapy; J96.01 Acute respiratory failure with hypoxia; J18.9 Pneumonia, unspecified organism; D50.9 Iron deficiency anemia, unspecified; E66.9 Obesity, unspecified; E11.65 Type 2 diabetes mellitus with hyperglycemia; I50.33 Acute on chronic diastolic (congestive) heart failure

== ENCOUNTER 2023-11-10 12:02 | Inpatient (IN) ==
--- NOTE | 2023-11-10 12:09 | ED.PDOC ---
General ED Provider: Dr. RAUL VILLEGAS DO Chief Complaint: Shortness of Air Time Seen by Provider: 11/10/23 12:06 Primary Care Provider: ORVILLE GODOY MD What is Opioid Naive?: *Opioid Naive implies the patient is not already taking opioids or not chronically receiving opioids on a daily basis. *PRN dosing is not "usually" associated with tolerance. *Patients are at higher risk of over-sedation and aspiration. What is Opioid Tolerant?: *Opioid Tolerance implies less than the expected response to an opioid. *Acquired tolerance is defined by the patient taking 60mg of oral morphine daily (or equianalgesic dose of another opioid) for 1 week or more. *Often associated with chronic pain. *May take more than usual dose to achieve desired pain control. [facility] Medical History Benign positional vertigo H81.10 - Benign paroxysmal vertigo, unspecified ear (ICD-10) Bilateral pneumonia J18.9 - Pneumonia, unspecified organism (ICD-10) Emphysema lung J43.9 - Emphysema, unspecified (ICD-10) Gastroesophageal reflux disease K21.9 - Gastro-esophageal reflux disease without esophagitis (ICD-10) Hypertension I10 - Essential (primary) hypertension (ICD-10) Hypothyroidism E03.9 - Hypothyroidism, unspecified (ICD-10) Laceration of left wrist S61.512A - Laceration without foreign body of left wrist, initial encounter (ICD-10) Left orbit fracture S02.85XA - Fracture of orbit, unspecified, initial encounter for closed fracture (ICD-10) Macular degeneration H35.30 - Unspecified macular degeneration (ICD-10) long term resident Z59.3 - Problems related to living in residential institution (ICD-10) Obstructive sleep apnea G47.33 - Obstructive sleep apnea (adult) (pediatric) (ICD-10) Prostatic hypertrophy N40.0 - Benign prostatic hyperplasia without lower urinary tract symptoms (ICD-10) Seasonal allergies J30.2 - Other seasonal allergic rhinitis (ICD-10) Skin lesions L98.9 - Disorder of the skin and subcutaneous tissue, unspecified (ICD-10) Supraumbilical hernia K43.9 - Ventral hernia without obstruction or gangrene (ICD-10) TSH elevation R79.89 - Other specified abnormal findings of blood chemistry (ICD-10) Type II diabetes mellitus E11.9 - Type 2 diabetes mellitus without complications (ICD-10) Family History Mother Dementia FATHER Cancer CVA (cerebral vascular accident) BROTHER Alcoholism Cancer Mother CVA (cerebral vascular accident) SISTER CVA (cerebral vascular accident) Social History Smoking and tobacco status: Former smoker Alcohol intake: current Alcohol intake frequency: 3 or more drinks per day Alcohol type: hard liquor Substance use type: does not use Adopted: No Caregiver/support person: No Foster care: No Household members: none Housing: house Marital status: W / Lives independently: Yes Daycare: no daycare Number of children: 3 Number of grandchildren: 1 Highest education level completed: Bachelor's degree Financial difficulty paying for basics: not very hard service: Yes branch: [employer] long term: No History of recent travel: No Sexually active: No Do you think of yourself as: straight/heterosexual Current gender identity: male Seatbelt use: always Helmet use: No Drives intoxicated or rides with intoxicated ice delivery driver: No Water heater temperature set < 120 degrees: No Working smoke detector in home: Yes Fire extinguisher in home: Yes Carbon monoxide detector in home: Yes Firearms in home: Yes Firearms unloaded and locked: Yes Surgical History Cataract extraction and insertion of intraocular lens (~1999) History of joint surgery (~1999) Z98.890 - Other specified postprocedural states (ICD-10) Status post hernia repair Z98.890 - Other specified postprocedural states (ICD-10) Course Course 11/10/23 12:40 11/10/23 12:40 Orders, Labs, Meds: Lab Review 11/10/23 12:40 WBC 9.66 RBC 4.57 L Hgb 8.7 L Hct 33.0 L MCV 72.2 L MCH 19.0 L MCHC 26.4 L RDW Coeff of Simi 21.9 H Plt Count 274 Immature Gran % (Auto) 0.7 Neut % (Auto) 75.4 H Lymph % (Auto) 8.6 L Wilkin % (Auto) 13.1 H Eos % (Auto) 1.8 Baso % (Auto) 0.4 Neut # (Auto) 7.3 H Lymph # (Auto) 0.8 Wilkin # (Auto) 1.3 Eos # (Auto) 0.2 Baso # (Auto) 0.0 Immature Gran # (Auto) 0.1 Sodium 134.9 Potassium 4.27 Chloride 95.2 L Carbon Dioxide 33.1 H Anion Gap 10.87 BUN 24.5 H Creatinine 1.42 H Estimated GFR (MDRD) 47.00 BUN/Creatinine Ratio 17.25 Glucose 135.7 H Calcium 9.96 Total Bilirubin 0.87 AST 33.3 ALT 15.8 Alkaline Phosphatase 100.6 Troponin I 0.017 NT-Pro-B Natriuret Pep 7620 H Total Protein 6.91 Albumin 4.26 Globulin 2.65 Albumin/Globulin Ratio 1.60 Orders Category Date Time Status EKG-(ED ONLY) Stat CARDIO 11/10/23 12:13 Completed ED CATHETER INSERTION AND CARE .ONCE EMERGENCY 11/10/23 12:08 Active CBC W/ AUTO DIFF Stat LAB 11/10/23 12:40 Completed COMPREHENSIVE METABOLIC PANEL Stat LAB 11/10/23 12:40 Completed NT-PROBNP(ED) Stat LAB 11/10/23 12:40 Completed TROPONIN I Stat LAB 11/10/23 12:40 Completed Furosemide [Lasix] Meds 11/10/23 12:07 Discontinued 60 mg IVP ONCE ONE CXR [CHEST, 1V AP ONLY] Stat RADS 11/10/23 12:07 Completed Medications Discontinued Medications Generic Name Dose Route Start Last Admin Trade Name Freq PRN Reason Stop Dose Admin Furosemide 60 mg 11/10/23 12:07 11/10/23 12:51 Furosemide Inj 100 Mg/10 Ml Vial IVP 11/10/23 12:08 60 mg ONCE ONE Administration Vital Signs: Temp Pulse Resp BP Pulse Ox 11/10/23 12:12 97.8 F 106 H 26 H 142/81 H 99 Discharge Plan Discharge Patient Disposition: PLACED OBSERVATION Discharge Problem: Pleural effusion, Anasarca Acute exacerbation of CHF (congestive heart failure) Qualifiers: Heart failure type: unspecified Qualified Code(s): I50.9 - Heart failure, unspecified Prescriptions: No Action epinephrine [EpiPen 2-Chandu] 0.3 mg/0.3 mL auto-injector 0.3 mg IM PRN PRN (Reason: Anaphylaxis) Qty: 2 3RF fluticasone furoate-vilanterol [Breo Ellipta] 100-25 mcg/dose blister with device 1 inh inhalation Q24H Qty: 60 2RF thiamine HCl (vitamin B1) 100 mg tablet 100 mg PO DAILY Qty: 90 2RF PreserVision AREDS 2,148 mcg-113 mg-45 mg-17.4mg tablet 1 tab PO BID Qty: 180 1RF tamsulosin 0.4 mg capsule 0.4 mg PO DAILY Qty: 90 2RF Rx Instructions: Take one capsule by mouth per day. gabapentin 300 mg capsule 300 mg PO BID Qty: 60 1RF pantoprazole 40 mg tablet,delayed release (DR/EC) 40 mg PO BID Qty: 180 1RF Xarelto 20 mg tablet See Rx Instructions .ROUTE .COMPLEX Qty: 90 3RF Dose Instruction: TAKE ONE TABLET BY MOUTH DAILY Rx Instructions: TAKE ONE TABLET BY MOUTH DAILY finasteride 5 mg tablet See Rx Instructions .ROUTE .COMPLEX Qty: 90 3RF Dose Instruction: TAKE ONE TABLET BY MOUTH DAILY Rx Instructions: TAKE ONE TABLET BY MOUTH DAILY levothyroxine 25 mcg tablet See Rx Instructions .ROUTE .COMPLEX Qty: 30 2RF Dose Instruction: TAKE ONE TABLET BY MOUTH DAILY Rx Instructions: TAKE ONE TABLET BY MOUTH DAILY spironolactone [Aldactone] 25 mg tablet 25 mg PO QDAY Qty: 30 1RF (DME) blood-glucose meter [OneTouch Ultra2 Meter] [facility] See Rx Instructions .ROUTE Qty: 1 0RF Rx Instructions: fasting (DME) OneTouch Ultra Test Strip See Rx Instructions .ROUTE Qty: 100 12RF Rx Instructions: once daily fasting and as needed. (DME) lancing device with lancets [OneTouch Delica Plus Lanc Dev] Kit See Rx Instructions .ROUTE Qty: 1 0RF Rx Instructions: once daily fasing and PRN (DME) lancets [OneTouch Delica Plus Lancet] [facility] See Rx Instructions .ROUTE Qty: 100 5RF Rx Instructions: once daily fasting and as needed bumetanide 1 mg tablet See Rx Instructions .ROUTE .COMPLEX Qty: 90 0RF Dose Instruction: TAKE ONE TABLET BY MOUTH DAILY IF greater THAN THREE pound increase in 72 hours TAKE TWO TABLET DAILY FOR FIVE DAYS THEN resume ONE TABLET DAILY Rx Instructions: TAKE ONE TABLET BY MOUTH DAILY IF greater THAN THREE pound increase in 72 hours TAKE TWO TABLET DAILY FOR FIVE DAYS THEN resume ONE TABLET DAILY multivitamin [Daily Multi-Vitamin] 1 EACH tablet 1 ea PO DAILY Systane (propylene glycol) 15 ML drops 1 drp BOTHEYES BID latanoprost 0.005 % drops 1 drp BOTHEYES QPM Patient Comments: instill ONE drop in BOTH eyes EVERY EVENING diltiazem HCl 90 mg capsule,extended release 12 hr 90 mg PO BID Qty: 60 0RF carvedilol [Coreg] 12.5 mg tablet 12.5 mg PO BID Qty: 60 0RF Rx Instructions: must administer with a meal/food pregabalin 100 mg capsule 100 mg PO BID nortriptyline 25 mg capsule 25 mg PO QHS Qty: 90 1RF clobetasol 0.05 % cream 1 applic topical QDAY Qty: 60 0RF sucralfate 1 gram tablet 1 g PO QID dorzolamide 2 % drops 1 drp BOTHEYES BID ED Provider: RAUL VILLEGAS Physician Progress Note: []
[2023-11-10 12:51] LABS: BASOPHILS % (AUTO) 0.4 % (0.0-3.0); EOSINOPHILS # (AUTO) 0.2 K/ul (0.0-0.7); EOSINOPHILS % (AUTO) 1.8 % (0.0-7.0); HEMOGLOBIN 8.7 g/dl (14.0-18.0); IMMATURE GRANULOCYTE # (AUTO) 0.1 (0.0-1.0); IMMATURE GRANULOCYTE % (AUTO) 0.7 % (0.0-5.0); LYMPHOCYTES # (AUTO) 0.8 K/uL (0.60-3.4); LYMPHOCYTES % (AUTO) 8.6 (10.0-50.0); MEAN CORPUSCULAR HGB CONC 26.4 (31.8-35.4); MEAN CORPUSCULAR VOLUME 72.2 fl (80.0-94.0); MONOCYTES # (AUTO) 1.3 K/uL (0.4-2.0); MONOCYTES % (AUTO) 13.1 (0-10); NEUTROPHILS # (AUTO) 7.3 K/ul (2.0-6.9); NEUTROPHILS % (AUTO) 75.4 % (42.2-75.2); PLATELET COUNT 274 10^3/uL (140-440); RDW COEFFICIENT OF VARIATION 21.9 % (11.6-14.8); RED BLOOD COUNT 4.57 10^6/ul (4.70-6.10); WHITE BLOOD COUNT 9.66 K/ul (4.2-10.2)
[2023-11-10] MEDS: LASIX IVP ONE (12:51)
[2023-11-10 13:00] LABS: ALANINE AMINOTRANSFERASE 15.8 U/L (0-50); ALBUMIN 4.26 g/dL (3.5-5.0); ALKALINE PHOSPHATASE 100.6 U/L (56-119); ASPARTATE AMINO TRANSFERASE 33.3 U/L (17-59); BILIRUBIN,TOTAL 0.87 mg/dL (0.2-1.3); BLOOD UREA NITROGEN 24.5 mg/dL (9-20); CALCIUM 9.96 mg/dL (8.4-10.2); CARBON DIOXIDE 33.1 mmol/L (22-30.0); CHLORIDE 95.2 mmol/L (98-107); CREATININE 1.42 mg/dL (0.60-1.10); GLUCOSE 135.7 mg/dL (74-106); POTASSIUM 4.27 mmol/L (3.5-5.1); SODIUM 134.9 mmol/L (134.5-145); TOTAL PROTEIN 6.91 g/dL (6.3-8.2)
[2023-11-10 13:11] LABS: TROPONIN I 0.017 ng/ml (0.0000-0.120)
--- NOTE | 2023-11-10 13:22 | DI ---
EXAM: CHEST FRONTAL VIEW HISTORY: Shortness of breath COMPARISON: 05/19/2023 - - - - - IMPRESSION: Cardiomegaly and atherosclerotic disease again noted. There is a small right pleural e ffusion which has developed since prior study. Adjacent density could represent atelectasis or pneum onia. Lungs are otherwise clear. No vascular congestion.
[2023-11-10] MEDS ORDERED: TYLENOL PO PRN (14:44)
[2023-11-10 14:49] LABS: SARS COV-2 RNA RAPID NAAT NEGATIVE (NEGATIVE)
[2023-11-10 15:57] VITALS: BMI 38.0
--- NOTE | 2023-11-10 16:23 | PCM ---
Date of Service Date Seen by Provider: 11/10/23 Time Seen by Provider: 14:30 Admit Day/Time Admission Date: 11/10/23 Admission Time: 14:25 Reason for Admission Chief Complaint: ACUTE CHF EXACERBATION,A-FIB WITH RVR Hospital Provider Hospital Provider: LIN[facility]-C[facility] Physician Primary Care Physician: ORVILLE GODOY MD History of Present Illness History of Present Illness: Patient is a 83 year old male from home with pmhx of CHF, COPD with chronic respiratory failure at 3L, hypertension, CKD, a fib, GERD, chronic anticoagulation, hypothyroidism, who presents to the ER with worsening SOB. He has had worsening swelling for at least the past week or two. No changes in medications recently. Cylinder he had been doing well on entresto overall. Denies chest pain. Wears 3L at baseline. Caregiver Eric at bedside. Pt states he takes bumex 1 tab daily but increases to 2 tabs if needed and he's tried that the last few days without improvement. He is a chronic drinker, likes bourbon. States he usually doesn't have any issues with withdrawal symptoms. In ER he was noted to have significant edema, elevated bnp, and was given lasix IVP. Pt already diuresing well. Noted at bedside HR 120s consistently. Pt states he has not had his medications yet today. Patient admitted to [facility]. Case Discussed With Case Discussed With: Patient's case was discussed with the ER Physicians, Dr. Youngblood. [facility] Medical History [facility] resident Z59.3 - Problems related to living in residential institution (ICD-10) Laceration of left wrist S61.512A - Laceration without foreign body of left wrist, initial encounter (ICD-10) Left orbit fracture S02.85XA - Fracture of orbit, unspecified, initial encounter for closed fracture (ICD-10) TSH elevation R79.89 - Other specified abnormal findings of blood chemistry (ICD-10) Bilateral pneumonia J18.9 - Pneumonia, unspecified organism (ICD-10) Macular degeneration H35.30 - Unspecified macular degeneration (ICD-10) Emphysema lung J43.9 - Emphysema, unspecified (ICD-10) Prostatic hypertrophy HX of N40.0 - Benign prostatic hyperplasia without lower urinary tract symptoms (ICD-10) Hypertension I10 - Essential (primary) hypertension (ICD-10) Seasonal allergies 2013 J30.2 - Other seasonal allergic rhinitis (ICD-10) Gastroesophageal reflux disease K21.9 - Gastro-esophageal reflux disease without esophagitis (ICD-10) Skin lesions 2012 L98.9 - Disorder of the skin and subcutaneous tissue, unspecified (ICD-10) Hypothyroidism E03.9 - Hypothyroidism, unspecified (ICD-10) Supraumbilical hernia HX of-operated K43.9 - Ventral hernia without obstruction or gangrene (ICD-10) Type II diabetes mellitus E11.9 - Type 2 diabetes mellitus without complications (ICD-10) Benign positional vertigo H81.10 - Benign paroxysmal vertigo, unspecified ear (ICD-10) Obstructive sleep apnea Bi-PAP G47.33 - Obstructive sleep apnea (adult) (pediatric) (ICD-10) Surgical History History of joint surgery (~2000) bilateral knees Z98.890 - Other specified postprocedural states (ICD-10) Status post hernia repair Umbilical Z98.890 - Other specified postprocedural states (ICD-10) Cataract extraction and insertion of intraocular lens (~2000) Family History Mother Dementia FATHER Cancer Colon CA CVA (cerebral vascular accident) BROTHER Alcoholism Cancer Colon CA Mother CVA (cerebral vascular accident) SISTER CVA (cerebral vascular accident) Social History Smoking and tobacco status: Former smoker Alcohol intake: current Alcohol intake frequency: 3 or more drinks per day Alcohol type: hard liquor Substance use type: does not use Adopted: No Caregiver/support person: No Foster care: No Household members: none Housing: house Marital status: W / Lives independently: Yes Daycare: no daycare Number of children: 3 Number of grandchildren: 1 Highest education level completed: Bachelor's degree Financial difficulty paying for basics: not very hard service: Yes branch: [employer] [facility]: No History of recent travel: No Sexually active: No Do you think of yourself as: straight/heterosexual Current gender identity: male Seatbelt use: always Helmet use: No Drives intoxicated or rides with intoxicated driver utility worker: No Water heater temperature set < 120 degrees: No Working smoke detector in home: Yes Fire extinguisher in home: Yes Carbon monoxide detector in home: Yes Firearms in home: Yes Firearms unloaded and locked: Yes Allergies Allergies Allergy/AdvReac Type Severity Reaction Status Date / Time Penicillins AdvReac Unknown Verified 11/10/23 12:12 Current Medications Home Medications multivitamin (Daily Multi-Vitamin tablet) 1 ea PO DAILY 09/07/14 [History Confirmed 11/10/23 Last Taken 12/08/20 08:00] peg 400-propylene glycol 0.4 %-0.3 % eye drops (Systane (propylene glycol)) 1 drp BOTHEYES BID 09/07/14 [History Confirmed 11/10/23 Last Taken 12/08/20 08:00] epinephrine 0.3 mg/0.3 mL injection, auto-injector (EpiPen 2-Chandu) 0.3 mg (0.3 mL) IM PRN PRN Anaphylaxis #2 ea 02/04/21 [Rx Confirmed 11/10/23 Last Taken Unknown] fluticasone furoate 100 mcg-vilanterol 25 mcg/dose inhalation powder (Breo Ellipta) 1 inh inhalation Q24H #60 ea 03/31/21 [Rx Confirmed 11/10/23 Last Taken Unknown] thiamine HCl (vitamin B1) 100 mg tablet 100 mg PO DAILY #90 tabs 08/07/22 [Rx Confirmed 11/10/23 Last Taken Unknown] vitamins A,C,Z-ppqw-gvckju 2,148 mcg-113 mg-45 mg-17.4 mg tablet (PreserVision AREDS) 1 tab PO BID #180 tabs 08/07/22 [Rx Confirmed 11/10/23 Last Taken Unknown] sucralfate 1 gram tablet 1 g PO QID 10/25/22 [History Confirmed 11/10/23 Last Taken Unknown] dorzolamide 2 % eye drops 1 drp BOTHEYES BID 11/09/22 [History Confirmed 11/10/23 Last Taken Unknown] tamsulosin 0.4 mg capsule 0.4 mg PO DAILY #90 tab-caps 12/19/22 [Rx Confirmed 11/10/23 Last Taken Unknown] nortriptyline 25 mg capsule 25 mg PO QHS #90 caps 12/21/22 [Rx Confirmed 11/10/23 Last Taken Unknown] gabapentin 300 mg capsule 300 mg PO BID #60 caps 01/09/23 [Rx Confirmed 11/10/23 Last Taken Unknown] pantoprazole 40 mg tablet,delayed release 40 mg PO BID #180 tabs 02/13/23 [Rx Confirmed 11/10/23 Last Taken Unknown] rivaroxaban 20 mg tablet (Xarelto) See Rx Instructions .Route .COMPLEX #90 tabs 03/02/23 [Rx Confirmed 11/10/23 Last Taken Unknown] finasteride 5 mg tablet See Rx Instructions .Route .COMPLEX #90 tabs 03/21/23 [Rx Confirmed 11/10/23 Last Taken Unknown] latanoprost 0.005 % eye drops 1 drp BOTHEYES QPM 04/09/23 [History Confirmed 11/10/23 Last Taken 04/06/23] carvedilol 12.5 mg tablet (Coreg) 12.5 mg PO BID #60 tabs 04/11/23 [Rx Confirmed 11/10/23 Last Taken Unknown] diltiazem HCl 90 mg capsule,extended release 12 hr 90 mg PO BID #60 caps 04/11/23 [Rx Confirmed 11/10/23 Last Taken Unknown] pregabalin 100 mg capsule 100 mg PO BID 05/19/23 [History Confirmed 11/10/23 Last Taken Unknown] levothyroxine 25 mcg tablet See Rx Instructions .Route .COMPLEX #30 tabs 06/25/23 [Rx Confirmed 11/10/23 Last Taken Unknown] spironolactone 25 mg tablet (Aldactone) 25 mg PO QDAY #30 tabs 06/25/23 [Rx C onfirmed 11/10/23 Last Taken Unknown] blood sugar diagnostic (Posterbeeuch Ultra Test strips) #100 ea 06/27/23 [Rx Confirmed 11/10/23 Last Taken Unknown] blood-glucose meter (Posterbeeuch Ultra2 Meter) #1 ea 06/27/23 [Rx Confirmed 11/10/23 Last Taken Unknown] lancets 33 gauge (StickyTouch Delica Plus Lancet) #100 ea 06/27/23 [Rx Confirmed 11/10/23 Last Taken Unknown] lancing device with lancets kit (MeetLinkshare Delica Plus Lancing Device kit) #1 ea 06/27/23 [Rx Confirmed 11/10/23 Last Taken Unknown] bumetanide 1 mg tablet See Rx Instructions .Route .COMPLEX #90 tabs 09/05/23 [Rx Confirmed 11/10/23 Last Taken Unknown] sacubitril 24 mg-valsartan 26 mg tablet (Entresto) 1 tab PO BID 11/10/23 [History Confirmed 11/10/23 Last Taken Unknown] Home Acetaminophen (Acetaminophen 325 Mg Tablet) 650 mg PO Q4H PRN PRN Reason: Mild Pain Budesonide/Formoterol Fumarate (Budesonide/Formoterol Fumarate 80/4.5 Mcg Hfa.Aer.Ad) 1 puff IH BID [facility] Last Admin: 11/10/23 20:08 Dose: 1 puff Carvedilol (Carvedilol 12.5 Mg Tablet) 12.5 mg PO BIDWM2 [facility] Diltiazem HCl (Diltiazem Hcl 60 Mg Tablet) 90 mg PO BID [facility] Finasteride (Finasteride 5 Mg Tablet) 5 mg PO DAILY [facility] Furosemide (Furosemide Inj 40 Mg/4 Ml Vial) 40 mg IVP Q8HR [facility] Last Admin: 11/11/23 05:40 Dose: 40 mg Gabapentin (Gabapentin 300 Mg Capsule) 300 mg PO BID [facility] Last Admin: 11/10/23 20:09 Dose: 300 mg Latanoprost (Latanoprost 2.5 Ml Opth Lilli) 1 drop EACHEYE QPM [facility] Last Admin: 11/10/23 17:01 Dose: 1 drop Levothyroxine Sodium (Levothyroxine Sodium 25 Mcg Tablet) 25 mcg PO DAILY@0630 [facility] Last Admin: 11/11/23 05:30 Dose: 25 mcg Non-Formulary Medication (Dorzolamide) 1 drop EACHEYE BID [facility] Last Admin: 11/11/23 07:54 Dose: Not Given Nortriptyline HCl (Nortriptyline Hcl 10 Mg Capsule) 20 mg PO BEDTIME [facility] Last Admin: 11/10/23 20:09 Dose: 20 mg Pantoprazole Sodium (Pantoprazole Sodium 40 Mg Tablet.) 40 mg PO BIDAC2 [facility] Pregabalin (Pregabalin 50 Mg Capsule) 100 mg PO BID [facility] Last Admin: 11/10/23 20:09 Dose: 100 mg Rivaroxaban (Rivaroxaban 10 Mg Tablet) 20 mg PO DAILY [facility] Sacubitril/Valsartan (Sacubitril/Valsartan 1 Each Tablet) 1 each PO BID [facility] Last Admin: 11/10/23 20:09 Dose: 1 each Sodium Chloride (0.9% Sodium Chloride 10 Ml Disp.Syrin) 1 syr IVF Q8HR [facility] Last Admin: 11/11/23 05:30 Dose: 1 syr Spironolactone (Spironolactone 25 Mg Tablet) 25 mg PO DAILY [facility] Sucralfate (Sucralfate 1 Gm Tablet) 1 gm PO ACHS2 [facility] Tamsulosin HCl (Tamsulosin Hcl 0.4 Mg Cap.Er.24h) 0.4 mg PO DAILY [facility] Thiamine HCl (Vitamin B-1 100 Mg Tablet) 100 mg PO DAILY [facility] Discontinued Medications Carvedilol (Carvedilol 12.5 Mg Tablet) 12.5 mg PO BID [facility] Last Admin: 11/10/23 20:09 Dose: 12.5 mg Furosemide (Furosemide Inj 100 Mg/10 Ml Vial) 60 mg IVP ONCE ONE Stop: 11/10/23 12:08 Last Admin: 11/10/23 12:51 Dose: 60 mg Pantoprazole Sodium (Pantoprazole Sodium 40 Mg Tablet.Dr) 40 mg PO BID [facility] Last Admin: 11/10/23 20:09 Dose: 40 mg Sucralfate (Sucralfate 1 Gm Tablet) 1 gm PO QID [facility] Last Admin: 11/10/23 20:09 Dose: 1 gm Opioid Naive vs. Tolerant Does Patient Take Opioids?: No Is Patient Opioid Naive?: Yes What is Opioid Naive?: *Opioid Naive implies the patient is not already taking opioids or not chronically receiving opioids on a daily basis. *PRN dosing is not "usually" associated with tolerance. *Patients are at higher risk of over-sedation and aspiration. Is Patient Opioid Tolerant?: No What is Opioid Tolerant?: *Opioid Tolerance implies less than the expected response to an opioid. *Acquired tolerance is defined by the patient taking 60mg of oral morphine daily (or equianalgesic dose of another opioid) for 1 week or more. *Often associated with chronic pain. *May take more than usual dose to achieve desired pain control. Review of Systems Constitutional: Reports Fatigue and Weakness Head: Reports Normocephalic and Atraumatic Cardiovascular: Reports Edema; Denies Chest pain or Chest Pressure Respiratory: Reports Cough and Shortness of air Gastrointestinal: Denies Nausea, Vomiting, Diarrhea, Abdominal pain or Melena Genitourinary: Denies Dysuria or Hematuria Dermatologic: Denies Rashes Neurological: Reports Weakness and Problems with walking Physical examination Most Recent Vital Signs: Most Recent Vital Signs Temperature 98 F 11/10/23 15:45 Temperature Source Oral 11/10/23 15:45 Temperature Source Oral 11/10/23 12:12 Pulse Rate 116 H 11/10/23 16:00 Respiratory Rate 20 11/10/23 16:00 Blood Pressure 142/81 H 11/10/23 12:12 Blood Pressure Left Arm 140/76 11/10/23 15:45 Blood Pressure Position Supine 11/10/23 15:45 O2 Sat by Pulse Oximetry 100 11/10/23 15:45 Oxygen Delivery Method Nasal Cannula 11/10/23 16:00 Oxygen Flow Rate 3 11/10/23 16:00 Height 6 ft 11/10/23 15:45 Weight 280 lb 6 oz 11/10/23 15:45 Telemetry Heart Rate 93 04/11/23 07:00 Telemetry SPO2 98 04/11/23 07:00 Appearance: Positive No Apparent Distress and Alert and Oriented x3 Skin: Positive Cash, Warm and Good Turgor; Negative Rashes HEENT: Positive Normocephalic, Atraumatic and Oral Mucous Moist Neck: Positive Supple and Midline Trachea Chest/Lungs: Positive Clear to Auscultation Bilaterally and Rales; Negative Rhonci or Wheezes Heart: Positive Irregular Rhythm and Tachycardia GI/: Positive Soft, Nontender, Bowel Sounds Normal and No Distention Extremities: Positive Edema (3-4+ pitting edema bilaterally, anasarca ) Neurological: Positive Alert, Oriented and Other (+generalized weakness, no focal deficits ) Psychiatric: Positive Oriented x4, Appropriate Mood and Appropriate Affect Labs This Visit Labs This Visit: Labs This Visit 11/10/23 11/10/23 12:40 14:28 WBC 9.66 RBC 4.57 L Hgb 8.7 L Hct 33.0 L MCV 72.2 L MCH 19.0 L MCHC 26.4 L RDW Coeff of Simi 21.9 H Plt Count 274 Immature Gran % (Auto) 0.7 Neut % (Auto) 75.4 H Lymph % (Auto) 8.6 L [place] % (Auto) 13.1 H Eos % (Auto) 1.8 Baso % (Auto) 0.4 Neut # (Auto) 7.3 H Lymph # (Auto) 0.8 [place] # (Auto) 1.3 Eos # (Auto) 0.2 Baso # (Auto) 0.0 Immature Gran # (Auto) 0.1 Sodium 134.9 Potassium 4.27 Chloride 95.2 L Carbon Dioxide 33.1 H Anion Gap 10.87 BUN 24.5 H Creatinine 1.42 H Estimated GFR (MDRD) 47.00 BUN/Creatinine Ratio 17.25 Glucose 135.7 H Calcium 9.96 Total Bilirubin 0.87 AST 33.3 ALT 15.8 Alkaline Phosphatase 100.6 Troponin I 0.017 NT-Pro-B Natriuret Pep 7620 H Total Protein 6.91 Albumin 4.26 Globulin 2.65 Albumin/Globulin Ratio 1.60 SARS CoV-2 RNA Rapid MAMADOU Negative Imaging Imaging: EXAM: CHEST FRONTAL VIEW HISTORY: Shortness of breath COMPARISON: 05/19/2023- - - - - IMPRESSION: Cardiomegaly and atherosclerotic disease again noted. There is a small right pleural effusion which has developed since prior study. Adjacent density could represent atelectasis or pneumonia. Lungs are otherwise clear. No vascular congestion. Review Statement Review Statement: I have independently reviewed and interpreted the labs/EKGs/imaging that were ordered by the ER provider. I have reviewed all outside records that are available currently in our EMR including imaging/notes/labs from previous visits. Plan Plan: 1. Acute heart failure exacerbation with mildly decreased EF - Last EF 43% within past year by Dr. Malik Guzman. Echo at [facility] on 10/23 showed EF of 55-60 and grade III diastolic dysfunction with severely dilated right atrium. Cont lasix 40 IVP q8hrs, fluid restriction 1800, I&Os, daily weights, low sodium diet. Hold bumex. Cont entresto and spironolactone. Pt requests no bernal. 2. A fib RVR - Pt has not had his home meds. Will continue those and then if still tachycardic will reevaluate. 3. COPD with chronic respiratory failure - Does not appear to be exacerbated at this time. 4. Hypertension - Cont home meds 5. BPH - Cont home meds 6. Hypothyroidism - Check tsh. Cont home meds. 7. GERD - Cont home meds 8. Alcoholism - Monitor for signs of withdrawal. Cont thiamine. DVT Prophylaxis: Xarelto Time Spent: Greater than 80 minutes spent with patient, 50% of the time spent with this patient was devoted to counseling and coordination of care. [facility] minutes spent discussing advance care planning. DNR Disposition: Will require at least two midnights of diuresis Admit to: Inpatient Discussed Plan of Care with Dr. Cheng Guzman. Medications Medication Orders: Medications Ordered Category Date Time Status Acetaminophen [Tylenol] Meds 11/10/23 14:44 Active 650 mg PO Q4H PRN Carvedilol [Coreg] Meds 11/10/23 16:30 Ordered 12.5 mg PO BID Finasteride [Proscar] Meds 11/10/23 16:30 Ordered See Dose Instructions PO .COMPLEX Furosemide [Lasix] Meds 11/10/23 21:00 Active 40 mg IVP Q8HR Gabapentin [Neurontin] Meds 11/10/23 21:00 Ordered 300 mg PO BID Latanoprost [Xalatan] Meds 11/10/23 17:00 Ordered 1 drop EACHEYE QPM Levothyroxine Sodium [Synthroid] Meds 11/10/23 16:30 Ordered See Dose Instructions PO .COMPLEX Pantoprazole Sodium [Protonix] Meds 11/10/23 21:00 Ordered 40 mg PO BID Pregabalin [Lyrica] Meds 11/10/23 21:00 Ordered 100 mg PO BID Rivaroxaban [Xarelto] Meds 11/10/23 16:30 Ordered See Dose Instructions PO .COMPLEX Sacubitril/Valsartan [Entresto 24 mg-26 mg Tablet] Meds 11/10/23 16:30 Ordered 1 each PO BID Spironolactone [Aldactone] Meds 11/10/23 16:30 Ordered 25 mg PO QDAY Sucralfate [Carafate] Meds 11/10/23 17:00 Ordered 1 gm PO QID Tamsulosin HCl [Flomax] Meds 11/11/23 09:00 Ordered 0.4 mg PO DAILY Vitamin B-1 [Thiamine] Meds 11/11/23 09:00 Ordered 100 mg PO DAILY diltiazem HCl Meds 11/10/23 16:30 Ordered 90 mg PO BID dorzolamide Meds 11/10/23 21:00 Ordered 1 drop OP BID fluticasone furoate-vilanterol [Breo Ellipta] Meds 11/10/23 16:15 Ordered 1 inh IH Q24H nortriptyline Meds 11/10/23 16:15 Ordered 25 mg PO QHS peg 400-propylene glycol [Systane (propylene glycol)] Meds 11/10/23 21:00 Ordered 1 drop OP BID
[2023-11-10] MEDS ORDERED: DILTIAZEM HCL 90 MG PO SCH (16:30)
[2023-11-10] MEDS: CARAFATE PO SCH (17:00)
[2023-11-10] MEDS: COREG PO SCH (17:00)
[2023-11-10] MEDS: XALATAN EACHEYE SCH (17:01)
[2023-11-10] MEDS: ENTRESTO 24 MG-26 MG TABLET PO SCH (17:01)
[2023-11-10] MEDS: SYMBICORT 80-4.5 MCG INHALER IH SCH (20:08)
[2023-11-10] MEDS: LASIX IVP SCH (20:08)
[2023-11-10] MEDS: PAMELOR PO SCH (20:09)
[2023-11-10] MEDS: LYRICA PO SCH (20:09)
[2023-11-10] MEDS: NEURONTIN PO SCH (20:09)
[2023-11-10] MEDS: PROTONIX PO SCH (20:09)
[2023-11-10] MEDS: ARTIFICIAL TEARS DROPS OP SCH (20:10)
[2023-11-11] MEDS: SYNTHROID PO SCH (05:30)
[2023-11-11 05:49] LABS: BASOPHILS # (AUTO) 0.1 K/uL (0-0.2); BASOPHILS % (AUTO) 0.6 % (0.0-3.0); EOSINOPHILS # (AUTO) 0.2 K/ul (0.0-0.7); EOSINOPHILS % (AUTO) 2.8 % (0.0-7.0); HEMATOCRIT 33.2 % (42.0-52.0); HEMOGLOBIN 8.5 g/dl (14.0-18.0); IMMATURE GRANULOCYTE # (AUTO) 0.1 (0.0-1.0); IMMATURE GRANULOCYTE % (AUTO) 0.7 % (0.0-5.0); LYMPHOCYTES # (AUTO) 0.9 K/uL (0.60-3.4); LYMPHOCYTES % (AUTO) 10.1 (10.0-50.0); MEAN CORPUSCULAR HGB CONC 25.6 (31.8-35.4); MEAN CORPUSCULAR VOLUME 74.3 fl (80.0-94.0); MONOCYTES # (AUTO) 1.2 K/uL (0.4-2.0); MONOCYTES % (AUTO) 13.7 (0-10); NEUTROPHILS # (AUTO) 6.2 K/ul (2.0-6.9); NEUTROPHILS % (AUTO) 72.1 % (42.2-75.2); PLATELET COUNT 255 10^3/uL (140-440); RDW COEFFICIENT OF VARIATION 21.9 % (11.6-14.8); RED BLOOD COUNT 4.47 10^6/ul (4.70-6.10); WHITE BLOOD COUNT 8.53 K/ul (4.2-10.2)
[2023-11-11 06:05] LABS: ALANINE AMINOTRANSFERASE 14.3 U/L (0-50); ALBUMIN 3.99 g/dL (3.5-5.0); ALKALINE PHOSPHATASE 95.4 U/L (56-119); ASPARTATE AMINO TRANSFERASE 24.1 U/L (17-59); BILIRUBIN,TOTAL 0.71 mg/dL (0.2-1.3); BLOOD UREA NITROGEN 26.4 mg/dL (9-20); CALCIUM 9.63 mg/dL (8.4-10.2); CARBON DIOXIDE 36.3 mmol/L (22-30.0); CHLORIDE 95.4 mmol/L (98-107); CREATININE 1.57 mg/dL (0.60-1.10); GLUCOSE 139.9 mg/dL (74-106); POTASSIUM 4.42 mmol/L (3.5-5.1); SODIUM 134.5 mmol/L (134.5-145); TOTAL PROTEIN 6.62 g/dL (6.3-8.2)
[2023-11-11 09:02] LABS: ABG O2 HGB 96.6 % (95-100); BEecf 15.3 (-2.0-3.0); COHb 3.4 (0.5-1.5); MetHb 0.3 (0-1.5); TCO2 46.2 (19-24); sO2 98.5 % (94-98); tHb 9.1 g/dl (11.7-17.4)
[2023-11-11 09:04] LABS: ABG PH 7.22 (7.35-7.45)
[2023-11-11 10:30] LABS: ABG O2 HGB 94.6 % (95-100); BEecf 15.4 (-2.0-3.0); COHb 2.8 (0.5-1.5); HCO3 41.8 (21-28); TCO2 44.4 (19-24); sO2 96.4 % (94-98); tHb 8.6 g/dl (11.7-17.4)
--- NOTE | 2023-11-11 11:18 | PCM.PROG ---
Date/Time Seen Date Seen by Provider: 11/11/23 Time Seen by Provider: 08:20 Provider Provider: LINH HARRY PA-C, [facility] Chief Complaint Chief Complaint: ACUTE CHF EXACERBATION,A-FIB WITH RVR Subjective Subjective: Nursing staff reports patient was difficult to wake up this morning and unable to give PO meds. Evaluated patient, agree he is difficult to arouse. Will open eyes but otherwise will not wake up. Vitals stable. ABG showing severe hypercapnia. Patient placed on bipap. Pt is a DNR. Has diuresed over 2L since admission. On baseline O2. Objective Appearance: Positive Ill-Appearing and Other (+lethargic ) Chest/Lungs: Positive Clear to Auscultation Bilaterally; Negative Rales, Rhonci or Wheezes Heart: Positive Irregular Rhythm GI/: Positive Soft, Nontender, Bowel Sounds Normal and No Distention Musculoskeletal: Positive Other (3-4+ pitting edema timothy .) Neurological: Positive Other (+unable to evaluate due to lethargy.) Vital Signs Vital Signs: Vital Signs: Last 24 Hours 11/10/23 12:12 11/10/23 15:45 11/10/23 16:00 Temperature 97.8 F 98 F Temperature Source Oral Oral Pulse Rate 106 H 115 H Pulse Rate [Apical] 116 H Respiratory Rate 26 H 16 20 Blood Pressure 142/81 H Blood Pressure Mean Blood Pressure Left Arm 140/76 Blood Pressure Location Blood Pressure Position Supine O2 Sat by Pulse Oximetry 99 100 Oxygen Delivery Method Nasal Cannula Nasal Cannula Oxygen Flow Rate 3 3 Fraction of Inspired Oxygen (FIO2) Height 6 ft 6 ft Weight 290 lb 9.108 oz 280 lb 6 oz Telemetry Type Telemetry Monitoring Irregular Telemetry Rate (Approximate) Telemetry SPO2 EKG QRS Interval Telemetry Strip Reading 11/10/23 17:59 11/10/23 19:00 11/10/23 20:00 Temperature 98 F Temperature Source Temporal Artery Scan Pulse Rate 100 Pulse Rate [Apical] 102 H Respiratory Rate 19 Blood Pressure 109/69 Blood Pressure Mean 82 Blood Pressure Left Arm Blood Pressure Location Right Arm Blood Pressure Position Sitting O2 Sat by Pulse Oximetry 100 Oxygen Delivery Method Nasal Cannula Nasal Cannula Oxygen Flow Rate 3 3 Fraction of Inspired Oxygen (FIO2) Height Weight Telemetry Type Remote Telemetry Telemetry Monitoring Continues Irregular Telemetry Rate (Approximate) 90-100 BPM Telemetry SPO2 EKG QRS Interval 0.07 Telemetry Strip Reading AFIB 11/10/23 21:03 11/11/23 01:00 11/11/23 01:43 Temperature 98.0 F 97.0 F L Temperature Source Temporal Artery Scan Temporal Artery Scan Pulse Rate 88 105 H Pulse Rate [Apical] Respiratory Rate 18 18 Blood Pressure 107/66 128/80 Blood Pressure Mean 79 96 Blood Pressure Left Arm Blood Pressure Location Right Arm Right Arm Blood Pressure Position Sitting Sitting O2 Sat by Pulse Oximetry 95 91 L Oxygen Delivery Method Nasal Cannula Nasal Cannula Oxygen Flow Rate 3 3 Fraction of Inspired Oxygen (FIO2) Height Weight Telemetry Type Remote Telemetry Telemetry Monitoring Continues Irregular Telemetry Rate (Approximate) 80-90 BPM Telemetry SPO2 EKG QRS Interval 0.07 Telemetry Strip Reading AFIB 11/11/23 05:02 11/11/23 07:00 11/11/23 08:00 Temperature 97.2 F L Temperature Source Temporal Artery Scan Pulse Rate 115 H Pulse Rate [Apical] 103 H Respiratory Rate 20 18 Blood Pressure 123/72 Blood Pressure Mean 89 Blood Pressure Left Arm Blood Pressure Location Right Arm Blood Pressure Position Sitting O2 Sat by Pulse Oximetry 98 Oxygen Delivery Method Nasal Cannula Nasal Cannula Oxygen Flow Rate 3 3 Fraction of Inspired Oxygen (FIO2) Height Weight Telemetry Type Remote Telemetry Telemetry Monitoring Continues Irregular Telemetry Rate (Approximate) 80-90 BPM Telemetry SPO2 100 EKG QRS Interval 0.08 Telemetry Strip Reading IB 11/11/23 10:00 11/11/23 10:38 Temperature Temperature Source Pulse Rate 97 Pulse Rate [Apical] Respiratory Rate 20 Blood Pressure 110/68 Blood Pressure Mean 82 Blood Pressure Left Arm Blood Pressure Location Left Arm Blood Pressure Position Sitting O2 Sat by Pulse Oximetry 100 99 Oxygen Delivery Method Bi-pap Oxygen Flow Rate Fraction of Inspired Oxygen (FIO2) 40 Height Weight Telemetry Type Telemetry Monitoring Irregular Telemetry Rate (Approximate) Telemetry SPO2 EKG QRS Interval Telemetry Strip Reading Lab Results Lab Results: Lab Results: Last 24 Hours 11/11/23 11/11/23 11/11/23 10:27 08:59 05:00 WBC 8.53 RBC 4.47 L Hgb 8.5 L Hct 33.2 L MCV 74.3 L MCH 19.0 L MCHC 25.6 L RDW Coeff of Simi 21.9 H Plt Count 255 Immature Gran % (Auto) 0.7 Neut % (Auto) 72.1 Lymph % (Auto) 10.1 [place] % (Auto) 13.7 H Eos % (Auto) 2.8 Baso % (Auto) 0.6 Neut # (Auto) 6.2 Lymph # (Auto) 0.9 [place] # (Auto) 1.2 Eos # (Auto) 0.2 Baso # (Auto) 0.1 Immature Gran # (Auto) 0.1 Puncture Site Rrad [employer] Base Excess 15.4 H 15.3 H O2 Saturation 96.4 98.5 H ABG pH 7.30 L 7.22 L* ABG pCO2 85.0 H 105.0 H ABG pO2 93.0 134.0 H ABG HCO3 41.8 H 43.0 H ABG Total CO2 44.4 H 46.2 H Guevara Test + + Hemoglobin 1.0 0.3 Oxyhemoglobin 94.6 L 96.6 Carboxyhemoglobin 2.8 H 3.4 H Total Hemoglobin 8.6 L 9.1 L O2 Delivery Device Bipap Cannula Oxygen Liter Flow 3.00 Sodium 134.5 Potassium 4.42 Chloride 95.4 L Carbon Dioxide 36.3 H Anion Gap 7.22 BUN 26.4 H Creatinine 1.57 H Estimated GFR (MDRD) 42.00 BUN/Creatinine Ratio 16.81 Glucose 139.9 H Calcium 9.63 Total Bilirubin 0.71 AST 24.1 ALT 14.3 Alkaline Phosphatase 95.4 Troponin I NT-Pro-B Natriuret Pep Total Protein 6.62 Albumin 3.99 Globulin 2.63 Albumin/Globulin Ratio 1.51 SARS CoV-2 RNA Rapid MAMADOU 11/10/23 11/10/23 14:28 12:40 WBC 9.66 RBC 4.57 L Hgb 8.7 L Hct 33.0 L MCV 72.2 L MCH 19.0 L MCHC 26.4 L RDW Coeff of Simi 21.9 H Plt Count 274 Immature Gran % (Auto) 0.7 Neut % (Auto) 75.4 H Lymph % (Auto) 8.6 L [place] % (Auto) 13.1 H Eos % (Auto) 1.8 Baso % (Auto) 0.4 Neut # (Auto) 7.3 H Lymph # (Auto) 0.8 [place] # (Auto) 1.3 Eos # (Auto) 0.2 Baso # (Auto) 0.0 Immature Gran # (Auto) 0.1 Puncture Site Base Excess O2 Saturation ABG pH ABG pCO2 ABG pO2 ABG HCO3 ABG Total CO2 Guevara Test Hemoglobin Oxyhemoglobin Carboxyhemoglobin Total Hemoglobin O2 Delivery Device Oxygen Liter Flow Sodium 134.9 Potassium 4.27 Chloride 95.2 L Carbon Dioxide 33.1 H Anion Gap 10.87 BUN 24.5 H Creatinine 1.42 H Estimated GFR (MDRD) 47.00 BUN/Creatinine Ratio 17.25 Glucose 135.7 H Calcium 9.96 Total Bilirubin 0.87 AST 33.3 ALT 15.8 Alkaline Phosphatase 100.6 Troponin I 0.017 NT-Pro-B Natriuret Pep 7620 H Total Protein 6.91 Albumin 4.26 Globulin 2.65 Albumin/Globulin Ratio 1.60 SARS CoV-2 RNA Rapid MAMADOU Negative Additional Comments Additional Comments: I have independently reviewed and interpreted the labs/EKGs/imaging ordered during this hospital stay. I have reviewed outside records that are available in our EMR that pertain to medical stay including imaging/notes/labs from previous visits. Active Medications Active Medications: Medications Generic Name Dose Route Start Last Admin Trade Name Freq PRN Reason Stop Dose Admin Acetaminophen 650 mg 11/10/23 14:44 Acetaminophen 325 Mg Tablet PO Q4H PRN Mild Pain Budesonide/Formoterol Fumarate 1 puff 11/10/23 21:00 11/10/23 20:08 Budesonide/Formoterol Fumarate 80/4.5 Mcg Hfa.Aer.Ad IH 1 puff BID BRIAN Administration Carvedilol 12.5 mg 11/11/23 07:30 Carvedilol 12.5 Mg Tablet PO BIDWM2 BRIAN Diltiazem HCl 90 mg 11/11/23 09:00 Diltiazem Hcl 60 Mg Tablet PO BID BRIAN Finasteride 5 mg 11/11/23 09:00 Finasteride 5 Mg Tablet PO DAILY BRIAN Furosemide 40 mg 11/10/23 21:00 11/11/23 05:40 Furosemide Inj 40 Mg/4 Ml Vial IVP 40 mg Q8HR BRIAN Administration Gabapentin 300 mg 11/10/23 21:00 11/10/23 20:09 Gabapentin 300 Mg Capsule PO 300 mg BID BRIAN Administration Latanoprost 1 drop 11/10/23 17:00 11/10/23 17:01 Latanoprost 2.5 Ml Opth Lilli EACHEYE 1 drop QPM BRIAN Administration Levothyroxine Sodium 25 mcg 11/11/23 06:30 11/11/23 05:30 Levothyroxine Sodium 25 Mcg Tablet PO 25 mcg DAILY@0630 BRIAN Administration Non-Formulary Medication 1 drop 11/10/23 21:00 11/11/23 07:54 Dorzolamide EACHEYE Not Given BID [facility] Nortriptyline HCl 20 mg 11/10/23 21:00 11/10/23 20:09 Nortriptyline Hcl 10 Mg Capsule PO 20 mg BEDTIME BRIAN Administration Pantoprazole Sodium 40 mg 11/11/23 07:30 Pantoprazole Sodium 40 Mg Tablet. PO BIDAC2 BRIAN Pregabalin 100 mg 11/10/23 21:00 11/10/23 20:09 Pregabalin 50 Mg Capsule PO 100 mg BID BRIAN Administration Rivaroxaban 20 mg 11/11/23 09:00 Rivaroxaban 10 Mg Tablet PO DAILY [facility] Sacubitril/Valsartan 1 each 11/10/23 16:30 11/10/23 20:09 Sacubitril/Valsartan 1 Each Tablet PO 1 each BID [facility] Administration Sodium Chloride 1 syr 11/10/23 21:00 11/11/23 05:30 0.9% Sodium Chloride 10 Ml Disp.Syrin IVF 1 syr Q8HR BRIAN Administration Spironolactone 25 mg 11/11/23 09:00 Spironolactone 25 Mg Tablet PO DAILY [facility] Sucralfate 1 gm 11/11/23 07:30 Sucralfate 1 Gm Tablet PO ACHS2 [facility] Tamsulosin HCl 0.4 mg 11/11/23 09:00 Tamsulosin Hcl 0.4 Mg Cap.Er.24h PO DAILY [facility] Thiamine HCl 100 mg 11/11/23 09:00 Vitamin B-1 100 Mg Tablet PO DAILY [facility] Plan Plan: 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 Baseline CO2 in the 50s. Placed on bipap, settings of 12/5. Repeat ABG in 1 hour showed improvement but not at baseline. 2. Acute heart failure exacerbation with mildly decreased EF - Last EF 43% within past year by Dr. Malik Guzman. Echo at [facility] on 10/23 showed EF of 55-60 and grade III diastolic dysfunction with severely dilated right atrium. Cont lasix 40 IVP q8hrs, fluid restriction 1800, I&Os, daily weights, low sodium diet. Hold bumex. Cont entresto and spironolactone. Pt requests no bernal. 3. A fib RVR - Improved but was unable to take PO meds this morning, will transition to IV if needed today. 4. COPD with chronic respiratory failure - On bipap currently. No wheezing noted at this time. Seems mostly fluid related. 5. Hypertension - Cont home meds 6. BPH - Cont home meds 7. Hypothyroidism - Check tsh. Cont home meds. 8. GERD - Cont home meds 9. Alcoholism - Monitor for signs of withdrawal. Cont thiamine. DVT Prophylaxis: Xarelto Update: Started bipap on settings 12/5 40% FIO2. Repeat ABG after 1 hour showed improved CO2 of 85, PH 7.30. Remained on same settings for another 2 hours. Repeat ABG showing CO2 83, PH 7.32. Changed settings to 15/5 at about 1340, will repeat ABG in 1 hour. Patient is still lethargic but able to answer questions at this time. Bernal placed. Repeat abg showing improved of ph and CO2. Will continue same settings. Review Statement Review Statement: I have personally discussed and reviewed the patient's visit/currently labs/imaging/decision making with Dr. Guzman, my supervising attending. Greater that 50 minutes spent with patient, 50% of the time spent with this patient was devoted to counseling and coordination of care. Critical Care Note Critical Care Note Total Critical Care Time (mins): 40 Comments: Patient has been reevaluated multiple times due to hypercapnia encephalopathy. Pt noted to be lethargic, abg confirmed CO2 of 105 and ph 7.22. Patient placed on bipap. Repeat ABG in 1 hour showing improvement of ph 7.30 and PCO2 of 85. Will remain on current setting and repeat again in 1-2 hours. Patient has become more arousable. POA notified of change in status. Consulted with attending Dr. Cheng Guzman as well. Systems at risk include pulmonary, cardiac, neuro, and renal.
[2023-11-11 13:06] LABS: ABG O2 HGB 96.7 % (95-100); ABG PH 7.32 (7.35-7.45); BEecf 16.7 (-2.0-3.0); COHb 3.9 (0.5-1.5); HCO3 42.8 (21-28); MetHb 0 (0-1.5); TCO2 45.3 (19-24); sO2 98.1 % (94-98); tHb 8.4 g/dl (11.7-17.4)
[2023-11-11] MEDS: CARDIZEM PO SCH (13:10)
[2023-11-11] MEDS: CARAFATE PO SCH (13:10)
[2023-11-11] MEDS: COREG PO SCH (13:11)
[2023-11-11] MEDS: THIAMINE PO SCH (13:12)
[2023-11-11] MEDS: PROTONIX PO SCH (13:12)
[2023-11-11 14:55] LABS: ABG PH 7.37 (7.35-7.45); BEecf 17.5 (-2.0-3.0); HCO3 42.8 (21-28); MetHb 1.1 (0-1.5); TCO2 45.1 (19-24); sO2 98.2 % (94-98); tHb 8.4 g/dl (11.7-17.4)
[2023-11-11 16:55] LABS: ABG O2 HGB 95.2 % (95-100); ABG PH 7.37 (7.35-7.45); BEecf 17.5 (-2.0-3.0); COHb 3.1 (0.5-1.5); HCO3 42.8 (21-28); TCO2 45.1 (19-24); sO2 98.9 % (94-98); tHb 8.4 g/dl (11.7-17.4)
[2023-11-11] MEDS: PROSCAR PO SCH (17:11)
[2023-11-11] MEDS: XARELTO PO SCH (17:11)
[2023-11-11] MEDS: ALDACTONE PO SCH (17:11)
[2023-11-11] MEDS: FLOMAX PO SCH (17:12)
[2023-11-11 21:02] LABS: ABG PH 7.33 (7.35-7.45)
[2023-11-11 21:03] LABS: BEecf 16.3 (-2.0-3.0); HCO3 42.2 (21-28)
[2023-11-11 21:04] LABS: COHb 2.8 (0.5-1.5); TCO2 44.7 (19-24); sO2 98.5 % (94-98); tHb 8.3 g/dl (11.7-17.4)
[2023-11-11 22:37] LABS: ABG O2 HGB 94.5 % (95-100); ABG PH 7.38 (7.35-7.45); BEecf 17.5 (-2.0-3.0); COHb 2.9 (0.5-1.5); HCO3 42.6 (21-28); MetHb 1.7 (0-1.5); TCO2 44.8 (19-24); tHb 8.5 g/dl (11.7-17.4)
[2023-11-12 04:58] LABS: ABG O2 HGB 96.5 % (95-100); ABG PH 7.45 (7.35-7.45); BEecf 15.6 (-2.0-3.0); COHb 4.4 (0.5-1.5); HCO3 39.6 (21-28); MetHb 0 (0-1.5); TCO2 41.3 (19-24); sO2 97.4 % (94-98); tHb 7.8 g/dl (11.7-17.4)
[2023-11-12 05:26] LABS: BASOPHILS % (AUTO) 0.4 % (0.0-3.0); EOSINOPHILS # (AUTO) 0.3 K/ul (0.0-0.7); EOSINOPHILS % (AUTO) 2.5 % (0.0-7.0); HEMATOCRIT 29.8 % (42.0-52.0); HEMOGLOBIN 7.8 g/dl (14.0-18.0); IMMATURE GRANULOCYTE # (AUTO) 0.1 (0.0-1.0); IMMATURE GRANULOCYTE % (AUTO) 0.5 % (0.0-5.0); LYMPHOCYTES # (AUTO) 0.7 K/uL (0.60-3.4); LYMPHOCYTES % (AUTO) 6.7 (10.0-50.0); MEAN CORPUSCULAR HEMOGLOBIN 19.3 pg (27.0-31.0); MEAN CORPUSCULAR HGB CONC 26.2 (31.8-35.4); MEAN CORPUSCULAR VOLUME 73.8 fl (80.0-94.0); MONOCYTES # (AUTO) 1.5 K/uL (0.4-2.0); MONOCYTES % (AUTO) 13.7 (0-10); NEUTROPHILS # (AUTO) 8.3 K/ul (2.0-6.9); NEUTROPHILS % (AUTO) 76.2 % (42.2-75.2); PLATELET COUNT 237 10^3/uL (140-440); RED BLOOD COUNT 4.04 10^6/ul (4.70-6.10); WHITE BLOOD COUNT 10.91 K/ul (4.2-10.2)
[2023-11-12 05:39] LABS: ALANINE AMINOTRANSFERASE 13.1 U/L (0-50); ALBUMIN 3.43 g/dL (3.5-5.0); ALKALINE PHOSPHATASE 84.3 U/L (56-119); ASPARTATE AMINO TRANSFERASE 27.6 U/L (17-59); BLOOD UREA NITROGEN 32.9 mg/dL (9-20); CALCIUM 9.41 mg/dL (8.4-10.2); CARBON DIOXIDE 39.6 mmol/L (22-30.0); CREATININE 1.67 mg/dL (0.60-1.10); GLUCOSE 123.7 mg/dL (74-106); POTASSIUM 4.51 mmol/L (3.5-5.1); SODIUM 132.5 mmol/L (134.5-145); TOTAL PROTEIN 5.76 g/dL (6.3-8.2)
[2023-11-12 06:28] LABS: BILIRUBIN,TOTAL 0.89 mg/dL (0.2-1.3)
--- NOTE | 2023-11-12 09:38 | PCM.PROG ---
Date/Time Seen Date Seen by Provider: 11/12/23 Time Seen by Provider: 08:30 Provider [facility] GARC[facility] Chief Complaint Chief Complaint: ACUTE CHF EXACERBATION,A-FIB WITH RVR Subjective Subjective: States it is difficult to take a deep breath at times, feels full of fluid still, requesting feet to be elevated as much as possible. Wore BIPAP off and on throughout the night on 18/03 with 30% FIO2. CO2 at baseline this am. Patient is alert and oriented this am. Eating breakfast. Objective Appearance: Positive No Apparent Distress, Alert and Oriented x3, Ill-Appearing and Obese Chest/Lungs: Positive Symmetrical With Equal Breath Sounds and Clear to Auscultation Bilaterally (diminished) Heart: Positive RRR and Pulses Normal GI/: Positive Soft, Nontender and Bowel Sounds Normal Musculoskeletal: Positive Other (+3-4 pitting edema BLE) Neurological: Positive Sensation Intact, Motor intact, Reflexes Intact, Alert, Oriented and Other Vital Signs Vital Signs: Vital Signs: Last 24 Hours 11/11/23 10:00 11/11/23 10:38 11/11/23 13:00 Temperature Temperature Source Pulse Rate 97 Respiratory Rate 20 Blood Pressure 110/68 Blood Pressure Mean 82 Blood Pressure Location Left Arm Blood Pressure Position Sitting O2 Sat by Pulse Oximetry 100 99 Oxygen Delivery Method Bi-pap Oxygen Flow Rate Fraction of Inspired Oxygen (FIO2) 40 Telemetry Type Bedside Monitor Telemetry Monitoring Continues Irregular Telemetry Rate (Approximate) 80-90 BPM Telemetry Heart Rate 100 Telemetry SPO2 EKG QRS Interval 0.10 Telemetry Strip Reading AFIB 11/11/23 14:00 11/11/23 14:00 11/11/23 18:00 Temperature 98.1 F 97.7 F Temperature Source Temporal Artery Scan Temporal Artery Scan Pulse Rate 91 107 H Respiratory Rate 15 14 Blood Pressure 100/65 106/62 Blood Pressure Mean 76 76 Blood Pressure Location Left Arm Left Arm Blood Pressure Position Sitting Sitting O2 Sat by Pulse Oximetry 100 98 97 Oxygen Delivery Method Bi-pap Nasal Cannula Oxygen Flow Rate Fraction of Inspired Oxygen (FIO2) 40 Telemetry Type Telemetry Monitoring Irregular Telemetry Rate (Approximate) Telemetry Heart Rate Telemetry SPO2 EKG QRS Interval Telemetry Strip Reading 11/11/23 19:00 11/11/23 19:23 11/11/23 20:00 Temperature Temperature Source Pulse Rate Respiratory Rate Blood Pressure Blood Pressure Mean Blood Pressure Location Blood Pressure Position O2 Sat by Pulse Oximetry Oxygen Delivery Method Nasal Cannula Nasal Cannula Oxygen Flow Rate 3 3 Fraction of Inspired Oxygen (FIO2) Telemetry Type Remote Telemetry Telemetry Monitoring Continues Irregular Telemetry Rate (Approximate) 100-110 BPM Telemetry Heart Rate Telemetry SPO2 90 L EKG QRS Interval 0.08 Telemetry Strip Reading A-FIB WITH RVR 11/11/23 21:11 11/11/23 21:20 11/11/23 21:21 Temperature 98.1 F Temperature Source Temporal Artery Scan Pulse Rate 96 Respiratory Rate 20 Blood Pressure 103/64 Blood Pressure Mean 77 Blood Pressure Location Right Arm Blood Pressure Position Sitting O2 Sat by Pulse Oximetry 92 L Oxygen Delivery Method Nasal Cannula Oxygen Flow Rate 3 Fraction of Inspired Oxygen (FIO2) 40 40 Telemetry Type Telemetry Monitoring Irregular Telemetry Rate (Approximate) Telemetry Heart Rate Telemetry SPO2 EKG QRS Interval Telemetry Strip Reading 11/12/23 00:47 11/12/23 01:38 11/12/23 02:00 Temperature 97.9 F Temperature Source Temporal Artery Scan Pulse Rate 94 Respiratory Rate 20 Blood Pressure 94/54 L Blood Pressure Mean 67 Blood Pressure Location Left Arm Blood Pressure Position Sitting O2 Sat by Pulse Oximetry 95 98 Oxygen Delivery Method Bi-pap Oxygen Flow Rate Fraction of Inspired Oxygen (FIO2) 30 Telemetry Type Remote Telemetry Telemetry Monitoring Continues Irregular Telemetry Rate (Approximate) 80-90 BPM Telemetry Heart Rate Telemetry SPO2 99 EKG QRS Interval 0.08 Telemetry Strip Reading AFIB 11/12/23 04:58 11/12/23 05:08 11/12/23 07:00 Temperature 98.1 F Temperature Source Temporal Artery Scan Pulse Rate 72 Respiratory Rate 24 H Blood Pressure 87/54 L Blood Pressure Mean 65 Blood Pressure Location Left Arm Blood Pressure Position Supine O2 Sat by Pulse Oximetry 94 L 92 L Oxygen Delivery Method Nasal Cannula Nasal Cannula Oxygen Flow Rate 2 2 Fraction of Inspired Oxygen (FIO2) Telemetry Type Remote Telemetry Telemetry Monitoring Continues Irregular Telemetry Rate (Approximate) 100-110 BPM Telemetry Heart Rate Telemetry SPO2 EKG QRS Interval 0.08 Telemetry Strip Reading AFIB 11/12/23 07:04 Temperature Temperature Source Pulse Rate Respiratory Rate Blood Pressure 91/57 L Blood Pressure Mean 68 Blood Pressure Location Left Arm Blood Pressure Position Sitting O2 Sat by Pulse Oximetry Oxygen Delivery Method Nasal Cannula Oxygen Flow Rate Fraction of Inspired Oxygen (FIO2) Telemetry Type Telemetry Monitoring Irregular Telemetry Rate (Approximate) Telemetry Heart Rate Telemetry SPO2 EKG QRS Interval Telemetry Strip Reading Lab Results Lab Results: Lab Results: Last 24 Hours 11/12/23 11/12/23 11/11/23 05:04 04:45 22:27 WBC 10.91 H RBC 4.04 L Hgb 7.8 L Hct 29.8 L MCV 73.8 L MCH 19.3 L MCHC 26.2 L RDW Coeff of Simi 21.0 H Plt Count 237 Immature Gran % (Auto) 0.5 Neut % (Auto) 76.2 H Lymph % (Auto) 6.7 L [place]ade % (Auto) 13.7 H Eos % (Auto) 2.5 Baso % (Auto) 0.4 Neut # (Auto) 8.3 H Lymph # (Auto) 0.7 Dade # (Auto) 1.5 Eos # (Auto) 0.3 Baso # (Auto) 0.0 Immature Gran # (Auto) 0.1 Puncture Site Rr Rr Base Excess 15.6 H 17.5 H O2 Saturation 97.4 99.0 H ABG pH 7.45 7.38 ABG pCO2 57.0 H 72.0 H ABG pO2 91.0 136.0 H ABG HCO3 39.6 H 42.6 H ABG Total CO2 41.3 H 44.8 H Guevara Test Pos Ps Hemoglobin 0 1.7 H Oxyhemoglobin 96.5 94.5 L Carboxyhemoglobin 4.4 H 2.9 H Total Hemoglobin 7.8 L 8.5 L O2 Delivery Device Cannula Bipap Oxygen Liter Flow 2.00 FiO2 % 40.0 Sodium 132.5 L Potassium 4.51 Chloride 92.0 L Carbon Dioxide 39.6 H Anion Gap 5.41 BUN 32.9 H Creatinine 1.67 H Estimated GFR (MDRD) 39.00 BUN/Creatinine Ratio 19.70 Glucose 123.7 H Calcium 9.41 Magnesium Total Bilirubin 0.89 AST 27.6 ALT 13.1 Alkaline Phosphatase 84.3 Total Protein 5.76 L Albumin 3.43 L Globulin 2.33 Albumin/Globulin Ratio 1.47 TSH 11/11/23 11/11/23 11/11/23 20:40 16:47 14:41 WBC RBC Hgb Hct MCV MCH MCHC RDW Coeff of Simi Plt Count Immature Gran % (Auto) Neut % (Auto) Lymph % (Auto) Dade % (Auto) Eos % (Auto) Baso % (Auto) Neut # (Auto) Lymph # (Auto) Dade # (Auto) Eos # (Auto) Baso # (Auto) Immature Gran # (Auto) Puncture Site Rr Rbr Rbr Base Excess 16.3 H 17.5 H 17.5 H O2 Saturation 98.5 H 98.9 H 98.2 H ABG pH 7.33 L 7.37 7.37 ABG pCO2 80.0 H 74.0 H 74.0 H ABG pO2 122.0 H 130.0 H 110.0 H ABG HCO3 42.2 H 42.8 H 42.8 H ABG Total CO2 44.7 H 45.1 H 45.1 H Guevara Test Pos + + Hemoglobin 1.0 1.0 1.1 Oxyhemoglobin 95.0 95.2 95.0 Carboxyhemoglobin 2.8 H 3.1 H 3.0 H Total Hemoglobin 8.3 L 8.4 L 8.4 L O2 Delivery Device Nc Bipap Bipap Oxygen Liter Flow 3.00 FiO2 % 40.0 40.0 Sodium Potassium Chloride Carbon Dioxide Anion Gap BUN Creatinine Estimated GFR (MDRD) BUN/Creatinine Ratio Glucose Calcium Magnesium Total Bilirubin AST ALT Alkaline Phosphatase Total Protein Albumin Globulin Albumin/Globulin Ratio TSH 11/11/23 11/11/23 11/11/23 12:51 11:17 10:27 WBC RBC Hgb Hct MCV MCH MCHC RDW Coeff of Simi Plt Count Immature Gran % (Auto) Neut % (Auto) Lymph % (Auto) Dade % (Auto) Eos % (Auto) Baso % (Auto) Neut # (Auto) Lymph # (Auto) Dade # (Auto) Eos # (Auto) Baso # (Auto) Immature Gran # (Auto) Puncture Site Rbr Rrad Base Excess 16.7 H 15.4 H O2 Saturation 98.1 H 96.4 ABG pH 7.32 L 7.30 L ABG pCO2 83.0 H 85.0 H ABG pO2 113.0 H 93.0 ABG HCO3 42.8 H 41.8 H ABG Total CO2 45.3 H 44.4 H Guevara Test + + Hemoglobin 0 1.0 Oxyhemoglobin 96.7 94.6 L Carboxyhemoglobin 3.9 H 2.8 H Total Hemoglobin 8.4 L 8.6 L O2 Delivery Device Bipap Bipap Oxygen Liter Flow FiO2 % 40.0 Sodium Potassium Chloride Carbon Dioxide Anion Gap BUN Creatinine Estimated GFR (MDRD) BUN/Creatinine Ratio Glucose Calcium Magnesium 2.06 Total Bilirubin AST ALT Alkaline Phosphatase Total Protein Albumin Globulin Albumin/Globulin Ratio TSH 2.330 Additional Comments Additional Comments: I have independently reviewed and interpreted the labs/EKGs/imaging ordered during this hospital stay. I have reviewed outside records that are available in our EMR that pertain to medical stay including imaging/notes/labs from previous visits. Active Medications Active Medications: Medications Generic Name Dose Route Start Last Admin Trade Name Freq PRN Reason Stop Dose Admin Acetaminophen 650 mg 11/10/23 14:44 Acetaminophen 325 Mg Tablet PO Q4H PRN Mild Pain Budesonide/Formoterol Fumarate 1 puff 11/10/23 21:00 11/12/23 09:25 Budesonide/Formoterol Fumarate 80/4.5 Mcg Hfa.Aer.Ad IH 1 puff BID BRIAN Administration Carvedilol 12.5 mg 11/11/23 07:30 11/12/23 09:26 Carvedilol 12.5 Mg Tablet PO 12.5 mg BIDWM2 BRIAN Administration Diltiazem HCl 90 mg 11/11/23 09:00 11/12/23 09:27 Diltiazem Hcl 60 Mg Tablet PO 90 mg BID BRIAN Administration Finasteride 5 mg 11/11/23 09:00 11/12/23 09:27 Finasteride 5 Mg Tablet PO 5 mg DAILY BRIAN Administration Furosemide 40 mg 11/10/23 21:00 11/12/23 04:55 Furosemide Inj 40 Mg/4 Ml Vial IVP 40 mg Q8HR BRIAN Administration Gabapentin 300 mg 11/10/23 21:00 11/12/23 09:26 Gabapentin 300 Mg Capsule PO 300 mg BID BRIAN Administration Latanoprost 1 drop 11/10/23 17:00 11/11/23 17:11 Latanoprost 2.5 Ml Opth Lilli EACHEYE 1 drop QPM BRIAN Administration Levothyroxine Sodium 25 mcg 11/11/23 06:30 11/12/23 05:48 Levothyroxine Sodium 25 Mcg Tablet PO 25 mcg DAILY@0630 BRIAN Administration Non-Formulary Medication 1 drop 11/10/23 21:00 11/12/23 09:30 Dorzolamide EACHEYE Not Given BID BRIAN Nortriptyline HCl 20 mg 11/10/23 21:00 11/11/23 20:17 Nortriptyline Hcl 10 Mg Capsule PO 20 mg BEDTIME BRIAN Administration Pantoprazole Sodium 40 mg 11/11/23 07:30 11/12/23 05:48 Pantoprazole Sodium 40 Mg Tablet.Dr PO 40 mg BIDAC2 BRIAN Administration Pregabalin 100 mg 11/10/23 21:00 11/12/23 09:26 Pregabalin 50 Mg Capsule PO 100 mg BID BRIAN Administration Rivaroxaban 20 mg 11/11/23 09:00 11/12/23 09:30 Rivaroxaban 10 Mg Tablet PO 20 mg DAILY BRIAN Administration Sacubitril/Valsartan 1 each 11/10/23 16:30 11/12/23 09:27 Sacubitril/Valsartan 1 Each Tablet PO 1 each BID BRIAN Administration Sodium Chloride 1 syr 11/10/23 21:00 11/12/23 05:52 0.9% Sodium Chloride 10 Ml Disp.Syrin IVF 1 syr Q8HR BRIAN Administration Spironolactone 25 mg 11/11/23 09:00 11/12/23 09:26 Spironolactone 25 Mg Tablet PO 25 mg DAILY BRIAN Administration Sucralfate 1 gm 11/11/23 07:30 11/12/23 05:48 Sucralfate 1 Gm Tablet PO 1 gm ACHS2 BRIAN Administration Tamsulosin HCl 0.4 mg 11/11/23 09:00 11/12/23 09:27 Tamsulosin Hcl 0.4 Mg Cap.Er.24h PO 0.4 mg DAILY BRINA Administration Thiamine HCl 100 mg 11/11/23 09:00 11/12/23 09:26 Vitamin B-1 100 Mg Tablet PO 100 mg DAILY BRIAN Administration Plan Plan: 1. Hypercapnic encephalopathy - Resolved, ABG at baseline this am 2. Acute heart failure exacerbation with mildly decreased EF - Improving, diuresing well, Last EF 43% within past year by Dr. Malik Guzman. Echo at [facility] on 10/23 showed EF of 55-60 and grade III diastolic dysfunction with severely dilated right atrium. Cont lasix 40 IVP q8hrs, fluid restriction 1800, I&Os, daily weights, low sodium diet. Hold bumex. Cont entresto and spironolactone. Pt requests no bernal. 3. A fib RVR - Improved, continue home meds today now that more alert 4. COPD with chronic respiratory failure - on baseline O2 today, No wheezing noted at this time. Seems mostly fluid related. 5. Hypertension - Cont home meds 6. BPH - Cont home meds 7. Hypothyroidism - Check tsh. Cont home meds. 8. GERD - Cont home meds 9. Alcoholism - Monitor for signs of withdrawal. Cont thiamine. DVT Prophylaxis: Xarelto Review Statement Review Statement: I have personally discussed and reviewed the patient's visit/currently labs/imaging/decision making with Dr. Guzman, my supervising attending. Greater that 50 minutes spent with patient, 50% of the time spent with this patient was devoted to counseling and coordination of care. Additional Comments Additional Comments: Nurse reported to this provider patient was becoming lethargic again and would hardly wake up to answer questions. ABG obtained and CO2>100 again. Patient placed back on BIPAP at this time with FIO2 at 30%. Plan to obtain chest CT once patient is stabilized. Additional Comments: Additional Comments: Patient ABGs continued to trend down with no change in mental status. Edema has further spread to bilateral upper extremities and face despite diuresis. This provider went in room with patient and was able to arouse him enough to carry on a conversation. He was able to voice that he did not wish to undergo extreme measures or further treatment. Discussed if he would be interested in hospice and stated yes and wanted me to contact Eric his POA. Contacted ÁNGEL Reyes following this conversation and discussed patient's condition. Eric reported he wanted to come talk to the patient prior to officially making decision. After Eric and other family arrived, Claudia MESSINA contacted this provider and reported POA wishes of hospice and comfort care. Stopped BIPAP per patient wishes. Morphine, ativan, and scopolamine ordered prn. Will consult hospice in am.
[2023-11-12 12:36] LABS: ABG O2 HGB 91.8 % (95-100); BEecf 16.7 (-2.0-3.0); COHb 3.5 (0.5-1.5); HCO3 44.1 (21-28); MetHb 0.5 (0-1.5); TCO2 47.3 (19-24); sO2 92.2 % (94-98)
[2023-11-12] MEDS ORDERED: ALBUTEROL 0.083% NEB NEB PRN (12:40)
[2023-11-12 12:45] LABS: ABG PH 7.24 (7.35-7.45)
[2023-11-12 14:27] LABS: ABG O2 HGB 93.4 % (95-100); ABG PH 7.38 (7.35-7.45); BEecf 15.7 (-2.0-3.0); COHb 3.6 (0.5-1.5); HCO3 40.8 (21-28); MetHb 1.2 (0-1.5); TCO2 42.9 (19-24); sO2 95.3 % (94-98); tHb 8.1 g/dl (11.7-17.4)
[2023-11-12] MEDS: DUONEB NEB SCH (15:25)
--- NOTE | 2023-11-12 15:52 | DI ---
EXAM: CHEST ONE VIEW, FRONTAL VIEW ONLY. HISTORY: Shortness of breath. COMPARISON: 11/10/2023. FINDINGS: Heart enlarged. Consolidation right lung base with blunting of the right costophrenic ang le noted. Mild increased opacity over the left diaphragm present. Calcified granulomatous changes n oted. There is no pneumothorax. No acute osseous abnormality identified. IMPRESSION: Small right pleural effusion with right basilar atelectasis or pneumonia, similar to prior.
[2023-11-12 17:18] LABS: ABG PH 7.43 (7.35-7.45); BEecf 16.2 (-2.0-3.0); COHb 3.5 (0.5-1.5); HCO3 40.5 (21-28); TCO2 42.4 (19-24); sO2 96.2 % (94-98); tHb 8.1 g/dl (11.7-17.4)
[2023-11-12] MEDS ORDERED: ATIVAN IVP PRN (19:02)
[2023-11-12] MEDS ORDERED: MORPHINE 2 MG/ML SYRINGE IVP PRN (19:02)
[2023-11-12] MEDS ORDERED: TRANSDERM-SCOP 1.5 MG PATCH TD PRN (19:02)
[2023-11-13 05:37] VITALS: BP 106/74; PULSE 108; RESP 18; TEMP 98
--- NOTE | 2023-11-13 08:45 | DCSUM ---
Admission Date Admission Date: 11/10/23 Discharge Date Discharge Date: 11/13/23 Admission Diagnosis Admission Diagnosis: 1. Acute heart failure exacerbation with mildly decreased EF 2. A fib RVR 3. COPD with chronic respiratory failure 4. Hypertension 5. BPH 6. Hypothyroidism 7. GERD 8. Alcoholism Discharge Diagnosis Discharge Diagnosis: 1. Acute Hypercapnic Respiratory Failure in setting of COPD and CHF 2. Hypercapnic encephalopathy 3. Acute heart failure exacerbation with mildly decreased EF 4. A fib RVR 5. COPD with chronic respiratory failure 6. Hypertension 7. BPH 8. Hypothyroidism 9. GERD 10. Alcoholism Hospital Provider Hospital Provider: TOÑO GRACIA, [facility] Primary Care Physician Primary Care Physician: ORVILLE GODOY MD Summary of History and Physical Summary of History and Physical: Patient is a 83 year old male from home with pmhx of CHF, COPD with chronic respiratory failure at 3L, hypertension, CKD, a fib, GERD, chronic anticoagulation, hypothyroidism, who presents to the ER with worsening SOB. He has had worsening swelling for at least the past week or two. No changes in medications recently. [place] he had been doing well on entresto overall. Denies chest pain. Wears 3L at baseline. Caregiver Eric at bedside. Pt states he takes bumex 1 tab daily but increases to 2 tabs if needed and he's tried that the last few days without improvement. He is a chronic drinker, likes bourbon. States he usually doesn't have any issues with withdrawal symptoms. In ER he was noted to have significant edema, elevated bnp, and was given lasix IVP. Pt already diuresing well. Noted at bedside HR 120s consistently. Pt states he has not had his medications yet today. Patient admitted to [facility]. Hospital Course Subjective: On 11/11, patient was difficult to wake up and was unable to receive PO meds. ABG was obtained and showed severe hypercapnia. He was then placed on bipap. CO2 gradually improved. Continued to diurese with lasix IVP Q8H. On 11/12, patient was alert and eating breakfast upon my exam that am during rounds. By lunch time, patient was lethargic and difficult to arouse. ABG obtained and CO2 had increased >100 again. Patient was placed back on bipap and CO2 trended down, however patient's mental status did not improve. Edema spread further to bilateral upper extremities and face. Contacted ÁNGEL Reyes and discussed patient's condition and concerns. He agreed that patient likely needed hospice care. Spoke with patient and he had wishes to be comfortable. All measures were stopped. Patient was placed on NC oxygen, morphine, ativan, and scopolamine was ordered. Time of was 7:04 am on 11/13/2023 pronounced by ER doctor, Dr. [place]. Vital Signs: Most Recent Vital Signs Temperature 98 F 11/13/23 05:35 Temperature Source Temporal Artery Scan 11/13/23 05:35 Temperature Source Oral 11/10/23 12:12 Pulse Rate 108 H 11/13/23 05:35 Respiratory Rate 18 11/13/23 05:35 Blood Pressure 106/74 11/13/23 05:35 Blood Pressure Mean 84 11/13/23 05:35 Blood Pressure Left Arm 140/76 11/10/23 15:45 Blood Pressure Location Left Arm 11/13/23 05:35 Blood Pressure Position Supine 11/13/23 05:35 O2 Sat by Pulse Oximetry 86 L 11/13/23 05:35 Oxygen Delivery Method Nasal Cannula 11/13/23 05:35 Oxygen Flow Rate 2 11/13/23 05:35 Fraction of Inspired Oxygen (FIO2) 30 11/12/23 17:37 Height 6 ft 11/12/23 12:53 Weight 280 lb 6 oz 11/12/23 12:53 Telemetry Type Remote Telemetry 11/13/23 07:00 Telemetry Monitoring Continues 11/13/23 07:00 Irregular Telemetry Rate (Approximate) 110-120 BPM 11/13/23 01:00 Telemetry Heart Rate 0 L 11/13/23 07:00 Telemetry SPO2 96 11/13/23 01:00 EKG QRS Interval 0.07 11/13/23 01:00 Telemetry Strip Reading asytole 11/13/23 07:00 Lab Results Last 24 Hours: 11/12/23 11/12/23 11/12/23 16:54 14:14 12:25 Puncture Site Rbrach Rrad Rbrach Base Excess 16.2 H 15.7 H 16.7 H O2 Saturation 96.2 95.3 92.2 L ABG pH 7.43 7.38 7.24 L* ABG pCO2 61.0 H 69.0 H 103.0 H ABG pO2 81.0 L 79.0 L 75.0 L ABG HCO3 40.5 H 40.8 H 44.1 H ABG Total CO2 42.4 H 42.9 H 47.3 H Guevara Test Pos N/a Hemoglobin 1.0 1.2 0.5 Oxyhemoglobin 94.0 L 93.4 L 91.8 L Carboxyhemoglobin 3.5 H 3.6 H 3.5 H Total Hemoglobin 8.1 L 8.1 L 9.0 L O2 Delivery Device Bipap Bipap Cannula Oxygen Liter Flow 2.00 FiO2 % 30.0 30.0 Discharge Instructions Discharge Planning: Discharge Planning > 40 minutes If patient is discharged with left ventricular systolic dysfunction: NA Discharged with a beta more? [] If no, why not? [] Discharged with an trevor/arb? [] If no, why not? [] : 7:04 am 11/13/23 Discharge Medications: Medications at Discharge (Home Meds & RX) multivitamin (Daily Multi-Vitamin tablet) 1 ea PO DAILY 09/07/14 peg 400-propylene glycol 0.4 %-0.3 % eye drops (Systane (propylene glycol)) 1 drp BOTHEYES BID 09/07/14 epinephrine 0.3 mg/0.3 mL injection, auto-injector (EpiPen 2-Chandu) 0.3 mg (0.3 mL) IM PRN PRN Anaphylaxis #2 ea 02/04/21 fluticasone furoate 100 mcg-vilanterol 25 mcg/dose inhalation powder (Breo Ellipta) 1 inh inhalation Q24H #60 ea 03/31/21 thiamine HCl (vitamin B1) 100 mg tablet 100 mg PO DAILY #90 tabs 08/07/22 vitamins A,C,A-wcyq-jlhfvt 2,148 mcg-113 mg-45 mg-17.4 mg tablet (PreserVision AREDS) 1 tab PO BID #180 tabs 08/07/22 sucralfate 1 gram tablet 1 g PO QID 10/25/22 dorzolamide 2 % eye drops 1 drp BOTHEYES BID 11/09/22 tamsulosin 0.4 mg capsule 0.4 mg PO DAILY #90 tab-caps 12/19/22 nortriptyline 25 mg capsule 25 mg PO QHS #90 caps 12/21/22 gabapentin 300 mg capsule 300 mg PO BID #60 caps 01/09/23 pantoprazole 40 mg tablet,delayed release 40 mg PO BID #180 tabs 02/13/23 rivaroxaban 20 mg tablet (Xarelto) See Rx Instructions .Route .COMPLEX #90 tabs 03/02/23 finasteride 5 mg tablet See Rx Instructions .Route .COMPLEX #90 tabs 03/21/23 latanoprost 0.005 % eye drops 1 drp BOTHEYES QPM 04/09/23 carvedilol 12.5 mg tablet (Coreg) 12.5 mg PO BID #60 tabs 04/11/23 diltiazem HCl 90 mg capsule,extended release 12 hr 90 mg PO BID #60 caps 04/11/23 pregabalin 100 mg capsule 100 mg PO BID 05/19/23 levothyroxine 25 mcg tablet See Rx Instructions .Route .COMPLEX #30 tabs 06/25/23 spironolactone 25 mg tablet (Aldactone) 25 mg PO QDAY #30 tabs 06/25/23 blood sugar diagnostic (Wizzard SoftwareTouch Ultra Test strips) #100 ea 06/27/23 blood-glucose meter (Wizzard SoftwareTouch Ultra2 Meter) #1 ea 06/27/23 lancets 33 gauge (Wizzard SoftwareTouch Delica Plus Lancet) #100 ea 06/27/23 lancing device with lancets kit (OneTouch Delica Plus Lancing Device kit) #1 ea 06/27/23 bumetanide 1 mg tablet See Rx Instructions .Route .COMPLEX #90 tabs 09/05/23 sacubitril 24 mg-valsartan 26 mg tablet (Entresto) 1 tab PO BID 11/10/23 Discharge Plan Discharge Discharge Orders: Discharge Patient (ONCE); Ordered 11/13/23 Ordered By: GERSON BAEZA Activity Restrictions/Additional Instructions: Pt Patient Disposition: Did you review [place] [employer] for ALL controlled substances?: No Discussed opioids are addictive and Narcan is available by prescription or from pharmacy.: No Condition: Date/Time: 11/13/23 07:04
== END 2023-11-13 08:15 | disposition expired | DRG 291 ==
LOC: ED 12:02 → MEDSURG B 12:02 → OBSVTOIN 15:02 → MEDSURG B 15:40
PROVIDERS: ADMIT Hospitalist; ATTEND Nurse Practitioner Family
DX: F10.10 Alcohol abuse, uncomplicated; R60.1 Generalized edema; I51.7 Cardiomegaly; I11.0 Hypertensive heart disease with heart failure; I48.0 Paroxysmal atrial fibrillation; G93.49 Other encephalopathy; I50.33 Acute on chronic diastolic (congestive) heart failure; J90 Pleural effusion, not elsewhere classified; J96.02 Acute respiratory failure with hypercapnia; E03.9 Hypothyroidism, unspecified; Z87.891 Personal history of nicotine dependence; K21.9 Gastro-esophageal reflux disease without esophagitis; J44.9 Chronic obstructive pulmonary disease, unspecified; N40.0 Benign prostatic hyperplasia without lower urinary tract symptoms